=== PATIENT | female | born 1950 | race Caucasian/White ===

== ENCOUNTER 2019-01-17 07:36 | Outpatient (CLI) | payer MEDICARE, SELFPAY ==
--- NOTE | 2019-01-17 09:40 | MERGEMPI_ITS ---
*[facility]* *[facility]* [address] [place] [address] Myocardial Perfusion Imaging - SPECT Regadenoson Date of study: 01/17/2019 (Report amended ) *PATIENT PRESENTATION* Height: 166.4cm (65.5in) Blood Pressure: Weight: 113.6kg (250lb) BSA: 2.35m^2 Referring physician: Vahid Quevedo Ordering physician: Elizabeth Heller Impressions: - Abnormal study after pharmacologic stress. - Low risk of cardiac events, but higher compared to non-diabetics. Summary: 1. Myocardial perfusion imaging: There is a small sized, mildly intense defect involving the apical wall(s). This suggests small myocardial infarction in the distribution of the left anterior descending coronary artery versus artifact. 2. The calculated left ventricular ejection fraction after stress: 56%. LV global systolic function is normal. No left ventricular regional motion abnormality. 3. Stress ECG conclusions: The stress ECG is negative. Recommendations: Risk factor optimization. Indication: R07.9, Appropriate Use Criteria: A (Appropriate). History: REASON FOR TESTING: PATIENT REPORTS INTERMITTENT CHEST HEAVYNESS (9/10) OVER THE LAST FEW MONTHS. THESE EPISODES CAN HAPPEN 2 TIMES PER WEEK AND LAST FOR A FEW SECONDS TO ONE TO TWO MINUTES. SHE STATES SOMETIMES SHE WILL HAVE SHARP (9/10) EPIGASTRIC PAIN WITH THE CHEST HEAVYNESS. A FEW MONTHS AGO SHE EXPERIENCED ONE EPISODE OF LEFT JAW VISEGRIP LIKE FEELING. SHE DENIES CHEST PAIN/HEAVYNESS UPON ARRIVAL TO TESTING TODAY. SMOKING STATUS: QUIT 1999. SMOKED FOR 22 YEARS 1 PPD. EXERCISE ROUTINE: SEDENTARY LIFESTYLE. PMH: COPD. Risk factors: Family history of coronary artery disease. Hypertension. Diabetes mellitus. Obesity. Cholesterol: 156mg/dl. HDL: 50mg/dl. LDL: 95mg/dl. Triglycerides: 144mg/dl. ALLERGIES: IBUPROFEN. METAXALONE. ROFECOXIB. EXENATIDE. SHELLFISH. MARTINS PEPPER. MUSHROOM. MEDICATIONS: ASPIRIN 81 MG DAILY. LEVOTHYROXINE 75 MCG DAILY. VENTOLIN HFA 2 PUFFS Q 4HRS PRN. SYMBICORT 2 PUFFS BID. METHADONE 1 TAB BID. MAGNESIUM CHLORIDE 4 TABS DAILY. GLIMEPIRIDE 4 MG BID. ARTIFICIAL TEARS 2-4 DROPS PRN. FLUTICASONE PROPRIONATE 2 SPRAYS DAILY. TIOTROPIUM-OLODATEROL 2 PUFFS DAILY. BUPROPRION HCL 450 MG DAILY. LORAZAEPAM 0.5 MG DAILY PRN. METFORMIN 1000 MG BID. AMLODIPINE 10 MG DAILY. DULOXETINE 60 MG DAILY, ENALAPRIL MALEATE 2 TABS QAM. FLUCONAZOLE 150 MG. CLOBETASOL-EMOLLIENT 0.1 GM TOPICAL TID. CRANBERRY EXTRACT 200 MG DAILY PRN. DUCOSATE SODIUM 50 MG DAILY PRN. GLARGINE INSULIN 20 UNITS SQ HS. KETOCONAZOLE 2% SHAMPOO THREE TIMES PER WEEK. MOMETASONE 0.1% DAILY. NYSTATIN POWDER [id number] UNIT/GRAM BID. ATORVASTATIN 20 MG QHS. Imaging Technique: Protocol: Regadenoson. Acquisition: Gated SPECT; 1 day - rest/stress. The patient was imaged in the supine position. Attenuation correction used. Isotope administration: - Rest. Tc[99m]-sestamibi. Dose: 12.4mCi. Injection time: 10:15 AM. Injection to stress time: 00:45. - Stress. Tc[99m]-sestamibi. Dose: 36.8mCi. Injection time: 12:10 PM. 1-2 min before end of exercise Baseline ECG: SINUS BRADYCARDIA. 1ST DEGREE HEART BLOCK. HR 58 BPM. Sinus bradycardia with 1degrees AV block. Stress protocol: +--------+--+ + + !Stage !HR!BP (mmHg) !Comments ! +--------+--+ + + !Baseline!58!130/80 (97)! ! +--------+--+ + + !1 min !69!112/62 (79)!Inject Regadenoson.! +--------+--+ + + !3 min !67!120/62 (81)! ! +--------+--+ + + * Stress results: LEXISCAN STRESS TEST ENDED IN 7 MINUTES 7 SECONDS. NORMAL HEART RATE AND BLOOD PRESSURE RESPONSE TO LEXISCAN INJECTION. NO ECTOPY. NO ANGINA. NO SIGNIFICANT ST SEGMENT CHANGES. The rate-pressure product for the peak heart rate and blood pressure was 8040mm Hg/min. Stress ECG: The stress ECG is negative. Myocardial perfusion: Imaging information: gated. The image quality was good. Left ventricular size is normal. There is a small sized, mildly intense defect involving the apical wall(s). This suggests small myocardial infarction in the distribution of the left anterior descending coronary artery versus artifact. Ventricular Function (Wall Motion): The calculated left ventricular ejection fraction after stress: 56%. LV global systolic function is normal. No left ventricular regional motion abnormality. Study data: Vahid Quevedo MD supervised and was readily available during the procedure. This study was interpreted by [facility]. Study status: Routine. Consent: The risks, benefits, and alternatives to the procedure were explained to the patient and informed consent was obtained. Procedure: Initial setup. A baseline ECG was recorded. Surface ECG leads and manual cuff blood pressure measurements were monitored. Heart sounds: Normal. Lung sounds: Normal. Regadenoson stress test. Stress testing was performed, with regadenoson by intravenous bolus, for a total dose of 0.4mgover 10.00sec, followed by a 5ml saline flush. The infusion was terminated due to per protocol. Study completion: All catheters inserted during the procedure were removed. The patient tolerated the procedure well and was discharged from the lab. Discharge: The patient left the laboratory in stable condition. Birthdate: Patient birthdate: 1950. Sex: Gender: female. Study date: Study date: 01/17/2019. Study time: 00:01 AM. Signature Documentation: - The imaging portion of this study was interpreted by [facility] Advisor Vahid Quevedo MD. - The Stress ECG portion of this study was interpreted by Vahid Quevedo MD. Electronically signed by Vahid Quevedo 01/17/2019 15:05
== END 2019-01-17 07:56 ==
PROVIDERS: PCP Family Medicine; Visit Provider Family Medicine
DX: R07.89 Other chest pain (principal); R94.30 Abnormal result of cardiovascular function study, unspecified; I25.2 Old myocardial infarction; E03.9 Hypothyroidism, unspecified; E11.9 Type 2 diabetes mellitus without complications; Z79.4 Long term (current) use of insulin; I10 Essential (primary) hypertension; J44.9 Chronic obstructive pulmonary disease, unspecified; Z87.891 Personal history of nicotine dependence
CPT/HCPCS: 78452; 93016; 93018; 93017

== ENCOUNTER 2019-06-14 12:29 | Outpatient (REF) | payer MEDICARE, SELFPAY | END 2019-06-14 12:49 | LOC: LBN 12:29 | PROVIDERS: PCP Family Medicine; Visit Provider Family Medicine | DX: N39.0 Urinary tract infection, site not specified (principal) | CPT/HCPCS: 87077; 87086; 87186 ==

== ENCOUNTER → 2019-12-19 13:58 | Outpatient (BNVA) | payer MEDICARE, SELFPAY | PROVIDERS: PCP Family Medicine; Referring Provider Family Medicine; Visit Provider Nurse Practitioner Adult Health | DX: G56.21 Lesion of ulnar nerve, right upper limb (principal); J44.9 Chronic obstructive pulmonary disease, unspecified; E11.42 Type 2 diabetes mellitus with diabetic polyneuropathy; I11.0 Hypertensive heart disease with heart failure; I50.9 Heart failure, unspecified; Z79.4 Long term (current) use of insulin | CPT/HCPCS: 95908; 99203 ==

== ENCOUNTER 2020-04-21 00:45 | Outpatient (CLI) | payer MEDICARE, SELFPAY ==
--- NOTE | 2020-04-21 16:20 | DI.MAMMO_ITS ---
EXAM: MG MAMMO SCREENING CLINICAL HISTORY: screening TECHNIQUE: Bilateral full field digital CC and MLO mammographic images were obtained with 3D tomosyn thesis and utilizing computer aided detection (CAD). COMPARISON: Available for comparison. FINDINGS: Masses/Architectural Distortion: None seen. Microcalcifications: No suspicious pleomorphic-type are seen. Skin Thickening/Nipple Retraction: None. IMPRESSION: 1. No significant interval change with no specific features of malignancy noted. 2. Unless there is more urgent need, screening mammography is recommended, as per [employer] guidelines. BI-RADS Category 1 - Negative Breast Density - Category B - Scattered areas of fibroglandular density A negative radiographic report should not delay biopsy if a dominant or clinically suspicious mass is present. Up to ten percent of cancers are not identified on mammography. A negative report may reinforce clinical impression. Adenosis and dense breasts may obscure an underlying neoplasm. False positive reports average 6 to 10%. Patient will receive a letter notifying them of these results.
== END 2020-04-21 01:05 ==
PROVIDERS: PCP Family Medicine; Visit Provider Family Medicine
DX: Z12.31 Encounter for screening mammogram for malignant neoplasm of breast (principal)
CPT/HCPCS: 77063; 77067

== ENCOUNTER 2020-09-08 16:05 | Outpatient (REF) | payer MEDICARE, SELFPAY | END 2020-09-08 16:25 | LOC: NCHCN 16:05 | PROVIDERS: PCP Family Medicine; Visit Provider Physician Assistant | DX: N39.0 Urinary tract infection, site not specified (principal) | CPT/HCPCS: 87077; 87086; 87186 ==

== ENCOUNTER 2020-09-16 18:34 | Outpatient (REF) | payer MEDICARE, SELFPAY ==
[2020-09-16 21:12] LABS: Bilirubin Negative (Negative); Blood Trace-intact (Negative); Clarity Clear (Clear); Glucose Negative (Negative); Ketones Negative (Negative); Leukocyte Esterase Small (Negative); Nitrite Negative (Negative); Specific Gravity 1.025 (1.005-1.025); Urobilinogen 0.2 EU/dL (Up TO 0.2); pH 5.5 (5-8)
[2020-09-16 21:14] LABS: C & S Indicated? C&S Done As Ordered
[2020-09-16 21:30] LABS: Bacteria Few HPF (Negative); Crystals Negative HPF (Negative); Epithelial Cells Negative HPF (Negative); Mucus Negative (Negative); Other Cells Few Renal (Negative); RBC Negative HPF (0-2); WBC >50 HPF (0-5)
[2020-09-20 01:04] LABS: Patient Race White; SARS-CoV-2 RNA Undetected (Undetected); SARS-CoV-2 Specimen Source Nasal
== END 2020-09-16 18:54 ==
LOC: LBN 18:34
PROVIDERS: PCP Family Medicine; Visit Provider Physician Assistant
DX: N39.0 Urinary tract infection, site not specified (principal); R05 Cough
CPT/HCPCS: U0003; 81003; 81015; 87086

== ENCOUNTER 2020-09-17 07:10 | Outpatient (CLI) | payer MEDICARE, SELFPAY ==
[2020-09-17 08:23] LABS: Abs Immature Grans 0.06 10^3/uL (0.0-0.06); Absolute Eosinophil Count 0.42 10^3/uL (0.0-0.7); Absolute Lymphocyte Count 3.32 10^3/uL (1.2-3.4); Absolute Neutrophil Count 4.53 10^3/uL (1.2-6.7); Basophils % 1.1; Eosinophils % 4.6; HCT 42.1 % (36.0-46.0); HGB 13.8 g/dL (11.2-15.7); Immature Grans % 0.7; Lymphocytes % 36.4; MCH 29.5 pg (27.0-33.0); MCHC 32.8 % (32.0-36.0); MPV 9.6 fL (8.0-11.0); Monocytes % 7.7; Neutrophils % 49.5; Nucleated RBC 0 %; Platelet Count 372 10^3/uL (130-400); RBC 4.68 10^6/uL (3.93-5.22); RDW 13.5 % (11.7-14.6); RDW-SD 44.1 fL; WBC 9.13 10^3/uL (4.4-10.8)
[2020-09-17 09:36] LABS: ALT 49 U/L (14-59); AST 38 U/L (15-37); Albumin 3.5 g/dL (3.4-5.0); Alkaline Phosphatase 127 U/L (46-116); Anion Gap 12.7 mmol/L (3-11); BUN 16 mg/dL (7-18); Bilirubin, Total 0.6 mg/dL (0.2-1.0); CO2 25.3 mmol/L (21.0-32.0); CREATININE 0.98 mg/dL (0.55-1.02); Calcium 9.1 mg/dL (8.5-10.1); Chloride 104 mmol/L (98-107); Estimated GFR 56.11 (mL/min/1.73m2); Glucose 198 mg/dL (74-106); Sodium 142 mmol/L (136-145); Total Protein 7.4 g/dL (6.4-8.2)
== END 2020-09-17 07:30 ==
PROVIDERS: PCP Family Medicine; Visit Provider Physician Assistant
DX: R53.81 Other malaise (principal); R09.89 Other specified symptoms and signs involving the circulatory and respiratory systems; N39.0 Urinary tract infection, site not specified
CPT/HCPCS: 36410; 80053; 87040; 85025

== ENCOUNTER 2020-10-17 03:30 | Outpatient (CLI) | payer MEDICARE, SELFPAY ==
[2020-10-17 14:38] LABS: Abs Immature Grans 0.09 10^3/uL (0.0-0.06); Absolute Basophil Count 0.11 10^3/uL (0.0-0.2); Absolute Lymphocyte Count 3.04 10^3/uL (1.2-3.4); Absolute Monocyte Count 0.68 10^3/uL (0.1-0.8); Absolute Neutrophil Count 6.92 10^3/uL (1.2-6.7); Eosinophils % 2.7; HGB 13.4 g/dL (11.2-15.7); Immature Grans % 0.8; Lymphocytes % 27.3; MCH 28.6 pg (27.0-33.0); MCHC 31.9 % (32.0-36.0); MCV 89.7 fL (80-95); MPV 9.3 fL (8.0-11.0); Monocytes % 6.1; Neutrophils % 62.1; Nucleated RBC 0 %; Platelet Count 401 10^3/uL (130-400); RBC 4.68 10^6/uL (3.93-5.22); RDW 13.4 % (11.7-14.6); RDW-SD 43.6 fL; WBC 11.14 10^3/uL (4.4-10.8)
[2020-10-17 15:14] LABS: Anion Gap 9.1 mmol/L (3-11); BUN 20 mg/dL (7-18); CO2 25.9 mmol/L (21.0-32.0); CREATININE 1.08 mg/dL (0.55-1.02); Calcium 9.4 mg/dL (8.5-10.1); Chloride 103 mmol/L (98-107); Estimated GFR 50.01 (mL/min/1.73m2); Glucose 148 mg/dL (74-106); Potassium 4.6 mmol/L (3.5-5.1); Sodium 138 mmol/L (136-145); TSH 2.14 uIU/mL (0.36-3.74)
== END 2020-10-17 03:50 ==
PROVIDERS: PCP Family Medicine; Visit Provider Family Medicine
DX: R07.9 Chest pain, unspecified (principal); E78.5 Hyperlipidemia, unspecified; I10 Essential (primary) hypertension
CPT/HCPCS: 36415; 80048; 84443; 85025

== ENCOUNTER 2021-02-02 09:53 | Outpatient (CLI) | payer MEDICARE, SELFPAY ==
[2021-02-02 12:50] LABS: COMMENT (LAB VIEW ONLY) 124.98 mg/dL; Microalb ug/mg Crea 9.1 ug/mg Cr
[2021-02-02 12:54] LABS: ALT 58 U/L (14-59); AST 39 U/L (15-37); Albumin 3.3 g/dL (3.4-5.0); Alkaline Phosphatase 121 U/L (46-116); Anion Gap 7.5 mmol/L (3-11); BUN 17 mg/dL (7-18); Bilirubin, Total 0.7 mg/dL (0.2-1.0); CO2 28.5 mmol/L (21.0-32.0); Calcium 9.1 mg/dL (8.5-10.1); Calculated LDL 91 mg/dL (<100); Chloride 103 mmol/L (98-107); Cholesterol 171 mg/dL (<200); Estimated GFR 54.66 (mL/min/1.73m2); Glucose 223 mg/dL (74-106); HDL Cholesterol 52 mg/dL (40-60); Potassium 4.7 mmol/L (3.5-5.1); Sodium 139 mmol/L (136-145); Total Protein 7.1 g/dL (6.4-8.2); Triglyceride 141 mg/dL (<150)
== END 2021-02-02 09:54 | disposition home or self-care (01) ==
LOC: LOS 09:54
PROVIDERS: PCP Family Medicine; Visit Provider Family Medicine
DX: E11.9 Type 2 diabetes mellitus without complications (principal)
CPT/HCPCS: 36415; 80053; 80061; 82043; 82570; 83036

== ENCOUNTER 2021-07-17 02:43 | Outpatient (CLI) | payer MEDICARE, SELFPAY ==
[2021-07-17 15:09] LABS: Hemoglobin A1C 8.6 % (<5.7)
[2021-07-17 15:59] LABS: Anion Gap 10.2 mmol/L (3-11); BUN 15 mg/dL (7-18); CO2 24.8 mmol/L (21.0-32.0); CREATININE 1.1 mg/dL (0.55-1.02); Chloride 106 mmol/L (98-107); Estimated GFR 48.96 (mL/min/1.73m2); Glucose 263 mg/dL (74-106); Potassium 4.1 mmol/L (3.5-5.1); Sodium 141 mmol/L (136-145)
== END 2021-07-17 02:44 | disposition home or self-care (01) ==
LOC: LBO 02:43
PROVIDERS: PCP Family Medicine; Visit Provider Family Medicine
DX: E11.9 Type 2 diabetes mellitus without complications (principal)
CPT/HCPCS: 36415; 80048; 83036

== ENCOUNTER 2021-08-26 01:10 | Emergency (ER) | payer MEDICARE, SELFPAY ==
[2021-08-26 01:17] VITALS: BP 179/86; PULSE 71; RESP 20; TEMP 36.5; O2SAT 96
[2021-08-26 01:21] VITALS: BP 179/86; PULSE 70
[2021-08-26 01:47] LABS: Abs Immature Grans 0.08 10^3/uL (0.0-0.06); Absolute Eosinophil Count 0.03 10^3/uL (0.0-0.7); Absolute Lymphocyte Count 1.19 10^3/uL (1.2-3.4); Basophils % 0.6; Eosinophils % 0.2; HCT 45.2 % (36.0-46.0); HGB 14.2 g/dL (11.2-15.7); Immature Grans % 0.5; Lymphocytes % 7.1; MCH 28.7 pg (27.0-33.0); MCHC 31.4 % (32.0-36.0); MCV 91.5 fL (80-95); MPV 9.3 fL (8.0-11.0); Monocytes % 4.1; Neutrophils % 87.5; Nucleated RBC 0 %; Platelet Count 317 10^3/uL (130-400); RBC 4.94 10^6/uL (3.93-5.22); RDW 13.1 % (11.7-14.6); RDW-SD 44.3 fL; WBC 16.74 10^3/uL (4.4-10.8)
[2021-08-26 01:49] LABS: Absolute Monocyte Count 0.69 10^3/uL (0.1-0.8); Absolute Neutrophil Count 14.65 10^3/uL (1.2-6.7)
--- NOTE | 2021-08-26 01:59 | W.ED.GENAD ---
Discharge Plan Disposition Patient Disposition: HOME Condition: Stable Discharge Details Clinical Impression: Colitis Primary Care Provider: Elizabeth Heller ED Provider: Abrahan Jules Home Meds and New Rx's Prescriptions: New metronidazole 500 mg tablet 500 mg PO TID 7 Days Qty: 21 RF: 0 dicyclomine 10 mg capsule 10 mg PO TID PRN (Reason: pain) 5 Days Qty: 14 RF: 0 Continued meclizine 25 mg tablet 25 mg PO BID PRN (Reason: vertigo) Qty: 30 RF: 0 atorvastatin 80 mg tablet 80 mg PO DAILY Qty: 90 RF: 0 benzonatate [Tessalon Perles] 100 mg capsule 100 mg PO TID PRN (Reason: cough) Qty: 10 RF: 0 albuterol sulfate [Ventolin HFA] 8 GM HFA aerosol inhaler 2 puff Inhalation Q4H PRN Qty: 1 RF: 6 Slow-Mag 71.5 MG tablet,delayed release (DR/EC) 4 tab-cap PO DAILY Qty: 180 RF: 0 Artificial Tears([id number]) 30 ML drops 2 - 4 drp Ophthalmic TID PRNQty: 30 RF: 4 lorazepam 0.5 MG tablet 0.5 mg PO daily prn Qty: 30 RF: 0 Colace 50 mg capsule 50 mg PO DAILY PRNQty: 90 RF: 2 isosorbide mononitrate 60 mg tablet extended release 24 hr 60 mg PO DAILY Qty: 30 RF: 0 levothyroxine 100 mcg capsule 100 mcg PO DAILY Qty: 90 RF: 2 ketoconazole 2 % shampoo 1 applic TP .3 times a week Qty: 120 RF: 0 bupropion HCl 150 mg tablet extended release 24 hr 450 mg PO DAILY Qty: 270 RF: 4 enalapril maleate 20 mg tablet 40 mg PO QAM Qty: 180 RF: 4 metoprolol succinate 100 mg tablet extended release 24 hr 100 mg PO DAILY Qty: 90 RF: 4 duloxetine 60 mg capsule,delayed release(DR/EC) 60 mg PO DAILY Qty: 90 RF: 4 trazodone 50 mg tablet 50 mg PO QHS PRN (Reason: sleep) Qty: 90 RF: 1 metformin 1,000 mg tablet 1,000 mg PO BID Qty: 180 RF: 4 glimepiride 4 mg tablet 4 mg PO BID Qty: 180 RF: 4 chlorthalidone 25 mg tablet 12.5 mg PO DAILY Qty: 90 RF: 0 Lantus Solostar U-100 Insulin 100 unit/mL (3 mL) insulin pen 14 unit Sub-Q HS Qty: 15 RF: 2 liraglutide 0.6 mg/0.1 mL (18 mg/3 mL) pen injector 1.8 mg subcut DAILY Qty: 9 RF: 2 Discharge Instructions Instructions: Colitis (ED) Additional Instructions: Home to rest this evening. [place] diet and small, frequent sips of fluids to maintain hydration. Our care management team will arrange a follow-up for you in general surgery clinic as we discussed. Please take antibiotics as prescribed until finished. Bentyl as needed for crampy abdominal pain. Return to the emergency department for any acute concerns. Medical Decision Making 70-year-old female who is insulin-dependent diabetic presents from home with her . Approximate 630 she developed lower, crampy abdominal pain, had 3 bowel movements and noticed some blood in the third and looseness of the bowel movements. She had diaphoresis and appeared clammy at home. She vomited once as well. She rushed to the ER afebrile with a pulse in the 70s, with exam reveals tenderness over the left lower quadrant. Concern for diverticulitis versus colitis. Patient IV access established, given fluids, antiemetic, referred for CT images. White blood cell count is elevated at 16, hematocrit 45, platelets 317. Chemistries with reassuring electrolytes, BUN of 19, creatinine 1.6, glucose 283. Note of slight elevation of total bili at 1.4. LFTs otherwise unremarkable. CT images note fat stranding around the descending and sigmoid colon. Infectious, inflammatory, ischemic colitis considered. No evidence of bowel obstruction and no pneumatosis. Following fluids and medications, the patient is improved, requesting discharge to home. We will ask care management to arrange a follow-up for a general surgery clinic. I will place her on Flagyl and offer Bentyl to be used as needed at home. She understands indications to return to the ER for reevaluation. HPI General Mode of arrival: ambulatory. Date/Time Provider Initiated Documentation: 08/26/21 01:33. Limitations to Documentation: no limitations. Information obtained by: patient and family. History of Present Illness 70 year old F presents to the emergency department with the chief complaint of Lower abdominal pain and bloody diarrhea for hours, described as moderate, Quality is described as dull, and is localized to the abdomen. Patient reports no radiation. Patient started experiencing this hour(s) and it has been constant. No relieving factors improve symptom(s), No exacerbating factors reported . Patient notes loss of appetite and nausea/vomiting. Patient did receive the following treatments prior to arrival, none Related Data Home Medications Medication Instructions Recorded Confirmed albuterol sulfate [Ventolin HFA] 2 puff INHALATION Q4H PRN #1 08/25/16 08/26/21 inhaler Slow-Mag 4 tab-cap PO DAILY #180 tab-cap 02/27/17 08/26/21 Artificial Tears([id number]) 2 - 4 drp OPHTHALMIC TID PRN #30 ml 10/10/17 08/26/21 lorazepam 0.5 mg PO daily prn #30 tab-cap 03/01/18 08/26/21 docusate sodium 50 mg capsule 50 mg PO DAILY PRN #90 tab-cap 08/09/18 08/26/21 isosorbide mononitrate 60 mg 60 mg PO DAILY #30 tab 03/04/19 08/26/21 tablet,extended release 24 hr levothyroxine 100 mcg capsule 100 mcg PO DAILY #90 cap 08/07/19 08/26/21 ketoconazole 2 % shampoo 1 applic TP .3 times a week #120 ml 12/16/19 08/26/21 meclizine 25 mg tablet 25 mg PO BID PRN #30 tab 04/02/20 08/26/21 benzonatate 100 mg capsule 100 mg PO TID PRN #10 cap 09/16/20 08/26/21 bupropion HCl 150 mg 24 hr tablet, 450 mg PO DAILY #270 tab-cap 10/14/20 08/26/21 extended release enalapril maleate 20 mg tablet 40 mg PO QAM #180 tab-cap 10/14/20 08/26/21 metoprolol succinate 100 mg 100 mg PO DAILY #90 tab 10/14/20 08/26/21 tablet,extended release 24 hr duloxetine 60 mg capsule,delayed 60 mg PO DAILY #90 tab-cap 10/16/20 08/26/21 release trazodone 50 mg tablet 50 mg PO QHS PRN #90 tab 10/16/20 08/26/21 atorvastatin 80 mg tablet 80 mg PO DAILY #90 tab 11/02/20 08/26/21 metformin 1,000 mg tablet 1,000 mg PO BID #180 tab-cap 01/09/21 08/26/21 glimepiride 4 mg tablet 4 mg PO BID #180 tab-cap 02/23/21 08/26/21 chlorthalidone 25 mg tablet 12.5 mg PO DAILY #90 tab 03/04/21 08/26/21 insulin glargine 100 unit/mL (3 14 unit SUB-Q HS #15 ml 08/03/21 08/26/21 mL) subcutaneous pen liraglutide 0.6 mg/0.1 mL (18 mg/3 1.8 mg SUBCUT DAILY #9 ml 08/03/21 08/26/21 mL) subcutaneous pen injector dicyclomine 10 mg PO TID PRN 5 Days #14 cap 08/26/21 metronidazole 500 mg PO TID 7 Days #21 tab 08/26/21 Previous Rx's Medication Instructions Recorded lorazepam 0.5 mg PO daily prn #30 tab-cap 03/01/18 isosorbide mononitrate 60 mg 60 mg PO DAILY #30 tab 03/04/19 tablet,extended release 24 hr levothyroxine 100 mcg capsule 100 mcg PO DAILY #90 cap 08/07/19 ketoconazole 2 % shampoo 1 applic TP .3 times a week #120 ml 12/16/19 meclizine 25 mg tablet 25 mg PO BID PRN #30 tab 04/02/20 benzonatate 100 mg capsule 100 mg PO TID PRN #10 cap 09/16/20 bupropion HCl 150 mg 24 hr tablet, 450 mg PO DAILY #270 tab-cap 10/14/20 extended release enalapril maleate 20 mg tablet 40 mg PO QAM #180 tab-cap 10/14/20 metoprolol succinate 100 mg 100 mg PO DAILY #90 tab 10/14/20 tablet,extended release 24 hr duloxetine 60 mg capsule,delayed 60 mg PO DAILY #90 tab-cap 10/16/20 release trazodone 50 mg tablet 50 mg PO QHS PRN #90 tab 12/17/20 atorvastatin 80 mg tablet 80 mg PO DAILY #90 tab 11/02/20 metformin 1,000 mg tablet 1,000 mg PO BID #180 tab-cap 01/09/21 glimepiride 4 mg tablet 4 mg PO BID #180 tab-cap 02/23/21 chlorthalidone 25 mg tablet 12.5 mg PO DAILY #90 tab 03/04/21 insulin glargine 100 unit/mL (3 14 unit SUB-Q HS #15 ml 08/03/21 mL) subcutaneous pen liraglutide 0.6 mg/0.1 mL (18 mg/3 1.8 mg SUBCUT DAILY #9 ml 08/03/21 mL) subcutaneous pen injector dicyclomine 10 mg PO TID PRN 5 Days #14 cap 08/26/21 metronidazole 500 mg PO TID 7 Days #21 tab 08/26/21 Allergies Allergy/AdvReac Type Severity Reaction Status Date / Time shellfish derived Allergy Severe Anaphylaxis Unverified 08/26/21 01:28 ibuprofen Allergy Mild Unverified 08/26/21 01:28 metaxalone Allergy Unverified 08/26/21 01:28 rofecoxib Allergy Unverified 08/26/21 01:28 exenatide [From [place]] AdvReac GI Upset Unverified 08/26/21 01:28 adams pepper Allergy Severe Anaphylaxis Uncoded 08/26/21 01:28 mushrooms Allergy Uncoded 08/26/21 01:28 General Stated Complaint: Abd Prob JULIET: 3 Review of Systems Narrative: 6 systems reviewed and otherwise negative. [facility] Medical History Brachial plexus neuropathy Cervical spinal stenosis MRI 03/2013; Severe left C5-6 and moderate left C3-4 stenosis; multilevel DDD 06/12-[facility] Chronic obstructive lung disease (07/16/13) Dr. PINK/ PFT'S 08/09 Quit smoking 2000 Chronic pain syndrome (10/27/12) on METHADONE; [facility] ; Shana Vaz- visit:12-06-2016 q 4 weeks (left neck and shoulder pain) Coronary artery disease Cubital tunnel syndrome on right Degenerative disc disease lumbar facet hypertrophy L4-5; L5-S1; MRI 07/2009 lumbar spondylosis Depressive disorder Diabetes mellitus [facility] insulin Lantus started/Coreen Bilotta [facility] endo. D.Bilotta/ uncontrolled db. /HbA1c 8.7; increase Glimepiride 4 bid/fup 6 mo. FOLLOWED AT [facility]/LABS INCLUDED Diabetic peripheral neuropathy Diastolic heart failure (12/02/09) MILD; echo 12/10-dysfunction, echo 2013 DNI (do not intubate) DNR (do not resuscitate) Essential hypertension (08/15/13) History of tobacco use Hyperlipidemia Hypothyroidism (04/17/13) [facility]; same rx/D.Bilotta [employer] Kidney stone Osteopenia (09/29/03) POLST (Physician Orders for Life-Sustaining Treatment) Recurrent urinary tract infection Shoulder pain left;2010- S/P supraclavicular lipoma removal; S/P neuroma 1988 [id number]. degenerative cervical spondylosis Urinary, incontinence, stress female Surgical History Cholecystectomy (~2000) History of bladder repair surgery History of hernia repair History of surgical procedure History of umbilical hernia repair (07/12/16) History of unilateral oophorectomy Hysterectomy, Laproscopic (~1985) Oophrectomy, Left (~1998) PROCEDURES BLADDER REPAIR NEC, 1985 URETEROSCOPY, 2002 multiple kidney stones PERIPH GANGLIONECT NEC left ABD REPAIR-DIAPHR HERNIA Repair of inguinal hernia RIGHT Repair of umbilical hernia (06/04/16) [facility] Status post cholecystectomy Status post laparoscopic hysterectomy Family History Mother , 85 Essential hypertension Heart disease Hyperlipidemia Father Essential hypertension Personal history of malignant neoplasm MELANOMA Heart disease Hyperlipidemia Stroke Sister Diabetes Brother Stroke Grandfather Heart disease Grandfather Stroke Grandmother Personal history of malignant neoplasm BREAST/UTERINE Heart disease Grandmother No problems noted. Sister No problems noted. Sister No problems noted. Sister No problems noted. Brother No problems noted. Brother No problems noted. Son No problems noted. Son No problems noted. Social History Smoking/Tobacco Use Status: Former Tobacco Use Smoking risk assessment performed?: Yes Alcohol Intake: current Alcohol Intake frequency: holidays/special occasions only Drug use: Never Substance use type: does not use Household members: spouse Housing: house Number of Children: 3 Pets and animals: No What is your relationship status?: Panel score (0-1 are the most socially isolated patients): 1 What type of physical activity do you participate in: none Chely/Mu-Ism: Judaism Special chely needs: No Seatbelt use: always Do you feel safe at home: Yes Do you feel safe in your relationship?: Yes Exam Narrative Exam Narrative: GEN: awake, alert, oriented 3. Pleasant, well groomed, interactive. HEAD: Normocephalic, atraumatic ENT: Mucous membranes moist, oropharynx unremarkable, External ear exam unremarkable EYES: PERRL, EOMI NECK: Full ROM, no ERIK, no menigismus CHEST/RESP: Nontender, clear to auscultation bilateral, no wheeze/rhonchi/rales CARDIOVASCULAR: RRR, no murmur, rub jerry. 2+ Rad pulse bilateral ABDOMEN: Soft, tender primarily to palpation of left lower quadrant, no mass. +Bowel sounds EXT: Full ROM, no edema, no rash Neuro: Grossly normal neurologic exam, conversant, interactive. Psych: Speech fluent, thoughts congruent, affect normal Course Vital Signs Vital signs: Vital Signs Temperature 36.5 C 08/26/21 01:17 Pulse 71 08/26/21 01:17 Respiratory Rate 20 08/26/21 01:17 Blood Pressure 179/86 H 08/26/21 01:17 Pulse Oximetry 96 08/26/21 01:17 Temperature 36.5 C 08/26/21 01:17 Temperature Source Temporal Artery Scan 08/26/21 01:17 Pulse 71 08/26/21 01:17 Respiratory Rate 20 08/26/21 01:17 Respiratory Effort Non-Labored 08/26/21 01:29 Blood Pressure 179/86 H 08/26/21 01:17 Blood Pressure Position Sitting 08/26/21 01:17 Pulse Oximetry 96 08/26/21 01:17 Oxygen Delivery Method Room Air 08/26/21 01:17 Oxygen Flow Rate 0 08/26/21 01:17 Pain Level 8 08/26/21 01:17 Lab/Test Results Lab/Test Results: Laboratory Tests Range/Units 08/26/21 01:40 WBC (4.4-10.8) 10^3/uL 16.74 H RBC (3.93-5.22) 10^6/uL 4.94 Hgb (11.2-15.7) g/dL 14.2 Hct (36.0-46.0) % 45.2 MCV (80-95) fL 91.5 MCH (27.0-33.0) pg 28.7 MCHC (32.0-36.0) % 31.4 L RDW (11.7-14.6) % 13.1 Plt Count (130-400) 10^3/uL 317 MPV (8.0-11.0) fL 9.3 Immature Gran % 0.5 Neutrophils % 87.5 Lymphocytes % 7.1 Monocytes % 4.1 Eosinophils % 0.2 Basophils % 0.6 Nucleated RBC % % 0 Absolute Neutrophils (1.2-6.7) 10^3/uL 14.65 H Absolute Lymphocytes (1.2-3.4) 10^3/uL 1.19 L Absolute Monocytes (0.1-0.8) 10^3/uL 0.69 Absolute Eosinophils (0.0-0.7) 10^3/uL 0.03 Absolute Basophils (0.0-0.2) 10^3/uL 0.10
--- NOTE | 2021-08-26 02:00 | DI.CT_ITS ---
Exam(s) CT ABDOMEN PELVIS WO EXAM: CT ABDOMEN PELVIS WO CLINICAL HISTORY: lower abd pain and hematochezia. LLQ. TECHNIQUE: Imaging Protocol: Axial computed tomography images with coronal and sagittal reformatted images were created and reviewed CONTRAST MATERIAL: Intravenous: none Oral: None COMPARISON: No exams were available for comparison FINDINGS: VISUALIZED LUNG BASES: Mild infiltrate in the inferior lingular segment of the left lung. There are no pleural effusions.. ABDOMEN: There is no ascites. LIVER: There are no obvious focal hepatic lesions evident of this noninfused study. GALLBLADDER/BILIARY: The gallbladder surgically absent. CBD is not dilated. PANCREAS: There are few punctate parenchymal calcifications in the pancreas. No obvious pancreatic m ass evident on this noninfused study. No dilatation pancreatic duct. No peripancreatic fluid or str eaking. SPLEEN: Spleen is not enlarged. No obvious intrasplenic lesions. ADRENALS: There are no significant adrenal masses. KIDNEYS:There is a nonobstructive 3-4 millimeter calculus in the inferior pole of left kidney and the re is a punctate nonobstructive calculus the midpole level the right kidney. No cyst or solid renal masses. No perinephric fluid.. ABDOMINAL AORTA: Peripherally calcified abdominal aorta. Mild infrarenal fusiform dilatation measuri ng 2.2 cm. LYMPH NODES: There is no retroperitoneal nor paraaortic adenopathy. ABDOMINAL WALL: There is anterior abdominal wall umbilical hernia mesh repair. No hernia evident at this time. No abnormal fluid collection. GI: A large segment of the sigmoid appears unremarkable. There are no obvious diverticuli but there is abnormal streaking around the: At and below the splenic flexure, this extending to just above the rectum most probably consistent with colitis pattern. There is no gas in the portal venous system. PELVIS: LYMPH NODES: There is no intrapelvic nor inguinal adenopathy. GI: No evidence of appendicitis.As above URINARY BLADDER: Collapsed. REPRODUCTIVE: Uterus surgically absent. No abnormal adnexal masses. No free fluid in the pelvis. OSSEOUS: No significant osseous lesions. IMPRESSION: 1. Main finding here is abnormal appearance of the left side of the colon-descending colon and sigmoi d, as described above. Either infectious, inflammatory or ischemic. There is no gas in the portal v enous system. Cannot assess mesenteric arteries here as there is no IV contrast on this study. Ther e is no evidence of bowel obstruction. 2. There is evidence of previous cholecystectomy and hysterectomy. Also prior anterior abdominal her ruben repair. Presently there are no hernias nor abnormal fluid collections. 3. There are multiple punctate pancreatic calcifications. No evidence of acute pancreatitis. No yovanny dence of peripancreatic streaking. No pancreatic mass. No dilatation pancreatic duct. RADIATION DOSE DELIVERED: 1,391.69mGy.cm Total DLP DATA REPOSITORY: All CT scans at this facility are submitted to the National Radiology Data Registry (NRDR) Dose Index Registry (DIR) with the [employer] (ACR). RADIATION OPTIMIZATION: All CT scans at this facility use at least one of these dose optimization te chniques: automated exposure control; mA and/or kV adjustment per patient size (includes targeted exa ms where dose is matched to clinical indication); or iterative reconstruction.
[2021-08-26 02:02] LABS: ALT 46 U/L (14-59); AST 43 U/L (15-37); Albumin 3.7 g/dL (3.4-5.0); Alkaline Phosphatase 118 U/L (46-116); Anion Gap 13.8 mmol/L (3-11); BUN 19 mg/dL (7-18); Bilirubin, Total 1.4 mg/dL (0.2-1.0); CO2 23.2 mmol/L (21.0-32.0); CREATININE 1.6 mg/dL (0.55-1.02); Calcium 9.2 mg/dL (8.5-10.1); Chloride 103 mmol/L (98-107); Estimated GFR 31.78 (mL/min/1.73m2); Glucose 283 mg/dL (74-106); Magnesium 1.5 mg/dL (1.8-2.4); Potassium 4.4 mmol/L (3.5-5.1); Sodium 140 mmol/L (136-145); Total Protein 7.8 g/dL (6.4-8.2)
[2021-08-26] MEDS: Normal Saline 1,000 ML 125 ML IV (02:40)
[2021-08-26] MEDS: Ondansetron 4 MG/2 ML VIAL IVP (02:44)
--- NOTE | 2021-08-26 03:07 | DI.VRAD_ITS ---
PROCEDURE INFORMATION: Exam: CT Abdomen And Pelvis Without Contrast Exam date and time: 08/26/2021 2:07 AM Age: 70 years old Clinical indication: Abdominal pain; Localized; Left lower quadrant (llq); Prior surgery; Surgery date: 6+ months; Surgery type: Hysterectomy and cholecystectomy; Patient HX: Lower abd pain and hematochezia. Llq TECHNIQUE: Imaging protocol: Computed tomography of the abdomen and pelvis without contrast. Radiation optimization: All CT scans at this facility use at least one of these dose optimization techniques: automated exposure control; mA and/or kV adjustment per patient size (includes targeted exams where dose is matched to clinical indication); or iterative reconstruction. COMPARISON: No relevant prior studies available. FINDINGS: Lungs: Mild atelectasis or scar tissue noted in the inferior lingula. Liver: Unremarkable noncontrast liver imaging. Gallbladder and bile ducts: Cholecystectomy clips. Pancreas: Scattered pancreatic calcifications. Pancreatic duct is not dilated. No acute inflammatory changes. Spleen: Normal. No splenomegaly. Adrenal glands: Normal. No mass. Kidneys and ureters: Negative for hydronephrosis. Nonobstructive 4 mm stone inferior left kidney. Nondilated ureters. Stomach and bowel: Unremarkable stomach. Nondilated small bowel. Normal terminal ileum. Cecum, ascending, and transverse colon are normal. Fat stranding present around the descending and sigmoid colon. Lumen is collapsed. There is no air within the elizabeth. Distal sigmoid colon is closely apposed and may be adherent to the vaginal cuff. Rectum is unremarkable. Appendix: Normal appendix. Intraperitoneal space: Negative for free fluid or free air. Negative for mesenteric venous gas. Vasculature: Negative for aneurysm. Moderate arteriosclerotic calcifications. Lymph nodes: Unremarkable. No enlarged lymph nodes. Urinary bladder: Collapsed urinary bladder. No stones. Reproductive: Uterus is absent. Negative for adnexal mass or cyst. Bones/joints: Negative for compression fracture. Moderate multilevel facet arthropathy. Soft tissues: Unremarkable. IMPRESSION: 1. Abnormal descending and sigmoid colon. Infectious, inflammatory, or ischemic colitis considered. 2. Negative for mesenteric venous gas or pneumatosis. 3. Negative for bowel obstruction. Dictated and Authenticated by: Iván Lee MD. Ordering:YEYO Gauthier MD
[2021-08-26] MEDS: HYDROmorphone 2 MG/ML VIAL 0.5 MG IVP (03:29)
[2021-08-26] MEDS: metroNIDAZOLE 500 MG/100 ML BAG 100 MG IVPB (03:29)
[2021-08-26 03:46] LABS: Bilirubin Negative (Negative); Blood Trace-intact (Negative); Clarity Sl Cloudy (Clear); Glucose 500 mg/dL (Negative); Ketones Trace mg/dL (Negative); Leukocyte Esterase Small (Negative); Nitrite Negative (Negative); Urobilinogen 0.2 EU/dL (Up TO 0.2)
[2021-08-26 04:07] LABS: Bacteria Few HPF (Negative); C & S Indicated? No/Sq. Contamination; Casts Negative LPF (Negative); Crystals Negative HPF (Negative); Epithelial Cells Moderate HPF (Negative); Mucus Negative (Negative); Other Cells Few Transitional (Negative)
[2021-08-26 04:36] VITALS: O2SAT 92
[2021-08-26 04:37] VITALS: BP 198/88; PULSE 75
[2021-08-26 04:39] VITALS: BP 191/73; PULSE 75
--- NOTE | 2021-08-27 11:12 | PDOC.ERCMPRO ---
- If Service Date Differs Date of service: 08/27/21 Time of Service: 11:12 Care Management Progress Note Wanda is seen in the ED for colitis. At the request of ED provider, CM coordinates a referral to [facility] to assist patient in obtaining a follow up appointment.
== END 2021-08-26 04:43 | disposition home or self-care (01) ==
PROVIDERS: Emergency Provider Emergency Medicine; PCP Family Medicine
DX: K52.9 Noninfective gastroenteritis and colitis, unspecified (principal); R10.32 Left lower quadrant pain; K92.1 Melena
CPT/HCPCS: 36415; 80053; 96361; 96365; 96375; 99284; 74176; 81003; 81015; 83735; 85025; J2405

== ENCOUNTER → 2021-10-12 12:49 | Outpatient (BNVA) | payer MEDICARE, SELFPAY | PROVIDERS: Referring Provider Family Medicine; Visit Provider Surgery | DX: K62.5 Hemorrhage of anus and rectum (principal); J44.9 Chronic obstructive pulmonary disease, unspecified; K52.9 Noninfective gastroenteritis and colitis, unspecified; E11.42 Type 2 diabetes mellitus with diabetic polyneuropathy; I10 Essential (primary) hypertension; I50.30 Unspecified diastolic (congestive) heart failure | CPT/HCPCS: 99214; 99243 ==

== ENCOUNTER 2021-10-15 02:41 | Outpatient (CLI) | payer MEDICARE, SELFPAY ==
[2021-10-15] MEDS: Inhaler, Assist Device 1 EACH MC (13:41)
[2021-10-15] MEDS: Albuterol HFA 18 GM 200 PUFF INH IH (13:41)
--- NOTE | 2021-10-16 13:56 | W.PFT ---
Date of service: 10/15/21 Time of Service: 12:58 Pulmonary Function Test Result Requesting Provider Elizabeth Heller Indications: Dyspnea on exertion Interpretation Spirometry: There is moderate airflow limitation. There is a very significant bronchodilator response. Impression Moderate airflow limitation with a significant bronchodilator response. Clinical Correlation therefore is recommended.
== END 2021-10-15 02:42 | disposition home or self-care (01) ==
LOC: RT 02:41
PROVIDERS: Visit Provider Family Medicine
DX: J44.9 Chronic obstructive pulmonary disease, unspecified (principal); R06.09 Other forms of dyspnea; R05.8 Other specified cough; Z87.891 Personal history of nicotine dependence; Z57.4 Occupational exposure to toxic agents in agriculture; R94.2 Abnormal results of pulmonary function studies
CPT/HCPCS: 94060

== ENCOUNTER 2021-10-16 03:16 | Outpatient (CLI) | payer MEDICARE, SELFPAY ==
[2021-10-16 11:23] LABS: Abs Immature Grans 0.03 10^3/uL (0.0-0.06); Absolute Basophil Count 0.13 10^3/uL (0.0-0.2); Absolute Eosinophil Count 0.44 10^3/uL (0.0-0.7); Absolute Lymphocyte Count 2.51 10^3/uL (1.2-3.4); Absolute Monocyte Count 0.69 10^3/uL (0.1-0.8); Absolute Neutrophil Count 4.37 10^3/uL (1.2-6.7); Basophils % 1.6; Eosinophils % 5.4; HGB 13.6 g/dL (11.2-15.7); Immature Grans % 0.4; Lymphocytes % 30.7; MCHC 31.6 % (32.0-36.0); MCV 91.7 fL (80-95); MPV 8.9 fL (8.0-11.0); Monocytes % 8.4; Neutrophils % 53.5; Nucleated RBC 0 %; Platelet Count 352 10^3/uL (130-400); RBC 4.69 10^6/uL (3.93-5.22); RDW 12.8 % (11.7-14.6); RDW-SD 42.9 fL; WBC 8.17 10^3/uL (4.4-10.8)
[2021-10-16 11:36] LABS: Hemoglobin A1C 8.2 % (<5.7)
[2021-10-16 12:26] LABS: COMMENT (LAB VIEW ONLY) 173.54 mg/dL; Microalb ug/mg Crea 6.4 ug/mg Cr
[2021-10-16 12:29] LABS: ALT 36 U/L (14-59); AST 31 U/L (15-37); Albumin 3.5 g/dL (3.4-5.0); Alkaline Phosphatase 139 U/L (46-116); Anion Gap 9.2 mmol/L (3-11); BUN 19 mg/dL (7-18); Bilirubin, Total 0.9 mg/dL (0.2-1.0); CO2 27.8 mmol/L (21.0-32.0); CREATININE 1.1 mg/dL (0.55-1.02); Calcium 9.6 mg/dL (8.5-10.1); Chloride 103 mmol/L (98-107); Estimated GFR 48.82 (mL/min/1.73m2); Ferritin 47 ng/mL (8-252); Glucose 228 mg/dL (74-106); Magnesium 1.4 mg/dL (1.8-2.4); Potassium 4.2 mmol/L (3.5-5.1); Sodium 140 mmol/L (136-145); Total Protein 7.5 g/dL (6.4-8.2)
[2021-10-16 12:31] LABS: Iron 72 ug/dL (50-170); Total Iron Binding Capacity 325 ug/dL (250-450); Transferrin Sat 22 % (15-50)
[2021-10-16 12:41] LABS: C-Reactive Protein 0.21 mg/dL (0.0-0.3)
== END 2021-10-16 03:17 | disposition home or self-care (01) ==
LOC: LBO 03:16
PROVIDERS: Family Medicine; Visit Provider Surgery
DX: E83.42 Hypomagnesemia (principal); E03.9 Hypothyroidism, unspecified; E11.42 Type 2 diabetes mellitus with diabetic polyneuropathy; E78.5 Hyperlipidemia, unspecified; I10 Essential (primary) hypertension; I25.10 Atherosclerotic heart disease of native coronary artery without angina pectoris; J44.9 Chronic obstructive pulmonary disease, unspecified; K52.9 Noninfective gastroenteritis and colitis, unspecified; K76.0 Fatty (change of) liver, not elsewhere classified; K62.5 Hemorrhage of anus and rectum
CPT/HCPCS: 36415; 80053; 82043; 82570; 82728; 83036; 83540; 83550; 83735; 85025; 86140

== ENCOUNTER → 2022-01-14 09:54 | Outpatient (BNVA) | payer MEDICARE, SELFPAY | PROVIDERS: Visit Provider Physical Therapy Assistant | DX: Z12.11 Encounter for screening for malignant neoplasm of colon (principal) ==

== ENCOUNTER 2022-01-20 01:36 | Outpatient (CLI) | payer MEDICARE, SELFPAY ==
[2022-01-20 11:38] LABS: Source Nasal/Nares
[2022-01-20 21:56] LABS: COVID-19 PCR Negative (Negative)
== END 2022-01-20 01:37 | disposition home or self-care (01) ==
LOC: LBO 01:36
PROVIDERS: Visit Provider Surgery
DX: Z20.822 Contact with and (suspected) exposure to COVID-19 (principal)
CPT/HCPCS: 87635; U0005

== ENCOUNTER 2022-01-20 02:48 | Outpatient (CLI) | payer MEDICARE, SELFPAY ==
[2022-01-20 16:28] LABS: Anion Gap 7.7 mmol/L (3-11); BUN 22 mg/dL (7-18); CO2 29.3 mmol/L (21.0-32.0); CREATININE 1.2 mg/dL (0.55-1.02); Chloride 102 mmol/L (98-107); Estimated GFR 44.16 (mL/min/1.73m2); Glucose 126 mg/dL (74-106); Potassium 4.5 mmol/L (3.5-5.1); Sodium 139 mmol/L (136-145)
== END 2022-01-20 02:49 | disposition home or self-care (01) ==
LOC: LBO 02:48
PROVIDERS: Visit Provider Surgery
DX: E11.42 Type 2 diabetes mellitus with diabetic polyneuropathy (principal); I10 Essential (primary) hypertension; E03.9 Hypothyroidism, unspecified; E78.5 Hyperlipidemia, unspecified; I25.10 Atherosclerotic heart disease of native coronary artery without angina pectoris
CPT/HCPCS: 36415; 80048; 87635; U0005

== ENCOUNTER 2022-01-22 06:12 | Day surgery (SDC) | payer MEDICARE, SELFPAY ==
--- NOTE | 2022-01-21 10:01 | W.COLOREPORT ---
Colonoscopy Report Date of procedure: 01/22/22 Pre-op diagnosis general: abdominal pain and bloody diarrhea Post-op diagnosis procedure note: other (diverticula) Surgeon: Yeny Clarke Anesthesia Type: General:No Airway Complications: None Disposition: same day Procedure Description: After informed consent was obtained the patient was taken to the procedure room and placed in a left decubitous position. Monitors were applied and a time out was done. The patients name, date of , procedure, allergies to medications and metal in their body was reviewed. The patient was then sedated. Once sedated and comfortable a rectal exam was done. External exam shows external hemorrhoidal tag. Internal exam revealed a normal sphincter tone and no palpable masses. The scope was then introduced and retrofelexed. No internal hemorrhoids were identified. The scope was then advanced to the cecum withoutdifficulty. The TI and appendiceal orifice were identified. The prep was BBPS-2 in all segments for a total of 6 the scope was then slowly retracted over 9 minutes back into the rectum. There are no polyps or AVMs noted. There are a few small scattered diverticula. There is no signs of active bleeding or infection. The mucosa appears somewhat pale and anemic. But it is otherwise normal. There are no polyps or masses. There is a area of submucosal irregularity at 20 cm and this was biopsied. Random biopsies are taken of the cecum, 70, 50, 30 cm in the rectum. Te scope was removed and the patient was woken up and taken back to Same day surgery in stable condition. The patient tolerated the procedure well and there were no immediate complications. Follow up: The patient does not require any further screening colonoscopies, unless they develop changes in bowel habits or other new gastrointestinal complaints.
--- NOTE | 2022-01-21 10:01 | W.PM.DSUDISC ---
Discharge Plan Disposition Patient Disposition: HOME Condition: Good Discharge Details Reason For Visit: colon scope Attending Provider: Yeny Clarke Primary Care Provider: Savannah Guerra Home Meds and New Rx's Prescriptions: Continued meclizine 25 mg tablet 25 mg PO BID PRN (Reason: vertigo) Qty: 30 0RF Spiriva Respimat 2.5 mcg/actuation mist 2 puff inhalation DAILY Qty: 4 12RF budesonide-formoterol [Symbicort] 160-4.5 mcg/actuation HFA aerosol inhaler 2 puff inhalation BID Qty: 10.2 12RF atorvastatin 80 mg tablet 80 mg PO DAILY Qty: 90 0RF Rx Instructions: per cardiology [facility] - not sent Slow-Mag 71.5 MG tablet,delayed release (DR/EC) 4 tab-cap PO DAILY Qty: 180 0RF lorazepam 0.5 MG tablet 0.5 mg PO daily prn Qty: 30 0RF Colace 50 mg capsule 50 mg PO DAILY PRNQty: 90 2RF trazodone 50 mg tablet 50 mg PO QHS PRN (Reason: sleep) Qty: 90 1RF metformin 1,000 mg tablet 1,000 mg PO BID Qty: 180 4RF glimepiride 4 mg tablet 4 mg PO BID Qty: 180 4RF chlorthalidone 25 mg tablet 12.5 mg PO DAILY Qty: 90 0RF Rx Instructions: [facility] endocrinology started 02/25/21/ not sent bupropion HCl 150 mg tablet extended release 24 hr 450 mg PO DAILY Qty: 270 4RF enalapril maleate 20 mg tablet 40 mg PO QAM Qty: 180 4RF Lantus Solostar U-100 Insulin 100 unit/mL (3 mL) insulin pen 14 unit Sub-Q HS Qty: 15 2RF levothyroxine 100 mcg capsule 100 mcg PO DAILY Qty: 90 3RF Rx Instructions: take one tablet daily metoprolol succinate 100 mg tablet extended release 24 hr 100 mg PO DAILY Qty: 90 4RF (DME) pen needle, diabetic [BD Ultra-Fine Mini Pen Needle] 31 gauge x 3/16 needle See Rx Instructions .ROUTE .MEDSUPPLY Qty: 300 3RF Rx Instructions: Insulin adm. BID: E11.9 liraglutide 0.6 mg/0.1 mL (18 mg/3 mL) pen injector 1.8 mg subcut DAILY Qty: 9 6RF duloxetine 60 mg capsule,delayed release(DR/EC) 60 mg PO HS 0RF Discontinued bisacodyl [Dulcolax (bisacodyl)] 5 mg tablet,delayed release (DR/EC) 5 mg PO ONCE Qty: 4 0RF Rx Instructions: Take according to provider's instructions for colonoscopy prep. polyethylene glycol 3350 17 gram/dose powder 17 g PO ONCE Qty: 238 0RF Rx Instructions: To be taken as directed by prescriber's office for colonoscopy prep. Discharge Instructions Additional Instructions: DSU Colonoscopy Post-Op Instructions Instructions for Everyone who is given Anesthesia: For your safety, please do the following for the next twenty-four (24) hours: *Do Not operate a motor vehicle (car, truck, motorcycle, etc.) *Do Not drink alcoholic beverages or use any recreational drugs for the first 24 hours or while taking pain medications. The medications in your body may have a reaction that can be dangerous. *Do Not make any important decisions or sign any important papers. Findings:normal Biopsies were done Follow up: My office will send a copy of the biopsy report in 2 to 3 weeks time. 1. No lifting over 20 pounds or strenuous activity for the first 24 hours after your procedure. After 24 hours there are no restrictions on your activity but you may feel fatigued for a few days. 2. After you arrive home you may have a light meal and return to your normal diet as you can tolerate it without feeling sick to your stomach. 3. You may have a bloated, gaseous feeling in your belly (abdomen) after a colonoscopy. Passing gas and belching will help. Walking or lying down on your left side with your knees flexed may relieve the discomfort. Call the office at [phone] (Office) or [phone] (Hospital) right away if you notice any of the following: a.Vomiting of blood or ?coffee ground stools?. b.Rectal bleeding 1Tbsp, blood clots or continuous bleeding. c.Severe belly (abdominal) pain. d.A hard distended belly (abdomen) and an inability to pass gas. 4. Please don?t expect to have a normal BM (bowel movement) for 2-3 days after your procedure. 5. If there are questions regarding the findings of your procedure, please contact your doctor 6. If you are unable to contact your doctor with a problem, contact the hospital at [phone]. 7. Continue all your regular medications unless directed otherwise. I understand the above instructions and have no questions. Signature of Patient or Adult Escort Name of Responsible Adult Escort Signature of Nurse Date/Time Activity:: see above Diet:: see above Discharge Orders Discharge Orders: Discharge Order (Routine); Ordered 01/21/22 Ordered By: Yeny Clarke
[2022-01-22 06:41] VITALS: BP 137/65; PULSE 60; RESP 18; TEMP 36.3; O2SAT 95
[2022-01-22] MEDS: Lactated Ringers 1,000 ML 80 ML IV (06:58)
--- NOTE | 2022-01-22 06:59 | ANES.PREOP_ITS ---
General Info Date of Service Date Performed: 01/22/22 Height: 5 ft 6 in Weight: 106.2 kg Body Mass Index (BMI): 37.8 Surgical Procedure: Operation Date: 01/22/22 07:35 Proposed Procedure Side Surgeon marissa Clarke, Meds Allergies and Home Medications Allergies Allergy/AdvReac Type Severity Reaction Status Date / Time shellfish derived Allergy Severe Anaphylaxis Unverified 01/22/22 06:34 metaxalone Allergy Unknown unknown Unverified 01/22/22 06:34 rofecoxib Allergy Unknown unknown Unverified 01/22/22 06:34 exenatide [From Byetta] AdvReac Intermediate GI Upset Unverified 01/22/22 06:34 adams pepper Allergy Severe Anaphylaxis Uncoded 01/22/22 06:34 mushrooms Allergy Severe Anaphylaxis Uncoded 01/22/22 06:34 Home Medication Medication Instructions Recorded magnesium chloride 71.5 mg 4 tab-cap PO DAILY #180 tab-cap 02/27/17 (magnesium chloride) tablet,delayed release (Slow-Mag) lorazepam 0.5 mg tablet 0.5 mg PO daily prn #30 tab-cap 03/01/18 docusate sodium 50 mg capsule 50 mg PO DAILY PRN #90 tab-cap 08/09/18 (Colace) meclizine 25 mg tablet 25 mg PO BID PRN #30 tab 04/02/20 trazodone 50 mg tablet 50 mg PO QHS PRN #90 tab 10/16/20 atorvastatin 80 mg tablet 80 mg PO DAILY #90 tab 11/02/20 metformin 1,000 mg tablet 1,000 mg PO BID #180 tab-cap 01/09/21 glimepiride 4 mg tablet 4 mg PO BID #180 tab-cap 02/23/21 chlorthalidone 25 mg tablet 12.5 mg PO DAILY #90 tab 03/04/21 bupropion HCl 150 mg 24 hr tablet, 450 mg PO DAILY #270 tab-cap 10/28/21 extended release enalapril maleate 20 mg tablet 40 mg PO QAM #180 tab-cap 10/28/21 insulin glargine 100 unit/mL (3 14 unit (0.14 mL) SUB-Q HS #15 ml 10/28/21 mL) subcutaneous pen (Lantus Solostar U-100 Insulin) levothyroxine 100 mcg capsule 100 mcg PO DAILY #90 cap 10/28/21 metoprolol succinate 100 mg 100 mg PO DAILY #90 tab 10/28/21 tablet,extended release 24 hr pen needle, diabetic 31 gauge x #300 ea 12/17/21 3/16 (BD Ultra-Fine Mini Pen Needle) liraglutide 0.6 mg/0.1 mL (18 mg/3 1.8 mg (0.3 mL) SUBCUT DAILY #9 ml 12/18/21 mL) subcutaneous pen injector budesonide-formoterol HFA 160 2 puff INHALATION BID #10.2 g 01/11/22 mcg-4.5 mcg/actuation aerosol inhaler (Symbicort) tiotropium bromide 2.5 2 puff INHALATION DAILY #4 g 01/11/22 mcg/actuation mist for inhalation (Spiriva Respimat) bisacodyl 5 mg tablet,delayed 5 mg PO ONCE #4 tab 01/14/22 release (Dulcolax (bisacodyl)) polyethylene glycol 3350 17 17 g PO ONCE #238 g 01/14/22 gram/dose oral powder duloxetine 60 mg capsule,delayed 60 mg PO HS 01/21/22 release Current Visit Medications: Current Medications Generic Name Dose Route Start Last Admin Trade Name Freq PRN Reason Stop Dose Admin Hyoscyamine Sulfate 0.125 mg 01/21/22 10:00 Hyoscyamine 0.125 Mg Sl/Oral/Chew SL DIRECTED PRN Ringer's Solution 1,000 mls @ 80 mls/hr 01/22/22 06:00 01/22/22 06:58 IV 02/20/22 23:59 80 mls/hr INFUSION THIAGO Administration IV Miscellaneous Supplies 1 each 01/22/22 06:00 Iv Access IV 02/20/22 23:59 DIRECTED THIAGO Ondansetron HCl 4 mg 01/21/22 10:00 Ondansetron 4 Mg/2 Ml Vial IVP Q4H PRN PRN Nausea / Vomiting Sodium Chloride 0 ml 01/22/22 06:00 Normal Saline Flush 10 Ml Syr IV 02/20/22 23:59 PRN PRN Sodium Chloride 0 ml 01/22/22 06:00 Normal Saline 10 Ml Vial IJ 02/20/22 23:59 DIRECTED PRN Sterile Water 0 ml 01/22/22 06:00 Water,Injection,Sterile 10 Ml Vial IJ 02/20/22 23:59 DIRECTED PRN PFS Active Problems Active Problems: Problem Status Onset Code 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 Former smoker Z87.891 Rectal/anal hemorrhage K62.5 Colitis K52.9 Malaise R53.81 Acute reaction to situational stress F43.0 Acute UTI N39.0 DNI (do not intubate) Z78.9 DNR (do not resuscitate) Z66 POLST (Physician Orders for Life-Sustaining Treatment) Z78.9 Cubital tunnel syndrome on right G56.21 Diabetic peripheral neuropathy E11.42 Coronary artery disease I25.10 Kidney stone N20.0 Recurrent urinary tract infection N39.0 Tension-type headache G44.209 Shoulder pain M25.519 Osteopenia 09/29/03 M85.80 Non-alcoholic fatty liver disease K76.0 Hypothyroidism 04/17/13 E03.9 Hyperlipidemia E78.5 Urinary, incontinence, stress female N39.3 Essential hypertension 08/15/13 I10 Diastolic heart failure 12/02/09 I50.30 Diabetes mellitus E11.9 Depressive disorder F32.9 Degenerative disc disease Chronic pain syndrome 10/27/12 G89.4 Cervical spinal stenosis M48.02 Brachial plexus neuropathy G54.0 Medical History Medical History Chronic obstructive lung disease (07/16/13) Dr. PINK/ PFT'S 08/09 Quit smoking 1999 Medical History Comments:: Pain to left shoulder this AM (she has been dealing with it for days). Hx falls, per pt. Pt reports that during her hysterectomy (many years ago) she was told her heart stopped, and she was told it was likely r/t anes. Surgical History Surgical History (Updated 01/22/22 @ 07:14 by Maylin Smith) Cholecystectomy (~2000) Hx of cardiac cath Hysterectomy, Laproscopic (~1985) Oophrectomy, Left (~1998) PROCEDURES BLADDER REPAIR NEC, 1985 URETEROSCOPY, 2002 multiple kidney stones PERIPH GANGLIONECT NEC left ABD REPAIR-DIAPHR HERNIA Repair of inguinal hernia RIGHT Repair of umbilical hernia (06/04/16) [facility] [place] Tobacco Smoking/Tobacco Use Status: Former Tobacco Use Alcohol Alcohol Intake: current Alcohol intake frequency: holidays/special occasions only Substance Use Substance use: Never Substance use type: does not use Vital Signs and Lab Results Vital Signs Most Recent Vital Signs in EMR: Most Recent Vital Signs Temp Pulse Resp BP Pulse Ox 36.3 C L 60 18 137/65 95 01/22/22 06:41 01/22/22 06:41 01/22/22 06:41 01/22/22 06:41 01/22/22 06:41 Lab Results Blood Type / Crossmatch: No Data to Display Complete Blood Count: No Data to Display Complete Metabolic Panel: Sodium Level 139 mmol/L (136-145) 01/20/22 14:35 01/20/22 Potassium Level 4.5 mmol/L (3.5-5.1) 01/20/22 14:35 01/20/22 Chloride Level 102 mmol/L (98-107) 01/20/22 14:35 01/20/22 Carbon Dioxide Level 29.3 mmol/L (21.0-32.0) 01/20/22 14:35 01/20/22 Blood Urea Nitrogen 22 mg/dL (7-18) H 01/20/22 14:35 01/20/22 Creatinine 1.2 mg/dL (0.55-1.02) H 01/20/22 14:35 01/20/22 Estimated GFR/1.73 m2 44.16 (mL/min/1.73m2) 01/20/22 14:35 01/20/22 Calcium Level 9.0 mg/dL (8.5-10.1) 01/20/22 14:35 01/20/22 Glucose Level 126 mg/dL (74-106) H 01/20/22 14:35 01/20/22 Liver Function Panel: No Data to Display Coagulation Panel: No Data to Display Cardiac Panel: No Data to Display Arterial Blood Gas: No Data to Display Venous Blood Gas: No Data to Display Pancreas Panel: No Data to Display Thyroid Panel: No Data to Display Infectious Disease: Coronavirus (COVID-19)(PCR) Negative (Negative) 01/20/22 09:18 01/20/22 Coronavirus 2019 Source Nasal/Nares 01/20/22 09:18 01/20/22 Blood Cultures: No Data to Display Toxicology Panel: No Data to Display Anesthesia Assessment and Plan Anesthesia History Personal History: Other Family History: No Family History of Anesthesia Complications Exercise Tolerance Exercise Tolerance: Metabolic Equivalents<4 Pertinent Negatives Pertinent Negatives: No Symptoms of GERD Cardiac & Pulmonary Exam Cardiac Exam: Normal S1/S2 Heart Sounds Pulmonary Exam: Clear Bilateral Breath Sounds Implantable Cardiac Device Does patient have a Pacemaker or an ICD?: No Airway Exam Known Difficult Airway: No Mallampati Class: 2 Mouth Opening: Normal (> 3cm) Thyromental Distance: Greater than 3 cm Neck Range of Motion: Full ROM Neck Circumference: Thick Teeth Condition: Removable Dentures/Plates Upper and Removable Dentures/Plates Lower ASA Classification ASA Score: ASA 3 Emergency Case?: No NPO Status NPO Status: NPO Clears >2 hours, Solids >8 hours Anesthesia Plan Resuscitation Status: Full Code Anesthesia Technique: General Anesthesia Airway Planned: Natural Airway Monitors Used: Standard Monitors
[2022-01-22 07:02] VITALS: BMI 37.8
--- NOTE | 2022-01-22 07:45 | BOWEL_PTH ---
PATIENT: Wanda Larose LOC: [facility] U#:[id number] AGE/SX: 71/F ROOM: RE01/22/[address]: Yeny Clarke : 1950 BED: DIS: 01/22/2022 SPEC #: [id number] RECD: 01/22/22 12:48 STATUS: ASHLEIGH REKeegan #: [id number] LASHANDA: 01/22/22 07:[address]: Yeny Clarke DEPT: Surgical Specimen RECD BY: Patty Mtz ENTERED: 01/22/22 12:50 SP TYPE: Bowel OTHR DR: Savannah Guerra APRN Tissues: 1 - BIOPSY BOWEL 2 - BIOPSY BOWEL 3 - BIOPSY BOWEL 4 - BIOPSY BOWEL 5 - BIOPSY BOWEL 6 - BIOPSY BOWEL Procedures: GROSS AND MICRO LEVEL 4 Comments: [id number]
[2022-01-22 08:12] VITALS: BP 119/42; PULSE 66; RESP 22; TEMP 36.3; O2SAT 97
[2022-01-22 08:39] VITALS: BP 120/50; PULSE 67; RESP 20; TEMP 36.2; O2SAT 98
--- NOTE | 2022-01-22 08:52 | W.ANESPOSTOP ---
Postoperative Evaluation Date, Time and Location Date Performed: 01/22/22 Time Performed: 08:52 Patient Location: Day Surgery Unit Vital Signs Most Recent Imported Vital Signs: Most Recent Vital Signs Temp Pulse Resp BP Pulse Ox 36.3 C L 66 22 119/42 L 97 01/22/22 08:12 01/22/22 08:12 01/22/22 08:12 01/22/22 08:12 01/22/22 08:12 Pain Score Most Recent Pain Score: Most Recent Pain Score Pain Level 9 01/22/22 08:12 Assessment Mental Status: Awake (Alert & Oriented to Patient Baseline) Airway and Respiratory Function: Patent airway with normal (patient baseline) respiratory exam Cardiovascular Function: Hemodynamically Stable Hydration Status: Adequately Hydrated Nausea & Vomiting: No Nausea or Vomiting Pain: Pt. Denies Any Pain Peripheral Nerve Block: Patient did not receive a nerve block
== END 2022-01-22 09:07 | disposition home or self-care (01) ==
LOC: SUR 06:12
PROVIDERS: Visit Provider Surgery
PROC: 0DJD8ZZ Inspection of Lower Intestinal Tract, Via Natural or Artificial Opening Endoscopic (ICD-10-PCS; CPT 45378; principal; 2022-01-22 07:30)
DX: Z12.11 Encounter for screening for malignant neoplasm of colon (principal); K63.89 Other specified diseases of intestine; J44.9 Chronic obstructive pulmonary disease, unspecified; Z66 Do not resuscitate; I10 Essential (primary) hypertension; E11.9 Type 2 diabetes mellitus without complications
CPT/HCPCS: 45380; 88305; J2001

== ENCOUNTER → 2022-02-18 01:48 | Outpatient (CLI) | payer MEDICARE, SELFPAY ==
--- NOTE | 2022-02-18 08:00 | DI.RAD_ITS ---
Exam(s) XR KNEE RT 3V AP,LAT,ZELDA EXAM: XR KNEE RT 3V AP,LAT,ZELDA CLINICAL HISTORY: Right knee pain, medial below petella,m25.561. TECHNIQUE: 2D digital imaging was performed. COMPARISON: No exams were available for comparison FINDINGS: 3 views There is no evidence of fracture nor joint effusion. There is minimal narrowing of the medial compar tment. No osteophytes. Lateral compartment unremarkable. Patellofemoral compartment appears unrema rkable. Bone density normal. No osseous lesions IMPRESSION: Mild narrowing of the medial compartment. DATA REPOSITORY: RADIATION DOSE DELIVERED:
== END ==
DX: M25.561 Pain in right knee (principal)
CPT/HCPCS: 73562

== ENCOUNTER 2022-05-07 07:39 | Observation (INO) | payer MEDICARE, SELFPAY ==
[2022-05-07] VITALS (94 sets, daily range): BP systolic 102–176; BP diastolic 50–132; PULSE 62–96; RESP 13–29; TEMP 36.6–37.2; O2SAT 92–99
[2022-05-07] MEDS: EPINEPHrine 0.3 MG KIT (07:54)
[2022-05-07] MEDS: methylPREDNISolone SUCC 125 MG VIAL (07:54)
[2022-05-07] MEDS: diphenhydrAMINE 50 MG/ML VIAL (07:55)
[2022-05-07] MEDS: Famotidine 20 MG/2 ML VIAL IVP (08:00)
--- NOTE | 2022-05-07 08:04 | W.ED.GENAD ---
Discharge Plan Disposition Patient Disposition: [facility] INPATIENT Condition: Stable Discharge Details Clinical Impression: Angioedema of tongue Admit Date/Time: 05/07/22 09:33 Admit Provider: Faizan Morgan Attending Provider: Faizan Morgan Primary Care Provider: Savannah Guerra ED Provider: Paolo Oviedo Discharge Data Discharge Date/Time-TO BE ENTERED AT DEPARTURE: 05/07/22 13:07 Medical Decision Making 800 --71-year-old female here with acute and worsening swelling of her tongue. No urticaria. Suspect MEENU induced angioedema. Consider bradykinin mediated angioedema. Plan to initiate treatment with epinephrine IV, Benadryl IV, Solu-Medrol IV. We do not have C1 inhibitor concentrate. Will give FFP. I will also add TXA given potential benefit. I will monitor closely for worsening angioedema and need to secure airway. 910 --patient was reassessed multiple times. She has had notable improvement in tongue swelling although it is persisting --patient has received Solu-Medrol, TXA, Benadryl, epinephrine and Pepcid. FFP pending. I called and spoke with on-call critical care physician, Dr. Chery, we discussed ED presentation course and she evaluated patient at baseline. She recommends admission to the ICU and will consult. I did call and speak with GOLF COURSE SUPERINTENDENT on-call to alert her to the situation. -- EKG was reviewed and interpreted by me: Sinus rhythm 65 bpm, prolonged WA with WA interval of 224, low voltage noted precordial leads 945 -- I spoke with Dr. Morgan, hospitalist extrusion manager, discussed ED presentation and course. He will admit the patient to the ICU. Care transitioned at time of admission. Lab Data Lab results reviewed: Yes I reviewed the patient's lab results. Labs: Laboratory Tests Range/Units 05/07/22 05/07/22 05/07/22 07:58 08:00 08:00 WBC (4.4-10.8) 10^3/uL RBC (3.93-5.22) 10^6/uL Hgb (11.2-15.7) g/dL Hct (36.0-46.0) % MCV (80-95) fL MCH (27.0-33.0) pg MCHC (32.0-36.0) % RDW (11.7-14.6) % Plt Count (130-400) 10^3/uL MPV (8.0-11.0) fL Immature Gran % Neutrophils % Lymphocytes % Monocytes % Eosinophils % Basophils % Nucleated RBC % (0.0-0.3) % Absolute Neutrophils (1.2-6.7) 10^3/uL Absolute Lymphocytes (1.2-3.4) 10^3/uL Absolute Monocytes (0.1-0.8) 10^3/uL Absolute Eosinophils (0.0-0.7) 10^3/uL Absolute Basophils (0.0-0.2) 10^3/uL Sodium (136-145) mmol/L 139 Potassium (3.5-5.1) mmol/L 4.2 Chloride (98-107) mmol/L 101 Carbon Dioxide (21.0-32.0) mmol/L 26.9 Anion Gap (3-11) mmol/L 11.1 H BUN (7-18) mg/dL 22 H Creatinine (0.55-1.02) mg/dL 1.2 H Estimated GFR/1.73 m2 (mL/min/1.73m2) 44.16 Glucose (74-106) mg/dL 179 H Calcium (8.5-10.1) mg/dL 9.8 Total Bilirubin (0.2-1.0) mg/dL 1.2 H AST (15-37) U/L 38 H ALT (14-59) U/L 44 Alkaline Phosphatase (46-116) U/L 121 H Total Protein (6.4-8.2) g/dL 8.3 H Albumin (3.4-5.0) g/dL 3.7 Patient ABO/Rh O Positive Cancelled Range/Units 05/07/22 08:00 WBC (4.4-10.8) 10^3/uL 12.77 H RBC (3.93-5.22) 10^6/uL 4.97 Hgb (11.2-15.7) g/dL 14.7 Hct (36.0-46.0) % 45.2 MCV (80-95) fL 91 MCH (27.0-33.0) pg 29.6 MCHC (32.0-36.0) % 32.5 RDW (11.7-14.6) % 13.1 Plt Count (130-400) 10^3/uL 376 MPV (8.0-11.0) fL 9.4 Immature Gran % 0.7 Neutrophils % 64.9 Lymphocytes % 23.9 Monocytes % 6.7 Eosinophils % 2.9 Basophils % 0.9 Nucleated RBC % (0.0-0.3) % 0.0 Absolute Neutrophils (1.2-6.7) 10^3/uL 8.29 H Absolute Lymphocytes (1.2-3.4) 10^3/uL 3.05 Absolute Monocytes (0.1-0.8) 10^3/uL 0.86 H Absolute Eosinophils (0.0-0.7) 10^3/uL 0.37 Absolute Basophils (0.0-0.2) 10^3/uL 0.11 Sodium (136-145) mmol/L Potassium (3.5-5.1) mmol/L Chloride (98-107) mmol/L Carbon Dioxide (21.0-32.0) mmol/L Anion Gap (3-11) mmol/L BUN (7-18) mg/dL Creatinine (0.55-1.02) mg/dL Estimated GFR/1.73 m2 (mL/min/1.73m2) Glucose (74-106) mg/dL Calcium (8.5-10.1) mg/dL Total Bilirubin (0.2-1.0) mg/dL AST (15-37) U/L ALT (14-59) U/L Alkaline Phosphatase (46-116) U/L Total Protein (6.4-8.2) g/dL Albumin (3.4-5.0) g/dL Patient ABO/Rh HPI General Mode of arrival: ambulatory. Date/Time Provider Initiated Documentation: 05/07/22 07:44. Limitations to Documentation: no limitations. Information obtained by: patient and family. HPI Narrative: 71-year-old female presents with chief complaint of severe tongue swelling. Patient notes she woke up this morning with swelling of the tongue that has progressed. Tongue swelling is now severe. No modifiers. No associated rash. She does note some difficulty breathing secondary to tongue swelling. Patient is on MEENU inhibitor. No medication changes recently. Related Data Home Medications Medication Instructions Recorded Confirmed lorazepam 0.5 mg tablet 0.5 mg PO daily prn #30 tab-caps 03/01/18 05/07/22 docusate sodium 50 mg capsule 50 mg PO DAILY PRN #90 tab-caps 08/09/18 05/07/22 (Colace) trazodone 50 mg tablet 50 mg PO QHS PRN sleep #90 tabs 10/16/20 05/07/22 bupropion HCl 150 mg 24 hr tablet, 450 mg PO DAILY #270 tab-caps 10/28/21 05/07/22 extended release levothyroxine 100 mcg capsule 100 mcg PO DAILY #90 caps 10/28/21 05/07/22 metoprolol succinate 100 mg 100 mg PO DAILY #90 tabs 10/28/21 05/07/22 tablet,extended release 24 hr pen needle, diabetic 31 gauge x #300 ea 12/17/21 05/07/2201/13 (BD Ultra-Fine Mini Pen Needle) liraglutide 0.6 mg/0.1 mL (18 mg/3 1.8 mg (0.3 mL) subcut DAILY #9 mL 12/18/21 05/07/22 mL) subcutaneous pen injector tiotropium bromide 2.5 2 puff inhalation DAILY #4 grams 01/11/22 05/07/22 mcg/actuation mist for inhalation (Spiriva Respimat) duloxetine 60 mg capsule,delayed 60 mg PO HS 01/21/22 05/07/22 release atorvastatin 80 mg tablet 80 mg PO DAILY #90 tabs 02/16/22 05/07/22 chlorthalidone 25 mg tablet 12.5 mg PO DAILY #90 tabs 02/16/22 05/07/22 glimepiride 4 mg tablet 4 mg PO BID #180 tab-caps 02/16/22 05/07/22 insulin glargine 100 unit/mL (3 14 unit (0.14 mL) subcut HS #45 mL 02/16/22 05/07/22 mL) subcutaneous pen (Lantus Solostar U-100 Insulin) metformin 1,000 mg tablet 1,000 mg PO BID #180 tab-caps 02/16/22 05/07/22 budesonide-formoterol HFA 160 2 puff inhalation BID #10.2 grams 04/16/22 05/07/22 mcg-4.5 mcg/actuation aerosol inhaler (Symbicort) famotidine 20 mg tablet 20 mg PO BID #28 tabs 05/08/22 prednisone 10 mg tablet See Taper PO DAILY #30 tabs 05/08/22 Previous Rx's Medication Instructions Recorded lorazepam 0.5 mg tablet 0.5 mg PO daily prn #30 tab-caps 03/01/18 trazodone 50 mg tablet 50 mg PO QHS PRN sleep #90 tabs 10/16/20 bupropion HCl 150 mg 24 hr tablet, 450 mg PO DAILY #270 tab-caps 10/28/21 extended release levothyroxine 100 mcg capsule 100 mcg PO DAILY #90 caps 10/28/21 metoprolol succinate 100 mg 100 mg PO DAILY #90 tabs 10/28/21 tablet,extended release 24 hr pen needle, diabetic 31 gauge x #300 ea 12/17/2101/13 (BD Ultra-Fine Mini Pen Needle) liraglutide 0.6 mg/0.1 mL (18 mg/3 1.8 mg (0.3 mL) subcut DAILY #9 mL 12/18/21 mL) subcutaneous pen injector tiotropium bromide 2.5 2 puff inhalation DAILY #4 grams 01/11/22 mcg/actuation mist for inhalation (Spiriva Respimat) atorvastatin 80 mg tablet 80 mg PO DAILY #90 tabs 02/16/22 chlorthalidone 25 mg tablet 12.5 mg PO DAILY #90 tabs 02/16/22 glimepiride 4 mg tablet 4 mg PO BID #180 tab-caps 02/16/22 insulin glargine 100 unit/mL (3 14 unit (0.14 mL) subcut HS #45 mL 02/16/22 mL) subcutaneous pen (Lantus Solostar U-100 Insulin) metformin 1,000 mg tablet 1,000 mg PO BID #180 tab-caps 02/16/22 budesonide-formoterol HFA 160 2 puff inhalation BID #10.2 grams 04/16/22 mcg-4.5 mcg/actuation aerosol inhaler (Symbicort) famotidine 20 mg tablet 20 mg PO BID #28 tabs 05/08/22 prednisone 10 mg tablet See Taper PO DAILY #30 tabs 05/08/22 Allergies Allergy/AdvReac Type Severity Reaction Status Date / Time MEENU Inhibitors Allergy Severe Anaphylaxis Unverified 05/07/22 11:41 enalapril Allergy Severe angioedema Verified 05/07/22 11:41 shellfish derived Allergy Severe Anaphylaxis Unverified 05/07/22 08:56 metaxalone Allergy Unknown unknown Unverified 05/07/22 08:56 rofecoxib Allergy Unknown unknown Unverified 05/07/22 08:56 exenatide [From Byetta] AdvReac Intermediate GI Upset Unverified 05/07/22 08:56 adams pepper Allergy Severe Anaphylaxis Uncoded 05/07/22 08:56 mushrooms Allergy Severe Anaphylaxis Uncoded 05/07/22 08:56 General Stated Complaint: Allergic JULIET: 2 Review of Systems Narrative: Review of systems limited secondary to acuity of condition and difficulty speaking PFSH All Active Problems Leukocytosis (Acute) Angioedema of tongue (Acute) Right knee pain (Acute) Brachial plexus neuropathy (Chronic) Cervical spinal stenosis (Chronic) MRI 03/2013; Severe left C5-6 and moderate left C3-4 stenosis; multilevel DDD 06/12-GUILLE Degenerative disc disease (Chronic) lumbar facet hypertrophy L4-5; L5-S1; MRI 07/2009 lumbar spondylosis Depressive disorder (Chronic) Diabetes mellitus (Chronic[place] [facility] [place] Lantus [place]/Coreen Bilotta [facility] [place] D.Bilotta/ uncontrolled db. /HbA1c 8.7; increase Glimepiride 4 bid/fup [address] [facility] [place]S [place]ED Diastolic heart failure (Chronic 12/02/09) MILD; echo 12/10-dysfunction, echo 2013 Essential hypertension (Chronic 08/15/13) Urinary, incontinence, stress female (Chronic) Hyperlipidemia (Chronic) Hypothyroidism (Chronic 04/17/13) 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 PINK/ PFT'S 08/09 Quit smoking 1999 Chronic pain syndrome (10/27/12) on METHADONE; [facility] ; Shana Vaz- visit:12-06-2016 q 4 weeks (left neck and shoulder pain) 01/2022 - Reports she weaned off a while ago. Colitis Former smoker History of tobacco use Kidney stone Shoulder pain left;2010- S/P supraclavicular lipoma removal; S/P neuroma 1988 [id number]. degenerative cervical spondylosis Tension-type headache Surgical History Cholecystectomy (~2000) Hx of cardiac cath Hysterectomy, Laproscopic (~1985) Oophrectomy, Left (~1998) PROCEDURES BLADDER REPAIR NEC, 1985 URETEROSCOPY, 2002 multiple kidney stones PERIPH GANGLIONECT NEC left ABD REPAIR-DIAPHR HERNIA Repair of inguinal hernia RIGHT Repair of umbilical hernia (06/04/16) [facility] [place] History Mother , 85 Essential hypertension Heart disease Hyperlipidemia Father Essential hypertension Personal history of malignant neoplasm MELANOMA Heart disease Hyperlipidemia Stroke Sister Diabetes Brother Stroke Grandfather Heart disease Grandfather Stroke Grandmother Personal history of malignant neoplasm BREAST/UTERINE Heart disease Grandmother No problems noted. Sister No problems noted. Sister No problems noted. Sister No problems noted. Brother No problems noted. Brother No problems noted. Son No problems noted. Son No problems noted. Social History Smoking/Tobacco Use Status: Former Tobacco Use Quit Date: 10/31/99 Smoking risk assessment performed?: Yes Alcohol Intake: current Alcohol Intake frequency: holidays/special occasions only Drug use: Never Substance use type: does not use Household members: spouse Housing: house Number of Children: 3 Pets and animals: No Current gender identity: female What is your relationship status?: How often do you talk on the phone with friends or family?: twice per week How often do you get together with friends or relatives?: once per week How often do you attend restoration or sabianist services?: decline to answer Do you belong to any clubs or organized social groups?: no Panel score (0-1 are the most socially isolated patients): 2 What type of physical activity do you participate in: none Duration: 15-30 minutes/day Frequency: 1-2 times per week Chely/Yazidi: Islam Special chely needs: No Seatbelt use: always Do you feel safe at home: Yes Do you feel safe in your relationship?: Yes Exam Const General: cooperative HENMT Head: normocephalic Mouth: tongue abnormal (Swollen) Other: no stridor Eyes Conjunctivae: normal conjunctivae Sclera: normal sclerae Neck Neck: trachea midline and supple Resp Auscultation: clear to auscultation bilaterally, no rales, no rhonchi and no wheezes Cardio Rate: regular rate and not tachycardic Rhythm: regular rhythm GI Palpation: soft, not firm, no guarding, no masses, not rigid and nontender Skin General skin exam: no rashes or lesions noted Neuro General: patient alert, patient awake and tone normal Extrem General: no edema Psych Appearance: grossly normal Mental Status: mental status grossly normal Speech and Movement: speech and movement normal Course Vital Signs Vital signs: Vital Signs Temperature 36.7 C 05/07/22 07:43 Pulse 67 05/07/22 07:43 Respiratory Rate 16 05/07/22 07:43 Pulse Oximetry 95 05/07/22 07:43 Temperature 36.7 C 05/07/22 07:43 Temperature Source Skin 05/07/22 07:43 Pulse 67 05/07/22 07:43 Respiratory Rate 16 05/07/22 07:43 Respiratory Effort 05/07/22 07:48 Pulse Oximetry 95 05/07/22 07:43 Oxygen Delivery Method Room Air 05/07/22 07:43 Oxygen Flow Rate 0 05/07/22 07:43 Pain Level 8 05/07/22 07:43 Critical Care Time Critical Care Time Critical Care Time: Yes Total Critical Care Time: 85 Attestation: I spent greater than 85 minutes addressing this patient's immediate life threats. Please see MDM section of note. This time was spent engaged in work directly related to the patient's care, exclusive of separate procedures, and failure to initiate these interventions would have likely resulted in clinically significant or life threatening deterioration in the patient's condition.
[2022-05-07 08:12] LABS: Abs Immature Grans 0.09 10^3/uL (0.0-0.06); Absolute Basophil Count 0.11 10^3/uL (0.0-0.2); Absolute Eosinophil Count 0.37 10^3/uL (0.0-0.7); Absolute Lymphocyte Count 3.05 10^3/uL (1.2-3.4); Basophils % 0.9; Eosinophils % 2.9; HCT 45.2 % (36.0-46.0); HGB 14.7 g/dL (11.2-15.7); Immature Grans % 0.7; Lymphocytes % 23.9; MCH 29.6 pg (27.0-33.0); MCHC 32.5 % (32.0-36.0); MCV 91 fL (80-95); MPV 9.4 fL (8.0-11.0); Monocytes % 6.7; Neutrophils % 64.9; Platelet Count 376 10^3/uL (130-400); RBC 4.97 10^6/uL (3.93-5.22); RDW 13.1 % (11.7-14.6); RDW-SD 43.2 fL; WBC 12.77 10^3/uL (4.4-10.8)
[2022-05-07 08:13] LABS: Absolute Monocyte Count 0.86 10^3/uL (0.1-0.8); Absolute Neutrophil Count 8.29 10^3/uL (1.2-6.7)
[2022-05-07 08:32] LABS: ALT 44 U/L (14-59); AST 38 U/L (15-37); Albumin 3.7 g/dL (3.4-5.0); Alkaline Phosphatase 121 U/L (46-116); Anion Gap 11.1 mmol/L (3-11); BUN 22 mg/dL (7-18); Bilirubin, Total 1.2 mg/dL (0.2-1.0); CO2 26.9 mmol/L (21.0-32.0); CREATININE 1.2 mg/dL (0.55-1.02); Calcium 9.8 mg/dL (8.5-10.1); Chloride 101 mmol/L (98-107); Estimated GFR 44.16 (mL/min/1.73m2); Glucose 179 mg/dL (74-106); Potassium 4.2 mmol/L (3.5-5.1); Sodium 139 mmol/L (136-145); Total Protein 8.3 g/dL (6.4-8.2)
--- NOTE | 2022-05-07 09:00 | RT.EKG_ITS ---
APPROVED REPORT Exam: Resting ECG Reason for Exam: ekg changes Patient Location: E HR:65 bpm ECG Measurements Heart Rate 65 AXIS CO 224 P -12 QRSd 81 QRS -9 QT 434 T 54 QTc 451 Conclusion Sinus rhythm...normal P axis, V-rate 60- 99 Prolonged CO interval...CO >220, V-rate 50- 90 Low voltage, precordial leads...precordial leads <1.0mV
--- NOTE | 2022-05-07 09:22 | W.PULMCC ---
General Date of Service Date of service: 05/07/22 Time of Service: :22 Reason for Admission to ICU: ACEI induced angioedema Assessment and Plan Assessment and plan (1) Angioedema of tongue: Status: Acute (2) Diabetes mellitus: Status: Chronic (3) Diastolic heart failure: Status: Chronic (4) Essential hypertension: Status: Chronic (5) Hypothyroidism: Status: Chronic (6) Non-alcoholic fatty liver disease: Status: Chronic (7) Asthma-COPD overlap syndrome: Status: Chronic (8) Leukocytosis: Status: Acute Assessment and plan: This is a 71 yo female with ACOS and HTN who is on enalapril found to have likely bradykinin induced angioedema. There are no signs of anaphylaxis that are apparent to me: no other organ systems involved, no hives, and isolated tongue and jaw soft tissue swelling. I do not think we need to continue the anaphylactic medications: Benadryl, famotidine, epi, etc. She has already received TXA and is ordered for 2 units of FFP. With her pulmonary disease and lower jaw swelling, I would still continue steroids. If the angioedema worsens are stop resolving, then I would repeat the 2U FFP and consider awake intubation (possibly fiberoptic) with anesthesia (who have been made aware of the case). Recommendations Pulmonary: Bradykinin mediated angioedema - s/p TXA, benadryl, epi, methylpred, famotidine - written for 2U FFP - can repeat 2U FFP is tongue swelling no longer improving or worsens - recommend VERY early call to anesthesia if any signs of worsening - C4 already ordered - I ordered C1 esterase inhibitor antigen and functional levels and compliment C1q - recommend dexamethasone 6mg daily starting tomorrow (already received 125mg methylpred today) - on discharge can send home on: prednisone 40mg for 3 days, 30mg for 3 days, 20mg for 3 days, 10mg for 3 days and 5mg for 3 days - would still continue daily Pepcid while admitted - no need to continue Benadryl ACOS -continue home Symbicort 160 2 puff bid - continue home Spiriva Cardiac: HTN - MEENU inhibitors alreay added to allergy list - avoidance of both ACEi and ARB's moving forward Diastolic heart failure - monitor for volume overload - appears euvolemic Renal: CKD - renal function seems to be at baseline I&O: Intake & Output 05/04/22 05/05/22 05/06/22 05/07/22 23:59 23:59 23:59 23:59 Intake Total Balance Weight 107.955 kg Daily Fluid Goal:: even GI Nutrition: Nutrition - NPO for now - no need for maintenance fluids - can use sponge with water - if sweliing continues to decrease can have clear liquids today Infectious Disease: No acute concerns Hematologic: Leukocytosis - likely reactive Neurologic: No acute concerns Endocrine: Hypothyroidism - TSH with reflex Lines: PIV Prophylaxis: Lovenox Famotidine (therapy not ppx) Subjective Critical and life-threatening events over the past 24 hours: This is a 71 yo female with Asthma-COPD Overlap syndrome and HTN who is being admitted to the ICU for ACEi induced angioedema. She was taking enalapril for her HTN. She states that a couple weeks ago she had some tongue swelling but she did not have trouble breathing and could still talk and swallow and this did self resolve. She then noticed this morning around 4:30 am that the tongues swelling returned and now there was swelling below her jaw as well. At this moment she also felt pain of her tongue and throat and was having trouble breathing and swallowing so she sought care. In the ER she was found to have angioedema with no hives and no obvious other organ involvement. She received 1g of transexamic acid prior to my involvement. I was asked to see the patient to assess for safety in admitting to our ICU and to assess for potential airway needs. In the ED she also received famotidine, epinephrine, Benadryl, methylprednisilone, and the TXA. On my assessment after these therapies her tongue and already began to improve to the degree of not having any breathing troubles, she is able to speak now, although swallowing is still difficult. She is ordered for 2 units of FFP. She denies itching or hives/rash. Not having abdominal pain for trouble breathing at this moment. We had a discussion about code status since she was listed as DNR/DNI. Given that her condition is reversible and intubation would allow us time to treat in order to extubate she is willing to have intubation in this setting. Exam Narrative Exam Narrative: Gen: NAD, normal respiratory effort, well-nourished HENT: PERRL, Tongue and below jaw are significantly swollen. Patient able to talk with some muffling. Mallampati 4. With tongue depressor I am able to have good visualization of the posterior pharynx and uvula and there is no sign of any edema in this location. It appears as though the swelling is localized to the tongue and soft tissue below the tongue (lower jaw area). Chest: No respiratory distress, normal appearance of chest, clear to auscultation bilaterally, no crackles or wheezes, normal inspiratory effort Heart: regular rate and rhythym, no murmurs, rubs or gallops Abdomen: Non-distended, soft, non tender Extremities: No clubbing, edema, cyanosis, rashes or hives Neuro: AAOx3 , non focal Psych: cooperative, appropriate mental affect Most Recent VS/Results Last Vital Signs Temp 36.7 C 05/07/22 07:43 Pulse 64 05/07/22 09:02 Resp 16 05/07/22 09:02 BP 155/65 H 05/07/22 09:02 Pulse Ox 96 05/07/22 09:02 Laboratory Results - last 24 hr 05/07/22 05/07/22 05/07/22 07:58 08:00 08:00 WBC RBC Hgb Hct MCV MCH MCHC RDW Plt Count MPV Immature Gran % Neutrophils % Lymphocytes % Monocytes % Eosinophils % Basophils % Nucleated RBC % Absolute Neutrophils Absolute Lymphocytes Absolute Monocytes Absolute Eosinophils Absolute Basophils Sodium 139 Potassium 4.2 Chloride 101 Carbon Dioxide 26.9 Anion Gap 11.1 H BUN 22 H Creatinine 1.2 H Estimated GFR/1.73 m2 44.16 Glucose 179 H Calcium 9.8 Total Bilirubin 1.2 H AST 38 H ALT 44 Alkaline Phosphatase 121 H Total Protein 8.3 H Albumin 3.7 Patient ABO/Rh O Positive Cancelled 05/07/22 08:00 WBC 12.77 H RBC 4.97 Hgb 14.7 Hct 45.2 MCV 91 MCH 29.6 MCHC 32.5 RDW 13.1 Plt Count 376 MPV 9.4 Immature Gran % 0.7 Neutrophils % 64.9 Lymphocytes % 23.9 Monocytes % 6.7 Eosinophils % 2.9 Basophils % 0.9 Nucleated RBC % 0.0 Absolute Neutrophils 8.29 H Absolute Lymphocytes 3.05 Absolute Monocytes 0.86 H Absolute Eosinophils 0.37 Absolute Basophils 0.11 Sodium Potassium Chloride Carbon Dioxide Anion Gap BUN Creatinine Estimated GFR/1.73 m2 Glucose Calcium Total Bilirubin AST ALT Alkaline Phosphatase Total Protein Albumin Patient ABO/Rh Review of Systems All systems reviewed & are unremarkable except as noted in HPI and below Time spent with patient Time spent in Critical Care: 60 Time spent in Critical care included: Coordination of care, Chart review, Documenting critically ill care, Time at immediate bedside, Discussing critically ill care with other medical staff and Discussing care with family members Multi-Disciplinary Checklist Lines/Tubes CENTRAL LINE: no ARTERIAL LINE: no BOUDREAUX: no ENDOTRACHEAL TUBE: no ICU Maintenance GLUCOSE 140-180mg/dL: yes NUTRITION AT GOAL: no, Reason/Intervention: NPO due to angioedema PRESSURE ULCER: no RESTRAINTS: no ANTIBIOTICS(if yes, consider Stewardship): No Social Issues FAMILY UPDATED: yes PT/OT: no, Reason/Intervention: not currently needed GOALS/DISPOSITION/BLOCK PILER: yes CODE STATUS: DNR,Intubation OK Prophylaxis DVT PROPHYLAXIS: yes GI PROPHYLAXIS: yes, Indication: as part of treatment
--- NOTE | 2022-05-07 09:42 | NUR.NOTE ---
Nursing Note: At 0922 sign writer letterer or painter stared FFP per providers order, provider wanted product given now instead of waiting for cross match. Documenting on paper flowsheet, will send this up with patient when admitted to the ICU.
[2022-05-07 11:21] LABS: Source Nasal/Nares
[2022-05-07 11:47] LABS: Vitamin B12 248 pg/mL (193-986)
[2022-05-07 12:16] LABS: COVID-19 PCR Negative (Negative)
[2022-05-07] MEDS: Normal Saline Flush 10 ML SYR IVP (12:17)
[2022-05-07] MEDS: Enoxaparin 40 MG/0.4 ML SYR SC (12:18)
--- NOTE | 2022-05-07 12:48 | HPE_ITS ---
Date of service: 05/07/22 Time of Service: 12:48 Assessment and Plan Assessment and plan (1) Angioedema of tongue: Status: Acute Assessment and plan: Patient has had marked improvement with current treatment. She only received 1 unit of FFP so far. I have ordered the second unit to be given. Patient will continue on Pepcid and corticosteroids as ordered by Dr. Phillip. She will go home on a tapered steroid regimen. See Dr. Phillip's note for details. Critical care time spent interviewing and examining the patient, reviewing studies, discussing case with patient's nurse and consulting physicians was 30 minutes (2) Asthma-COPD overlap syndrome: Status: Chronic Assessment and plan: Continue current home inhalers includes record and Spiriva. I did not order any albuterol nebulizers as she is not having any bronchospasms. She is not hypoxemia and the oxygen can be taken off. She is not on home oxygen (3) Diabetes mellitus: Status: Chronic Assessment and plan: continue her home dose of Lantus. use novolog per sliding scale. She may need adjustment in her Lantus for a few days d/t steroid induced hyperglycemia. (4) Essential hypertension: Status: Chronic Assessment and plan: continue her home dose of her Toprol XL, if she needs further antihypertensive meds, I would add norvasc but no need for acute BP management at this point (5) Diastolic heart failure: Status: Chronic Assessment and plan: not in any acute HF. I would avoid ARB for now. could consider Jardiance but I am not going to make any acute changes, this can be dealt with on OP basis History of Present Illness History of Present Illness Chief Complaint: Difficulty swallowing and difficulty breathing Narrative: 71-year-old female with history of combined COPD and asthma as well as essential hypertension diabetes mellitus type 2 who presented emergency department with recurrent symptoms of angioedema. Patient has been on enalapril for hyperte nsion. About 2 weeks ago she had a minor episode in which she had difficulty swallowing due to swelling of her lips and mouth but had no difficulty breathing. Her symptoms abated on their own with no medical intervention. She did not see her PCP about this. She then continued to take her enalapril not making the association between enalapril and her reaction. Today she presented emergency department with severe angioedema causing difficulty breathing and swallowing. This caused swelling of her lips and tongue and mouth to the point where there was concern of compromise of her airway. She was treated emergency department with tranexamic acid, pepcid and FFP. She is already recovering has had marked improvement to the point where she can swallow without difficulty and has no dyspnea and no stridor. I did not see her in the ER when she first presented but according to Dr. Chery she was already improving by the time Dr. Phillip saw the patient but still had a Mallampati class IV oropharynx. Patient is being admitted to the intensive care unit overnight for continued monitoring and continued steroid treatment. She did receive Solu-Medrol 125 mg in the emergency department. I had ordered Solu-Medrol 80 mg IV every [address] Phillip has changed this over to Decadron 6 mg daily. She will continue to receive Pepcid. I have added enalapril to her list of allergies as well as all MEENU inhibitor's. Further studies have been sent out to look for evidence of hereditary angioedema. C1 esterase inhibitor functional as well as antigen and complement C1q and C4 complement have been sent out. Patient denies any family history of angioedema. She says she has had similar but less severe reactions to shellfish crab cakes. Review of Systems All systems reviewed & are unremarkable except as noted in HPI and below PFSH All Active Problems Leukocytosis (Acute) Angioedema of tongue (Acute) Right knee pain (Acute) Brachial plexus neuropathy (Chronic) Cervical spinal stenosis (Chronic) MRI 03/2013; Severe left C5-6 and moderate left C3-4 stenosis; multilevel DDD 06/12-GUILLE Degenerative disc disease (Chronic) lumbar facet hypertrophy L4-5; L5-S1; MRI 07/2009 lumbar spondylosis Depressive disorder (Chronic) Diabetes mellitus (Chronic) [facility] [place] insulin Lantus started/Coreen Bilotta [facility] [place] endo. D.Bilotta/ uncontrolled db. /HbA1c 8.7; increase Glimepiride 4 bid/fup 6 mo. FOLLOWED AT [facility] [place]/LABS INCLUDED Diastolic heart failure (Chronic 12/02/09) MILD; echo 12/10-dysfunction, echo 2013 Essential hypertension (Chronic 08/15/13) Urinary, incontinence, stress female (Chronic) Hyperlipidemia (Chronic) Hypothyroidism (Chronic 04/17/13) [facility] [place]; same rx/D.Bilotta [employer] Non-alcoholic fatty liver disease (Chronic) 2010elevated transaminases 2013 normal AST ALT Osteopenia (Chronic 09/29/03) Recurrent urinary tract infection (Chronic) Coronary artery disease (Chronic) Diabetic peripheral neuropathy (Chronic) Cubital tunnel syndrome on right (Chronic) POLST (Physician Orders for Life-Sustaining Treatment) (Acute) DNR (do not resuscitate) (Chronic) DNI (do not intubate) (Acute) Asthma-COPD overlap syndrome (Chronic) Medical History Chronic obstructive lung disease (07/16/13) Dr. PINK/ PFT'S 08/09 Quit smoking 1999 Chronic pain syndrome (10/27/12) on METHADONE; [facility] ; Shana Vaz- visit:12-06-2016 q 4 weeks (left neck and shoulder pain) 01/2022 - Reports she weaned off a while ago. Colitis Former smoker History of tobacco use Kidney stone Shoulder pain left;2010- S/P supraclavicular lipoma removal; S/P neuroma 1987 [id number]. degenerative cervical spondylosis Tension-type headache Surgical History Cholecystectomy (~2000) Hx of cardiac cath Hysterectomy, Laproscopic (~1985) Oophrectomy, Left (~1998) PROCEDURES BLADDER REPAIR NEC, 1985 URETEROSCOPY, 2002 multiple kidney stones PERIPH GANGLIONECT NEC left ABD REPAIR-DIAPHR HERNIA Repair of inguinal hernia RIGHT Repair of umbilical hernia (06/04/16) [facility] [place] Family History Mother , 85 Essential hypertension Heart disease Hyperlipidemia Father Essential hypertension Personal history of malignant neoplasm MELANOMA Heart disease Hyperlipidemia Stroke Sister Diabetes Brother Stroke Grandfather Heart disease Grandfather Stroke Grandmother Personal history of malignant neoplasm BREAST/UTERINE Heart disease Grandmother No problems noted. Sister No problems noted. Sister No problems noted. Sister No problems noted. Brother No problems noted. Brother No problems noted. Son No problems noted. Son No problems noted. Social History Smoking/Tobacco Use Status: Former Tobacco Use Quit Date: 10/31/99 Smoking risk assessment performed?: Yes Alcohol Intake: current Alcohol Intake frequency: holidays/special occasions only Drug use: Never Substance use type: does not use Household members: spouse Housing: house Number of Children: 3 Pets and animals: No Current gender identity: female What is your relationship status?: How often do you talk on the phone with friends or family?: twice per week How often do you get together with friends or relatives?: once per week How often do you attend judaism or buddhism services?: decline to answer Do you belong to any clubs or organized social groups?: no Panel score (0-1 are the most socially isolated patients): 2 What type of physical activity do you participate in: none Duration: 15-30 minutes/day Frequency: 1-2 times per week Chely/Confucianism: Jew Special chely needs: No Seatbelt use: always Do you feel safe at home: Yes Do you feel safe in your relationship?: Yes Meds Allergies and Home Medications Allergies Allergy/AdvReac Type Severity Reaction Status Date / Time MEENU Inhibitors Allergy Severe Anaphylaxis Unverified 05/07/22 11:41 enalapril Allergy Severe angioedema Verified 05/07/22 11:41 shellfish derived Allergy Severe Anaphylaxis Unverified 05/07/22 08:56 metaxalone Allergy Unknown unknown Unverified 05/07/22 08:56 rofecoxib Allergy Unknown unknown Unverified 05/07/22 08:56 exenatide [From Byetta] AdvReac Intermediate GI Upset Unverified 05/07/22 08:56 adams pepper Allergy Severe Anaphylaxis Uncoded 05/07/22 08:56 mushrooms Allergy Severe Anaphylaxis Uncoded 05/07/22 08:56 Home Medications Medication Instructions Recorded Confirmed Type magnesium chloride 71.5 mg 4 tab-cap PO DAILY #180 tab-caps 02/27/17 05/07/22 History (magnesium chloride) tablet,delayed release (Slow-Mag) lorazepam 0.5 mg tablet 0.5 mg PO daily prn #30 tab-caps 03/01/18 05/07/22 Rx docusate sodium 50 mg capsule 50 mg PO DAILY PRN #90 tab-caps 08/09/18 05/07/22 History (Colace) meclizine 25 mg tablet 25 mg PO BID PRN vertigo #30 tabs 04/02/20 05/07/22 Rx trazodone 50 mg tablet 50 mg PO QHS PRN sleep #90 tabs 10/16/20 05/07/22 Rx bupropion HCl 150 mg 24 hr tablet, 450 mg PO DAILY #270 tab-caps 10/28/21 05/07/22 Rx extended release levothyroxine 100 mcg capsule 100 mcg PO DAILY #90 caps 10/28/21 05/07/22 Rx metoprolol succinate 100 mg 100 mg PO DAILY #90 tabs 10/28/21 05/07/22 Rx tablet,extended release 24 hr pen needle, diabetic 31 gauge x #300 ea 12/17/21 05/07/22 Rx 3/16 (BD Ultra-Fine Mini Pen Needle) liraglutide 0.6 mg/0.1 mL (18 mg/3 1.8 mg (0.3 mL) subcut DAILY #9 mL 12/18/21 05/07/22 Rx mL) subcutaneous pen injector tiotropium bromide 2.5 2 puff inhalation DAILY #4 grams 01/11/22 05/07/22 Rx mcg/actuation mist for inhalation (Spiriva Respimat) duloxetine 60 mg capsule,delayed 60 mg PO HS 01/21/22 05/07/22 History release atorvastatin 80 mg tablet 80 mg PO DAILY #90 tabs 02/16/22 05/07/22 Rx chlorthalidone 25 mg tablet 12.5 mg PO DAILY #90 tabs 02/16/22 05/07/22 Rx glimepiride 4 mg tablet 4 mg PO BID #180 tab-caps 02/16/22 05/07/22 Rx insulin glargine 100 unit/mL (3 14 unit (0.14 mL) subcut HS #45 mL 02/16/22 05/07/22 Rx mL) subcutaneous pen (Lantus Solostar U-100 Insulin) metformin 1,000 mg tablet 1,000 mg PO BID #180 tab-caps 02/16/22 05/07/22 Rx naproxen sodium 220 mg tablet 220 mg PO BID PRN pain #90 tabs 02/17/22 05/07/22 Rx (Aleve) budesonide-formoterol HFA 160 2 puff inhalation BID #10.2 grams 04/16/22 07/0 06/21 Rx mcg-4.5 mcg/actuation aerosol inhaler (Symbicort) Exam Narrative Exam Narrative: Elderly obese female who is alert and oriented person place time circumstance sitting up in bed in no acute respiratory distress not using accessory respiratory muscles. HEENT she is edentulous. She is now Mallampati class I and that she is able to elevate her palate completely and uvula does not touch the back of her tongue. There is no edema of the pillars. Neck is supple nontender no stridor normal carotid pulses no JVD Lungs are clear to auscultation Heart regular rate and rhythm without murmur rub or gallop Abdomen soft nontender nondistended normal bowel sounds Lower extremities no peripheral edema normal pedal pulses Results Labs Result diagrams: 05/07/22 08:00 05/07/22 08:00 Labs: Laboratory Results - last 24 hr 05/07/22 05/07/22 05/07/22 07:58 08:00 08:00 WBC RBC Hgb Hct MCV MCH MCHC RDW Plt Count MPV Immature Gran % Neutrophils % Lymphocytes % Monocytes % Eosinophils % Basophils % Nucleated RBC % Absolute Neutrophils Absolute Lymphocytes Absolute Monocytes Absolute Eosinophils Absolute Basophils Sodium 139 Potassium 4.2 Chloride 101 Carbon Dioxide 26.9 Anion Gap 11.1 H BUN 22 H Creatinine 1.2 H Estimated GFR/1.73 m2 44.16 Glucose 179 H Calcium 9.8 Total Bilirubin 1.2 H AST 38 H ALT 44 Alkaline Phosphatase 121 H Total Protein 8.3 H Albumin 3.7 Vitamin B12 COVID-19 Source SARS-CoV-2 (PCR) Patient ABO/Rh O Positive Cancelled Antibody Screen NEGATIVE 05/07/22 05/07/22 05/07/22 08:00 10:18 11:00 WBC 12.77 H RBC 4.97 Hgb 14.7 Hct 45.2 MCV 91 MCH 29.6 MCHC 32.5 RDW 13.1 Plt Count 376 MPV 9.4 Immature Gran % 0.7 Neutrophils % 64.9 Lymphocytes % 23.9 Monocytes % 6.7 Eosinophils % 2.9 Basophils % 0.9 Nucleated RBC % 0.0 Absolute Neutrophils 8.29 H Absolute Lymphocytes 3.05 Absolute Monocytes 0.86 H Absolute Eosinophils 0.37 Absolute Basophils 0.11 Sodium Potassium Chloride Carbon Dioxide Anion Gap BUN Creatinine Estimated GFR/1.73 m2 Glucose Calcium Total Bilirubin AST ALT Alkaline Phosphatase Total Protein Albumin Vitamin B12 248 COVID-19 Source Nasal/Nares SARS-CoV-2 (PCR) Negative Patient ABO/Rh Antibody Screen Last Vital Signs Temp 36.7 C 05/07/22 11:17 Pulse 66 05/07/22 11:17 Resp 20 05/07/22 11:20 BP 146/65 H 05/07/22 11:17 Pulse Ox 96 05/07/22 11:17
[2022-05-07] MEDS: Insulin Aspart 300 UNITS/3 ML PEN SC ×2 (17:11→21:11)
--- NOTE | 2022-05-07 17:59 | CHAPLAIN ---
Wanda said she is feeling better, breathing easier. She expects her in to visit later this afternoon. She seems to be comfortable being here.
[2022-05-07 18:57] LABS: Bilirubin Negative (Negative); Blood Negative (Negative); Clarity Sl Cloudy (Clear); Glucose >=1000 mg/dL (Negative); Ketones Trace mg/dL (Negative); Leukocyte Esterase Negative (Negative); Nitrite Positive (Negative); Urobilinogen 0.2 EU/dL (Up TO 0.2)
[2022-05-07 19:03] LABS: Bacteria Many HPF (Negative); C & S Indicated? Yes; Casts Negative LPF (Negative); Crystals Negative HPF (Negative); Epithelial Cells Few HPF (Negative); Mucus Negative (Negative); RBC 0-2 HPF (0-2)
[2022-05-07] MEDS: Insulin Glargine 300 UNITS/3 ML PEN 14 UNITS SC (21:13)
[2022-05-07] MEDS: Budesonide/Formoterol 160/4.5 6 GM 60 PUFF INH IH (21:16)
[2022-05-08] VITALS (8 sets, daily range): BP systolic 122–154; BP diastolic 58–85; PULSE 62–82; RESP 16–21; TEMP 36.2–37.3; O2SAT 93–96
[2022-05-08] MEDS: Levothyroxine 100 MCG TAB PO (06:38)
[2022-05-08 07:19] LABS: TSH (W/Ref FT4) 7.89 uIU/mL (0.36-3.74)
[2022-05-08] MEDS: Tiotropium Bromide-Respimat 10 PUFF INH 2 PUFF IH (07:20)
[2022-05-08] MEDS: Budesonide/Formoterol 160/4.5 6 GM 60 PUFF INH IH (07:21)
[2022-05-08 07:38] LABS: FREE T4 1.07 ng/dL (0.76-1.46)
[2022-05-08] MEDS: Famotidine 20 MG/2 ML VIAL IVP (08:16)
[2022-05-08] MEDS: Metoprolol CR 100 MG TABCR PO (08:16)
[2022-05-08] MEDS: metFORMIN 500 MG TAB 1000 MG PO (08:16)
[2022-05-08] MEDS: Dexamethasone 4 MG/ML VIAL 6 MG IVP (08:16)
[2022-05-08] MEDS: buPROPion-XL 150 MG TABCR 450 MG PO (08:16)
[2022-05-08] MEDS: Normal Saline Flush 10 ML SYR IVP (08:17)
[2022-05-08] MEDS: Glimepiride 2 MG TAB 4 MG PO (08:51)
[2022-05-08] MEDS: Chlorthalidone 25 MG TAB 12.5 MG PO (08:51)
[2022-05-08] MEDS: Insulin Aspart 300 UNITS/3 ML PEN SC ×2 (09:01→13:30)
--- NOTE | 2022-05-08 11:08 | DSE_ITS ---
Date of service: 05/08/22 Time of Service: 11:09 DS: Diagnosis Discharge Diagnosis (1) Angioedema of tongue: Status: Acute (2) Asthma-COPD overlap syndrome: Status: Chronic (3) Diabetes mellitus: Status: Chronic (4) Essential hypertension: Status: Chronic (5) Diastolic heart failure: Status: Chronic Discharge Plan Disposition Patient Disposition: HOME Condition: Stable Discharge Details Reason For Visit: MEENU inhibitor related angioedema Admit Date/Time: 05/07/22 09:33 Admit Provider: Faizan Morgan Attending Provider: Faizan Morgan Primary Care Provider: Savannah Guerra Hospital Course Hospital Course: This is a 71-year-old female with history of combined COPD and asthma as well as essential hypertension diabetes mellitus type 2 who presented emergency department with recurrent symptoms of angioedema.? Patient has been on enalapril for hypertension.? About 2 weeks ago she had a minor episode in which she had difficulty swallowing due to swelling of her lips and mouth but had no difficulty breathing.? Her symptoms abated on their own with no medical intervention.? She did not see her PCP about this.? She then continued to take her enalapril not making the association between enalapril and her reaction.? Today she presented emergency department with severe angioedema causing difficulty breathing and swallowing.? This caused swelling of her lips and tongue and mouth to the point where there was concern of compromise of her airway.? She was treated emergency department with tranexamic acid, pepcid and FFP.? She is already recovering has had marked improvement to the point where she can swallow without difficulty and has no dyspnea and no stridor.?She was given Solu-Medrol 80 mg IV every 8 hours which was changed to Decadron 6 mg daily.? She will continue to receive Pepcid. Further studies have been sent out to look for evidence of hereditary angioedema.? C1 esterase inhibitor functional as well as antigen and complement C1q and C4 complement have been sent out.? Patient denies any family history of angioedema.? She says she has had similar but less severe reactions to shellfish crab cakes. she responded to the treatment with marked improvement. She is to be discharged to home on steroid taper and famotidine. she was instructed to return for new or worsening symptoms. discussed with Dr Harding . Home Meds and New Rx's Prescriptions: New prednisone 10 mg tablet See Taper PO DAILY Qty: 30 0RF Taper: Prednisone 10mg taper 40 mg Daily for 2 Days and 0 Hour 30 mg Daily for 2 Days and 0 Hour 20 mg Daily for 2 Days and 0 Hour 10 mg Daily for 2 Days and 0 Hour 5 mg Daily for 2 Days and 0 Hour famotidine 20 mg tablet 20 mg PO BID Qty: 28 0RF Continued chlorthalidone 25 mg tablet 12.5 mg PO DAILY Qty: 90 3RF Rx Instructions: [facility] started 02/25/21/ not sent atorvastatin 80 mg tablet 80 mg PO DAILY Qty: 90 3RF Rx Instructions: per cardiology [facility] [place] - not sent glimepiride 4 mg tablet 4 mg PO BID Qty: 180 4RF insulin glargine [Lantus Solostar U-100 Insulin] 100 unit/mL (3 mL) insulin pen 14 unit Sub-Q HS Qty: 45 3RF metformin 1,000 mg tablet 1,000 mg PO BID Qty: 180 4RF Spiriva Respimat 2.5 mcg/actuation mist 2 puff inhalation DAILY Qty: 4 12RF budesonide-formoterol [Symbicort] 160-4.5 mcg/actuation HFA aerosol inhaler 2 puff inhalation BID Qty: 10.2 12RF lorazepam 0.5 MG tablet 0.5 mg PO daily prn Qty: 30 0RF Colace 50 mg capsule 50 mg PO DAILY PRNQty: 90 trazodone 50 mg tablet 50 mg PO QHS PRN (Reason: sleep) Qty: 90 1RF bupropion HCl 150 mg tablet extended release 24 hr 450 mg PO DAILY Qty: 270 4RF levothyroxine 100 mcg capsule 100 mcg PO DAILY Qty: 90 3RF Rx Instructions: take one tablet daily metoprolol succinate 100 mg tablet extended release 24 hr 100 mg PO DAILY Qty: 90 4RF (DME) pen needle, diabetic [BD Ultra-Fine Mini Pen Needle] 31 gauge x 3/16 needle See Rx Instructions .ROUTE .MEDSUPPLY Qty: 300 3RF Rx Instructions: Insulin adm. BID: E11.9 liraglutide 0.6 mg/0.1 mL (18 mg/3 mL) pen injector 1.8 mg subcut DAILY Qty: 9 6RF duloxetine 60 mg capsule,delayed release(DR/EC) 60 mg PO HS Discontinued meclizine 25 mg tablet 25 mg PO BID PRN (Reason: vertigo) Qty: 30 0RF naproxen sodium [Aleve] 220 mg tablet 220 mg PO BID PRN (Reason: pain) Qty: 90 3RF Discharge Instructions Instructions: COPD (Chronic Obstructive Pulmonary Disease) (DC), Angioedema (ED) Additional Instructions: Taper steroids as directed for angioedema. Asthma- COPD Overlap Syndrome - Symbicort 160 - rinse mouth out after use - continue Spiriva - prn albuterol - use prior to activity - COPD action plan made COPD Action Plan Try the following medications for mild worsening of symptoms: albuterol 2 puffs If your symptoms do not improve, please call the Pulmonary Clinic at [phone]. If you develop severe symptoms at any time, please go to the Emergency Department. If patient calls with worsening symptoms despite the above interventions, assess whether they meet criteria for a COPD exacerbation: - increased cough - increased shortness of breath - increased mucus production - wheezing - lower oxygen levels compared to baseline If 2 of the above symptoms are present, the action plan is: Prednisone 40mg for 5 days Z-pack Stand Alone Forms: Nursing Discharge Form Referrals: Savannah Guerra NP [Primary Care Provider] - (Follow-up with PCP) Maylin Phillip MD [ [facility] STAFF PHYSICIAN] - (Plan Detail Follow Up: 3 Months (spirometry at next clinic)) Activity:: Activity as Tolerated Equipment/Supplies:: No Equipment Needed Diet:: As Tolerated Discharge Orders Discharge Orders: Discharge Order (Routine); Ordered 05/08/22 Ordered By: Alejandra Rodriguez Discharge Data Discharge Date/Time-TO BE ENTERED AT DEPARTURE: 05/08/22 13:51 DS: Summary Time Spent with Patient providing and/or coordinating discharge services: Less than 30 minutes Status at Discharge Functional status at discharge: independent ambulation Overall status at discharge: patient is progressing back to baseline Mental Status: mental status grossly normal Speech and Movement: speech and movement normal Mood: congruent mood Affect: normal affect Exam Const General: cooperative, healthy appearing, comfortable and no acute distress Nutritional Appearance: overweight Orientation: alert, awake and oriented x3 HENMT Head: normal to inspection and normocephalic Mouth: oral mucosae normal, lip normal, tongue normal, oropharynx normal and moist mucous membranes Throat: posterior oropharynx normal Neck Neck: trachea midline and supple Resp Auscultation: clear to auscultation bilaterally, no rales, no rhonchi and no wheezes Cardio Rate: regular rate Rhythm: regular rhythm GI Palpation: soft, not firm, no guarding, no masses, not rigid and nontender Skin General skin exam: no rashes or lesions noted Neuro General: patient alert, patient awake and tone normal Extrem General: no edema Psych Appearance: grossly normal Mental Status: mental status grossly normal Speech and Movement: speech and movement normal Mood: congruent mood Affect: normal affect DS: Data Vitals/I&O Vitals and I&O: Vital Signs Temperature 36.3 C L 05/08/22 07:10 Temperature Source Tympanic 05/08/22 07:10 Pulse 73 05/08/22 07:10 Pulse Rhythm Regular 05/08/22 04:28 Pulse 79 05/08/22 03:01 Respiratory Rate 16 05/08/22 07:10 Respiratory Effort 05/08/22 04:28 Respiratory Depth Normal 05/08/22 04:28 Respiratory Pattern Normal 05/08/22 04:28 Blood Pressure 154/85 H 05/08/22 07:10 Blood Pressure Mean 82 05/08/22 03:01 Blood Pressure Position Supine 05/08/22 00:00 Pulse Oximetry 96 05/08/22 07:10 Oxygen Delivery Method Room Air 05/08/22 07:10 Oxygen Flow Rate 0 05/08/22 07:10 Pain Level 0 05/08/22 07:10 Intake & Output 05/07/22 05/07/22 05/08/22 11:59 23:59 11:59 Intake Total 60 / 375 315 / 375 1050 / 1050 Output Total 1100 / 1100 1900 / 1900 Balance 60 / -725 -785 / -725 -850 / -850 Weight 107 kg 108.1 kg Intake: IV 60 / 60 Oral 1050 / 1050 Blood Product 315 / 315 Frozen Plasma Unit 315 / 315 [id number] Output: Urine 1100 / 1100 1900 / 1900 Other: Urine Color Straw Yellow Urine Appearance Clear Clear Urine Odor Normal Normal Comment unknown amount pt stated she voided, put hat in toilet Stool Size Large Moderate Stool Characteristics Formed Formed Voiding Methods Bedside Commode Toilet Data Completed and Pending Labs on day of discharge: Labs from last 24 hours 05/07/22 05/07/22 05/07/22 18:47 11:00 10:18 Vitamin B12 248 TSH Free T4 Urine Color Yellow Urine Clarity Sl Cloudy Urine pH 6.0 Ur Specific [place] 1.010 Urine Protein Negative Urine Ketones Trace H Urine Blood Negative Urine Nitrite Positive H Urine Bilirubin Negative Urine Urobilinogen 0.2 Ur Leukocyte Esterase Negative Urine RBC 0-2 Urine WBC 3-5 Ur Epithelial Cells Few Urine Crystals Negative Urine Bacteria Many Urine Casts Negative Urine Mucus Negative Ur Culture Indicated? Yes Urine Glucose >=1000 H Syphilis Serology COVID-19 Source Nasal/Nares SARS-CoV-2 (PCR) Negative Patient ABO/Rh Antibody Screen 05/07/22 05/07/22 05/07/22 07:58 07:45 07:45 Vitamin B12 TSH 7.89 H Free T4 1.07 Urine Color Urine Clarity Urine pH Ur Specific [place] Urine Protein Urine Ketones Urine Blood Urine Nitrite Urine Bilirubin Urine Urobilinogen Ur Leukocyte Esterase Urine RBC Urine WBC Ur Epithelial Cells Urine Crystals Urine Bacteria Urine Casts Urine Mucus Ur Culture Indicated? Urine Glucose Syphilis Serology Cancelled COVID-19 Source SARS-CoV-2 (PCR) Patient ABO/Rh O Positive Antibody Screen NEGATIVE 05/07/22 18:47 Urine - Reflex from Ua Urine Culture - Pending Preliminary micro results at discharge 05/07/22 18:47 Urine Culture - Pending Urine - Reflex from Ua [facility] All Active Problems Leukocytosis (Acute) Angioedema of tongue (Acute) Right knee pain (Acute) Brachial plexus neuropathy (Chronic) Cervical spinal stenosis (Chronic) MRI 03/2013; Severe left C5-6 and moderate left C3-4 stenosis; multilevel DDD 06/12-GUILLE Degenerative disc disease (Chronic) lumbar facet hypertrophy L4-5; L5-S1; MRI 07/2009 lumbar spondylosis Depressive disorder (Chronic) Diabetes mellitus (Chronic) [facility] [place] insulin Lantus started/Coreen Bilotta [facility] endo. D.Bilotta/ uncontrolled db. /HbA1c 8.7; increase Glimepiride 4 bid/fup 6 mo. FOLLOWED AT [facility] [place]/LABS INCLUDED Diastolic heart failure (Chronic 12/02/09) MILD; echo 12/10-dysfunction, echo 2013 Essential hypertension (Chronic 08/15/13) Urinary, incontinence, stress female (Chronic) Hyperlipidemia (Chronic) Hypothyroidism (Chronic 04/17/13) [facility] [place]; same rx/D.Page NEVES Non-alcoholic fatty liver disease (Chronic) 2010elevated transaminases 2013 normal AST ALT Osteopenia (Chronic 09/29/03) Recurrent urinary tract infection (Chronic) Coronary artery disease (Chronic) Diabetic peripheral neuropathy (Chronic) Cubital tunnel syndrome on right (Chronic) POLST (Physician Orders for Life-Sustaining Treatment) (Acute) DNR (do not resuscitate) (Chronic) DNI (do not intubate) (Acute) Asthma-COPD overlap syndrome (Chronic) Medical History Chronic obstructive lung disease (07/16/13) Dr. PINK/ PFT'S 08/09 Quit smoking 1999 Chronic pain syndrome (10/27/12) on METHADONE; [facility] ; Shana Vaz- visit:12-06-2016 q 4 weeks (left neck and shoulder pain) 01/2022 - Reports she weaned off a while ago. Colitis Former smoker History of tobacco use Kidney stone Shoulder pain left;2010- S/P supraclavicular lipoma removal; S/P neuroma 1988 [id number]. degenerative cervical spondylosis Tension-type headache Surgical History Cholecystectomy (~2000) Hx of cardiac cath Hysterectomy, Laproscopic (~1985) Oophrectomy, Left (~1998) PROCEDURES BLADDER REPAIR NEC, 1985 URETEROSCOPY, 2002 multiple kidney stones PERIPH GANGLIONECT NEC left ABD REPAIR-DIAPHR HERNIA Repair of inguinal hernia RIGHT Repair of umbilical hernia (06/04/16) [facility] [place] Family History Mother , 85 Essential hypertension Heart disease Hyperlipidemia Father Essential hypertension Personal history of malignant neoplasm MELANOMA Heart disease Hyperlipidemia Stroke Sister Diabetes Brother Stroke Grandfather Heart disease Grandfather Stroke Grandmother Personal history of malignant neoplasm BREAST/UTERINE Heart disease Grandmother No problems noted. Sister No problems noted. Sister No problems noted. Sister No problems noted. Brother No problems noted. Brother No problems noted. Son No problems noted. Son No problems noted. Social History Smoking/Tobacco Use Status: Former Tobacco Use Quit Date: 10/31/99 Smoking risk assessment performed?: Yes Alcohol Intake: current Alcohol Intake frequency: holidays/special occasions only Drug use: Never Substance use type: does not use Household members: spouse Housing: house Number of Children: 3 Pets and animals: No Current gender identity: female What is your relationship status?: How often do you talk on the phone with friends or family?: twice per week How often do you get together with friends or relatives?: once per week How often do you attend scientologist or scientology services?: decline to answer Do you belong to any clubs or organized social groups?: no Panel score (0-1 are the most socially isolated patients): 2 What type of physical activity do you participate in: none Duration: 15-30 minutes/day Frequency: 1-2 times per week Chely/Holiness: Yazidi Special chely needs: No Seatbelt use: always Do you feel safe at home: Yes Do you feel safe in your relationship?: Yes
[2022-05-10 12:05] LABS: C4 Complement 42 mg/dL (13-39)
[2022-05-10 13:11] LABS: Complement C1q, S 28 mg/dL (12 - 22)
[2022-05-10 15:12] LABS: C1 Esterase Inhib, Functional >90 %of norm
== END 2022-05-08 13:51 | disposition home or self-care (01) ==
LOC: ER 09:41 → ICU 10:47 → MS 05-08 03:28
PROVIDERS: Student in an Organized Health Care Education/Training Program; Admitting Provider Internal Medicine; Emergency Provider Student in an Organized Health Care Education/Training Program; Visit Provider Internal Medicine
DX: T78.3XXA Angioneurotic edema, initial encounter (principal); I13.0 Hypertensive heart and chronic kidney disease with heart failure and stage 1 through stage 4 chronic kidney disease, or unspecified chronic kidney disease; I50.32 Chronic diastolic (congestive) heart failure; E03.9 Hypothyroidism, unspecified; E11.22 Type 2 diabetes mellitus with diabetic chronic kidney disease; K76.0 Fatty (change of) liver, not elsewhere classified; J44.9 Chronic obstructive pulmonary disease, unspecified; D72.829 Elevated white blood cell count, unspecified; N18.9 Chronic kidney disease, unspecified; Z66 Do not resuscitate; Z20.822 Contact with and (suspected) exposure to COVID-19; Z79.4 Long term (current) use of insulin; E78.5 Hyperlipidemia, unspecified; I25.10 Atherosclerotic heart disease of native coronary artery without angina pectoris; Z79.899 Other long term (current) drug therapy
CPT/HCPCS: 36415; 36416; 80053; 82962; 86850; 86900; 86901; 87077; 87635; 93005; 94640; 96372; 96374; 96375; 99291; 99292; J1650; 81003; 81015; 82607; 83520; 84439; 84443; 85025; 86160; 86161; 86592; 87086; 87186; 93010; 99217; G0378; J0171; J1100; J1200; J2930; P9059

== ENCOUNTER 2022-06-27 17:52 | Emergency (ER) | payer MEDICARE, SELFPAY ==
[2022-06-27] VITALS (35 sets, daily range): BP systolic 112–161; BP diastolic 50–86; PULSE 64–69; RESP 13–28; TEMP 36.6; O2SAT 91–96
[2022-06-27] MEDS: diphenhydrAMINE 50 MG/ML VIAL 25 MG IVP (18:10)
[2022-06-27] MEDS: EPINEPHrine 0.3 MG KIT IM (18:10)
[2022-06-27] MEDS: Normal Saline 500 ML 1000 ML IV (18:10)
[2022-06-27] MEDS: methylPREDNISolone SUCC 125 MG VIAL IVP (18:11)
--- NOTE | 2022-06-27 18:11 | ED.GENADUL_ITS ---
Discharge Plan Disposition Patient Disposition: HOME Condition: Improving Discharge Details Chief Complaint: Allergic Clinical Impression: Angioedema Primary Care Provider: Savannah Guerra ED Provider: Ronnell Stover Home Meds and New Rx's Prescriptions: No Action chlorthalidone 25 mg tablet 12.5 mg PO DAILY Qty: 90 3RF Rx Instructions: [facility] endocrinology started 02/25/21/ not sent atorvastatin 80 mg tablet 80 mg PO DAILY Qty: 90 3RF Rx Instructions: per cardiology [facility] [place] - not sent glimepiride 4 mg tablet 4 mg PO BID Qty: 180 4RF insulin glargine [Lantus Solostar U-100 Insulin] 100 unit/mL (3 mL) insulin pen 14 unit Sub-Q HS Qty: 45 3RF metformin 1,000 mg tablet 1,000 mg PO BID Qty: 180 4RF budesonide-formoterol [Symbicort] 160-4.5 mcg/actuation HFA aerosol inhaler 2 puff inhalation BID Qty: 10.2 12RF lorazepam 0.5 MG tablet 0.5 mg PO daily prn Qty: 30 0RF Colace 50 mg capsule 50 mg PO DAILY PRNQty: 90 trazodone 50 mg tablet 50 mg PO QHS PRN (Reason: sleep) Qty: 90 1RF bupropion HCl 150 mg tablet extended release 24 hr 450 mg PO DAILY Qty: 270 4RF metoprolol succinate 100 mg tablet extended release 24 hr 100 mg PO DAILY Qty: 90 4RF (DME) pen needle, diabetic [BD Ultra-Fine Mini Pen Needle] 31 gauge x 3/16 needle See Rx Instructions .ROUTE .MEDSUPPLY Qty: 300 3RF Rx Instructions: Insulin adm. BID: E11.9 liraglutide 0.6 mg/0.1 mL (18 mg/3 mL) pen injector 1.8 mg subcut DAILY Qty: 9 6RF duloxetine 60 mg capsule,delayed release(DR/EC) 60 mg PO HS Qty: 90 3RF levothyroxine 112 mcg tablet 112 mcg PO DAILY Qty: 90 3RF insulin glargine [Lantus Solostar U-100 Insulin] 100 unit/mL (3 mL) insulin pen SUBCUT Label Comments: INJECT 14 UNITS SUBCUTANEOUSLY AT BEDTIME duloxetine 60 mg capsule,delayed release(DR/EC) 60 mg PO HS Label Comments: TAKE ONE CAPSULE BY MOUTH AT BEDTIME budesonide-formoterol [Symbicort] 160-4.5 mcg/actuation HFA aerosol inhaler INHALATION Label Comments: INHALE TWO PUFFS BY MOUTH TWICE A DAY famotidine 20 mg tablet 20 mg PO BID Qty: 28 0RF Discharge Instructions Instructions: Angioedema (ED) Additional Instructions: Please return to the emergency department for any worsening symptoms such as tongue swelling trouble breathing or other abnormal symptoms. Please follow-up with your primary care physician. Medical Decision Making 71-year-old female history of angioedema presents with tongue swelling for the past several hours, slightly muffled voice, tolerating secretions, no stridor, no respiratory distress, vital signs unremarkable. Does not take any lisinopril, no new medications. Counseled patient regarding diagnosis and she is amenable to intubation if needed for airway protection. Currently resting comfortably. Will administer epinephrine Solu-Medrol Benadryl famotidine and FFP. Will obtain basic labs. Pending reassessment consider admission for observation versus home with close return precautions. Less likely anaphylaxis less likely Tia's angina. 18: 40 patient showing some improvement after initial medications. Awaiting FFP as lab needs to run type and screen. We will continue to observe for improvement. 19: 51 patient resting comfortably no acute distress. Tongue swelling has largely resolved. Tolerating secretions no respiratory distress. Patient does not want to receive FFP. Given home care instructions and strict return precautions. HPI General Date/Time Provider Initiated Documentation: 06/27/22 17:57 . HPI Narrative: 71-year-old female history of prior angioedema presents with swelling of tongue for the past several hours, does have sensation that the swelling is traveling to her throat. Denies shortness of breath at this time. Had a prior admission in which she received medications. No prior radiations. Patient counseled regarding likely diagnosis and endorses that if she needs to be intubated any point for airway protection she is okay with this Related Data Home Medications Medication Instructions Recorded Confirmed lorazepam 0.5 mg tablet 0.5 mg PO daily prn #30 tab-caps 03/01/18 06/27/22 docusate sodium 50 mg capsule 50 mg PO DAILY PRN #90 tab-caps 08/09/18 05/14/22 (Colace) trazodone 50 mg tablet 50 mg PO QHS PRN sleep #90 tabs 10/16/20 06/27/22 bupropion HCl 150 mg 24 hr tablet, 450 mg PO DAILY #270 tab-caps 10/28/21 06/27/22 extended release metoprolol succinate 100 mg 100 mg PO DAILY #90 tabs 10/28/21 06/27/22 tablet,extended release 24 hr pen needle, diabetic 31 gauge x #300 ea 12/17/21 05/14/2201/13 (BD Ultra-Fine Mini Pen Needle) liraglutide 0.6 mg/0.1 mL (18 mg/3 1.8 mg (0.3 mL) subcut DAILY #9 mL 12/18/21 06/27/22 mL) subcutaneous pen injector atorvastatin 80 mg tablet 80 mg PO DAILY #90 tabs 02/16/22 06/27/22 chlorthalidone 25 mg tablet 12.5 mg PO DAILY #90 tabs 02/16/22 06/27/22 glimepiride 4 mg tablet 4 mg PO BID #180 tab-caps 02/16/22 06/27/22 insulin glargine 100 unit/mL (3 14 unit (0.14 mL) subcut HS #45 mL 02/16/22 06/27/22 mL) subcutaneous pen (Lantus Solostar U-100 Insulin) metformin 1,000 mg tablet 1,000 mg PO BID #180 tab-caps 02/16/22 06/27/22 budesonide-formoterol HFA 160 2 puff inhalation BID #10.2 grams 04/16/22 06/27/22 mcg-4.5 mcg/actuation aerosol inhaler (Symbicort) famotidine 20 mg tablet 20 mg PO BID #28 tabs 05/08/22 05/14/22 duloxetine 60 mg capsule,delayed 60 mg PO HS #90 caps 05/27/22 06/27/22 release levothyroxine 112 mcg tablet 112 mcg PO DAILY #90 tabs 05/27/22 06/27/22 budesonide-formoterol HFA 160 inhalation 06/27/22 06/27/22 mcg-4.5 mcg/actuation aerosol inhaler (Symbicort) duloxetine 60 mg capsule,delayed 60 mg PO HS 06/27/22 06/27/22 release insulin glargine 100 unit/mL (3 unit subcut 06/27/22 06/27/22 mL) subcutaneous pen (Lantus Solostar U-100 Insulin) Previous Rx's Medication Instructions Recorded lorazepam 0.5 mg tablet 0.5 mg PO daily prn #30 tab-caps 03/01/18 trazodone 50 mg tablet 50 mg PO QHS PRN sleep #90 tabs 10/16/20 bupropion HCl 150 mg 24 hr tablet, 450 mg PO DAILY #270 tab-caps 10/28/21 extended release metoprolol succinate 100 mg 100 mg PO DAILY #90 tabs 10/28/21 tablet,extended release 24 hr pen needle, diabetic 31 gauge x #300 ea 12/17/2101/13 (BD Ultra-Fine Mini Pen Needle) liraglutide 0.6 mg/0.1 mL (18 mg/3 1.8 mg (0.3 mL) subcut DAILY #9 mL 12/18/21 mL) subcutaneous pen injector atorvastatin 80 mg tablet 80 mg PO DAILY #90 tabs 02/16/22 chlorthalidone 25 mg tablet 12.5 mg PO DAILY #90 tabs 02/16/22 glimepiride 4 mg tablet 4 mg PO BID #180 tab-caps 02/16/22 insulin glargine 100 unit/mL (3 14 unit (0.14 mL) subcut HS #45 mL 02/16/22 mL) subcutaneous pen (Lantus Solostar U-100 Insulin) metformin 1,000 mg tablet 1,000 mg PO BID #180 tab-caps 02/16/22 budesonide-formoterol HFA 160 2 puff inhalation BID #10.2 grams 04/16/22 mcg-4.5 mcg/actuation aerosol inhaler (Symbicort) famotidine 20 mg tablet 20 mg PO BID #28 tabs 05/08/22 duloxetine 60 mg capsule,delayed 60 mg PO HS #90 caps 05/27/22 release levothyroxine 112 mcg tablet 112 mcg PO DAILY #90 tabs 05/27/22 Allergies Allergy/AdvReac Type Severity Reaction Status Date / Time MEENU Inhibitors Allergy Severe Anaphylaxis Unverified 06/27/22 18:57 enalapril Allergy Severe angioedema Verified 06/27/22 18:57 shellfish derived Allergy Severe Anaphylaxis Unverified 06/27/22 18:57 metaxalone Allergy Unknown unknown Unverified 06/27/22 18:57 rofecoxib Allergy Unknown unknown Unverified 06/27/22 18:57 exenatide [From [place]etta] AdvReac Intermediate GI Upset Unverified 06/27/22 18:57 adams pepper Allergy Severe Anaphylaxis Uncoded 06/27/22 18:57 mushrooms Allergy Severe Anaphylaxis Uncoded 06/27/22 18:57 General Stated Complaint: Allergic JULIET: 2 Review of Systems Narrative: Review of Systems Constitutional: negative Eyes: negative ENT: Tongue swelling Cardiovascular: negative Respiratory: negative Gastrointestinal: negative : negative Musculoskeletal: negative Skin: negative Neurologic: negative Psych: negative PFSH All Active Problems (Updated 06/27/22 @ 19:53 by Ronnell Stover MD) Angioedema (Acute) Leukocytosis (Acute) Angioedema of tongue (Acute) Right knee pain (Acute) Brachial plexus neuropathy (Chronic) Cervical spinal stenosis (Chronic) MRI 03/2013; Severe left C5-6 and moderate left C3-4 stenosis; multilevel DDD 06/12-GUILLE Degenerative disc disease (Chronic) lumbar facet hypertrophy L4-5; L5-S1; MRI 07/2009 lumbar spondylosis Depressive disorder (Chronic) Diabetes mellitus (Chronic) [facility] insulin Lantus started/Coreen Bilotta [facility] endo. D.Bilotta/ uncontrolled db. /HbA1c 8.7; increase Glimepiride 4 bid/fup 6 mo. FOLLOWED AT [facility]/LABS INCLUDED Diastolic heart failure (Chronic 12/02/09) MILD; echo 12/10-dysfunction, echo 2013 Essential hypertension (Chronic 08/15/13) Urinary, incontinence, stress female (Chronic) Hyperlipidemia (Chronic) Hypothyroidism (Chronic 04/17/13) [facility]; same rx/D.Bilotta [employer] Non-alcoholic fatty liver disease (Chronic) 2011elevated transaminases 2013 normal AST ALT Osteopenia (Chronic 09/29/03) Recurrent urinary tract infection (Chronic) Coronary artery disease (Chronic) Diabetic peripheral neuropathy (Chronic) Cubital tunnel syndrome on right (Chronic) POLST (Physician Orders for Life-Sustaining Treatment) (Acute) DNR (do not resuscitate) (Chronic) DNI (do not intubate) (Acute) Asthma-COPD overlap syndrome (Chronic) Medical History Chronic obstructive lung disease (07/16/13) Dr. PINK/ PFJorge'S 08/09 Quit smoking 1999 Chronic pain syndrome (10/27/12) on METHADONE; [facility] ; Shana Vaz- visit:12-06-2016 q 4 weeks (left neck and shoulder pain) 01/2022 - Reports she weaned off a while ago. Colitis Former smoker History of tobacco use Kidney stone Shoulder pain left;2010- S/P supraclavicular lipoma removal; S/P neuroma 1988 [id number]. degenerative cervical spondylosis Tension-type headache Surgical History Cholecystectomy (~2000) Hx of cardiac cath Hysterectomy, Laproscopic (~1985) Oophrectomy, Left (~1998) PROCEDURES BLADDER REPAIR NEC, 1985 URETEROSCOPY, 2002 multiple kidney stones PERIPH GANGLIONECT NEC left ABD REPAIR-DIAPHR HERNIA Repair of inguinal hernia RIGHT Repair of umbilical hernia (06/04/16) [facility] Family History Mother , 85 Essential hypertension Heart disease Hyperlipidemia Father Essential hypertension Personal history of malignant neoplasm MELANOMA Heart disease Hyperlipidemia Stroke Sister Diabetes Brother Stroke Grandfather Heart disease Grandfather Stroke Grandmother Personal history of malignant neoplasm BREAST/UTERINE Heart disease Grandmother No problems noted. Sister No problems noted. Sister No problems noted. Sister No problems noted. Brother No problems noted. Brother No problems noted. Son No problems noted. Son No problems noted. Social History Smoking/Tobacco Use Status: Former Tobacco Use Quit Date: 10/31/99 Smoking risk assessment performed?: Yes Alcohol Intake: current Alcohol Intake frequency: holidays/special occasions only Drug use: Never Substance use type: does not use Household members: spouse Housing: house Number of Children: 3 Pets and animals: No Current gender identity: female What is your relationship status?: How often do you talk on the phone with friends or family?: twice per week How often do you get together with friends or relatives?: once per week How often do you attend yarsanism or taoism services?: decline to answer Do you belong to any clubs or organized social groups?: no Panel score (0-1 are the most socially isolated patients): 2 What type of physical activity do you participate in: none Duration: 15-30 minutes/day Frequency: 1-2 times per week Chely/Mosque: Baptist Special chely needs: No Seatbelt use: always Do you feel safe at home: Yes Do you feel safe in your relationship?: Yes Exam Narrative Exam Narrative: Physical Examination General: alert, awake, cooperative, resting comfortably, no acute distress HEENT: normocephalic, atraumatic; PERRL, EOM intact, conjunctiva normal; angioedema to tongue, slightly muffled voice, no stridor, tolerating secretions Neck: supple, trachea midline; full ROM Chest: normal to inspection Respiratory: normal respiratory effort, speaking in full sentences, clear to auscultation, no wheezing, rales or rhonchi Cardiac: regular rate, regular rhythm, S1S2 intact, no murmurs rubs or gallops GI: abdomen soft, non-tender, non-distended; no palpable mass or hepatosplenomegaly Skin: no lesions, rashes or trauma appreciated Neuro: AAOx3, normal speech, moving all extremities Psych: Appropriate mood and affect Course Vital Signs Vital signs: Vital Signs Temperature 36.6 C 06/27/22 17:56 Pulse 68 06/27/22 17:56 Respiratory Rate 18 06/27/22 17:56 Blood Pressure 161/86 H 06/27/22 17:56 Pulse Oximetry 96 06/27/22 17:56 Temperature 36.6 C 06/27/22 17:56 Temperature Source Temporal Artery Scan 06/27/22 17:56 Pulse 68 06/27/22 17:56 Respiratory Rate 18 06/27/22 17:56 Blood Pressure 161/86 H 06/27/22 17:56 Blood Pressure Position Sitting 06/27/22 17:56 Pulse Oximetry 96 06/27/22 17:56 Oxygen Delivery Method Room Air 06/27/22 17:56 Oxygen Flow Rate 0 06/27/22 17:56
[2022-06-27] MEDS: Famotidine 20 MG/2 ML VIAL IVP (18:24)
[2022-06-27] MEDS: Ondansetron 4 MG/2 ML VIAL IVP (18:25)
[2022-06-27 18:27] LABS: Abs Immature Grans 0.06 10^3/uL (0.0-0.06); Absolute Basophil Count 0.08 10^3/uL (0.0-0.2); Absolute Eosinophil Count 0.24 10^3/uL (0.0-0.7); Absolute Lymphocyte Count 1.76 10^3/uL (1.2-3.4); Absolute Monocyte Count 0.64 10^3/uL (0.1-0.8); Absolute Neutrophil Count 7.89 10^3/uL (1.2-6.7); Basophils % 0.7; Eosinophils % 2.2; Immature Grans % 0.6; Lymphocytes % 16.5; MCHC 32.6 % (32.0-36.0); MCV 89 fL (80-95); MPV 9.5 fL (8.0-11.0); Platelet Count 334 10^3/uL (130-400); RBC 4.82 10^6/uL (3.93-5.22); RDW 12.8 % (11.7-14.6); RDW-SD 42.3 fL; WBC 10.67 10^3/uL (4.4-10.8)
[2022-06-27 19:14] LABS: ALT 27 U/L (14-59); AST 25 U/L (15-37); Albumin 3.1 g/dL (3.4-5.0); Alkaline Phosphatase 116 U/L (46-116); Anion Gap 10.5 mmol/L (3-11); BUN 25 mg/dL (7-18); CO2 26.5 mmol/L (21.0-32.0); CREATININE 1.1 mg/dL (0.55-1.02); Calcium 9.1 mg/dL (8.5-10.1); Chloride 100 mmol/L (98-107); Estimated GFR 48.82 (mL/min/1.73m2); Glucose 206 mg/dL (74-106); Sodium 137 mmol/L (136-145); Total Protein 7.4 g/dL (6.4-8.2)
== END 2022-06-27 20:03 | disposition home or self-care (01) ==
PROVIDERS: Emergency Provider Emergency Medicine
DX: T78.3XXA Angioneurotic edema, initial encounter (principal); J44.9 Chronic obstructive pulmonary disease, unspecified; Z87.891 Personal history of nicotine dependence; Z79.51 Long term (current) use of inhaled steroids
CPT/HCPCS: 80053; 86850; 86900; 86901; 96372; 96374; 96375; 99284; 85025; J0171; J1200; J2405; J2930

== ENCOUNTER 2022-07-21 18:32 | Outpatient (REF) | payer MEDICARE, SELFPAY | END 2022-07-21 18:33 | disposition home or self-care (01) | LOC: LBN 18:32 | PROVIDERS: Visit Provider Student in an Organized Health Care Education/Training Program | DX: T78.3XXD Angioneurotic edema, subsequent encounter (principal); J44.9 Chronic obstructive pulmonary disease, unspecified | CPT/HCPCS: 83520 ==

== ENCOUNTER 2022-10-08 01:22 | Outpatient (CLI) | payer MEDICARE, SELFPAY ==
[2022-10-08 13:22] LABS: TSH (W/Ref FT4) 1.43 uIU/mL (0.36-3.74)
== END 2022-10-08 01:23 | disposition home or self-care (01) ==
LOC: LOS 01:22
PROVIDERS: PCP Nurse Practitioner Family
DX: E03.9 Hypothyroidism, unspecified (principal)
CPT/HCPCS: 36415; 84443

== ENCOUNTER 2022-12-23 12:36 | Outpatient (REF) | payer MEDICARE, SELFPAY | END 2022-12-23 12:37 | disposition home or self-care (01) | LOC: LBN 12:36 | PROVIDERS: PCP Nurse Practitioner Family; Visit Provider Nurse Practitioner Family | DX: N39.0 Urinary tract infection, site not specified (principal) | CPT/HCPCS: 87077; 87086; 87186 ==

== ENCOUNTER 2023-01-07 21:39 | Outpatient (REF) | payer MEDICARE, SELFPAY ==
[2023-01-07 22:40] LABS: ALT 39 U/L (14-59); AST 34 U/L (15-37); Albumin 3.5 g/dL (3.4-5.0); Alkaline Phosphatase 134 U/L (46-116); Anion Gap 12.8 mmol/L (3-11); BUN 16 mg/dL (7-18); Bilirubin, Total 0.9 mg/dL (0.2-1.0); CO2 24.2 mmol/L (21.0-32.0); CREATININE 1.1 mg/dL (0.55-1.02); Calcium 8.7 mg/dL (8.5-10.1); Chloride 103 mmol/L (98-107); Estimated GFR 53.06 (mL/min/1.73m2); Glucose 156 mg/dL (74-106); Potassium 4.1 mmol/L (3.5-5.1); Sodium 140 mmol/L (136-145); Total Protein 7.3 g/dL (6.4-8.2); Vitamin B12 319 pg/mL (193-986)
== END 2023-01-07 21:40 | disposition home or self-care (01) ==
LOC: LBN 21:39
PROVIDERS: PCP Nurse Practitioner Family; Visit Provider Nurse Practitioner Family
DX: K76.0 Fatty (change of) liver, not elsewhere classified (principal); E11.42 Type 2 diabetes mellitus with diabetic polyneuropathy; R39.15 Urgency of urination
CPT/HCPCS: 80053; 82607

== ENCOUNTER 2023-04-01 01:35 | Outpatient (CLI) | payer MEDICARE, SELFPAY ==
[2023-04-01] MEDS: Inhaler, Assist Device 1 EACH MC (14:10)
[2023-04-01] MEDS: Albuterol HFA 18 GM 200 PUFF INH IH (14:10)
--- NOTE | 2023-04-01 15:17 | W.PFT ---
Date of service: 04/01/23 Time of Service: 12:57 Pulmonary Function Test Result Indications: ACOS Interpretation Spirometry: Although the FEV1/FVC ratio is technically normal, obstruction is inferred by the flow volume loop and volume time curve. There is a significant bronchodilator response. Lung Volumes: There is air trapping Diffusion Capacity: Normal diffusion Airway Pressure: Increased airways resistance Impression Moderate airflow obstruction with a bronchodilator response, normal diffusion and air trapping. Note: When compared to 07/21/22, lung function appears improved, however is worse than 10/15/21. Clinical Correlation therefore is recommended.
== END 2023-04-01 01:36 | disposition home or self-care (01) ==
LOC: RT 01:37
PROVIDERS: PCP Nurse Practitioner Family; Visit Provider Student in an Organized Health Care Education/Training Program
DX: J44.9 Chronic obstructive pulmonary disease, unspecified (principal); J45.998 Other asthma
CPT/HCPCS: 94060; 94726; 94729

== ENCOUNTER 2023-05-18 18:48 | Emergency (ER) | payer MEDICARE, SELFPAY ==
[2023-05-18 18:50] VITALS: BP 206/89; PULSE 63; RESP 18; TEMP 36.6; O2SAT 95
--- NOTE | 2023-05-18 19:00 | DI.RAD_ITS ---
Exam(s) XR ELBOW LT COMPLETE EXAM: XR ELBOW LT COMPLETE CLINICAL HISTORY: pain s/p fall. TECHNIQUE: 2D digital imaging was performed of the left elbow. Three images were obtained. AP, lat eral and oblique views were obtained. COMPARISON: No exams were available for comparison FINDINGS: BONES: No acute fracture is present. No bony destructive lesion is seen. There is a well corticated o sseous density adjacent to the medial epicondyle which appears old. JOINTS: The elbow is normally aligned. No joint effusion is seen. SOFT TISSUE: Mild edema in the soft tissues posterior to the olecranon on. IMPRESSION: No acute fracture or dislocation. DATA REPOSITORY: RADIATION DOSE DELIVERED:
--- NOTE | 2023-05-18 19:00 | DI.CT_ITS ---
Exam(s) CT HEAD CERVICAL SPINE WO EXAM: CT HEAD CERVICAL SPINE WO CLINICAL HISTORY: fall, pain. TECHNIQUE: Imaging Protocol: Axial computed tomography images with coronal and sagittal reformatted images were created and reviewed COMPARISON: No priors for comparison. FINDINGS: CT Head: Ventricles and Extra axial spaces: Normal in size and morphology for the patient's age. Hemorrhage: None. Cerebral parenchyma: There is no evidence of an acute territorial infarct. There are areas of decrea sed attenuation in the white matter consistent with small vessel ischemic disease. Midline shift: None. Brainstem/Cerebellum: Normal. Calvarium: Normal. Visualized Paranasal sinuses/Mastoids: Clear. Soft Tissues: Unremarkable. CT Cervical Spine: Bones: No acute fracture or subluxation. Age-appropriate degenerative changes are seen in the cervica l spine. There is minimal anterolisthesis of C4 on C5 which is likely degenerative in nature. There is straightening of the normal cervical lordosis. This may represent muscle spasm or patient positi oning. Soft Tissues: Unremarkable. Lung Apices: Clear. IMPRESSION: 1. No acute intracranial process. 2. No acute fracture or subluxation in the cervical spine. RADIATION DOSE DELIVERED: Total DLP DATA REPOSITORY: All CT scans at this facility are submitted to the National Radiology Data Registry (NRDR) Dose Index Registry (DIR) with the [employer] (ACR). RADIATION OPTIMIZATION: All CT scans at this facility use at least one of these dose optimization te chniques: automated exposure control; mA and/or kV adjustment per patient size (includes targeted exa ms where dose is matched to clinical indication); or iterative reconstruction.
--- NOTE | 2023-05-18 19:00 | DI.RAD_ITS ---
Exam(s) XR KNEE LT 3V AP,LAT,ZELDA EXAM: XR KNEE LT 3V AP,LAT,ZELDA CLINICAL HISTORY: pain s/p fall. TECHNIQUE: 2D digital imaging was performed of the left knee. Three images were obtained. AP, late ral and PA tunnel views were obtained. COMPARISON: No priors for comparison. FINDINGS: BONES: No acute fracture is present. No bony destructive lesion is seen. JOINTS: The knee is normally aligned. No joint effusion is seen. SOFT TISSUE: Normal. IMPRESSION: Normal radiographs of the left knee. DATA REPOSITORY: RADIATION DOSE DELIVERED:
--- NOTE | 2023-05-18 19:00 | DI.RAD_ITS ---
Exam(s) XR WRIST LT COMPLETE EXAM: XR WRIST LT COMPLETE CLINICAL HISTORY: pain s/p fall. TECHNIQUE: 2D digital imaging was performed of the left wrist. Three images were obtained. PA, obl ique and lateral views were obtained. COMPARISON: No exams were available for comparison FINDINGS: BONES: No acute fracture is present. No bony destructive lesion is seen. Osteopenia. JOINTS: The carpal bones are normally aligned. SOFT TISSUE: Normal. IMPRESSION: No acute fracture or dislocation. DATA REPOSITORY: RADIATION DOSE DELIVERED:
--- NOTE | 2023-05-18 19:02 | W.ED.GENAD ---
Discharge Plan Disposition Patient Disposition: Home Condition: Stable Discharge Details Clinical Impression: Blunt head trauma, Contusion of elbow, left, Contusion of left wrist, Contusion of knee, left Primary Care Provider: Markie Osman ED Provider: Iván Washington Home Meds and New Rx's Prescriptions: Continued estradiol [Estrace] 0.01 % (0.1 mg/gram) cream 1 appful vaginal DAILY Qty: 42.5 0RF Rx Instructions: nightly for 1 week, then twice a week magnesium See Rx Instructions PO DIRECTED Rx Instructions: orally as directed; albuterol sulfate 90 mcg/actuation HFA aerosol inhaler 2 puff inhalation Q6H PRN (Reason: shortness of breath or wheezing) Qty: 8.5 12RF lorazepam 0.5 MG tablet 0.5 mg PO daily prn Qty: 30 0RF Colace 50 mg capsule 50 mg PO DAILY PRNQty: 90 trazodone 50 mg tablet 50 mg PO QHS PRN (Reason: sleep) Qty: 90 1RF epinephrine [EpiPen] 0.3 mg/0.3 mL auto-injector 0.3 mg IM ONCE Qty: 2 0RF Rx Instructions: as a single dose; may repeat once (DME) pen needle, diabetic [BD Ultra-Fine Mini Pen Needle] 31 gauge x 3/16 needle See Rx Instructions .ROUTE .MEDSUPPLY Qty: 300 3RF Rx Instructions: Insulin adm. BID: E11.9 atorvastatin 80 mg tablet 80 mg PO DAILY Qty: 90 1RF Rx Instructions: per cardiology [facility] [place] - not sent bupropion HCl 150 mg tablet extended release 24 hr 450 mg PO DAILY Qty: 270 0RF chlorthalidone 25 mg tablet 12.5 mg PO DAILY Qty: 90 1RF Rx Instructions: [facility] [place] endocrinology started 02/25/21/ not sent duloxetine 60 mg capsule,delayed release(DR/EC) 60 mg PO HS Qty: 90 2RF glimepiride 4 mg tablet 4 mg PO BID Qty: 180 1RF insulin glargine [Lantus Solostar U-100 Insulin] 100 unit/mL (3 mL) insulin pen 14 unit Sub-Q HS Qty: 45 1RF metoprolol succinate 100 mg tablet extended release 24 hr 100 mg PO DAILY Qty: 90 2RF levothyroxine 112 mcg tablet 112 mcg PO DAILY Qty: 90 1RF Spiriva Respimat 2.5 mcg/actuation mist See Rx Instructions .ROUTE .COMPLEX Qty: 4 12RF Dose Instruction: TWO PUFFS INHALATION DAILY Rx Instructions: TWO PUFFS INHALATION DAILY liraglutide 0.6 mg/0.1 mL (18 mg/3 mL) pen injector 1.8 mg subcut DAILY Qty: 9 3RF metformin 1,000 mg tablet See Rx Instructions .ROUTE .COMPLEX Qty: 180 1RF Dose Instruction: TAKE ONE TABLET BY MOUTH TWICE A DAY Rx Instructions: TAKE ONE TABLET BY MOUTH TWICE A DAY budesonide-formoterol [Symbicort] 160-4.5 mcg/actuation HFA aerosol inhaler 1 puff INHALATION DAILY Patient Comments: INHALE TWO PUFFS BY MOUTH TWICE A DAY Discharge Instructions Instructions: Contusion in Adults (ED) Additional Instructions: your imaging did not show concerning findings your blood pressure was high, you should have this rechecked with your primary care provider if you feel more ill, have severe worsening pain or new symptoms such as trouble breathing return to the emergency department Medical Decision Making 72 yo female with hx of dm, htn, asthma/copd, who comes in with chief complaint of head pain s/p fall. She states she was feeling well all day and was going down stairs into her garage. The missed the second to last step causing her to fall and land on her back. Denies loc or preceding symptoms. no loc. She has posterior head pain, left wrist, left elbow and left knee pain. No neck, back, chest or abdomen pain. She arrives stable though is noted to be hypertensive, caox4 speaking clearly, She has an abrasion on the left anterior knee with full rom, some tenderness over the patella. No pain in her foot, ankle, tibia, femur or hip. She has left lateral wrist tenderness, no deformity noted, does have full rom with intact sensation and pulses. Has pain over the left olecranon with full rom, no tenderness in the forearm, humerus or shoulder. No abdominal or chest tenderness. No back tenderness. No midline c spine tenderness. No signs of trauma to the head though has pain in the occipital region, Perrl, eomi. Based on description fall seems mechanical, will obtain ct head/cspine, left elbow xray, left wrist xray and left knee xray pt stable and pain decreased with tylenol, no new pain, imaging negative. Discussed with her and she is stable for d/c, advised to f/u with pcp for BP recheck, return precautions given Differential Diagnosis Differential Diagnosis: tbi, fracture, contusion Imaging Data Radiologic Study: Attestation: I personally reviewed and interpreted this imaging study as follows: Imaging: CT Scan Radiologist's impression: no acute findings Radiologic Study #2: Attestation: I personally reviewed and interpreted this imaging study as follows: Imaging: X-Ray Radiologist's impression: no acute findings wrist xray Radiologic Study #3: Attestation: I personally reviewed and interpreted this imaging study as follows: Imaging: X-Ray Radiologist's impression: no acute findings knee xray Radiologic Study #4: Attestation: I personally reviewed and interpreted this imaging study as follows: Imaging: X-Ray Radiologist's impression: no acute findings on elbow xray HPI General Mode of arrival: ambulatory. Date/Time Provider Initiated Documentation: 05/18/23 18:57. Limitations to Documentation: no limitations. Information obtained by: patient. History of Present Illness 72 year old F presents to the emergency department with the chief complaint of fall, head pain, described as moderate, Quality is described as aching, Patient reports no radiation. and it has been constant. No relieving factors improve symptom(s), No exacerbating factors reported . Patient notes denies chest pain, fever/chills, nausea/vomiting and shortness of breath. Patient did receive the following treatments prior to arrival, none Related Data Home Medications Medication Instructions Recorded Confirmed lorazepam 0.5 mg tablet 0.5 mg PO daily prn #30 tab-caps 03/01/18 05/18/23 docusate sodium 50 mg capsule 50 mg PO DAILY PRN #90 tab-caps 08/09/18 05/18/23 (Colace) trazodone 50 mg tablet 50 mg PO QHS PRN sleep #90 tabs 10/16/20 05/18/23 budesonide-formoterol HFA 160 1 puff inhalation DAILY 06/27/22 05/18/23 mcg-4.5 mcg/actuation aerosol inhaler (Symbicort) epinephrine 0.3 mg/0.3 mL 0.3 mg (0.3 mL) IM ONCE history 06/30/22 05/18/23 injection, auto-injector (EpiPen) angioedema tongue #2 ea pen needle, diabetic 31 gauge x #300 ea 09/02/22 04/11/23 3/16 (BD Ultra-Fine Mini Pen Needle) atorvastatin 80 mg tablet 80 mg PO DAILY #90 tabs 09/03/22 05/18/23 bupropion HCl 150 mg 24 hr tablet, 450 mg PO DAILY #270 tab-caps 09/03/22 05/18/23 extended release chlorthalidone 25 mg tablet 12.5 mg PO DAILY #90 tabs 09/03/22 05/18/23 duloxetine 60 mg capsule,delayed 60 mg PO HS #90 caps 09/03/22 05/18/23 release glimepiride 4 mg tablet 4 mg PO BID #180 tab-caps 09/03/22 05/18/23 insulin glargine 100 unit/mL (3 14 unit (0.14 mL) subcut HS #45 mL 09/03/22 05/18/23 mL) subcutaneous pen (Lantus Solostar U-100 Insulin) metoprolol succinate 100 mg 100 mg PO DAILY #90 tabs 09/03/22 05/18/23 tablet,extended release 24 hr estradiol 0.01% (0.1 mg/gram) 1 appful vaginal DAILY #42.5 grams 01/07/23 05/18/23 vaginal cream (Estrace) levothyroxine 112 mcg tablet 112 mcg PO DAILY #90 tabs 01/20/23 05/18/23 albuterol sulfate 90 mcg/actuation 2 puff inhalation Q6H PRN 03/17/23 05/18/23 aerosol inhaler shortness of breath or wheezing #8.5 grams magnesium See Rx Instructions PO DIRECTED 03/17/23 05/18/23 tiotropium bromide 2.5 See Rx Instructions .Route 04/18/23 05/18/23 mcg/actuation mist for inhalation .COMPLEX #4 grams (Spiriva Respimat) liraglutide 0.6 mg/0.1 mL (18 mg/3 1.8 mg (0.3 mL) subcut DAILY #9 mL 04/19/23 05/18/23 mL) subcutaneous pen injector metformin 1,000 mg tablet See Rx Instructions .Route 06/20/23 07/19/23 .COMPLEX #180 tabs Previous Rx's Medication Instructions Recorded lorazepam 0.5 mg tablet 0.5 mg PO daily prn #30 tab-caps 03/01/18 trazodone 50 mg tablet 50 mg PO QHS PRN sleep #90 tabs 10/16/20 epinephrine 0.3 mg/0.3 mL 0.3 mg (0.3 mL) IM ONCE history 06/30/22 injection, auto-injector (EpiPen) angioedema tongue #2 ea pen needle, diabetic 31 gauge x #300 ea 09/02/22 3/ (BD Ultra-Fine Mini Pen Needle) atorvastatin 80 mg tablet 80 mg PO DAILY #90 tabs 09/03/22 bupropion HCl 150 mg 24 hr tablet, 450 mg PO DAILY #270 tab-caps 09/03/22 extended release chlorthalidone 25 mg tablet 12.5 mg PO DAILY #90 tabs 09/03/22 duloxetine 60 mg capsule,delayed 60 mg PO HS #90 caps 09/03/22 release glimepiride 4 mg tablet 4 mg PO BID #180 tab-caps 09/03/22 insulin glargine 100 unit/mL (3 14 unit (0.14 mL) subcut HS #45 mL 09/03/22 mL) subcutaneous pen (Lantus Solostar U-100 Insulin) metoprolol succinate 100 mg 100 mg PO DAILY #90 tabs 09/03/22 tablet,extended release 24 hr estradiol 0.01% (0.1 mg/gram) 1 appful vaginal DAILY #42.5 grams 01/07/23 vaginal cream (Estrace) levothyroxine 112 mcg tablet 112 mcg PO DAILY #90 tabs 01/20/23 albuterol sulfate 90 mcg/actuation 2 puff inhalation Q6H PRN 03/17/23 aerosol inhaler shortness of breath or wheezing #8.5 grams tiotropium bromide 2.5 See Rx Instructions .Route 04/18/23 mcg/actuation mist for inhalation .COMPLEX #4 grams (Spiriva Respimat) liraglutide 0.6 mg/0.1 mL (18 mg/3 1.8 mg (0.3 mL) subcut DAILY #9 mL 04/19/23 mL) subcutaneous pen injector metformin 1,000 mg tablet See Rx Instructions .Route 04/19/23 .COMPLEX #180 tabs Allergies Allergy/AdvReac Type Severity Reaction Status Date / Time MEENU Inhibitors Allergy Severe Anaphylaxis Unverified 05/18/23 18:56 enalapril Allergy Severe angioedema Verified 05/18/23 18:56 shellfish derived Allergy Severe Anaphylaxis Unverified 05/18/23 18:56 metaxalone Allergy Unknown unknown Unverified 05/18/23 18:56 rofecoxib Allergy Unknown unknown Unverified 05/18/23 18:56 exenatide [From Byetta] AdvReac Intermediate GI Upset Unverified 05/18/23 18:56 adams pepper Allergy Severe Anaphylaxis Uncoded 05/18/23 18:56 mushrooms Allergy Severe Anaphylaxis Uncoded 05/18/23 18:56 General Stated Complaint: Fall/Non TraumaCriteria JULIET: 3 Review of Systems All systems reviewed & are unremarkable except as noted in HPI and below Constitutional Constitutional: Denies chills, Denies fever(s) and Denies weakness Eyes Eyes: Denies loss of vision Cardiovascular Cardiovascular: Denies chest pain and Denies dyspnea Respiratory Respiratory: Denies cough and Denies dyspnea Gastrointestinal Gastrointestinal: Denies abdominal pain, Denies nausea and Denies vomiting Musculoskeletal Musculoskeletal: Denies joint swelling Neurologic Neurologic: Denies loss of vision and Denies weakness PFSH All Active Problems (Updated 05/18/23 @ 20:49 by Iván Washington MD) Brachial plexus neuropathy (Chronic) Cervical spinal stenosis (Chronic) MRI 03/2013; Severe left C5-6 and moderate left C3-4 stenosis; multilevel DDD 06/12-GUILLE Degenerative disc disease (Chronic) lumbar facet hypertrophy L4-5; L5-S1; MRI 07/2009 lumbar spondylosis Depressive disorder (Chronic) Diabetes mellitus (Chronic) [facility] insulin Lantus started/Coreen Bilotta [facility] endo. D.Bilotta/ uncontrolled db. /HbA1c 8.7; increase Glimepiride 4 bid/fup 6 mo. 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 Non-alcoholic fatty liver disease (Chronic) 2010elevated transaminases 2013 normal AST ALT Osteopenia (Chronic 09/29/03) Recurrent urinary tract infection (Chronic) Coronary artery disease (Chronic) Diabetic peripheral neuropathy (Chronic) Cubital tunnel syndrome on right (Chronic) POLST (Physician Orders for Life-Sustaining Treatment) (Acute) DNR (do not resuscitate) (Chronic) DNI (do not intubate) (Acute) Asthma-COPD overlap syndrome (Chronic) Right knee pain (Acute) Angioedema of tongue (Acute) Leukocytosis (Acute) Personal history of nicotine dependence (Acute) Rash (Acute) Blunt head trauma (Acute) Contusion of elbow, left (Acute) Contusion of left wrist (Acute) Contusion of knee, left (Acute) Medical History Chronic obstructive lung disease (07/16/13) Dr. PINK/ PFT'S 08/09 Quit smoking 1999 Chronic pain syndrome (10/27/12) on METHADONE; [facility] ; Shana Vaz- visit:12-06-2016 q 4 weeks (left neck and shoulder pain) 01/2022 - Reports she weaned off a while ago. Colitis Former smoker History of tobacco use Kidney stone Shoulder pain left;2010- S/P supraclavicular lipoma removal; S/P neuroma 1988 [id number]. degenerative cervical spondylosis Tension-type headache Surgical History Cholecystectomy (~2000) Hx of cardiac cath Hysterectomy, Laproscopic (~1985) Oophrectomy, Left (~1998) PROCEDURES BLADDER REPAIR NEC, 1985 URETEROSCOPY, 2002 multiple kidney stones PERIPH GANGLIONECT NEC left ABD REPAIR-DIAPHR HERNIA Repair of inguinal hernia RIGHT Repair of umbilical hernia (06/04/16) [facility] [facility] Family History Mother , 85 Essential hypertension Heart disease Hyperlipidemia Father Essential hypertension Personal history of malignant neoplasm MELANOMA Heart disease Hyperlipidemia Stroke Sister Diabetes Brother Stroke Grandfather Heart disease Grandfather Stroke Grandmother Personal history of malignant neoplasm BREAST/UTERINE Heart disease Grandmother No problems noted. Sister No problems noted. Sister No problems noted. Sister No problems noted. Brother No problems noted. Brother No problems noted. Son No problems noted. Son No problems noted. Social History (Updated 01/07/23 @ 15:01 by Anali Adair) Smoking/Tobacco Use Status: Former Tobacco Use tobacco type: cigarettes Quit Date: 10/31/99 Second Hand Exposure: Yes Smoking risk assessment performed?: Yes Alcohol Intake: current Alcohol Intake frequency: holidays/special occasions only Alcohol type: hard liquor Drug use: Never Substance use type: does not use Caregiver/Support person: No Household members: spouse Housing: house Number of Children: 3 Do you need help understanding health information?: Rarely Pets and animals: Yes Pets and animals: dog(s) Sexually active: No Current gender identity: female What is your relationship status?: How often do you talk on the phone with friends or family?: decline to answer How often do you get together with friends or relatives?: once per week How often do you attend confucianism or episcopalian services?: decline to answer Do you belong to any clubs or organized social groups?: no Panel score (0-1 are the most socially isolated patients): 1 What type of physical activity do you participate in: none Duration: 15-30 minutes/day Frequency: does not exercise Chely/Gnosticist: None Special chely needs: No Seatbelt use: always Drive intox or ride w/intox helper/driver: No Do you feel safe at home: Yes Do you feel safe in your relationship?: Yes Exam Const General: no acute distress Orientation: alert HENMT Head: normal to inspection Ears: external ears normal General nose exam: external nose normal Mouth: moist mucous membranes Eyes General: appearance normal, both eyes and all related structures Neck Neck: normal visual inspection and trachea midline Chest Chest: no tenderness Resp Effort & Inspection: normal respiratory effort and able to speak in complete sentences Auscultation: clear to auscultation bilaterally Cardio Jugular venous pressure: no JVD Rate: regular rate GI Palpation: soft and nontender Back/Spine/Pelvis Back: no CVA tenderness Thoracic/Lumbar Spine: No thoracic spinal tenderness and No lumbar spinal tenderness Skin General skin exam: no rashes or lesions noted Neuro General: patient alert and patient oriented x3 Extrem General: full ROM and capillary refill normal Psych Mental Status: mental status grossly normal Course Vital Signs Vital signs: Vital Signs Temperature 36.6 C 05/18/23 18:50 Pulse 63 07/19/23 18:50 Respiratory Rate 18 05/18/23 18:50 Blood Pressure 206/89 H 05/18/23 18:50 Pulse Oximetry 95 05/18/23 18:50 Temperature 36.6 C 05/18/23 18:50 Temperature Source Skin 05/18/23 18:50 Pulse 63 05/18/23 18:50 Respiratory Rate 18 05/18/23 18:50 Respiratory Effort Normal 05/18/23 18:57 Blood Pressure 206/89 H 05/18/23 18:50 Pulse Oximetry 95 05/18/23 18:50 Oxygen Delivery Method Room Air 05/18/23 18:50 Oxygen Flow Rate 0 05/18/23 18:50 Pain Level 8 05/18/23 18:50 Comment back of head 05/18/23 18:50
[2023-05-18] MEDS: Acetaminophen 500 MG TAB 1000 MG PO (19:13)
--- NOTE | 2023-05-18 20:21 | DI.VRAD_ITS ---
PROCEDURE INFORMATION: Exam: CT Head Without Contrast Exam date and time: 05/18/2023 8:00 PM Age: 72 years old Clinical indication: Injury or trauma; Fall; Concussion/head injury; Consciousness not specified TECHNIQUE: Imaging protocol: Computed tomography of the head without contrast. Radiation optimization: All CT scans at this facility use at least one of these dose optimization techniques: automated exposure control; mA and/or kV adjustment per patient size (includes targeted exams where dose is matched to clinical indication); or iterative reconstruction. COMPARISON: No relevant prior studies available. FINDINGS: Brain: No acute intracranial hemorrhage, mass-effect, midline shift, or extra-axial collection is seen. There is patchy white matter hypoattenuation, nonspecific but commonly seen as a chronic sequela of small vessel ischemic disease. The tobias white matter differentiation appears preserved. Cerebral ventricles: The ventricular system and basilar cisterns appear appropriate in size and configuration. Paranasal sinuses: The visualized paranasal sinuses appear well-aerated. Mastoid air cells: The mastoid air cells appear well-aerated. Auditory system: The middle ear cavities appear clear. Orbital cavities: The globes and intraorbital structures appear grossly intact. Bones/joints: The bony calvarium appears intact. No depressed skull fracture is seen. Soft tissues: No gross focal scalp hematoma is seen. IMPRESSION: No acute intracranial hemorrhage or depressed skull fracture. PROCEDURE INFORMATION: Exam: CT Cervical Spine Without Contrast Exam date and time: 05/18/2023 8:00 PM Age: 72 years old Clinical indication: Injury or trauma; Fall; Concussion/head injury; Consciousness not specified TECHNIQUE: Imaging protocol: Computed tomography of the cervical spine without contrast. Radiation optimization: All CT scans at this facility use at least one of these dose optimization techniques: automated exposure control; mA and/or kV adjustment per patient size (includes targeted exams where dose is matched to clinical indication); or iterative reconstruction. COMPARISON: No relevant prior studies available. FINDINGS: Bones/joints: No acute cervical fracture is seen. There is minimal anterolisthesis of C4 on C5, presumably degenerative in etiology given the degree of facet arthrosis at this level. There is no facet dislocation. There is straightening of the normal cervical lordosis. This can be seen in the presence of a cervical collar or may result from muscle spasm or positioning. C2-C3: Disc height preserved. No significant cervical stenosis or foraminal narrowing. C3-C4: Loss of disc height. Posterior osteophytic ridging with bilateral uncovertebral hypertrophy. No significant cervical stenosis. Mild left and mild-moderate right-sided foraminal narrowing. C4-C5: Disc height relatively preserved. Minimal anterolisthesis of C4 on C5. Moderate-severe bilateral facet arthrosis. No significant cervical stenosis or significant foraminal narrowing. C5-C6: Loss of disc height with anterior osteophyte formation, posterior osteophytic ridging, and bilateral uncovertebral hypertrophy. No significant cervical stenosis. Mild bilateral foraminal narrowing. C6-C7: Disc height preserved. No significant cervical stenosis or foraminal narrowing. C7-T1: No significant cervical stenosis. No significant foraminal narrowing. Thyroid: Thyroid gland appears normal in size. Lungs: The right lung apex appears grossly clear. The left lung apex is partially excluded from view. Vasculature: There is minimal atherosclerotic calcification at the carotid bifurcations. Soft tissues: Within the limits of the exam, no gross soft tissue fluid collection is seen in the neck. IMPRESSION: No acute cervical fracture is seen. Dictated and Authenticated by: Lonnie Aguilar MD. Ordering:RIYA Minor MD
--- NOTE | 2023-05-18 20:47 | DI.VRAD_ITS ---
PROCEDURE INFORMATION: Exam: XR Left Knee Exam date and time: 05/18/2023 8:15 PM Age: 72 years old Clinical indication: Injury or trauma; Other: Pain S/P fall TECHNIQUE: Imaging protocol: Radiologic exam of the left knee. Views: 3 views. COMPARISON: No relevant prior studies available. FINDINGS: Bones/joints: Normal. Soft tissues: Normal. IMPRESSION: No acute findings. Dictated and Authenticated by: Eduard Avila MD. Ordering:RIYA Minor MD
--- NOTE | 2023-05-18 20:49 | DI.VRAD_ITS ---
PROCEDURE INFORMATION: Exam: XR Left Elbow Exam date and time: 05/18/2023 8:13 PM Age: 72 years old Clinical indication: Injury or trauma; Other: Pain S/P fall TECHNIQUE: Imaging protocol: Radiologic exam of the left elbow. Views: 3 or more views. COMPARISON: CR XR WRIST LT COMPLETE 05/18/2023 8:11 PM FINDINGS: Bones/joints: Tiny calcification adjacent to the medial epicondyle appears to be chronic. No acute fracture or dislocation. No joint effusion. Soft tissues: Mild dorsal subcutaneous fat stranding. IMPRESSION: No acute fracture. Dictated and Authenticated by: Eduard Avila MD. Ordering:RIYA Minor MD
--- NOTE | 2023-05-18 20:50 | DI.VRAD_ITS ---
PROCEDURE INFORMATION: Exam: XR Left Wrist Exam date and time: 05/18/2023 8:11 PM Age: 72 years old Clinical indication: Injury or trauma; Other: Pain S/P fall TECHNIQUE: Imaging protocol: Radiologic exam of the left wrist. Views: 3 or more views. COMPARISON: No relevant prior studies available. FINDINGS: Bones/joints: Diffuse osteopenia. No acute fracture or dislocation. Soft tissues: Unremarkable. IMPRESSION: 1. No acute fracture. 2. Osteopenia. Dictated and Authenticated by: Eduard Avila MD. Ordering:RIYA Minor MD
[2023-05-18 21:00] VITALS: BP 181/70; PULSE 68; RESP 18; O2SAT 95
== END 2023-05-18 21:02 | disposition home or self-care (01) ==
PROVIDERS: Emergency Provider Emergency Medicine; PCP Nurse Practitioner Family
DX: S09.90XA Unspecified injury of head, initial encounter (principal); S50.02XA Contusion of left elbow, initial encounter; S60.212A Contusion of left wrist, initial encounter; S80.02XA Contusion of left knee, initial encounter; W10.8XXA Fall (on) (from) other stairs and steps, initial encounter; Y93.01 Activity, walking, marching and hiking; Y93.89 Activity, other specified; Y99.9 Unspecified external cause status
CPT/HCPCS: 73562; 99284; 70450; 72125; 73080; 73110; 99283

== ENCOUNTER 2023-07-19 20:40 | Outpatient (REF) | payer MEDICARE, SELFPAY | END 2023-07-19 20:41 | disposition home or self-care (01) | LOC: LBN 20:40 | PROVIDERS: PCP Nurse Practitioner Family; Visit Provider Nurse Practitioner Family | DX: R41.3 Other amnesia (principal); R82.998 Other abnormal findings in urine | CPT/HCPCS: 87086 ==

== ENCOUNTER 2023-07-28 05:09 | Outpatient (CLI) | payer MEDICARE, SELFPAY ==
[2023-07-28 12:25] LABS: Bilirubin Negative (Negative); Blood Large (Negative); Clarity Clear (Clear); Glucose Negative (Negative); Ketones Negative (Negative); Leukocyte Esterase Small (Negative); Nitrite Negative (Negative); Specific Gravity 1.015 (1.005-1.025); Urobilinogen 0.2 mg/dL (Up to 0.2)
[2023-07-28 12:27] LABS: HCT 43.4 % (36.0-46.0); HGB 13.4 g/dL (11.2-15.7); MCHC 30.9 % (32.0-36.0); MCV 91 fL (80-95); MPV 9.6 fL (8.0-11.0); Platelet Count 368 10^3/uL (130-400); RBC 4.78 10^6/uL (3.93-5.22); RDW 13.7 % (11.7-14.6); RDW-SD 45.8 fL; WBC 8.55 10^3/uL (4.4-10.8)
[2023-07-28 12:35] LABS: Bacteria Negative HPF (Negative); C & S Indicated? Yes; Casts Negative LPF (Negative); Crystals Negative HPF (Negative); Epithelial Cells Few HPF (Negative); Mucus Negative (Negative); Other Cells Few Transitional (Negative)
[2023-07-28 13:08] LABS: ALT 37 U/L (14-59); AST 37 U/L (15-37); Albumin 3.3 g/dL (3.4-5.0); Alkaline Phosphatase 131 U/L (46-116); Anion Gap 10.4 mmol/L (3-11); BUN 16 mg/dL (7-18); Bilirubin, Total 0.9 mg/dL (0.2-1.0); CO2 26.6 mmol/L (21.0-32.0); CREATININE 1.2 mg/dL (0.55-1.02); Calcium 9.5 mg/dL (8.5-10.1); Chloride 103 mmol/L (98-107); Folate 7.2 ng/mL (8.6-20.0); Glucose 99 mg/dL (74-106); Sodium 140 mmol/L (136-145); TSH (W/Ref FT4) 0.91 uIU/mL (0.36-3.74); Total Protein 7.9 g/dL (6.4-8.2); Vitamin B12 250 pg/mL (193-986)
== END 2023-07-28 05:10 | disposition home or self-care (01) ==
LOC: LOS 05:10
PROVIDERS: PCP Nurse Practitioner Family; Visit Provider Nurse Practitioner Family
DX: E11.9 Type 2 diabetes mellitus without complications (principal); I10 Essential (primary) hypertension; E78.5 Hyperlipidemia, unspecified; K76.0 Fatty (change of) liver, not elsewhere classified; E03.9 Hypothyroidism, unspecified; R41.3 Other amnesia; R41.89 Other symptoms and signs involving cognitive functions and awareness; R82.998 Other abnormal findings in urine; R82.79 Other abnormal findings on microbiological examination of urine
CPT/HCPCS: 36415; 80053; 85027; 81003; 81015; 82607; 82746; 84443; 87086

== ENCOUNTER → 2023-08-08 03:59 | Outpatient (CLI) | payer MEDICARE, SELFPAY ==
--- NOTE | 2023-08-08 11:05 | DI.MRI_ITS ---
Exam(s) MR BRAIN WO EXAM: MR BRAIN WO CLINICAL HISTORY: memory loss,cognitive impairment,r41.89 TECHNIQUE: Multiplanar multisequence MRI of the brain was performed. COMPARISON: CT CT HEAD CERVICAL SPINE WO from 05/18/2023 FINDINGS: VENTRICLES AND EXTRA AXIAL SPACES: Normal in size and morphology for the patient's age. MIDLINE SHIFT: None. CEREBRAL PARENCHYMA: No focus of restricted diffusion to suggest acute infarct. No space-occupying le shiv identified. Mild atrophy consistent with the patient's age. Mild to moderate scattered foci o f high signal in the white matter consistent with sequela of chronic microvascular disease. HEMORRHAGE: None. BRAINSTEM/CEREBELLUM: Normal. VISUALIZED PARANASAL SINUSES/MASTOIDS:Clear. Vasculature: Normal flow void. PITUITARY GLAND: Unremarkable. ORBITS: Unremarkable. IMPRESSION: Age related changes. No acute abnormality DATA REPOSITORY:
== END ==
PROVIDERS: PCP Nurse Practitioner Family; Visit Provider Nurse Practitioner Family
DX: R41.89 Other symptoms and signs involving cognitive functions and awareness (principal)
CPT/HCPCS: 70551

== ENCOUNTER 2023-09-18 18:48 | Inpatient (IN) | payer MEDICARE, SELFPAY ==
[2023-09-18 18:50] VITALS: BP 134/67; PULSE 70; RESP 20; TEMP 37; O2SAT 95
--- NOTE | 2023-09-18 19:00 | DI.CT_ITS ---
Exam(s) CT RENAL COLIC WO EXAM: CT RENAL COLIC WO CLINICAL HISTORY: flank pain. TECHNIQUE: Imaging Protocol: Axial computed tomography images with coronal and sagittal reformatted images were created and reviewed. CONTRAST MATERIAL: Noncontrast COMPARISON: CT CT ABDOMEN PELVIS WO from 08/26/2021 FINDINGS: ABDOMEN: Lung Bases: Atelectasis at inferior lingula. Liver: enlarged. Mild hepatic steatosis. No measurable mass. Gallbladder and biliary tract: Cholecystectomy. No radiodense calculus or dilation. Pancreas: Normal density, no calcifications or inflammatory process. Spleen: Normal. Kidneys: Normal size, contour and axis. Left hydronephrosis secondary to 7 millimeter stone at the ur eterovesical junction. Mild perinephric stranding and stranding around the ureter. Additional tiny nonobstructing stone in the left kidney. No right renal calculi. No masses seen. Adrenal glands: No masses seen. Abdominal Aorta: Abdominal portion non-dilated. Soft tissues: Unremarkable. PELVIS: Bladder: Symmetric distention, no gross wall thickening. No evidence of stones.No visible mass. Bowel: No obstruction or bowel wall thickening. Reproductive: Post hysterectomy. Peritoneal cavity: No ascites, collection or mesenteric inflammatory response. Bones: Unremarkable for age.. IMPRESSION: Moderate left hydronephrosis secondary to a 7 millimeter stone at the ureterovesical junction. RADIATION DOSE DELIVERED: Total DLP DATA REPOSITORY: All CT scans at this facility are submitted to the National Radiology Data Registry (NRDR) Dose Index Registry (DIR) with the [employer] (ACR). RADIATION OPTIMIZATION: All CT scans at this facility use at least one of these dose optimization te chniques: automated exposure control; mA and/or kV adjustment per patient size (includes targeted exa ms where dose is matched to clinical indication); or iterative reconstruction.
[2023-09-18 19:12] VITALS: BP 135/67; PULSE 63; PULSE 67; RESP 19; RESP 22; TEMP 37; O2SAT 95; O2SAT 96
[2023-09-18 19:29] LABS: Abs Immature Grans 0.07 10^3/uL (0.0-0.06); Absolute Basophil Count 0.06 10^3/uL (0.0-0.2); Absolute Lymphocyte Count 2.04 10^3/uL (1.2-3.4); Absolute Monocyte Count 1.23 10^3/uL (0.1-0.8); Basophils % 0.4; HCT 39.5 % (36.0-46.0); HGB 12.9 g/dL (11.2-15.7); Immature Grans % 0.5; Lymphocytes % 14.3; MCH 28.9 pg (27.0-33.0); MCHC 32.7 % (32.0-36.0); MCV 88 fL (80-95); MPV 9.3 fL (8.0-11.0); Monocytes % 8.6; Neutrophils % 75.2; Platelet Count 305 10^3/uL (130-400); RBC 4.47 10^6/uL (3.93-5.22); RDW 13.6 % (11.7-14.6); WBC 14.29 10^3/uL (4.4-10.8)
[2023-09-18 19:30] LABS: Absolute Eosinophil Count 0.14 10^3/uL (0.0-0.7); Absolute Neutrophil Count 10.75 10^3/uL (1.2-6.7)
[2023-09-18] MEDS: Ondansetron 4 MG/2 ML VIAL IVP (19:30)
[2023-09-18] MEDS: Ketorolac 30 MG/ML VIAL 10 MG IVP (19:30)
[2023-09-18] MEDS: Normal Saline 1,000 ML 1000 ML IV (19:30)
[2023-09-18 20:28] LABS: ALT 41 U/L (14-59); AST 44 U/L (15-37); Alkaline Phosphatase 144 U/L (46-116); Anion Gap 7.2 mmol/L (3-11); BUN 22 mg/dL (7-18); Bilirubin, Total 0.8 mg/dL (0.2-1.0); CO2 26.8 mmol/L (21.0-32.0); CREATININE 1.8 mg/dL (0.55-1.02); Calcium 9.1 mg/dL (8.5-10.1); Chloride 100 mmol/L (98-107); Estimated GFR 29.38 (mL/min/1.73m2); Glucose 309 mg/dL (74-106); Potassium 3.9 mmol/L (3.5-5.1); Sodium 134 mmol/L (136-145); Total Protein 7.4 g/dL (6.4-8.2)
--- NOTE | 2023-09-18 21:04 | W.ED.GENAD ---
Discharge Plan Disposition Patient Disposition: Admit to [facility] Discharge Details Chief Complaint: FlankPain Clinical Impression: Left ureteral calculus, Acute flank pain Primary Care Provider: Markie Osman ED Provider: Lianet Poole Home Meds and New Rx's Prescriptions: No Action estradiol [Estrace] 0.01 % (0.1 mg/gram) cream 1 appful vaginal DAILY Qty: 42.5 0RF Hold Instructions: Pt Stopped/Never Started Rx Instructions: nightly for 1 week, then twice a week magnesium See Rx Instructions PO DIRECTED Rx Instructions: orally as directed; albuterol sulfate 90 mcg/actuation HFA aerosol inhaler 2 puff inhalation Q6H PRN (Reason: shortness of breath or wheezing) Qty: 8.5 12RF mirtazapine 7.5 mg tablet 7.5 mg PO QHS Qty: 90 0RF lorazepam 0.5 mg tablet 0.5 mg PO DAILY PRN (Reason: anxiety) Qty: 2 0RF Rx Instructions: 1 tab po 60 min prior to MRI, may repeat immediately prior to MRI for a total daily dose of 1 mg olopatadine 0.2 % drops 1 drp ophthalmic (eye) DAILY PRN (Reason: itching) Qty: 2.5 0RF Colace 50 mg capsule 50 mg PO DAILY PRNQty: 90 trazodone 50 mg tablet 50 mg PO QHS PRN (Reason: sleep) Qty: 90 1RF epinephrine [EpiPen] 0.3 mg/0.3 mL auto-injector 0.3 mg IM ONCE Qty: 2 0RF Rx Instructions: as a single dose; may repeat once (DME) pen needle, diabetic [BD Ultra-Fine Mini Pen Needle] 31 gauge x 3/16 needle See Rx Instructions .ROUTE .MEDSUPPLY Qty: 300 3RF Rx Instructions: Insulin adm. BID: E11.9 chlorthalidone 25 mg tablet 12.5 mg PO DAILY Qty: 90 1RF Rx Instructions: [facility] [place] 02/25/21/ not sent levothyroxine 112 mcg tablet 112 mcg PO DAILY Qty: 90 1RF Spiriva Respimat 2.5 mcg/actuation mist See Rx Instructions .ROUTE .COMPLEX Qty: 4 12RF Dose Instruction: TWO PUFFS INHALATION DAILY Rx Instructions: TWO PUFFS INHALATION DAILY metformin 1,000 mg tablet See Rx Instructions .ROUTE .COMPLEX Qty: 180 1RF Dose Instruction: TAKE ONE TABLET BY MOUTH TWICE A DAY Rx Instructions: TAKE ONE TABLET BY MOUTH TWICE A DAY atorvastatin 80 mg tablet 80 mg PO DAILY Qty: 90 1RF Rx Instructions: per cardiology [facility] [place] - not sent bupropion HCl 150 mg tablet extended release 24 hr 450 mg PO DAILY Qty: 270 0RF duloxetine 60 mg capsule,delayed release(DR/EC) 60 mg PO HS Qty: 90 2RF glimepiride 4 mg tablet 4 mg PO BID Qty: 180 1RF insulin glargine [Lantus Solostar U-100 Insulin] 100 unit/mL (3 mL) insulin pen 14 unit Sub-Q HS Qty: 45 1RF metoprolol succinate 100 mg tablet extended release 24 hr 100 mg PO DAILY Qty: 90 2RF liraglutide 0.6 mg/0.1 mL (18 mg/3 mL) pen injector 1.8 mg subcut DAILY Qty: 9 3RF budesonide-formoterol [Symbicort] 160-4.5 mcg/actuation HFA aerosol inhaler 1 puff INHALATION DAILY Patient Comments: INHALE TWO PUFFS BY MOUTH TWICE A DAY Medical Decision Making Emergent evaluation of flank pain. Initial differential includes renal colic, pyelonephritis, urinary tract infection, diverticulitis. Patient does have a history of renal stones. Initial plan for symptom control, labs, urinalysis and CT imaging to evaluate for intra-abdominal process causing her symptoms. Labs reviewed, the patient has a slightly elevated white blood cell count the patient has a slightly increased creatinine. Trace leukocyte Estrace noted and urinalysis. A culture has been sent. 2240: Radiologist called with CT findings. The patient has significant left-sided hydro with a left deviated. Will provide empiric antibiotics given vague urinalysis results and there is a stone present though this does not likely seem to be a true infection. Will attempt to get the patient admitted or transferred pending urology availability 2330: Unable to transfer the patient and since tomorrow morning is Tuesday and there should be a urology services available at this hospital, will admit to the hospitalist service for the next few hours and patient should be evaluated by urology in the morning and stented at that time. Medical Records Medical records reviewed: Yes I reviewed the patient's medical records. Lab Data Lab results reviewed: Yes I reviewed the patient's lab results. HPI General Date/Time Provider Initiated Documentation: 09/18/23 19:12. Limitations to Documentation: no limitations. Information obtained by: patient. HPI Narrative: 72-year-old female with past medical history of COPD, diabetes presents for evaluation of left flank pain. Reports that the symptoms have been ongoing for the last 3 days. Is been constant and progressively worsening. She has not had any nausea but reports that she is dry heaving. She is able to get food down. She has normal bowel movements. No difficulty urinating, dysuria or hematuria. She reports the pain starts in her left side around her back and comes around down the front. She states that she has had kidney stones in the past and reports that this feels similar. She states that she has had to have a procedure to break up for kidney stones in the past Related Data Home Medications Medication Instructions Recorded Confirmed docusate sodium 50 mg capsule 50 mg PO DAILY PRN #90 tab-caps 08/09/18 09/18/23 (Colace) trazodone 50 mg tablet 50 mg PO QHS PRN sleep #90 tabs 10/16/20 09/18/23 budesonide-formoterol HFA 160 1 puff inhalation DAILY 06/27/22 09/18/23 mcg-4.5 mcg/actuation aerosol inhaler (Symbicort) epinephrine 0.3 mg/0.3 mL 0.3 mg (0.3 mL) IM ONCE history 06/30/22 09/18/23 injection, auto-injector (EpiPen) angioedema tongue #2 ea pen needle, diabetic 31 gauge x #300 ea 09/02/22 09/18/23 3/16 (BD Ultra-Fine Mini Pen Needle) chlorthalidone 25 mg tablet 12.5 mg (1/2 x 25 mg) PO DAILY #90 09/03/22 09/18/23 tabs estradiol 0.01% (0.1 mg/gram) 1 appful vaginal DAILY #42.5 grams 01/07/23 09/18/23 vaginal cream (Estrace) levothyroxine 112 mcg tablet 112 mcg PO DAILY #90 tabs 01/20/23 09/18/23 albuterol sulfate 90 mcg/actuation 2 puff inhalation Q6H PRN 03/17/23 07/19/23 aerosol inhaler shortness of breath or wheezing #8.5 grams magnesium See Rx Instructions PO DIRECTED 03/17/23 09/18/23 tiotropium bromide 2.5 See Rx Instructions .Route 04/18/23 09/18/23 mcg/actuation mist for inhalation .COMPLEX #4 grams (Spiriva Respimat) metformin 1,000 mg tablet See Rx Instructions .Route 04/19/23 09/18/23 .COMPLEX #180 tabs mirtazapine 7.5 mg tablet 7.5 mg PO QHS #90 tabs 07/12/23 09/18/23 lorazepam 0.5 mg tablet 0.5 mg PO DAILY PRN anxiety #2 tabs 07/19/23 09/18/23 olopatadine 0.2 % eye drops 1 drp ophthalmic (eye) DAILY PRN 07/19/23 09/18/23 itching #2.5 mL atorvastatin 80 mg tablet 80 mg PO DAILY #90 tabs 08/10/23 09/18/23 bupropion HCl 150 mg 24 hr tablet, 450 mg (3 x 150 mg) PO DAILY #270 08/10/23 09/18/23 extended release tab-caps duloxetine 60 mg capsule,delayed 60 mg PO HS #90 caps 08/10/23 09/18/23 release glimepiride 4 mg tablet 4 mg PO BID #180 tab-caps 08/10/23 09/18/23 insulin glargine 100 unit/mL (3 14 unit (0.14 mL) subcut HS #45 mL 08/10/23 09/18/23 mL) subcutaneous pen (Lantus Solostar U-100 Insulin) metoprolol succinate 100 mg 100 mg PO DAILY #90 tabs 08/10/23 09/18/23 tablet,extended release 24 hr liraglutide 0.6 mg/0.1 mL (18 mg/3 1.8 mg (0.3 mL) subcut DAILY #9 mL 08/29/23 09/18/23 mL) subcutaneous pen injector Previous Rx's Medication Instructions Recorded trazodone 50 mg tablet 50 mg PO QHS PRN sleep #90 tabs 10/16/20 epinephrine 0.3 mg/0.3 mL 0.3 mg (0.3 mL) IM ONCE history 06/30/22 injection, auto-injector (EpiPen) angioedema tongue #2 ea pen needle, diabetic 31 gauge x #300 ea 09/02/22 3/16 (BD Ultra-Fine Mini Pen Needle) chlorthalidone 25 mg tablet 12.5 mg (1/2 x 25 mg) PO DAILY #90 09/03/22 tabs estradiol 0.01% (0.1 mg/gram) 1 appful vaginal DAILY #42.5 grams 01/07/23 vaginal cream (Estrace) levothyroxine 112 mcg tablet 112 mcg PO DAILY #90 tabs 01/20/23 albuterol sulfate 90 mcg/actuation 2 puff inhalation Q6H PRN 03/17/23 aerosol inhaler shortness of breath or wheezing #8.5 grams tiotropium bromide 2.5 See Rx Instructions .Route 04/18/23 mcg/actuation mist for inhalation .COMPLEX #4 grams (Spiriva Respimat) metformin 1,000 mg tablet See Rx Instructions .Route 04/19/23 .COMPLEX #180 tabs mirtazapine 7.5 mg tablet 7.5 mg PO QHS #90 tabs 07/12/23 lorazepam 0.5 mg tablet 0.5 mg PO DAILY PRN anxiety #2 tabs 07/19/23 olopatadine 0.2 % eye drops 1 drp ophthalmic (eye) DAILY PRN 07/19/23 itching #2.5 mL atorvastatin 80 mg tablet 80 mg PO DAILY #90 tabs 08/10/23 bupropion HCl 150 mg 24 hr tablet, 450 mg (3 x 150 mg) PO DAILY #270 08/10/23 extended release tab-caps duloxetine 60 mg capsule,delayed 60 mg PO HS #90 caps 08/10/23 release glimepiride 4 mg tablet 4 mg PO BID #180 tab-caps 08/10/23 insulin glargine 100 unit/mL (3 14 unit (0.14 mL) subcut HS #45 mL 08/10/23 mL) subcutaneous pen (Lantus Solostar U-100 Insulin) metoprolol succinate 100 mg 100 mg PO DAILY #90 tabs 08/10/23 tablet,extended release 24 hr liraglutide 0.6 mg/0.1 mL (18 mg/3 1.8 mg (0.3 mL) subcut DAILY #9 mL 10/30/23 mL) subcutaneous pen injector Allergies Allergy/AdvReac Type Severity Reaction Status Date / Time MEENU Inhibitors Allergy Severe Anaphylaxis Unverified 09/18/23 18:57 acetaminophen [From Tylenol] Allergy Severe Anaphylaxis Unverified 09/18/23 18:57 enalapril Allergy Severe angioedema Verified 09/18/23 18:57 shellfish derived Allergy Severe Anaphylaxis Unverified 09/18/23 18:57 metaxalone Allergy Unknown unknown Unverified 09/18/23 18:57 rofecoxib Allergy Unknown unknown Unverified 09/18/23 18:57 exenatide [From Byetta] AdvReac Intermediate GI Upset Unverified 09/18/23 18:57 adams pepper Allergy Severe Anaphylaxis Uncoded 09/18/23 18:57 mushrooms Allergy Severe Anaphylaxis Uncoded 09/18/23 18:57 General Stated Complaint: FlankPain JULIET: 3 PFSH All Active Problems (Updated 09/18/23 @ 23:36 by Lianet Poole MD) Acute flank pain (Acute) Left ureteral calculus (Acute) Ureteral calculus, left (Acute) Hydronephrosis due to obstruction of ureter (Acute) Allergic conjunctivitis (Acute) Claustrophobia (Acute) Cognitive impairment (Acute) Frequent falls (Acute) Rash (Acute) Personal history of nicotine dependence (Acute) Leukocytosis (Acute) Angioedema of tongue (Acute) Right knee pain (Acute) Asthma-COPD overlap syndrome (Chronic) DNI (do not intubate) (Acute) DNR (do not resuscitate) (Chronic) POLST (Physician Orders for Life-Sustaining Treatment) (Acute) Cubital tunnel syndrome on right (Chronic) Diabetic peripheral neuropathy (Chronic) Coronary artery disease (Chronic) Recurrent urinary tract infection (Chronic) Osteopenia (Chronic 09/29/03) Non-alcoholic fatty liver disease (Chronic) 2011elevated transaminases 2013 normal AST ALT Hypothyroidism (Chronic 04/17/13) [facility] [place]/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 D.Bilotta/ uncontrolled db. /HbA1c 8.7; increase Glimepiride 4 bid/fup 6 mo. FOLLOWED [place] [facility] [place]LABS INCLUDED Depressive disorder (Chronic) Degenerative disc disease (Chronic) lumbar facet hypertrophy L4-5; L5-S1; MRI 07/2009 lumbar spondylosis Cervical spinal stenosis (Chronic) MRI 03/2013; Severe left C5-6 and moderate left C3-4 stenosis; multilevel DDD 06/12-GUILLE Brachial plexus neuropathy (Chronic) Medical History Former smoker Colitis History of tobacco use Kidney stone Tension-type headache Shoulder pain left;2010- S/P supraclavicular lipoma removal; S/P neuroma 1987 [id number]. degenerative cervical spondylosis Chronic pain syndrome (10/27/12) on METHADONE; [facility] ; Shana Vaz- visit:12-06-2016 q 4 weeks (left neck and shoulder pain) 01/2022 - Reports she weaned off a while ago. Chronic obstructive lung disease (07/16/13) Dr. PINK/ PFT'S 08/09 Quit smoking 1999 Surgical History Hx of cardiac cath PROCEDURES BLADDER REPAIR NEC, 1985 URETEROSCOPY, 2002 multiple kidney stones PERIPH GANGLIONECT NEC left ABD REPAIR-DIAPHR HERNIA Oophrectomy, Left (~1998) Hysterectomy, Laproscopic (~1985) Repair of umbilical hernia (06/04/16) [facility] [place] Repair of inguinal hernia RIGHT Cholecystectomy (~2000) Family History Mother , 85 Essential hypertension Heart disease Hyperlipidemia Father Essential hypertension Personal history of malignant neoplasm MELANOMA Heart disease Hyperlipidemia Stroke Sister Diabetes Brother Stroke Grandfather Heart disease Grandfather Stroke Grandmother Personal history of malignant neoplasm BREAST/UTERINE Heart disease Grandmother No problems noted. Sister No problems noted. Sister No problems noted. Sister No problems noted. Brother No problems noted. Brother No problems noted. Son No problems noted. Son No problems noted. Social History Smoking/Tobacco Use Status: Former Tobacco Use tobacco type: cigarettes Quit Date: 10/31/99 Second Hand Exposure: Yes Smoking risk assessment performed?: Yes Alcohol Intake: current Alcohol Intake frequency: holidays/special occasions only Alcohol type: hard liquor Drug use: Never Substance use type: does not use Caregiver/Support person: No Household members: spouse Housing: house Number of Children: 3 Do you need help understanding health information?: Rarely Pets and animals: Yes Pets and animals: dog(s) Sexually active: No Current gender identity: female What is your relationship status?: How often do you talk on the phone with friends or family?: decline to answer How often do you get together with friends or relatives?: once per week How often do you attend rastafarian or jainism services?: decline to answer Do you belong to any clubs or organized social groups?: no Panel score (0-1 are the most socially isolated patients): 1 What type of physical activity do you participate in: none Duration: 15-30 minutes/day Frequency: does not exercise Chely/Anabaptist: None Special chely needs: No Seatbelt use: always Drive intox or ride w/intox driver material handler: No Do you feel safe at home: Yes Do you feel safe in your relationship?: Yes Exam Narrative Exam Narrative: Review of Systems: All systems reviewed & are unremarkable except as noted in HPI and below: CONSTITUTIONAL: Alert and oriented Obese, no acute distress HEENT: NACT EYES: PERRL, no conjunctival injection EARS: no external abnormality NOSE nares patent MOUTH Moist MM NECK: Symmetric, trachea midline, No thyromegaly THROAT oropharynx clear CVS: RRR, No murmurs or gallops. Peripheral pulses 2+ and equal in all extremities Brisk capillary refill in all extremities. No peripheral edema RESP: Unlabored respiratory effort, Clear to auscultation bilaterally No wheezes rales or rhonchi GI: Soft, nondistended, mild suprapubic tenderness, no CVA tenderness MSK: Extremities with full range of motion, no deformity or TTP SKIN: Warm, Dry. No rashes or lesions. NEURO: No focal neurologic deficits. 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 Sensation grossly intact Normal strength throughout PSYCH: Appropriate mood and affect Course Vital Signs Vital signs: Vital Signs Temperature 37.0 C 09/18/23 18:50 Pulse 70 09/18/23 18:50 Respiratory Rate 20 09/18/23 18:50 Blood Pressure 134/67 09/18/23 18:50 Pulse Oximetry 95 09/18/23 18:50 Temperature 37 C 09/18/23 19:12 Temperature Source Tympanic 09/18/23 19:12 Pulse 63 09/18/23 19:12 Respiratory Rate 22 09/18/23 19:12 Respiratory Effort Normal, Non-Labored 09/18/23 19:12 Blood Pressure 135/67 09/18/23 19:12 Blood Pressure Position Supine 09/18/23 19:12 Pulse Oximetry 96 09/18/23 19:12 Oxygen Delivery Method Room Air 09/18/23 19:12 Oxygen Flow Rate 0 09/18/23 19:12 Pain Level 9 09/18/23 19:16 Lab/Test Results Lab/Test Results: Laboratory Tests Range/Units 09/18/23 09/18/23 19:24 20:02 WBC (4.4-10.8) 10^3/uL 14.29 H RBC (3.93-5.22) 10^6/uL 4.47 Hgb (11.2-15.7) g/dL 12.9 Hct (36.0-46.0) % 39.5 MCV (80-95) fL 88 MCH (27.0-33.0) pg 28.9 MCHC (32.0-36.0) % 32.7 RDW (11.7-14.6) % 13.6 Plt Count (130-400) 10^3/uL 305 MPV (8.0-11.0) fL 9.3 Immature Gran % 0.5 Neutrophils % 75.2 Lymphocytes % 14.3 Monocytes % 8.6 Eosinophils % 1.0 Basophils % 0.4 Nucleated RBC % (0.0-0.3) % 0.0 Absolute Neutrophils (1.2-6.7) 10^3/uL 10.75 H Absolute Lymphocytes (1.2-3.4) 10^3/uL 2.04 Absolute Monocytes (0.1-0.8) 10^3/uL 1.23 H Absolute Eosinophils (0.0-0.7) 10^3/uL 0.14 Absolute Basophils (0.0-0.2) 10^3/uL 0.06 Sodium (136-145) mmol/L 134 L Potassium (3.5-5.1) mmol/L 3.9 Chloride (98-107) mmol/L 100 Carbon Dioxide (21.0-32.0) mmol/L 26.8 Anion Gap (3-11) mmol/L 7.2 BUN (7-18) mg/dL 22 H Creatinine (0.55-1.02) mg/dL 1.8 H Est GFR (CKD-EPI 2020) (mL/min/1.73m2) 29.38 Glucose (74-106) mg/dL 309 H Calcium (8.5-10.1) mg/dL 9.1 Total Bilirubin (0.2-1.0) mg/dL 0.8 AST (15-37) U/L 44 H ALT (14-59) U/L 41 Alkaline Phosphatase (46-116) U/L 144 H Total Protein (6.4-8.2) g/dL 7.4 Albumin (3.4-5.0) g/dL 3.0 L
[2023-09-18 21:50] LABS: Bilirubin Negative (Negative); Blood Trace-intact (Negative); Clarity Clear (Clear); Glucose 500 mg/dL (Negative); Ketones Negative (Negative); Leukocyte Esterase Trace (Negative); Nitrite Negative (Negative); Urobilinogen 0.2 mg/dL (Up to 0.2); pH 5.5 (5-8)
[2023-09-18 22:03] LABS: Bacteria Negative HPF (Negative); C & S Indicated? Yes; Crystals Negative HPF (Negative); Epithelial Cells Rare HPF (Negative); Mucus Negative (Negative); RBC 0-2 HPF (0-2)
--- NOTE | 2023-09-18 22:29 | DI.VRAD_ITS ---
Addendum created by Molly Fontaine MD on 09/18/2023 10:34:02 PM EST: THIS REPORT CONTAINS FINDINGS THAT MAY BE CRITICAL TO PATIENT CARE. The findings were verbally communicated via telephone conference with MAR IRWIN at 10:33 PM EST on 09/18/2023. The findings were acknowledged and understood. Initial report created on 09/18/2023 10:29:22 PM EST: PROCEDURE INFORMATION: Exam: CT Abdomen And Pelvis Without Contrast Exam date and time: 09/18/2023 8:25 PM Age: 72 years old Clinical indication: Abdominal pain; Other: Bilateral; Patient HX: Flank pain 3+ days TECHNIQUE: Imaging protocol: Computed tomography of the abdomen and pelvis without contrast. COMPARISON: CT ABDOMEN PELVIS WO 08/26/2021 2:25 AM FINDINGS: Lungs: There is an incompletely imaged patchy opacity in the lingula on series 2, image 1 which could represent a small focus of atelectasis , infection, or scarring. However, it appears more solid than on prior examination. Given the change in appearance, a dedicated nonemergent CT scan is recommended. Liver: Normal. No mass. Gallbladder and bile ducts: Cholecystectomy. Pancreas: Normal. No ductal dilation. Spleen: Normal. No splenomegaly. Adrenal glands: Normal. No mass. Kidneys and ureters: There is left-sided hydronephrosis and hydroureter which ends in a 7 mm calculus at the left UVJ. There is associated perinephric and periureteral stranding which may be reactive but should be correlated with any concern for infection. There is a nonobstructive left renal calculus. Stomach and bowel: No obstruction. There is some wall prominence to portions of the sigmoid colon which can be seen with underdistention or colitis. Appendix: No evidence of appendicitis. Intraperitoneal space: Unremarkable. No free air. No significant fluid collection. Vasculature: Vascular calcifications. Lymph nodes: Unremarkable. No enlarged lymph nodes. Urinary bladder: Unremarkable as visualized. Reproductive: Unremarkable as visualized. Bones/joints: Skeletal degenerative changes. No acute fracture. Soft tissues: Postsurgical changes to the anterior abdominal wall. IMPRESSION: 1. There is left-sided hydronephrosis and hydroureter which ends in a 7 mm calculus at the left UVJ. There is associated perinephric and periureteral stranding which may be reactive but should be correlated with any concern for infection. 2. There is some wall prominence to portions of the sigmoid colon which can be seen with underdistention or colitis. 3. There is a nonobstructive left renal calculus. 4. There is an incompletely imaged patchy opacity in the lingula on series 2, image 1 which could represent a small focus of atelectasis , infection, or scarring. However, it appears more solid than on prior examination. Given the change in appearance, a dedicated nonemergent CT scan is recommended. Other findings/details as above. Dictated and Authenticated by: Molly Fontaine MD. Ordering:[facility] Virgilio Bagley MD
[2023-09-18 22:46] LABS: Source Nasal/Nares
[2023-09-18 23:24] LABS: COVID-19 PCR Negative (Negative)
--- NOTE | 2023-09-18 23:33 | HPE_ITS ---
Date of service: 09/18/23 Time of Service: 23:33 Assessment and Plan Assessment and plan (1) Hydronephrosis due to obstruction of ureter: Start date: 09/18/23 Status: Acute Assessment and plan: This is a 72-year-old lady presenting with a 7 mm stone in the distal left ureter with obstruction. She has signs and symptoms of UTI and possible pyelonephritis and needs to be stented as it is possible. She will be admitted for IV hydration, pain management and IV Rocephin. Urology consultation has been placed and hopefully patient will be seen first in the morning. She will be n.p.o. after midnight. She is a DNR/DNI. (2) UTI (urinary tract infection): Start date: 09/18/23 Status: Acute Assessment and plan: Rocephin IV with relief of obstruction left ureter as soon as possible. Qualifiers: Urinary tract infection type: acute pyelonephritis Qualified Code(s): N 10 - Acute pyelonephritis (3) Ureteral calculus, left: Start date: 09/18/23 Status: Acute Assessment and plan: Patient needs ureteral stent as soon as possible with signs and symptoms of infection or inflammation. Patient will continue Rocephin IV. (4) Leukocytosis: Start date: 09/18/23 Status: Acute Assessment and plan: Trend labs with patient being treated for UTI and possible left pyonephritis with obstruction. She has not toxic at this time and urology consultation with stenting of the left ureter will be hopefully accomplished within the next 12 hours. Tertiary care center were not available for transfer. Qualifiers: Leukocytosis type: other Qualified Code(s): D72.828 - Other elevated white blood cell count (5) Essential hypertension: Status: Chronic Assessment and plan: Continue outpatient medical therapy and monitor labs. (6) Diabetes mellitus: Status: Chronic Assessment and plan: Hold outpatient therapy with glucometer measurements and short acting insulin coverage while hospitalized. 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 History of Present Illness History of Present Illness Chief Complaint: Left flank pain Narrative: This is a 72-year-old female patient with a history of kidney stones in the past usually presenting with hematuria and pain who presents with a 3-day history of left flank pain with nausea but no vomiting, though reported dry heaving to the ED provider and decreased appetite though she was hydrating well as well as chills but no fever. She denies any hematuria grossly. She is overweight and diabetic and presented to the ED for evaluation with CT scan revealing left ureteral stone which is 7 mm and probably not going to pass past the UVJ where there is an obstruction with hydroureter. There is imaging evidence of possible inflammation and patient was placed on Rocephin with immediate ureteral stenting needed but not available by transfer. Patient will be hospitalized overnight with IV hydration and IV antibiotics with urology consultation for the morning for possible ureteral stent for obstruction. She is not toxic at this time. Her other medical problems are stable. She is a DNR/DNI with question of allowing intubation in the past but recent problem list indicating DNI. Urology consultation is in place and the patient will be n.p.o. after midnight. Review of Systems Narrative: 13 point review of systems otherwise unrevealing or stable. Patient is diabetic and obese. PFSH All Active Problems (Updated 09/19/23 @ 00:50 by Eduard Richards) UTI (urinary tract infection) (Acute) Acute flank pain (Acute) Left ureteral calculus (Acute) Ureteral calculus, left (Acute) Hydronephrosis due to obstruction of ureter (Acute) Allergic conjunctivitis (Acute) Claustrophobia (Acute) Cognitive impairment (Acute) Frequent falls (Acute) Rash (Acute) Personal history of nicotine dependence (Acute) Leukocytosis (Acute) Angioedema of tongue (Acute) Right knee pain (Acute) Asthma-COPD overlap syndrome (Chronic) DNI (do not intubate) (Acute) DNR (do not resuscitate) (Chronic) POLST (Physician Orders for Life-Sustaining Treatment) (Acute) Cubital tunnel syndrome on right (Chronic) Diabetic peripheral neuropathy (Chronic) Coronary artery disease (Chronic) Recurrent urinary tract infection (Chronic) Osteopenia (Chronic 09/29/03) Non-alcoholic fatty liver disease (Chronic) 2011elevated transaminases 2013 normal AST ALT Hypothy[place] (Chronic 04[place]17/13[place] [facility] [place]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 D.Bilotta/ uncontrolled db. /HbA1c 8.7; increase Glimepiride 4 bid/fup 6 mo. [place] [facility] [place] Depressive disorder (Chronic) Degenerative disc disease (Chronic) lumbar facet hypertrophy L4-5; L5-S1; MRI 07/2009 lumbar spondylosis Cervical spinal stenosis (Chronic) MRI 03/2013; Severe left C5-6 and moderate left C3-4 stenosis; multilevel DDD 06/12-GUILLE Brachial plexus neuropathy (Chronic) Medical History Former smoker Colitis History of tobacco use Kidney stone Tension-type headache Shoulder pain left;2010- S/P supraclavicular lipoma removal; S/P neuroma 1987 [id number]. degenerative cervical spondylosis Chronic pain syndrome (10/27/12) on METHADONE; [facility] ; Shana Vaz- visit:12-06-2016 q 4 weeks (left neck and shoulder pain) 01/2022 - Reports she weaned off a while ago. Chronic obstructive lung disease (07/16/13) Dr. PINK/ PFT'S 08/09 Quit smoking 1999 Surgical History Hx of cardiac cath PROCEDURES BLADDER REPAIR NEC, 1985 URETEROSCOPY, 2002 multiple kidney stones PERIPH GANGLIONECT NEC left ABD REPAIR-DIAPHR HERNIA Oophrectomy, Left (~1998) Hysterectomy, Laproscopic (~1985) Repair of umbilical hernia (06/04/16) [facility] [place]air of inguinal hernia RIGHT Cholecystectomy (~2000) Family History Mother , 85 Essential hypertension Heart disease Hyperlipidemia Father Essential hypertension Personal history of malignant neoplasm MELANOMA Heart disease Hyperlipidemia Stroke Sister Diabetes Brother Stroke Grandfather Heart disease Grandfather Stroke Grandmother Personal history of malignant neoplasm BREAST/UTERINE Heart disease Grandmother No problems noted. Sister No problems noted. Sister No problems noted. Sister No problems noted. Brother No problems noted. Brother No problems noted. Son No problems noted. Son No problems noted. Social History Smoking/Tobacco Use Status: Former Tobacco Use tobacco type: cigarettes Quit Date: 10/31/99 Second Hand Exposure: Yes Smoking risk assessment performed?: Yes Alcohol Intake: current Alcohol Intake frequency: holidays/special occasions only Alcohol type: hard liquor Drug use: Never Substance use type: does not use Caregiver/Support person: No Household members: spouse Housing: house Number of Children: 3 Do you need help understanding health information?: Rarely Pets and animals: Yes Pets and animals: dog(s) Sexually active: No Current gender identity: female What is your relationship status?: How often do you talk on the phone with friends or family?: decline to answer How often do you get together with friends or relatives?: once per week How often do you attend christianity or sabianist services?: decline to answer Do you belong to any clubs or organized social groups?: no Panel score (0-1 are the most socially isolated patients): 1 What type of physical activity do you participate in: none Duration: 15-30 minutes/day Frequency: does not exercise Chely/Episcopalian: None Special chely needs: No Seatbelt use: always Drive intox or ride w/intox ambulance driver: No Do you feel safe at home: Yes Do you feel safe in your relationship?: Yes Meds Allergies and Home Medications Allergies Allergy/AdvReac Type Severity Reaction Status Date / Time MEEUN Inhibitors Allergy Severe Anaphylaxis Unverified 09/18/23 18:57 acetaminophen [From Tylenol] Allergy Severe Anaphylaxis Unverified 09/18/23 18:57 enalapril Allergy Severe angioedema Verified 09/18/23 18:57 shellfish derived Allergy Severe Anaphylaxis Unverified 09/18/23 18:57 metaxalone Allergy Unknown unknown Unverified 09/18/23 18:57 rofecoxib Allergy Unknown unknown Unverified 09/18/23 18:57 exenatide [From Byetta] AdvReac Intermediate GI Upset Unverified 09/18/23 18:57 adams pepper Allergy Severe Anaphylaxis Uncoded 09/18/23 18:57 mushrooms Allergy Severe Anaphylaxis Uncoded 09/18/23 18:57 Home Medications Medication Instructions Recorded Confirmed Type docusate sodium 50 mg capsule 50 mg PO DAILY PRN #90 tab-caps 08/09/18 09/18/23 History (Colace) trazodone 50 mg tablet 50 mg PO QHS PRN sleep #90 tabs 10/16/20 09/18/23 Rx budesonide-formoterol HFA 160 1 puff inhalation DAILY 06/27/22 09/18/23 History mcg-4.5 mcg/actuation aerosol inhaler (Symbicort) epinephrine 0.3 mg/0.3 mL 0.3 mg (0.3 mL) IM ONCE history 06/30/22 09/18/23 Rx injection, auto-injector (EpiPen) angioedema tongue #2 ea pen needle, diabetic 31 gauge x #300 ea 09/02/22 09/18/23 Rx 3/16 (BD Ultra-Fine Mini Pen Needle) chlorthalidone 25 mg tablet 12.5 mg (1/2 x 25 mg) PO DAILY #90 09/03/22 09/18/23 Rx tabs estradiol 0.01% (0.1 mg/gram) 1 appful vaginal DAILY #42.5 grams 01/07/23 09/18/23 Rx vaginal cream (Estrace) levothyroxine 112 mcg tablet 112 mcg PO DAILY #90 tabs 01/20/23 09/18/23 Rx albuterol sulfate 90 mcg/actuation 2 puff inhalation Q6H PRN 03/17/23 07/19/23 Rx aerosol inhaler shortness of breath or wheezing #8.5 grams magnesium See Rx Instructions PO DIRECTED 03/17/23 09/18/23 History tiotropium bromide 2.5 See Rx Instructions .Route 04/18/23 09/18/23 Rx mcg/actuation mist for inhalation .COMPLEX #4 grams (Spiriva Respimat) metformin 1,000 mg tablet See Rx Instructions .Route 04/19/23 09/18/23 Rx .COMPLEX #180 tabs mirtazapine 7.5 mg tablet 7.5 mg PO QHS #90 tabs 07/12/23 09/18/23 Rx lorazepam 0.5 mg tablet 0.5 mg PO DAILY PRN anxiety #2 tabs 07/19/23 09/18/23 Rx olopatadine 0.2 % eye drops 1 drp ophthalmic (eye) DAILY PRN 07/19/23 09/18/23 Rx itching #2.5 mL atorvastatin 80 mg tablet 80 mg PO DAILY #90 tabs 08/10/23 09/18/23 Rx bupropion HCl 150 mg 24 hr tablet, 450 mg (3 x 150 mg) PO DAILY #270 08/10/23 09/18/23 Rx extended release tab-caps duloxetine 60 mg capsule,delayed 60 mg PO HS #90 caps 08/10/23 09/18/23 Rx release glimepiride 4 mg tablet 4 mg PO BID #180 tab-caps 08/10/23 09/18/23 Rx insulin glargine 100 unit/mL (3 14 unit (0.14 mL) subcut HS #45 mL 08/10/23 09/18/23 Rx mL) subcutaneous pen (Lantus Solostar U-100 Insulin) metoprolol succinate 100 mg 100 mg PO DAILY #90 tabs 08/10/23 09/18/23 Rx tablet,extended release 24 hr liraglutide 0.6 mg/0.1 mL (18 mg/3 1.8 mg (0.3 mL) subcut DAILY #9 mL 08/29/23 09/18/23 Rx mL) subcutaneous pen injector Exam Narrative Exam Narrative: General: Patient is obese, lying comfortably in bed in no acute distress and alert and oriented x3. HEENT: Normocephalic, eyes with pupils equal and react to light symmetrically with lens implants bilaterally, extraocular movement intact and sclera anicteric. Oropharynx with moist mucosa and fair dentition. Neck: Supple without JVD. Back: Stooped posture with left CVA tenderness. Lungs: Fair aeration clear to oscillation percussion with no focalizing rales or rhonchi. Breast: Exam deferred. Heart: Regular rate and rhythm with no murmurs or gallops appreciated. Abdomen: Obese contour, soft with no palpable hepatosplenomegaly. Bowel sounds positive in all quadrants. Tender to palpation of the left abdomen with no palpable mass. No rebound. Genitalia/rectal: Exam deferred. Extremities: Without clubbing, cyanosis or grossly pitting edema. Good capillary refill. Skin: Normal color, warm and dry. Neuro: Cranial nerves II through XII gross intact, no focal motor deficits. No tremor. Psych: Normal affect and mood. No abnormal thought processes. Remote and recent memory intact. Results Imaging Imaging Studies: Exam: CT Abdomen And Pelvis Without Contrast Exam date and time: 09/18/2023 8:25 PM Age: 72 years old Clinical indication: Abdominal pain; Other: Bilateral; Patient HX: Flank pain 3+ days TECHNIQUE: Imaging protocol: Computed tomography of the abdomen and pelvis without contrast. COMPARISON: CT ABDOMEN PELVIS WO 08/26/2021 2:25 AM FINDINGS: Lungs: There is an incompletely imaged patchy opacity in the lingula on series 2, image 1 which could represent a small focus of atelectasis , infection, or scarring. However, it appears more solid than on prior examination. Given the change in appearance, a dedicated nonemergent CT scan is recommended. Liver: Normal. No mass. Gallbladder and bile ducts: Cholecystectomy. Pancreas: Normal. No ductal dilation. Spleen: Normal. No splenomegaly. Adrenal glands: Normal. No mass. Kidneys and ureters: There is left-sided hydronephrosis and hydroureter which ends in a 7 mm calculus at the left UVJ. There is associated perinephric and periureteral stranding which may be reactive but should be correlated with any concern for infection. There is a nonobstructive left renal calculus. Stomach and bowel: No obstruction. There is some wall prominence to portions of the sigmoid colon which can be seen with underdistention or colitis. Appendix: No evidence of appendicitis. Intraperitoneal space: Unremarkable. No free air. No significant fluid collection. Vasculature: Vascular calcifications. Lymph nodes: Unremarkable. No enlarged lymph nodes. Urinary bladder: Unremarkable as visualized. Reproductive: Unremarkable as visualized. Bones/joints: Skeletal degenerative changes. No acute fracture. Soft tissues: Postsurgical changes to the anterior abdominal wall. IMPRESSION: 1. There is left-sided hydronephrosis and hydroureter which ends in a 7 mm calculus at the left UVJ. There is associated perinephric and periureteral stranding which may be reactive but should be correlated with any concern for infection. 2. There is some wall prominence to portions of the sigmoid colon which can be seen with underdistention or colitis. 3. There is a nonobstructive left renal calculus. 4. There is an incompletely imaged patchy opacity in the lingula on series 2, image 1 which could represent a small focus of atelectasis , infection, or scarring. However, it appears more solid than on prior examination. Given the change in appearance, a dedicated nonemergent CT scan is recommended. Other findings/details as above. Labs 09/18/23 19:24 09/18/23 20:02 Labs: Laboratory Results - last 24 hr 09/18/23 09/18/23 09/18/23 19:24 20:02 20:35 WBC 14.29 H RBC 4.47 Hgb 12.9 Hct 39.5 MCV 88 MCH 28.9 MCHC 32.7 RDW 13.6 Plt Count 305 MPV 9.3 Immature Gran % 0.5 Neutrophils % 75.2 Lymphocytes % 14.3 Monocytes % 8.6 Eosinophils % 1.0 Basophils % 0.4 Nucleated RBC % 0.0 Absolute Neutrophils 10.75 H Absolute Lymphocytes 2.04 Absolute Monocytes 1.23 H Absolute Eosinophils 0.14 Absolute Basophils 0.06 Sodium 134 L Potassium 3.9 Chloride 100 Carbon Dioxide 26.8 Anion Gap 7.2 BUN 22 H Creatinine 1.8 H Est GFR (CKD-EPI 2020) 29.38 Glucose 309 H Calcium 9.1 Total Bilirubin 0.8 AST 44 H ALT 41 Alkaline Phosphatase 144 H Total Protein 7.4 Albumin 3.0 L Urine Color Yellow Urine Clarity Clear Urine pH 5.5 Ur Specific [place] 1.010 Urine Protein Negative Urine Ketones Negative Urine Blood Trace-intact H Urine Nitrite Negative Urine Bilirubin Negative Urine Urobilinogen 0.2 Ur Leukocyte Esterase Trace H Urine RBC 0-2 Urine WBC 5-10 Ur Epithelial Cells Rare Urine Crystals Negative Urine Bacteria Negative Urine Mucus Negative Ur Culture Indicated? Yes Urine Glucose 500 H COVID-19 Source SARS-CoV-2 (PCR) 09/18/23 22:41 WBC RBC Hgb Hct MCV MCH MCHC RDW Plt Count MPV Immature Gran % Neutrophils % Lymphocytes % Monocytes % Eosinophils % Basophils % Nucleated RBC % Absolute Neutrophils Absolute Lymphocytes Absolute Monocytes Absolute Eosinophils Absolute Basophils Sodium Potassium Chloride Carbon Dioxide Anion Gap BUN Creatinine Est GFR (CKD-EPI 2020) Glucose Calcium Total Bilirubin AST ALT Alkaline Phosphatase Total Protein Albumin Urine Color Urine Clarity Urine pH Ur Specific [place] Urine Protein Urine Ketones Urine Blood Urine Nitrite Urine Bilirubin Urine Urobilinogen Ur Leukocyte Esterase Urine RBC Urine WBC Ur Epithelial Cells Urine Crystals Urine Bacteria Urine Mucus Ur Culture Indicated? Urine Glucose COVID-19 Source Nasal/Nares SARS-CoV-2 (PCR) Negative Last Vital Signs Temp 37 C 09/18/23 19:12 Pulse 63 09/18/23 19:12 Resp 22 09/18/23 19:12 BP 135/67 09/18/23 19:12 Pulse Ox 96 09/18/23 19:12 Time Spent Time spent with Patient: >75 minutes Time was spent: preparing to see the patient(eg.review tests), obtaining and/or reviewing separately otained hiistory, ordering medications,tests, procedures, referring, communicating with other health respiratory care technician, indepentently interpreting results and care coordination
[2023-09-18] MEDS: cefTRIAXone 2 GM/50 ML BAG IVPB (23:51)
[2023-09-19] VITALS (20 sets, daily range): BP systolic 113–151; BP diastolic 44–96; PULSE 58–77; RESP 14–24; TEMP 36.4–37.9; O2SAT 90–97; BMI 37.5
[2023-09-19 00:26] LABS: TSH (W/Ref FT4) 2.45 uIU/mL (0.36-3.74)
[2023-09-19] MEDS: Mirtazapine 15 MG TAB 7.5 MG PO ×2 (01:13→20:13)
[2023-09-19] MEDS: DULoxetine 30 MG CAP 60 MG PO ×2 (01:13→20:13)
[2023-09-19] MEDS: Normal Saline 1,000 ML 125 ML IV ×2 (01:14→14:15)
[2023-09-19] MEDS: Ketorolac 15 MG/ML VIAL IVP ×3 (02:14→19:15)
[2023-09-19] MEDS: Levothyroxine 112 MCG TAB PO (05:20)
[2023-09-19 06:52] LABS: HCT 37.7 % (36.0-46.0); MCH 28.5 pg (27.0-33.0); MCHC 31.8 % (32.0-36.0); MCV 90 fL (80-95); Platelet Count 280 10^3/uL (130-400); RBC 4.21 10^6/uL (3.93-5.22); RDW 13.7 % (11.7-14.6); RDW-SD 45.1 fL
[2023-09-19 07:16] LABS: ALT 33 U/L (14-59); AST 32 U/L (15-37); Albumin 2.8 g/dL (3.4-5.0); Alkaline Phosphatase 121 U/L (46-116); Anion Gap 5.4 mmol/L (3-11); BUN 21 mg/dL (7-18); Bilirubin, Total 0.9 mg/dL (0.2-1.0); CO2 27.6 mmol/L (21.0-32.0); CREATININE 1.7 mg/dL (0.55-1.02); Calcium 8.7 mg/dL (8.5-10.1); Chloride 104 mmol/L (98-107); Estimated GFR 31.47 (mL/min/1.73m2); Glucose 213 mg/dL (74-106); Magnesium 1.5 mg/dL (1.8-2.4); Potassium 3.8 mmol/L (3.5-5.1); Sodium 137 mmol/L (136-145); Total Protein 6.8 g/dL (6.4-8.2)
--- NOTE | 2023-09-19 07:31 | UCONE_ITS ---
Date of service: 09/19/23 Time of Service: 10:25 Assessment and Plan Assessment and plan (1) Left ureteral calculus: Status: Acute Assessment and plan: The patient is afebrile, but she does have 5-10 white blood cells per high-power field with a few epithelial cells present. She has a history of recurrent UTIs and a history of pyelonephritis following ureteroscopy in the past. We will arrange for a cystoscopy and stent placement. With the location of her ureteral stone, we may very well be able to extract her stone under the same anesthesia and avoid a return trip to the OR and a second anesthesia exposure. History of Present Illness History of Present Illness Chief Complaint: Left ureteral stone Narrative: This is a 72-year-old woman who has a past history of kidney stones. She had been under the care of the urology team at [facility]. She underwent ureteroscopy for a left ureteral stone back in 2011. She developed pyelonephritis after the ureteroscopy and required replacement of a ureteral stent. She has not required any type of surgical treatment since 2011. She had been followed yearly with imaging studies. At the time of her last visit (in 2018) there was a nonobstructing stone in the lower pole of the left kidney. She presented to our emergency department last evening with left-sided renal colic. The pain started about 3 days ago. She describes the pain as being in the back and radiating around to the right. She does have some chills but no documented fever. She has no dysuria or gross hematuria. She was evaluated in the emergency department and a CT scan shows that the previously identified left lower pole stone had migrated into the distal ureter and was causing hydronephrosis. There was some concern that the patient may have pyelonephritis, but it was not felt that a transfer last evening was required. Instead, I have been asked to see her this morning for consideration of stent placement. She tells me that her pain continues and is associated with dry heaves. She has not passed a stone previously and has not passed the stone since her admission. Review of Systems Narrative: c/o chills. No documented fever No vision change or dysphasia Diabetes. No thyroid dysfunction COPD. No hemoptysis No chest pain or palpitations c/o dry heaves. No hepatitis, ulcers, jaundice, diarrhea or constipation Hx diabetic peripheral neuropathy. No seizures or strokes No bleeding disorders or anemia Chronic back pain. No gout PFSH All Active Problems (Updated 09/19/23 @ 00:50 by Eduard Richards) UTI (urinary tract infection) (Acute) Acute flank pain (Acute) Left ureteral calculus (Acute) Ureteral calculus, left (Acute) Hydronephrosis due to obstruction of ureter (Acute) Allergic conjunctivitis (Acute) Claustrophobia (Acute) Cognitive impairment (Acute) Frequent falls (Acute) Rash (Acute) Personal history of nicotine dependence (Acute) Leukocytosis (Acute) Angioedema of tongue (Acute) Right knee pain (Acute) Asthma-COPD overlap syndrome (Chronic) DNI (do not intubate) (Acute) DNR (do not resuscitate) (Chronic) POLST (Physician Orders for Life-Sustaining Treatment) (Acute) Cubital tunnel syndrome on right (Chronic) Diabetic peripheral neuropathy (Chronic) Coronary artery disease (Chronic) Recurrent urinary tract infection (Chronic) Osteopenia (Chronic 09/29/03) Non-alcoholic fatty liver disease (Chronic) 2010elevated transaminases 2013 normal AST ALT Hypothyroidism (Chronic 04/17/13) [facility]D.Bilotta [employer]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 D.Bilotta/ uncontrolled db. /HbA1c 8.7; increase Glimepiride 4 bid/fup 6 mo. FO[place] [facility]LABS INCLUDED Depressive disorder (Chronic) Degenerative disc disease (Chronic) lumbar facet hypertrophy L4-5; L5-S1; MRI 07/2009 lumbar spondylosis Cervical spinal stenosis (Chronic) MRI 03/2013; Severe left C5-6 and moderate left C3-4 stenosis; multilevel DDD 06/12-GUILLE Brachial plexus neuropathy (Chronic) Medical History Former smoker Colitis History of tobacco use Kidney stone Tension-type headache Shoulder pain left;2010- S/P supraclavicular lipoma removal; S/P neuroma 1988 [id number]. degenerative cervical spondylosis Chronic pain syndrome (10/27/12) on METHADONE; [facility] ; Shana Vaz- visit:12-06-2016 q 4 weeks (left neck and shoulder pain) 01/2022 - Reports she weaned off a while ago. Chronic obstructive lung disease (07/16/13) Dr. PINK/ PFT'S 08/09 Quit smoking 1999 Surgical History Hx of cardiac cath PROCEDURES BLADDER REPAIR NEC, 1985 URETEROSCOPY, 2002 multiple kidney stones PERIPH GANGLIONECT NEC left ABD REPAIR-DIAPHR HERNIA Oophrectomy, Left (~1998) Hysterectomy, Laproscopic (~1985) Repair of umbilical hernia (06/04/16) [facility] [place]air of inguinal hernia RIGHT Cholecystectomy (~2000) Family History Mother , 85 Essential hypertension Heart disease Hyperlipidemia Father Essential hypertension Personal history of malignant neoplasm MELANOMA Heart disease Hyperlipidemia Stroke Sister Diabetes Brother Stroke Grandfather Heart disease Grandfather Stroke Grandmother Personal history of malignant neoplasm BREAST/UTERINE Heart disease Grandmother No problems noted. Sister No problems noted. Sister No problems noted. Sister No problems noted. Brother No problems noted. Brother No problems noted. Son No problems noted. Son No problems noted. Social History Smoking/Tobacco Use Status: Former Tobacco Use tobacco type: cigarettes Quit Date: 10/31/99 Second Hand Exposure: Yes Smoking risk assessment performed?: Yes Alcohol Intake: current Alcohol Intake frequency: holidays/special occasions only Alcohol type: hard liquor Drug use: Never Substance use type: does not use Caregiver/Support person: No Household members: spouse Housing: house Number of Children: 3 Do you need help understanding health information?: Rarely Pets and animals: Yes Pets and animals: dog(s) Sexually active: No Current gender identity: female What is your relationship status?: How often do you talk on the phone with friends or family?: decline to answer How often do you get together with friends or relatives?: once per week How often do you attend taoism or yazidi services?: decline to answer Do you belong to any clubs or organized social groups?: no Panel score (0-1 are the most socially isolated patients): 1 What type of physical activity do you participate in: none Duration: 15-30 minutes/day Frequency: does not exercise Chely/Worship: None Special chely needs: No Seatbelt use: always Drive intox or ride w/intox tow motor driver: No Do you feel safe at home: Yes Do you feel safe in your relationship?: Yes Exam Narrative Exam Narrative: She appears more chronic ill and acutely ill Her vital signs are documented elsewhere Her chest wall motion is normal. She is not short of breath at rest. She is awake and alert I reviewed her most recent positive urine cultures. Her cultures grew E. coli that was resistant to the ana quinolones We was able to to find extensive urology records through the [facility] EMR. She required ureteroscopy back in 2011. She was last seen by their service in 2019. At the time of her last appointment, she had a 3 to 4 mm stone in the left lower pole. I was able to review her renal ultrasound from [facility] along with her CT scan done here in 2020. These studies confirmed a lower pole stone on the left. Her study done through the emergency department last night shows the same stone is now at the left ureterovesical junction. Results Last Vital Signs Temp 36.4 C L 09/19/23 04:26 Pulse 66 09/19/23 04:26 Resp 16 09/19/23 04:26 BP 115/96 H 09/19/23 04:26 Pulse Ox 93 09/19/23 04:26 Labs 09/19/23 06:06 09/19/23 06:06 Labs: Laboratory Results - last 24 hr 09/18/23 09/18/23 09/18/23 19:24 20:02 20:35 WBC 14.29 H RBC 4.47 Hgb 12.9 Hct 39.5 MCV 88 MCH 28.9 MCHC 32.7 RDW 13.6 Plt Count 305 MPV 9.3 Immature Gran % 0.5 Neutrophils % 75.2 Lymphocytes % 14.3 Monocytes % 8.6 Eosinophils % 1.0 Basophils % 0.4 Nucleated RBC % 0.0 Absolute Neutrophils 10.75 H Absolute Lymphocytes 2.04 Absolute Monocytes 1.23 H Absolute Eosinophils 0.14 Absolute Basophils 0.06 Sodium 134 L Potassium 3.9 Chloride 100 Carbon Dioxide 26.8 Anion Gap 7.2 BUN 22 H Creatinine 1.8 H Est GFR (CKD-EPI 2020) 29.38 Glucose 309 H Calcium 9.1 Magnesium Total Bilirubin 0.8 AST 44 H ALT 41 Alkaline Phosphatase 144 H Total Protein 7.4 Albumin 3.0 L TSH 2.45 Urine Color Yellow Urine Clarity Clear Urine pH 5.5 Ur Specific [place] 1.010 Urine Protein Negative Urine Ketones Negative Urine Blood Trace-intact H Urine Nitrite Negative Urine Bilirubin Negative Urine Urobilinogen 0.2 Ur Leukocyte Esterase Trace H Urine RBC 0-2 Urine WBC 5-10 Ur Epithelial Cells Rare Urine Crystals Negative Urine Bacteria Negative Urine Mucus Negative Ur Culture Indicated? Yes Urine Glucose 500 H COVID-19 Source SARS-CoV-2 (PCR) 09/18/23 09/19/23 22:41 06:06 WBC 12.90 H RBC 4.21 Hgb 12.0 Hct 37.7 MCV 90 MCH 28.5 MCHC 31.8 L RDW 13.7 Plt Count 280 MPV 9.0 Immature Gran % Neutrophils % Lymphocytes % Monocytes % Eosinophils % Basophils % Nucleated RBC % Absolute Neutrophils Absolute Lymphocytes Absolute Monocytes Absolute Eosinophils Absolute Basophils Sodium 137 Potassium 3.8 Chloride 104 Carbon Dioxide 27.6 Anion Gap 5.4 BUN 21 H Creatinine 1.7 H Est GFR (CKD-EPI 2020) 31.47 Glucose 213 H Calcium 8.7 Magnesium 1.5 L Total Bilirubin 0.9 AST 32 ALT 33 Alkaline Phosphatase 121 H Total Protein 6.8 Albumin 2.8 L TSH Urine Color Urine Clarity Urine pH Ur Specific [place] Urine Protein Urine Ketones Urine Blood Urine Nitrite Urine Bilirubin Urine Urobilinogen Ur Leukocyte Esterase Urine RBC Urine WBC Ur Epithelial Cells Urine Crystals Urine Bacteria Urine Mucus Ur Culture Indicated? Urine Glucose COVID-19 Source Nasal/Nares SARS-CoV-2 (PCR) Negative
[2023-09-19] MEDS: MAGNESIUM SULFATE 4 GM/100 ML BAG IVPB (08:48)
[2023-09-19] MEDS: buPROPion-XL 150 MG TABCR 450 MG PO (08:49)
[2023-09-19] MEDS: Metoprolol CR 100 MG TABCR PO (08:49)
[2023-09-19] MEDS: Chlorthalidone 25 MG TAB 12.5 MG PO (08:49)
[2023-09-19] MEDS: Tiotropium Bromide-Respimat 10 PUFF INH IH (09:05)
[2023-09-19] MEDS: Budesonide/Formoterol 160/4.5 6 GM 60 PUFF INH IH (09:05)
--- NOTE | 2023-09-19 09:22 | INITIAL_ITS ---
Date of service: 09/19/23 Time of Service: 09:22 Care Management Initial Assmt Initial Assessment REASON FOR HOSPITALIZATION:: Hydronephrosis secondary to ureteral obstruction PREVIOUS FUNCTIONAL STATUS/SOCIAL/FAMILY SUPPORTS:: Wanda lives in [place] with her Mook. CURRENT FUNCTIONAL STATUS:: CM unable to meet with Wanda as she was in surgery. She had a cystoscopy with stone extraction and stent placement and tolerated the procedure well. She had a mild fever post-op but her vital signs are stable. She is tolerating food and fluids and her pain is controlled. She will likely be discharged in the next 24-48 hours, per provider. ADVANCE DIRECTIVES:: on file. [facility] Has patient been provided with info about the portal/API?: Yes Did the patient sign up for the portal?: No CODE STATUS:: DNR/DNI INSURANCE COVERAGE / FINANCIAL ISSUES:: Medicare Financial Assist 100 PRIMARY CARE PHYSICIAN:: Markie Maya POTENTIAL DISCHARGE NEEDS:: follow up with PCP and plan of care PATIENT/FAMILY EDUCATION NEEDS:: Review of discharge instructions, activity, limitations, follow up plan, discuss Ask Me Three TRANSPORTATION:: via private vehicle with family PLAN:: Anticipate Wanda will be discharged home with no new services. She will follow up with Urology, her PCP and plan of care and transport with family. CM will support Wanda and assess for discharge needs. PFSH All Active Problems (Updated 09/19/23 @ 16:07 by Kyung Otoole MD) Discharge planning issues (Acute) DVT prophylaxis (Acute) Hypomagnesemia (Acute) MEREDITH (acute kidney injury) (Acute) UTI (urinary tract infection) (Acute) Acute flank pain (Acute) Left ureteral calculus (Acute) Ureteral calculus, left (Acute) Hydronephrosis due to obstruction of ureter (Acute) Allergic conjunctivitis (Acute) Claustrophobia (Acute) Cognitive impairment (Acute) Frequent falls (Acute) Rash (Acute) Personal history of nicotine dependence (Acute) Leukocytosis (Acute) Angioedema of tongue (Acute) Right knee pain (Acute) Asthma-COPD overlap syndrome (Chronic) DNI (do not intubate) (Acute) DNR (do not resuscitate) (Chronic) POLST (Physician Orders for Life-Sustaining Treatment) (Acute) Cubital tunnel syndrome on right (Chronic) Diabetic peripheral neuropathy (Chronic) Coronary artery disease (Chronic) Recurrent urinary tract infection (Chronic) Osteopenia (Chronic 09/29/03) Non-alcoholic fatty liver disease (Chronic) 2010elevated transaminases 2013 normal AST ALT Hypothyroidism (Chronic 04/17/13) [facility] [place]; 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 D.Bilotta/ uncontrolled db. /HbA1c 8.7; increase Glimepiride 4 bid/fup 6 mo. FOLLOWED AT [facility] [place]/LABS INCLUDED Depressive disorder (Chronic) Degenerative disc disease (Chronic) lumbar facet hypertrophy L4-5; L5-S1; MRI 07/2009 lumbar spondylosis Cervical spinal stenosis (Chronic) MRI 03/2013; Severe left C5-6 and moderate left C3-4 stenosis; multilevel DDD 06/12-GUILLE Brachial plexus neuropathy (Chronic) Medical History Former smoker Colitis History of tobacco use Kidney stone Tension-type headache Shoulder pain left;2010- S/P supraclavicular lipoma removal; S/P neuroma 1988 [id number]. degenerative cervical spondylosis Chronic pain syndrome (10/27/12) on METHADONE; [facility] ; Shana Vaz- visit:12-06-2016 q 4 weeks (left neck and shoulder pain) 01/2022 - Reports she weaned off a while ago. Chronic obstructive lung disease (07/16/13) Dr. PNIK/ PFT'S 08/09 Quit smoking 1999 Surgical History Hx of cardiac cath PROCEDURES BLADDER REPAIR NEC, 1985 URETEROSCOPY, 2002 multiple kidney stones PERIPH GANGLIONECT NEC left ABD REPAIR-DIAPHR HERNIA Oophrectomy, Left (~1998) Hysterectomy, Laproscopic (~1985) Repair of umbilical hernia (06/04/16) [facility] [place] Repair of inguinal hernia RIGHT Cholecystectomy (~2000) Family History Mother , 85 Essential hypertension Heart disease Hyperlipidemia Father Essential hypertension Personal history of malignant neoplasm MELANOMA Heart disease Hyperlipidemia Stroke Sister Diabetes Brother Stroke Grandfather Heart disease Grandfather Stroke Grandmother Personal history of malignant neoplasm BREAST/UTERINE Heart disease Grandmother No problems noted. Sister No problems noted. Sister No problems noted. Sister No problems noted. Brother No problems noted. Brother No problems noted. Son No problems noted. Son No problems noted. Social History Smoking/Tobacco Use Status: Former Tobacco Use tobacco type: cigarettes Quit Date: 10/31/99 Second Hand Exposure: Yes Smoking risk assessment performed?: Yes Alcohol Intake: current Alcohol Intake frequency: holidays/special occasions only Alcohol type: hard liquor Drug use: Never Substance use type: does not use Caregiver/Support person: No Household members: spouse Housing: house Number of Children: 3 Do you need help understanding health information?: Rarely Pets and animals: Yes Pets and animals: dog(s) Sexually active: No Current gender identity: female What is your relationship status?: How often do you talk on the phone with friends or family?: decline to answer How often do you get together with friends or relatives?: once per week How often do you attend methodist or judaism services?: decline to answer Do you belong to any clubs or organized social groups?: no Panel score (0-1 are the most socially isolated patients): 1 What type of physical activity do you participate in: none Duration: 15-30 minutes/day Frequency: does not exercise Chely/Hindu: None Special chely needs: No Seatbelt use: always Drive intox or ride w/intox pick up driver: No Do you feel safe at home: Yes Do you feel safe in your relationship?: Yes
--- NOTE | 2023-09-19 11:00 | DI.RAD_ITS ---
Exam(s) XR RETROGRADE IN OR EXAM: XR RETROGRADE IN OR CLINICAL HISTORY: LEFT URETERAL STONE. TECHNIQUE: Fluoroscopy was provided for the referring physician for guidance with performing retrogr katie procedure. COMPARISON: No exams were available for comparison FINDINGS: Please see procedure note for details. Fluoro time: 20.3 seconds RADIATION DOSE DELIVERED: filemon Iglesias=6.12 mGy
[2023-09-19] MEDS: Normal Saline Flush 10 ML SYR IVP ×2 (11:21→19:16)
--- NOTE | 2023-09-19 11:27 | ANES.PREOP_ITS ---
General Info Date of Service Date Performed: 09/19/23 Height: 5 ft 6 in Weight: 105.448 kg Body Mass Index (BMI): 37.5 Surgical Procedure: Operation Date: 09/19/23 11:40 Proposed Procedure Side Surgeon p Cystoscopy/Retrograde/Ureteroscopy/ Stone Manipulation/ Stent Placement Left Ferdinand Lee MD Meds Allergies and Home Medications Allergies Allergy/AdvReac Type Severity Reaction Status Date / Time MEENU Inhibitors Allergy Severe Anaphylaxis Unverified 09/18/23 18:57 acetaminophen [From Tylenol] Allergy Severe Anaphylaxis Unverified 09/18/23 18:57 enalapril Allergy Severe angioedema Verified 09/18/23 18:57 shellfish derived Allergy Severe Anaphylaxis Unverified 09/18/23 18:57 metaxalone Allergy Unknown unknown Unverified 09/18/23 18:57 rofecoxib Allergy Unknown unknown Unverified 09/18/23 18:57 exenatide [From Byetta] AdvReac Intermediate GI Upset Unverified 09/18/23 18:57 adams pepper Allergy Severe Anaphylaxis Uncoded 09/18/23 18:57 mushrooms Allergy Severe Anaphylaxis Uncoded 09/18/23 18:57 Home Medication Medication Instructions Recorded docusate sodium 50 mg capsule 50 mg PO DAILY PRN #90 tab-caps 08/09/18 (Colace) trazodone 50 mg tablet 50 mg PO QHS PRN sleep #90 tabs 10/16/20 budesonide-formoterol HFA 160 1 puff inhalation DAILY 06/27/22 mcg-4.5 mcg/actuation aerosol inhaler (Symbicort) epinephrine 0.3 mg/0.3 mL 0.3 mg (0.3 mL) IM ONCE history 06/30/22 injection, auto-injector (EpiPen) angioedema tongue #2 ea pen needle, diabetic 31 gauge x #300 ea 09/02/22 3/16 (BD Ultra-Fine Mini Pen Needle) chlorthalidone 25 mg tablet 12.5 mg (1/2 x 25 mg) PO DAILY #90 09/03/22 tabs estradiol 0.01% (0.1 mg/gram) 1 appful vaginal DAILY #42.5 grams 01/07/23 vaginal cream (Estrace) levothyroxine 112 mcg tablet 112 mcg PO DAILY #90 tabs 01/20/23 albuterol sulfate 90 mcg/actuation 2 puff inhalation Q6H PRN 03/17/23 aerosol inhaler shortness of breath or wheezing #8.5 grams magnesium See Rx Instructions PO DIRECTED 03/17/23 tiotropium bromide 2.5 See Rx Instructions .Route 04/18/23 mcg/actuation mist for inhalation .COMPLEX #4 grams (Spiriva Respimat) metformin 1,000 mg tablet See Rx Instructions .Route 04/19/23 .COMPLEX #180 tabs mirtazapine 7.5 mg tablet 7.5 mg PO QHS #90 tabs 07/12/23 lorazepam 0.5 mg tablet 0.5 mg PO DAILY PRN anxiety #2 tabs 07/19/23 olopatadine 0.2 % eye drops 1 drp ophthalmic (eye) DAILY PRN 07/19/23 itching #2.5 mL atorvastatin 80 mg tablet 80 mg PO DAILY #90 tabs 08/10/23 bupropion HCl 150 mg 24 hr tablet, 450 mg (3 x 150 mg) PO DAILY #270 08/10/23 extended release tab-caps duloxetine 60 mg capsule,delayed 60 mg PO HS #90 caps 08/10/23 release glimepiride 4 mg tablet 4 mg PO BID #180 tab-caps 08/10/23 insulin glargine 100 unit/mL (3 14 unit (0.14 mL) subcut HS #45 mL 08/10/23 mL) subcutaneous pen (Lantus Solostar U-100 Insulin) metoprolol succinate 100 mg 100 mg PO DAILY #90 tabs 08/10/23 tablet,extended release 24 hr liraglutide 0.6 mg/0.1 mL (18 mg/3 1.8 mg (0.3 mL) subcut DAILY #9 mL 08/29/23 mL) subcutaneous pen injector Current Visit Medications: Current Medications Generic Name Dose Route Start Last Admin Trade Name Freq PRN Reason Stop Dose Admin Al Hydrox/Mg Hydrox/Simethicone 30 ml 09/18/23 23:50 Mylanta Suspension 30 Ml Cup PO Q2H PRN PRN Albuterol Sulfate 2 puff 09/18/23 23:53 Albuterol Hfa 8 Gm 60 Puff Inh IH Q6H PRN PRN shortness of breath or wheezing Atorvastatin Calcium 80 mg 09/19/23 20:00 Atorvastatin 40 Mg Tab PO QPM THIAGO Budesonide/Formoterol Fumarate 1 puff 09/19/23 08:30 09/19/23 09:05 Budesonide/Formoterol 160/4.5 6 Gm 60 Puff Inh IH 1 puff DAILY THIAGO Administration Bupropion HCl 450 mg 09/19/23 08:30 09/19/23 08:49 Bupropion-Xl 150 Mg Tabcr PO 450 mg DAILY THIAGO Administration Chlorthalidone 12.5 mg 09/19/23 08:30 09/19/23 08:49 Chlorthalidone 25 Mg Tab PO 12.5 mg DAILY THIAGO Administration Device 1 each 09/18/23 23:45 Inhaler, Assist Device MC DIRECTED THIAGO Dextrose 0 gm 09/18/23 23:53 Glucose Oral Gel 15 Gm/37.5 Gm Tube PO DIRECTED PRN Dextrose/Water 0 gm 09/18/23 23:53 Dextrose 50%-Water 25 Gm/50 Ml Syr IVP DIRECTED PRN Docusate Sodium 100 mg 09/18/23 23:45 Docusate Sodium 100 Mg Cap PO TID PRN PRN Duloxetine HCl 60 mg 09/19/23 01:00 09/19/23 01:13 Duloxetine 30 Mg Cap PO 60 mg HS THIAGO Administration Sodium Chloride 1,000 mls @ 125 mls/hr 09/18/23 23:45 09/19/23 01:14 Saline 1000ml Bag IV 125 mls/hr [facility] Administration Ceftriaxone Sodium/Dextrose 1 gm in 50 mls @ 100 mls/hr 09/19/23 22:00 Rocephin IVPB Q24H [facility] Magnesium Sulfate 4 gm in 100 mls @ 25 mls/hr 09/19/23 08:11 09/19/23 08:48 IVPB 09/19/23 12:10 25 mls/hr NOW ONE Administration IV Miscellaneous Supplies 1 each 09/18/23 23:45 Iv Access IV DIRECTED [facility] Insulin Aspart 0 units 09/19/23 08:00 09/19/23 10:08 Insulin Aspart 300 Units/3 Ml Pen SC Not Given 0800,1200,1700,2200 [facility] Protocol Ketorolac Tromethamine 15 mg 09/19/23 00:55 09/19/23 08:48 Ketorolac 15 Mg/Ml Vial IVP 09/24/23 00:54 15 mg Q6H PRN PRN Administration Pain Levothyroxine Sodium 112 mcg 09/20/23 06:00 Levothyroxine 112 Mcg Tab PO DAILY@0600 THIAGO Lorazepam 0.5 mg 09/18/23 23:53 Lorazepam 0.5 Mg Tab PO DAILY PRN PRN anxiety Magnesium Hydroxide 30 ml 09/18/23 23:45 Milk Of Magnesia 30 Ml Cup PO DAILY PRN PRN Metoprolol Succinate 100 mg 09/19/23 08:30 09/19/23 08:49 Metoprolol Cr 100 Mg Tabcr PO 100 mg DAILY THIAGO Administration Mirtazapine 7.5 mg 09/19/23 01:02 09/19/23 01:13 Mirtazapine 15 Mg Tab PO 7.5 mg HS THIAGO Administration Olopatadine HCl 0 ml 09/19/23 09:42 Olopatadine 0.1% Ophth Cassie 5 Ml Btl OP DAILY PRN PRN itching Polyethylene Glycol 17 gm 09/18/23 23:45 Polyethylene Glycol 3350 17 Gm Packet PO DAILY PRN PRN Constipation Sodium Chloride 0 ml 09/18/23 23:45 09/19/23 11:21 Normal Saline Flush 10 Ml Syr IVP 30 ml PRN PRN Administration Tiotropium [place] 0 puff 09/19/23 08:30 09/19/23 09:05 Tiotropium [place]-Respimat 10 Puff Inh IH 2 inh DAILY THIAGO Administration Trazodone HCl 50 mg 09/18/23 23:53 Trazodone 50 Mg Tab PO HS PRN PRN sleep PFSH Active Problems Active Problems: Problem Status Onset Code UTI (urinary tract infection) N39.0 Acute flank pain R10.9 Left ureteral calculus N20.1 Ureteral calculus, left N20.1 Hydronephrosis due to obstruction of ureter N13.1 Allergic conjunctivitis H10.10 Claustrophobia F40.240 Cognitive impairment R41.89 Frequent falls R29.6 Rash R21 Personal history of nicotine dependence Z87.891 Leukocytosis D72.829 Angioedema of tongue T78.3XXA Right knee pain M25.561 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 DNI (do not intubate) Z78.9 DNR (do not resuscitate) Z66 POLST (Physician Orders for Life-Sustaining Treatment) Z78.9 Cubital tunnel syndrome on right G56.21 Diabetic peripheral neuropathy E11.42 Coronary artery disease I25.10 Recurrent urinary tract infection N39.0 Osteopenia 09/29/03 M85.80 Non-alcoholic fatty liver disease K76.0 Hypothyroidism 04/17/13 E03.9 Hyperlipidemia E78.5 Urinary, incontinence, stress female N39.3 Essential hypertension 08/15/13 I10 Diastolic heart failure 12/02/09 I50.30 Diabetes mellitus E11.9 Depressive disorder F32.9 Degenerative disc disease Cervical spinal stenosis M48.02 Brachial plexus neuropathy G54.0 Medical History Medical History Former smoker Colitis History of tobacco use Kidney stone Tension-type headache Shoulder pain left;2010- S/P supraclavicular lipoma removal; S/P neuroma 1988 [id number]. degenerative cervical spondylosis Chronic pain syndrome (10/27/12) on METHADONE; [facility] ; Shana V[facility]- visit:12-06-2016 q 4 weeks (left neck and shoulder pain) 01/2022 - Reports she weaned off a while ago. Chronic obstructive lung disease (07/16/13) Dr. PINK/ PFT'S 08/09 Quit smoking 1999 Medical History Comments:: Pt reports that during her hysterectomy (many years ago) she was told her heart stopped, and she was told it was likely r/t anesthesia. Surgical History Surgical History Hx of cardiac cath PROCEDURES BLADDER REPAIR NEC, 1985 URETEROSCOPY, 2002 multiple kidney stones PERIPH GANGLIONECT NEC left ABD REPAIR-DIAPHR HERNIA Oophrectomy, Left (~1998) Hysterectomy, Laproscopic (~1985) Repair of umbilical hernia (06/04/16) [facility] [place] Repair of inguinal hernia RIGHT Cholecystectomy (~2000) Tobacco Smoking/Tobacco Use Status: Former Tobacco Use Passive smoking exposure: Yes Second hand exposure: Yes Alcohol Alcohol Intake: current Alcohol intake frequency: holidays/special occasions only Alcohol type: hard liquor Substance Use Substance use: Never Substance use type: does not use Vital Signs and Lab Results Vital Signs Most Recent Vital Signs in EMR: Most Recent Vital Signs Temp Pulse Resp BP Pulse Ox 37.0 C 62 18 123/59 L 92 09/19/23 11:10 09/19/23 11:10 09/19/23 11:10 09/19/23 11:10 09/19/23 11:10 Point of Care Results Point of Care Results: Finger Stick Blood Glucose 224 09/19/23 11:14 Lab Results 09/19/23 06:06 09/19/23 06:06 Blood Type / Crossmatch: 2 No Data to Display Complete Blood Count: 2 White Blood Count 12.90 10^3/uL (4.4-10.8) H 09/19/23 06:06 Red Blood Count 4.21 10^6/uL (3.93-5.22) 09/19/23 06:06 Hemoglobin 12.0 g/dL (11.2-15.7) 09/19/23 06:06 Hematocrit 37.7 % (36.0-46.0) 09/19/23 06:06 Platelet Count 280 10^3/uL (130-400) 09/19/23 06:06 Complete Metabolic Panel: 2 Sodium 137 mmol/L (136-145) 09/19/23 06:06 Potassium 3.8 mmol/L (3.5-5.1) 09/19/23 06:06 Chloride 104 mmol/L (98-107) 09/19/23 06:06 Carbon Dioxide 27.6 mmol/L (21.0-32.0) 09/19/23 06:06 BUN 21 mg/dL (7-18) H 09/19/23 06:06 Creatinine 1.7 mg/dL (0.55-1.02) H 09/19/23 06:06 Est GFR (CKD-EPI 2020) 31.47 (mL/min/1.73m2) 09/19/23 06:06 Magnesium 1.5 mg/dL (1.8-2.4) L 09/19/23 06:06 Calcium 8.7 mg/dL (8.5-10.1) 09/19/23 06:06 Albumin 2.8 g/dL (3.4-5.0) L 09/19/23 06:06 Glucose 213 mg/dL (74-106) H 09/19/23 06:06 Liver Function Panel: 2 Alanine Aminotransferase (ALT/SGPT) 33 U/L (14-59) 09/19/23 06: 06 Aspartate Amino Transf (AST/SGOT) 32 U/L (15-37) 09/19/23 06:06 Coagulation Panel: 2 No Data to Display Cardiac Panel: 2 No Data to Display Arterial Blood Gas: 2 No Data to Display Venous Blood Gas: 2 No Data to Display Pancreas Panel: 2 No Data to Display Thyroid Panel: 2 Thyroid Stimulating Hormone (TSH) 2.45 uIU/mL (0.36-3.74) 09/18 20:02 Infectious Disease: 2 Coronavirus (COVID-19)(PCR) Negative (Negative) 09/18/23 22:41 Coronavirus 2019 Source Nasal/Nares 09/18/23 22:41 Blood Cultures: 2 No Data to Display Toxicology Panel: 2 No Data to Display Imaging and Studies Imaging and Studies Study information below may be from another EMR and interpreted by another provider. Please see original notes in EMR for more complete details. EKG Summary: 05/07/2022: Exam: Resting ECG Reason for Exam: ekg changes Patient Location: E HR:65 bpm ECG Measurements Heart Rate 65 AXIS CA 224 P -12 QRSd 81 QRS -9 QT 434 T54 QTc 451 Conclusion Sinus rhythm...normal P axis, V-rate 60- 99 Prolonged CA interval...CA >220, V-rate 50- 90 Low voltage, precordial leads...precordial leads <1.0mV Stress Test Summary: 01/17/2019: Impressions: - Abnormal study after pharmacologic stress. - Low risk of cardiac events, but higher compared to non-diabetics. Summary: 1. Myocardial perfusion imaging: There is a small sized, mildly intense defect involving the apical wall(s). This suggests small myocardial infarction in the distribution of the left anterior descending coronary artery versus artifact. 2. The calculated left ventricular ejection fraction after stress: 56%. LV global systolic function is normal. No left ventricular regional motion abnormality. 3. Stress ECG conclusions: The stress ECG is negative. Recommendations: Risk factor optimization. Pulmonary Function Summary: 04/01/2023: Pulmonary Function Test Result Indications: ACOS Interpretation Spirometry: Although the FEV1/FVC ratio is technically normal, obstruction is inferred by the flow volume loop and volume time curve. There is a significant bronchodilator response. Lung Volumes: There is air trapping Diffusion Capacity: Normal diffusion Airway Pressure: Increased airways resistance Impression Moderate airflow obstruction with a bronchodilator response, normal diffusion and air trapping. Note: When compared to 07/21/22, lung function appears improved, however is worse than 10/15/21. Clinical Correlation therefore is recommended. Anesthesia Assessment and Plan Anesthesia History Personal History: Other Family History: No Family History of Anesthesia Complications Exercise Tolerance Exercise Tolerance: Metabolic Equivalents<4 Pertinent Negatives Pertinent Negatives: No Symptoms of GERD and No Major Cardiovascular Symptoms or Complaints Cardiac & Pulmonary Exam Cardiac Exam: Normal S1/S2 Heart Sounds Pulmonary Exam: Clear Bilateral Breath Sounds Implantable Cardiac Device Does patient have a Pacemaker or an ICD?: No Airway Exam Known Difficult Airway: No Mallampati Class: 2 Mouth Opening: Normal (> 3cm) Thyromental Distance: Greater than 3 cm Neck Range of Motion: Full ROM Neck Circumference: Thick Teeth Condition: Removable Dentures/Plates Upper and Removable Dentures/Plates Lower ASA Classification ASA Score: ASA 3 Emergency Case?: Yes NPO Status NPO Status: NPO Clears >2 hours, Solids >8 hours Anesthesia Plan Resuscitation Status: DNR Fully Suspended During Perioperative Period Anesthesia Technique: Spinal Anesthesia Airway Planned: Natural Airway Monitors Used: Standard Monitors Preoperative Comments:: SAB with GA backup. Patient reports she mistakenly selected DNR/DNI as her wishes and will suspend. Medication chart reviewed with patient and RN, no anticoagulation.
[2023-09-19] MEDS: Lactated Ringers 1,000 ML 30 ML IV (11:44)
[2023-09-19] MEDS: Lidocaine 2% Jelly 11 ML SYR (12:17)
[2023-09-19] MEDS: Omnipaque 300 MG/ML 50 ML BTL (12:32)
--- NOTE | 2023-09-19 12:43 | W.PM.OP ---
Date of service: 09/19/23 Time of Service: 12:43 Operative Note Operative Note DATE OF PROCEDURE: 09/19/23 PRE-OP DIAGNOSIS: Left ureteral stone POST-OP DIAGNOSIS: same PROCEDURE: Cystoscopy, left retrograde pyelogram, left ureteroscopy with stone extraction, insert left ureteral stent SURGEON: Ferdinand Lee ANESTHESIA TYPE: Local By Surgeon and Spinal Refer to Anesthesia Record ESTIMATED BLOOD LOSS: 0 PATHOLOGY: other (stone for chemical analysis) COMPLICATIONS: None Patient was transported to: floor Patient's condition: stable Implants: 6 Cam[place]onian by 22 to 30 cm ureteral stent Indications: This is a 72-year-old woman who has a past history stones. She had undergone ureteroscopy back in 2011. She presented to our emergency department with renal colic. On imaging studies, her previously identified left lower pole stone had migrated into the left distal ureter. She presents now for stone manipulation. Findings: Left distal ureteral stone Procedure Description: The patient was brought to the operating room on 09/19/2023. After successful induction of spinal anesthesia, she was placed in the dorsal lithotomy position. Her genitalia was prepped and draped. 2% Xylocaine jelly was instilled into the urethra. A 22 Cam[place]onian rigid cystoscope was passed through the urethra into the bladder. The bladder was inspected with the 30 degree lens. The right ureteral orifice was visualized and appeared normal. The left orifice appeared more edematous than the right. I was able to cannulate the left orifice with a 5 Cameroonian access catheter. A retrograde film was obtained by injecting Omnipaque through the access catheter under fluoroscopic guidance. A filling defect was identified in the left distal ureter. I was able to pass a guidewire through the lumen of the access catheter and maneuver the wire up the remainder of the ureter. Cloudy urine was seen coming from the ureteral orifice once the wire was placed. I was then able to run a semirigid ureteroscope through the urethra into the bladder and engage the scope in the left ureteral orifice. The stone was visualized in the left distal ureter and I was able to grasp the stone in a Marina stone basket. The stone was then extracted and sent to pathology for chemical analysis. Once the stone was removed, we placed a 6 Cam[place]onian variable length stent over the wire. The proximal end of the stent was curled in the renal pelvis and the distal end was curled within the bladder. The positioning of the stent was confirmed both fluoroscopically and cystoscopically. The patient tolerated this procedure well with no complications.
--- NOTE | 2023-09-19 13:55 | W.ANESPOSTOP ---
Postoperative Evaluation Date, Time and Location Date Performed: 09/19/23 Time Performed: 13:45 Patient Location: Med/Surg Vital Signs Most Recent Imported Vital Signs: Most Recent Vital Signs Temp Pulse Resp BP Pulse Ox 36.5 C 59 L 21 122/45 L 95 09/19/23 13:21 09/19/23 13:21 09/19/23 13:21 09/19/23 13:21 09/19/23 13:21 Pain Score Most Recent Pain Score: Most Recent Pain Score Pain Level 0 09/19/23 13:21 Assessment Mental Status: Awake (Alert & Oriented to Patient Baseline) Airway and Respiratory Function: Patent airway with normal (patient baseline) respiratory exam Cardiovascular Function: Hemodynamically Stable Hydration Status: Adequately Hydrated Nausea & Vomiting: No Nausea or Vomiting Pain: Pt. Denies Any Pain Peripheral Nerve Block: Patient did not receive a nerve block
[2023-09-19] MEDS: Insulin Aspart 300 UNITS/3 ML PEN SC ×3 (14:14→21:32)
--- NOTE | 2023-09-19 16:01 | W.PM.PROGNOT ---
Date of Service Date of service: 09/19/23 Time of Service: 16:01 Assessment and Plan Assessment and plan (1) UTI (urinary tract infection): Status: Acute Assessment and plan: Present on admission. The extent of it is difficult to assess by UA alone because the concern is that the infection was above the level of obstruction. Continue empiric ceftriaxone and await a urine C&S. The stone has been removed. Qualifiers: Urinary tract infection type: acute pyelonephritis Qualified Code(s): N10 - Acute pyelonephritis (2) Left ureteral calculus: Status: Acute Assessment and plan: Was causing obstruction. S/p cysto/removal/stent/removal of stent. As above (3) Hydronephrosis due to obstruction of ureter: Status: Acute Assessment and plan: As above (4) MEREDITH (acute kidney injury): Status: Acute Assessment and plan: Suspect this was a combined post-renal/obstructive MEREDITH as well as mild prerenal MEREDITH. At this point, the patient has been tolerating PO, obstruction has been relieved, and I feel comfortable stopping her IVF and rechecking her kidney function tomorrow. (5) Hypomagnesemia: Status: Acute Assessment and plan: Replete; recheck in am. (6) DVT prophylaxis: Status: Acute Assessment and plan: SCDs (7) Discharge planning issues: Status: Acute Assessment and plan: DNR/DNI Ancitipate discharge home in the next 24-[address]. Discussed case with Dr Lee. Subjective Subjective Interval history since last seen: S/p cystoscopy/stone removal/stent placement. The patient then accidentally dislodged her ureteral stent, which Dr Lee then definitively pulled out. THe patient states her L flank pain resolved entirely. She denies dizziness, CP, SOB, n/v. She is eating and drinking. She states her IV is bothering her. Exam Narrative Exam Narrative: General: A very pleasant elderly female who is laying comfortably in bed, A&Ox3, NAD HEENT: EOMI, MMM Heart: RRR, no m/r/g Lungs: CTAB anteriorly Abdomen: soft, nontender, nondistended Extremities: no edema BLEs Objective Last Vital Signs Temp 37.1 C 09/19/23 15:20 Pulse 74 09/19/23 15:20 Resp 20 09/19/23 15:20 BP 119/63 11/20/23 15:20 Pulse Ox 95 09/19/23 15:20 Laboratory Results - last 24 hr 09/18/23 09/18/23 09/18/23 19:24 20:02 20:35 WBC 14.29 H RBC 4.47 Hgb 12.9 Hct 39.5 MCV 88 MCH 28.9 MCHC 32.7 RDW 13.6 Plt Count 305 MPV 9.3 Immature Gran % 0.5 Neutrophils % 75.2 Lymphocytes % 14.3 Monocytes % 8.6 Eosinophils % 1.0 Basophils % 0.4 Nucleated RBC % 0.0 Absolute Neutrophils 10.75 H Absolute Lymphocytes 2.04 Absolute Monocytes 1.23 H Absolute Eosinophils 0.14 Absolute Basophils 0.06 Sodium 134 L Potassium 3.9 Chloride 100 Carbon Dioxide 26.8 Anion Gap 7.2 BUN 22 H Creatinine 1.8 H Est GFR (CKD-EPI 2020) 29.38 Glucose 309 H Calcium 9.1 Magnesium Total Bilirubin 0.8 AST 44 H ALT 41 Alkaline Phosphatase 144 H Total Protein 7.4 Albumin 3.0 L TSH 2.45 Urine Color Yellow Urine Clarity Clear Urine pH 5.5 Ur Specific [place] 1.010 Urine Protein Negative Urine Ketones Negative Urine Blood Trace-intact H Urine Nitrite Negative Urine Bilirubin Negative Urine Urobilinogen 0.2 Ur Leukocyte Esterase Trace H Urine RBC 0-2 Urine WBC 5-10 Ur Epithelial Cells Rare Urine Crystals Negative Urine Bacteria Negative Urine Mucus Negative Ur Culture Indicated? Yes Urine Glucose 500 H COVID-19 Source SARS-CoV-2 (PCR) 09/18/23 09/19/23 22:41 06:06 WBC 12.90 H RBC 4.21 Hgb 12.0 Hct 37.7 MCV 90 MCH 28.5 MCHC 31.8 L RDW 13.7 Plt Count 280 MPV 9.0 Immature Gran % Neutrophils % Lymphocytes % Monocytes % Eosinophils % Basophils % Nucleated RBC % Absolute Neutrophils Absolute Lymphocytes Absolute Monocytes Absolute Eosinophils Absolute Basophils Sodium 137 Potassium 3.8 Chloride 104 Carbon Dioxide 27.6 Anion Gap 5.4 BUN 21 H Creatinine 1.7 H Est GFR (CKD-EPI 2020) 31.47 Glucose 213 H Calcium 8.7 Magnesium 1.5 L Total Bilirubin 0.9 AST 32 ALT 33 Alkaline Phosphatase 121 H Total Protein 6.8 Albumin 2.8 L TSH Urine Color Urine Clarity Urine pH Ur Specific [place] Urine Protein Urine Ketones Urine Blood Urine Nitrite Urine Bilirubin Urine Urobilinogen Ur Leukocyte Esterase Urine RBC Urine WBC Ur Epithelial Cells Urine Crystals Urine Bacteria Urine Mucus Ur Culture Indicated? Urine Glucose COVID-19 Source Nasal/Nares SARS-CoV-2 (PCR) Negative Time Spent with Patient Time Spent with Patient: 25-34 minutes Time was spent: preparing to see the patient(eg.review tests), obtaining and/or reviewing separately otained hiistory, ordering medications,tests, procedures, referring, communicating with other health intensive care anaesthetist, indepentently interpreting results, counseling the patient and care coordination
[2023-09-19] MEDS: Tamsulosin 0.4 MG CAPCR PO (20:14)
[2023-09-19] MEDS: Atorvastatin 40 MG TAB 80 MG PO (20:14)
[2023-09-19] MEDS: cefTRIAXone 1 GM/50 ML BAG IVPB (21:30)
[2023-09-20] VITALS (8 sets, daily range): BP systolic 113–179; BP diastolic 60–80; PULSE 69–79; RESP 20–24; TEMP 36.3–38.9; O2SAT 93–96
--- NOTE | 2023-09-20 | DI.RAD_ITS ---
Exam(s) XR PORTABLE CHEST AP EXAM: XR PORTABLE CHEST AP CLINICAL HISTORY: new cough, fever TECHNIQUE: 2D digital imaging was performed. COMPARISON: CR CHEST 2 VIEWS PA,LAT from 04/15/2014 FINDINGS: LUNGS: Clear. No pleural abnormality seen. HEART: Normal size. AORTA: Normal diameter. BONES: Unremarkable for age. Soft tissues: Unremarkable. IMPRESSION: No acute findings. DATA REPOSITORY: RADIATION DOSE DELIVERED:
[2023-09-20] MEDS: Levothyroxine 112 MCG TAB PO (05:55)
[2023-09-20 06:56] LABS: Abs Immature Grans 0.06 10^3/uL (0.0-0.06); Absolute Basophil Count 0.09 10^3/uL (0.0-0.2); Absolute Eosinophil Count 0.11 10^3/uL (0.0-0.7); Absolute Monocyte Count 0.81 10^3/uL (0.1-0.8); Basophils % 0.8; HCT 34.4 % (36.0-46.0); HGB 11.1 g/dL (11.2-15.7); Immature Grans % 0.5; Lymphocytes % 7.8; MCH 28.8 pg (27.0-33.0); MCHC 32.3 % (32.0-36.0); MCV 89 fL (80-95); MPV 9.5 fL (8.0-11.0); Monocytes % 7.4; Neutrophils % 82.5; Platelet Count 249 10^3/uL (130-400); RBC 3.85 10^6/uL (3.93-5.22); RDW 13.7 % (11.7-14.6); RDW-SD 44.7 fL; WBC 10.96 10^3/uL (4.4-10.8)
[2023-09-20 07:02] LABS: Anion Gap 5.9 mmol/L (3-11); BUN 29 mg/dL (7-18); CO2 24.1 mmol/L (21.0-32.0); CREATININE 1.9 mg/dL (0.55-1.02); Chloride 102 mmol/L (98-107); Estimated GFR 27.54 (mL/min/1.73m2); Glucose 291 mg/dL (74-106); Magnesium 1.9 mg/dL (1.8-2.4); Potassium 4.4 mmol/L (3.5-5.1); Sodium 132 mmol/L (136-145)
[2023-09-20 07:10] LABS: Absolute Lymphocyte Count 0.85 10^3/uL (1.2-3.4); Absolute Neutrophil Count 9.04 10^3/uL (1.2-6.7)
[2023-09-20] MEDS: Ketorolac 15 MG/ML VIAL IVP ×3 (07:13→22:17)
[2023-09-20] MEDS: Budesonide/Formoterol 160/4.5 6 GM 60 PUFF INH IH (07:56)
[2023-09-20] MEDS: Tiotropium Bromide-Respimat 10 PUFF INH IH (07:57)
--- NOTE | 2023-09-20 07:59 | W.PM.PROGNOT ---
Date of Service Date of service: 09/20/23 Time of Service: 07:59 Assessment and Plan Assessment and plan (1) Left ureteral calculus: Status: Acute Assessment and plan: Her stone has been extracted and I would expect any remaining ureteral edema to resolve in the next day or 2. Once her final urine culture is obtained, we can decide which antibiotic to send her home with. She should follow-up with me in about 6 to 8 weeks. We will get a renal ultrasound at the time of that appointment. The ultrasound helps us ensure that there is no silent hydronephrosis from a ureteral stricture remaining after her procedure Subjective Subjective Interval history since last seen: She feels much better than yesterday before her stone extraction. She is not having much flank pain. She does have some dysuria. Yesterday following her procedure, she inadvertently tugged on the safety string on her ureteral stent. The stent came part way out and she became incontinent of urine. We remove the stent completely. Exam Narrative Exam Narrative: She is in no obvious distress Her vital signs are documented elsewhere She is awake and alert Objective Last Vital Signs Temp 38.0 C H 09/20/23 07:38 Pulse 76 09/20/23 07:38 Resp 22 09/20/23 07:38 BP 116/68 09/20/23 07:38 Pulse Ox 94 09/20/23 07:38 Laboratory Results - last 24 hr 09/20/23 06:30 WBC 10.96 H RBC 3.85 L Hgb 11.1 L Hct 34.4 L MCV 89 MCH 28.8 MCHC 32.3 RDW 13.7 Plt Count 249 MPV 9.5 Immature Gran % 0.5 Neutrophils % 82.5 Lymphocytes % 7.8 Monocytes % 7.4 Eosinophils % 1.0 Basophils % 0.8 Nucleated RBC % 0.0 Absolute Neutrophils 9.04 H Absolute Lymphocytes 0.85 L Absolute Monocytes 0.81 H Absolute Eosinophils 0.11 Absolute Basophils 0.09 Sodium 132 L Potassium 4.4 Chloride 102 Carbon Dioxide 24.1 Anion Gap 5.9 BUN 29 H Creatinine 1.9 H Est GFR (CKD-EPI 2020) 27.54 Glucose 291 H Calcium 9.0 Magnesium 1.9 Time Spent with Patient Time Spent with Patient: <25 minutes Time was spent: obtaining and/or reviewing separately otained hiistory, ordering medications,tests, procedures and other
--- NOTE | 2023-09-20 08:14 | PDOC.CMPRO ---
Date of service: 09/20/23 Time of Service: 08:14 Care Management Progress Note Progress Note Text Progress Note Text: Per Dr. Lee, Wanda's stone has been extracted and edema is anticipated to resolve within a few days. Awaiting final urine culture and determination for antibiotic for discharge. Wanda will be discharged home with no new services. She will follow up with Urology, her PCP and plan of care and transport with family. CM will support Wanda and assess for discharge needs.
[2023-09-20] MEDS: buPROPion-XL 150 MG TABCR 450 MG PO (08:22)
[2023-09-20] MEDS: Chlorthalidone 25 MG TAB 12.5 MG PO (08:22)
[2023-09-20] MEDS: Insulin Aspart 300 UNITS/3 ML PEN SC ×4 (08:23→22:15)
[2023-09-20] MEDS: Metoprolol CR 100 MG TABCR PO (08:23)
[2023-09-20] MEDS: Tamsulosin 0.4 MG CAPCR PO (08:23)
[2023-09-20] MEDS: Lactated Ringers 1,000 ML 150 ML IV ×2 (11:00→23:58)
[2023-09-20] MEDS: Normal Saline Flush 10 ML SYR IVP ×2 (11:01→18:23)
--- NOTE | 2023-09-20 18:01 | W.PM.PROGNOT ---
Date of Service Date of service: 09/20/23 Time of Service: 18:01 Assessment and Plan Assessment and plan (1) UTI (urinary tract infection): Status: Acute Assessment and plan: Present on admission, complicated by obstructive ureterolithiasis. The extent of it is difficult to assess by UA alone because the concern is that the infection was above the level of obstruction. Had another fever today. Reculture urine now that the stone has been removed. Also culture blood. The urine culture from admission is mixed. Continue empiric ceftriaxone and await a urine C&S. Qualifiers: Urinary tract infection type: acute pyelonephritis Qualified Code(s): N10 - Acute pyelonephritis (2) Cough: Status: Acute Assessment and plan: Obtain CXR, FLUVID. (3) Left ureteral calculus: Status: Acute Assessment and plan: Was causing obstruction. S/p cysto/removal/stent/removal of stent 09/19/23. As above (4) Hydronephrosis due to obstruction of ureter: Status: Acute Assessment and plan: As above (5) MEREDITH (acute kidney injury): Status: Acute Assessment and plan: A little worse today. Suspect this was a combined post-renal/obstructive MEREDITH as well as mild prerenal MEREDITH. IVF resumed today. Monitor Kidney function. (6) Hypomagnesemia: Status: Resolved Assessment and plan: Recheck in am. (7) DVT prophylaxis: Status: Acute Assessment and plan: SCDs (8) Discharge planning issues: Status: Acute Assessment and plan: DNR/DNI Ancitipate discharge home in the next 24-[address]. Discussed case with Dr Lee. Subjective Subjective Interval history since last seen: Ms Larose had a fever this afternoon. She has developed a new dry cough. Reports occasional flank pain. Denies dizziness, CP, SOB, n/v. Exam Narrative Exam Narrative: General: A very pleasant elderly female who looks worse today, less comfortable, laying diagonally in bed, A&Ox3, NAD HEENT: EOMI, MMM Heart: RRR, no m/r/g Lungs: CTAB Abdomen: soft, nontender, nondistended Extremities: trace edema BLEs Objective Last Vital Signs Temp 37.3 C 09/20/23 16:16 Pulse 71 09/20/23 15:05 Resp 24 11/21/23 15:05 BP 130/73 09/20/23 15:05 Pulse Ox 96 09/20/23 15:05 Laboratory Results - last 24 hr 09/20/23 06:30 WBC 10.96 H RBC 3.85 L Hgb 11.1 L Hct 34.4 L MCV 89 MCH 28.8 MCHC 32.3 RDW 13.7 Plt Count 249 MPV 9.5 Immature Gran % 0.5 Neutrophils % 82.5 Lymphocytes % 7.8 Monocytes % 7.4 Eosinophils % 1.0 Basophils % 0.8 Nucleated RBC % 0.0 Absolute Neutrophils 9.04 H Absolute Lymphocytes 0.85 L Absolute Monocytes 0.81 H Absolute Eosinophils 0.11 Absolute Basophils 0.09 Sodium 132 L Potassium 4.4 Chloride 102 Carbon Dioxide 24.1 Anion Gap 5.9 BUN 29 H Creatinine 1.9 H Est GFR (CKD-EPI 2020) 27.54 Glucose 291 H Calcium 9.0 Magnesium 1.9 Time Spent with Patient Time Spent with Patient: 35-49 minutes Time was spent: preparing to see the patient(eg.review tests), obtaining and/or reviewing separately otained hiistory, ordering medications,tests, procedures, referring, communicating with other health healthcare social worker, indepentently interpreting results, counseling the patient and care coordination
[2023-09-20 19:24] LABS: COVID-19 PCR Negative (Negative); Influenza A PCR Negative (Negative); Influenza B PCR Negative (Negative); RSV PCR Negative (Negative)
[2023-09-20 19:25] LABS: Source Nasopharynx
[2023-09-20] MEDS: Atorvastatin 40 MG TAB 80 MG PO (22:13)
[2023-09-20] MEDS: DULoxetine 30 MG CAP 60 MG PO (22:14)
[2023-09-20] MEDS: Mirtazapine 15 MG TAB 7.5 MG PO (22:14)
[2023-09-20] MEDS: Insulin Glargine 300 UNITS/3 ML PEN 15 UNITS SC (22:14)
[2023-09-20] MEDS: cefTRIAXone 1 GM/50 ML BAG IVPB (22:17)
[2023-09-21] VITALS (7 sets, daily range): BP systolic 114–159; BP diastolic 66–85; PULSE 60–94; RESP 18–20; TEMP 36.4–38.5; O2SAT 90–94
[2023-09-21] MEDS: Ketorolac 15 MG/ML VIAL IVP ×2 (06:06→12:19)
[2023-09-21] MEDS: Normal Saline Flush 10 ML SYR IVP ×2 (06:06→18:37)
[2023-09-21] MEDS: Levothyroxine 112 MCG TAB PO (06:06)
[2023-09-21] MEDS: CEFEPIME 1 GM in Normal Saline 50 ML IVPB ×2 (06:32→18:36)
[2023-09-21 06:57] LABS: Abs Immature Grans 0.05 10^3/uL (0.0-0.06); Absolute Basophil Count 0.02 10^3/uL (0.0-0.2); Absolute Eosinophil Count 0.06 10^3/uL (0.0-0.7); Absolute Lymphocyte Count 0.46 10^3/uL (1.2-3.4); Absolute Monocyte Count 0.26 10^3/uL (0.1-0.8); Basophils % 0.3; HCT 34.1 % (36.0-46.0); Immature Grans % 0.8; Lymphocytes % 7.4; MCH 28.6 pg (27.0-33.0); MCHC 32.3 % (32.0-36.0); MCV 89 fL (80-95); MPV 9.1 fL (8.0-11.0); Monocytes % 4.2; Neutrophils % 86.3; Platelet Count 222 10^3/uL (130-400); RBC 3.85 10^6/uL (3.93-5.22); RDW 13.7 % (11.7-14.6); RDW-SD 44.8 fL; WBC 6.25 10^3/uL (4.4-10.8)
[2023-09-21 07:11] LABS: BUN 32 mg/dL (7-18); Chloride 102 mmol/L (98-107); Estimated GFR 25.89 (mL/min/1.73m2); Glucose 232 mg/dL (74-106); Magnesium 1.5 mg/dL (1.8-2.4); Potassium 4.2 mmol/L (3.5-5.1); Sodium 134 mmol/L (136-145)
[2023-09-21] MEDS: Tiotropium Bromide-Respimat 10 PUFF INH IH (07:45)
[2023-09-21] MEDS: Budesonide/Formoterol 160/4.5 6 GM 60 PUFF INH IH (07:45)
[2023-09-21] MEDS: Magnesium Oxide 400 MG TAB PO ×2 (07:53→19:42)
[2023-09-21] MEDS: Chlorthalidone 25 MG TAB 12.5 MG PO (07:53)
[2023-09-21] MEDS: MAGNESIUM SULFATE 4 GM/100 ML BAG IVPB (07:53)
[2023-09-21] MEDS: Tamsulosin 0.4 MG CAPCR PO (07:54)
[2023-09-21] MEDS: Metoprolol CR 100 MG TABCR PO (07:54)
[2023-09-21] MEDS: buPROPion-XL 150 MG TABCR 450 MG PO (07:54)
[2023-09-21 08:21] LABS: Lab Add On Test DONE
[2023-09-21] MEDS: Lactated Ringers 1,000 ML 75 ML IV (08:36)
[2023-09-21] MEDS: Insulin Aspart 300 UNITS/3 ML PEN SC ×4 (08:37→22:51)
[2023-09-21 08:52] LABS: Procalcitonin < 0.1 ng/mL
--- NOTE | 2023-09-21 09:34 | PDOC.CMPRO ---
Date of service: 09/21/23 Time of Service: 09:34 Care Management Progress Note Progress Note Text Progress Note Text: S/O:Wanda was lying in bed when CM met with her. She was yawning and admitted to being really tired today. She stated that she slept well last night so does not know why she is so tired. Wanda continues to have fevers as high as 38.9C, however she denies having any pain or discomfort. Her WBC has returned to normal and a procalcitonin done today is negative. A: Wanda is a 72 year old woman admitted on 09/18/23 with Ureteterolithiasis P:Anticipate Wanda will be discharged home with no new services. She will follow up with Urology, her PCP and plan of care and transport with family. CM will support Wanad and assess for discharge needs.
[2023-09-21 10:51] LABS: Creatinine,Urine 106.31 mg/dL; Sodium, Urine 55 mmol/L
[2023-09-21 11:21] LABS: Bilirubin Negative (Negative); Blood Large (Negative); Clarity Cloudy (Clear); Glucose Negative (Negative); Ketones Negative (Negative); Leukocyte Esterase Moderate (Negative); Nitrite Negative (Negative); Urobilinogen 0.2 mg/dL (Up to 0.2); pH 5.5 (5-8)
[2023-09-21 11:28] LABS: Bacteria Moderate HPF (Negative); C & S Indicated? C&S Done As Ordered; Casts Negative LPF (Negative); Crystals Negative HPF (Negative); Epithelial Cells Few HPF (Negative); Mucus Trace (Negative); RBC >50 HPF (0-2); WBC 20-50 HPF (0-5)
[2023-09-21 14:20] LABS: Vancomycin, Random 21.6 ug/mL
--- NOTE | 2023-09-21 16:49 | CHAPLAIN ---
Wanda was resting in bed when I visited. She was pleasant and easily engaged in a conversation. I explained my role and offered support. Wanda talked about her grandsons and a wedding that one is planning next summer.
--- NOTE | 2023-09-21 18:24 | PGE_ITS ---
Date of Service Date of service: 09/21/23 Time of Service: 18:24 Assessment and Plan Assessment and plan (1) UTI (urinary tract infection): Status: Acute Assessment and plan: Present on admission, complicated by obstructive ureterolithiasis. The extent of it is difficult to assess by UA alone because the concern is that the infection was above the level of obstruction. Recultured; abx upgraded to vanco/cefepime overnight. Await repeat urine C&s and blood cx. The urine culture from admission is mixed. Qualifiers: Urinary tract infection type: acute pyelonephritis Qualified Code(s): N10 - Acute pyelonephritis (2) Cough: Status: Acute Assessment and plan: Today I believe that she is fluid overloaded. D/c IVF. Will give a dose of furosemide. (3) Left ureteral calculus: Status: Acute Assessment and plan: Was causing obstruction. S/p cysto/removal/stent/removal of stent 09/19/23. As above I am noticing the rising creatinine. Consider repeat imaging to assess for worsening of hydronephrosis. (4) Hydronephrosis due to obstruction of ureter: Status: Acute Assessment and plan: As above (5) MEREDITH (acute kidney injury): Status: Acute Assessment and plan: Continues to worsen. Suspect this was a combined post-renal/obstructive MEREDITH as well as mild prerenal MEREDITH. D/c IVF as she is clinically fluid overloaded and monitor Cr w/ IV lasix. I d/c'ed her home chlorthalidone. Monitor Kidney function. (6) Hypomagnesemia: Status: Acute Assessment and plan: Replete; recheck in am (7) DVT prophylaxis: Status: Acute Assessment and plan: Sc heparin (8) Discharge planning issues: Status: Acute Assessment and plan: DNR/DNI Continues to require hospitalization. Subjective Subjective Interval history since last seen: Ms Larose states she has been coughing more today. Denies dizziness, CP, SOB, nausea. She does have some L flank pain still. She is not feeling too well tonight. She did have a temp of 38.8 last night and 38.5 today. Her abx were changed to vancomycin/cefepime overinght. Exam Narrative Exam Narrative: General: A very pleasant elderly female who looks like she is not feeling well, laying diagonally again, A&Ox3, NAD HEENT: EOMI, MMM Heart: RRR, no m/r/g Lungs: Crackles R Base Abdomen: soft, nontender, nondistended Extremities: +1 edema BLEs Objective Last Vital Signs Temp 37.2 C 09/21/23 15:15 Pulse 60 09/21/23 15:15 Resp 20 09/21/23 15:15 BP 114/66 09/21/23 15:15 Pulse Ox 93 09/21/23 15:15 Laboratory Results - last 24 hr 09/20/23 09/21/23 09/21/23 18:23 06:50 10:15 WBC 6.25 RBC 3.85 L Hgb 11.0 L Hct 34.1 L MCV 89 MCH 28.6 MCHC 32.3 RDW 13.7 Plt Count 222 MPV 9.1 Immature Gran % 0.8 Neutrophils % 86.3 Lymphocytes % 7.4 Monocytes % 4.2 Eosinophils % 1.0 Basophils % 0.3 Nucleated RBC % 0.0 Absolute Neutrophils 5.40 Absolute Lymphocytes 0.46 L Absolute Monocytes 0.26 Absolute Eosinophils 0.06 Absolute Basophils 0.02 Sodium 134 L Potassium 4.2 Chloride 102 Carbon Dioxide 23.0 Anion Gap 9.0 BUN 32 H Creatinine 2.0 H Est GFR (CKD-EPI 2020) 25.89 Glucose 232 H Calcium 9.0 Magnesium 1.5 L Procalcitonin < 0.1 Urine Color Yellow Urine Clarity Cloudy Urine pH 5.5 Ur Specific [place] 1.020 Urine Protein 100 H Urine Ketones Negative Urine Blood Large H Urine Nitrite Negative Urine Bilirubin Negative Urine Urobilinogen 0.2 Ur Leukocyte Esterase Moderate H Urine RBC >50 H Urine WBC 20-50 H Ur Epithelial Cells Few Urine Crystals Negative Urine Bacteria Moderate Urine Casts Negative Urine Mucus Trace Ur Culture Indicated? C&S Done As Ordered Ur Random Creatinine 106.31 Ur Random Sodium 55 Urine Glucose Negative Random Vancomycin COVID-19 Source Nasopharynx SARS-CoV-2 (PCR) Negative Influenza Type A (PCR) Negative Influenza Type B (PCR) Negative RSV (PCR) Negative Add-On Test Request DONE 09/21/23 13:50 WBC RBC Hgb Hct MCV MCH MCHC RDW Plt Count MPV Immature Gran % Neutrophils % Lymphocytes % Monocytes % Eosinophils % Basophils % Nucleated RBC % Absolute Neutrophils Absolute Lymphocytes Absolute Monocytes Absolute Eosinophils Absolute Basophils Sodium Potassium Chloride Carbon Dioxide Anion Gap BUN Creatinine Est GFR (CKD-EPI 2020) Glucose Calcium Magnesium Procalcitonin Urine Color Urine Clarity Urine pH Ur Specific [place] Urine Protein Urine Ketones Urine Blood Urine Nitrite Urine Bilirubin Urine Urobilinogen Ur Leukocyte Esterase Urine RBC Urine WBC Ur Epithelial Cells Urine Crystals Urine Bacteria Urine Casts Urine Mucus Ur Culture Indicated? Ur Random Creatinine Ur Random Sodium Urine Glucose Random Vancomycin 21.6 COVID-19 Source SARS-CoV-2 (PCR) Influenza Type A (PCR) Influenza Type B (PCR) RSV (PCR) Add-On Test Request Time Spent with Patient Time Spent with Patient: 35-49 minutes Time was spent: preparing to see the patient(eg.review tests), obtaining and/or reviewing separately otained hiistory, ordering medications,tests, procedures, referring, communicating with other health healthcare insurance sales agent, indepentently interpreting results, counseling the patient and care coordination
[2023-09-21] MEDS: Heparin 5,000 UNITS/ML VIAL 5000 UNITS SC (19:42)
[2023-09-21] MEDS: Furosemide 20 MG/2 ML VIAL 10 MG IVP (19:42)
[2023-09-21] MEDS: Atorvastatin 40 MG TAB 80 MG PO (19:42)
[2023-09-21] MEDS: Mirtazapine 15 MG TAB 7.5 MG PO (22:38)
[2023-09-21] MEDS: DULoxetine 30 MG CAP 60 MG PO (22:38)
[2023-09-21] MEDS: LORazepam 0.5 MG TAB PO (22:38)
[2023-09-21] MEDS: Insulin Glargine 300 UNITS/3 ML PEN 15 UNITS SC (22:40)
[2023-09-22] VITALS (10 sets, daily range): BP systolic 109–148; BP diastolic 60–89; PULSE 58–91; RESP 18–22; TEMP 36–38.4; O2SAT 90–98
[2023-09-22] MEDS: VANCOMYCIN/WATER (PEG) 1 GM/200 ML BAG IV (00:25)
[2023-09-22] MEDS: Ketorolac 15 MG/ML VIAL IVP ×3 (01:12→14:32)
[2023-09-22] MEDS: CEFEPIME 1 GM in Normal Saline 50 ML IVPB (05:59)
[2023-09-22] MEDS: Levothyroxine 112 MCG TAB PO (06:00)
[2023-09-22 07:11] LABS: Abs Immature Grans 0.06 10^3/uL (0.0-0.06); Absolute Basophil Count 0.03 10^3/uL (0.0-0.2); Absolute Eosinophil Count 0.13 10^3/uL (0.0-0.7); Absolute Lymphocyte Count 0.84 10^3/uL (1.2-3.4); Absolute Monocyte Count 0.61 10^3/uL (0.1-0.8); Absolute Neutrophil Count 4.26 10^3/uL (1.2-6.7); Basophils % 0.5; Eosinophils % 2.2; HCT 36.5 % (36.0-46.0); HGB 11.8 g/dL (11.2-15.7); Lymphocytes % 14.2; MCH 28.8 pg (27.0-33.0); MCHC 32.3 % (32.0-36.0); MCV 89 fL (80-95); MPV 10.3 fL (8.0-11.0); Monocytes % 10.3; Neutrophils % 71.8; Platelet Count 215 10^3/uL (130-400); RDW 13.8 % (11.7-14.6); RDW-SD 45.4 fL; WBC 5.93 10^3/uL (4.4-10.8)
[2023-09-22 07:21] LABS: Anion Gap 9.6 mmol/L (3-11); BUN 27 mg/dL (7-18); CO2 23.4 mmol/L (21.0-32.0); CREATININE 1.6 mg/dL (0.55-1.02); Calcium 9.1 mg/dL (8.5-10.1); Chloride 102 mmol/L (98-107); Estimated GFR 33.84 (mL/min/1.73m2); Glucose 158 mg/dL (74-106); Magnesium 1.8 mg/dL (1.8-2.4); Potassium 3.9 mmol/L (3.5-5.1); Sodium 135 mmol/L (136-145)
[2023-09-22] MEDS: Heparin 5,000 UNITS/ML VIAL 5000 UNITS SC ×2 (07:21→19:54)
[2023-09-22] MEDS: Budesonide/Formoterol 160/4.5 6 GM 60 PUFF INH IH (07:46)
[2023-09-22] MEDS: Tiotropium Bromide-Respimat 10 PUFF INH IH (07:46)
[2023-09-22] MEDS: Insulin Aspart 300 UNITS/3 ML PEN SC ×4 (08:18→21:17)
[2023-09-22] MEDS: Magnesium Oxide 400 MG TAB PO ×2 (08:21→19:53)
[2023-09-22] MEDS: buPROPion-XL 150 MG TABCR 450 MG PO (08:21)
[2023-09-22] MEDS: Metoprolol CR 100 MG TABCR PO (08:21)
[2023-09-22] MEDS: Tamsulosin 0.4 MG CAPCR PO (08:22)
--- NOTE | 2023-09-22 11:40 | DI.CT_ITS ---
Exam(s) CT HEAD - STROKE PROTOCOL EXAM: CT HEAD - STROKE PROTOCOL CLINICAL HISTORY: acute encephalopathy. TECHNIQUE: Imaging Protocol: Axial computed tomography images with coronal and sagittal reformatted images were created and reviewed COMPARISON: CT CT HEAD CERVICAL SPINE WO from 05/18/2023 FINDINGS: Ventricles and Extra axial spaces: Normal in size and morphology for the patient's age. Hemorrhage: None. Cerebral parenchyma: There are areas of decreased attenuation in the white matter most consistent wit h small vessel ischemic disease. No evidence of an acute territorial infarct. Midline shift: None. Brainstem/Cerebellum: Normal. Calvarium: Normal. Visualized Paranasal sinuses/Mastoids: The frontal sinuses are not developed. No fluid levels are se en in the visualized paranasal sinuses. The mastoid air cells are clear. Soft Tissues: Unremarkable. IMPRESSION: No acute intracranial process. RADIATION DOSE DELIVERED: Total DLP DATA REPOSITORY: All CT scans at this facility are submitted to the National Radiology Data Registry (NRDR) Dose Index Registry (DIR) with the [employer] (A[employer]). RADIATION OPTIMIZATION: All CT scans at this facility use at least one of these dose optimization te chniques: automated exposure control; mA and/or kV adjustment per patient size (includes targeted exa ms where dose is matched to clinical indication); or iterative reconstruction.
--- NOTE | 2023-09-22 11:45 | DI.VRAD_ITS ---
PROCEDURE INFORMATION: Exam: CT Head Without Contrast Exam date and time: 09/22/2023 11:32 AM Age: 72 years old Clinical indication: Stroke-like symptoms; Altered mental status/memory loss TECHNIQUE: Imaging protocol: Computed tomography of the head without contrast. Radiation optimization: All CT scans at this facility use at least one of these dose optimization techniques: automated exposure control; mA and/or kV adjustment per patient size (includes targeted exams where dose is matched to clinical indication); or iterative reconstruction. Other technique: STROKE PROTOCOL was implemented. COMPARISON: MR BRAIN WO 08/08/2023 10:44 AM FINDINGS: Brain: Mild involutional changes of the brain parenchyma. Mild low attenuation in the periventricular white matter. This is a nonspecific finding most commonly seen in setting of microvascular ischemic change. No evidence of acute infarct. No intraparenchymal hemorrhage. No midline shift or mass effect. No extra-axial fluid collections or hemorrhage. Cerebral ventricles: No ventriculomegaly. Paranasal sinuses: Mild mucosal thickening in the maxillary sinuses. Hypoplastic frontal sinuses. Mastoid air cells: Visualized mastoid air cells are well aerated. Bones/joints: Unremarkable. No acute fracture. Soft tissues: Unremarkable. IMPRESSION: No evidence of acute intracranial abnormality. ASSESSMENT: ASPECTS ([place] Stroke Program Early CT Score) is 10. Dictated and Authenticated by: Nay Almarza MD. Ordering:[facility] Cathy Gloria MD
[2023-09-22] MEDS: Normal Saline Flush 10 ML SYR IVP ×2 (14:32→19:53)
--- NOTE | 2023-09-22 15:46 | PGE_ITS ---
Date of Service Date of service: 09/22/23 Time of Service: 15:46 Assessment and Plan Assessment and plan (1) Left ureteral calculus: Status: Acute Assessment and plan: Was causing obstruction causing complicated urinary tract infection including fungemia and funguria. Currently on micafungin. Awaiting culture results. This turns out to be Shirin and we can switch her over to fluconazole and discontinue the micafungin. S/p cysto/removal/stent/removal of stent 09/19/23. Professional time spent interviewing and examining patient, discussion of goals of care with hospital team (care management, nursing and consulting professionals) was 30 minutes. (2) UTI (urinary tract infection): Status: Acute Assessment and plan: Complicated UTI due to Left ureteral calculus and obstructive uropathy. Initial urine culture from 09/18/2023 demonstrated mixed positive ana at 10- 50,000 colonies. No blood cultures were obtained on admission but subsequent blood cultures from 1121 showed no growth we will repeat blood cultures from 09/20/2023 shows budding yeast as does her repeat urine culture from 09/21/2023. Patient is currently on micafungin but also remains on cefepime and vancomycin. At this point I think we can drop the vancomycin and allow some bacterial culture grows on her blood culture urine culture we can discontinue the cefepime tomorrow. She will need prolonged course of antifungal treatment I would may be able to switch her over to fluconazole if this is a candidemia. Qualifiers: Urinary tract infection type: acute pyelonephritis Qualified Code(s): N10 - Acute pyelonephritis (3) Hydronephrosis due to obstruction of ureter: Status: Acute Assessment and plan: Cystoscopy, left retrograde pyelogram, left ureteroscopy with stone extraction, insert left ureteral stent performed 09/19/2023. Left ureteral stent inadv ertently removed. (4) MEREDITH (acute kidney injury): Status: Acute Assessment and plan: Improving. BUN down to 27 creatinine down to 1.6. Continue to monitor. MEREDITH secondary to obstructive uropathy (5) Hypomagnesemia: Status: Acute Assessment and plan: Replete; now corrected at 1.8 continue to monitor, continue oral replacement (6) DVT prophylaxis: Status: Acute Assessment and plan: Sc heparin (7) Discharge planning issues: Status: Acute Assessment and plan: DNR/DNI Continues to require hospitalization. Subjective Subjective Interval history since last seen: Patient had some transient confusion earlier today. We did a stat CT of her head without contrast and showed no acute abnormality. Her confusion has improved over the course of the day. She now recognizes that she is at [facility] she knows she came in because of severe flank pain she recalls having had cystoscopy and stent stent placement performed by Dr. Lee. I think her confusion was secondary to her fungemia. Still having intermittent fever spikes. Pain is much better since she had a cystoscopy and removal of the stone. She no longer has a catheter in place. She is voiding freely. She did have some incontinence issues approximately. No dysuria. She is constipated however. Exam Narrative Exam Narrative: Elderly obese white female who is sitting up in the chair talking on her she is alert oriented and answers questions appropriately. Lungs are clear to auscultation Heart is regular rate and rhythm Abdomen obese soft and nontender with normoactive bowel sounds Extremities without peripheral cyanosis or edema Objective Last Vital Signs Temp 36.6 C 09/22/23 15:26 Pulse 91 H 09/22/23 15:26 Resp 18 09/22/23 15:26 BP 142/83 H 09/22/23 15:26 Pulse Ox 98 09/22/23 15:26 Laboratory Results - last 24 hr 09/22/23 06:10 WBC 5.93 RBC 4.10 Hgb 11.8 Hct 36.5 MCV 89 MCH 28.8 MCHC 32.3 RDW 13.8 Plt Count 215 MPV 10.3 Immature Gran % 1.0 Neutrophils % 71.8 Lymphocytes % 14.2 Monocytes % 10.3 Eosinophils % 2.2 Basophils % 0.5 Nucleated RBC % 0.0 Absolute Neutrophils 4.26 Absolute Lymphocytes 0.84 L Absolute Monocytes 0.61 Absolute Eosinophils 0.13 Absolute Basophils 0.03 Sodium 135 L Potassium 3.9 Chloride 102 Carbon Dioxide 23.4 Anion Gap 9.6 BUN 27 H Creatinine 1.6 H Est GFR (CKD-EPI 2020) 33.84 Glucose 158 H Calcium 9.1 Magnesium 1.8 Time Spent with Patient Time Spent with Patient: 25-34 minutes Time was spent: preparing to see the patient(eg.review tests), ordering medications,tests, procedures, indepentently interpreting results, counseling the patient and care coordination
[2023-09-22] MEDS: Polyethylene Glycol 3350 17 GM PACKET PO (16:40)
[2023-09-22] MEDS: Docusate Sodium 100 MG CAP PO (19:53)
[2023-09-22] MEDS: Atorvastatin 40 MG TAB 80 MG PO (19:54)
[2023-09-22] MEDS: Mirtazapine 15 MG TAB 7.5 MG PO (21:15)
[2023-09-22] MEDS: DULoxetine 30 MG CAP 60 MG PO (21:16)
[2023-09-22] MEDS: Insulin Glargine 300 UNITS/3 ML PEN 15 UNITS SC (21:16)
[2023-09-22] MEDS: Senna TAB 1 TAB PO (21:16)
--- NOTE | 2023-09-22 22:15 | RT.EKG_ITS ---
APPROVED REPORT Exam: Resting ECG Reason for Exam: chest pressure and sob Patient Location: I HR:70 bpm ECG Measurements Heart Rate 70 AXIS NE 199 P 56 QRSd 86 QRS 9 QT 394 T 46 QTc 426 Conclusion Sinus rhythm...normal P axis, V-rate 50- 99 Poor R wave progression
[2023-09-22] MEDS: Furosemide 20 MG/2 ML VIAL 10 MG IVP (23:06)
[2023-09-22 23:07] LABS: Troponin I < 50 ng/L (<or=60)
[2023-09-22] MEDS: diphenhydrAMINE 50 MG/ML VIAL 25 MG IVP (23:07)
[2023-09-23] VITALS (7 sets, daily range): BP systolic 102–177; BP diastolic 64–92; PULSE 64–75; RESP 16–18; TEMP 36.2–38.2; O2SAT 91–95
[2023-09-23] MEDS: Ketorolac 15 MG/ML VIAL IVP (00:10)
[2023-09-23] MEDS: Albuterol HFA 8 GM 60 PUFF INH IH ×2 (02:00→07:55)
[2023-09-23] MEDS: Levothyroxine 112 MCG TAB PO (05:22)
[2023-09-23 07:01] LABS: Abs Immature Grans 0.04 10^3/uL (0.0-0.06); Absolute Basophil Count 0.04 10^3/uL (0.0-0.2); Absolute Eosinophil Count 0.15 10^3/uL (0.0-0.7); Absolute Lymphocyte Count 1.08 10^3/uL (1.2-3.4); Absolute Monocyte Count 0.99 10^3/uL (0.1-0.8); Absolute Neutrophil Count 4.83 10^3/uL (1.2-6.7); Basophils % 0.6; Eosinophils % 2.1; HCT 33.6 % (36.0-46.0); HGB 10.9 g/dL (11.2-15.7); Immature Grans % 0.6; Lymphocytes % 15.1; MCH 28.7 pg (27.0-33.0); MCHC 32.4 % (32.0-36.0); MCV 88 fL (80-95); MPV 9.8 fL (8.0-11.0); Monocytes % 13.9; Neutrophils % 67.7; Platelet Count 248 10^3/uL (130-400); RDW 13.8 % (11.7-14.6); RDW-SD 44.8 fL; WBC 7.13 10^3/uL (4.4-10.8)
[2023-09-23 07:24] LABS: ALT 75 U/L (14-59); AST 92 U/L (15-37); Albumin 2.3 g/dL (3.4-5.0); Alkaline Phosphatase 133 U/L (46-116); Anion Gap 6.6 mmol/L (3-11); BUN 29 mg/dL (7-18); Bilirubin, Direct 0.2 mg/dL (0.0-0.2); Bilirubin, Total 0.7 mg/dL (0.2-1.0); C-Reactive Protein 16.24 mg/dL (0.0-0.3); CO2 26.4 mmol/L (21.0-32.0); CREATININE 1.5 mg/dL (0.55-1.02); Calcium 9.3 mg/dL (8.5-10.1); Chloride 101 mmol/L (98-107); Estimated GFR 36.57 (mL/min/1.73m2); Glucose 174 mg/dL (74-106); Sodium 134 mmol/L (136-145); Total Protein 7.1 g/dL (6.4-8.2)
[2023-09-23 07:46] LABS: Procalcitonin 0.1 ng/mL
[2023-09-23] MEDS: Budesonide/Formoterol 160/4.5 6 GM 60 PUFF INH IH (07:48)
[2023-09-23] MEDS: Tiotropium Bromide-Respimat 10 PUFF INH IH (07:49)
[2023-09-23] MEDS: buPROPion-XL 150 MG TABCR 450 MG PO (08:16)
[2023-09-23] MEDS: Heparin 5,000 UNITS/ML VIAL 5000 UNITS SC ×2 (08:17→20:12)
[2023-09-23] MEDS: Docusate Sodium 100 MG CAP PO ×3 (08:17→20:13)
[2023-09-23] MEDS: Magnesium Oxide 400 MG TAB PO ×2 (08:17→20:13)
[2023-09-23] MEDS: Tamsulosin 0.4 MG CAPCR PO (08:17)
[2023-09-23] MEDS: Metoprolol CR 100 MG TABCR PO (08:17)
[2023-09-23] MEDS: Polyethylene Glycol 3350 17 GM PACKET PO (08:18)
[2023-09-23] MEDS: Insulin Aspart 300 UNITS/3 ML PEN SC ×4 (08:21→23:31)
[2023-09-23 12:06] LABS: Source: Ureter
--- NOTE | 2023-09-23 13:17 | PT.INIE ---
PT Notes Visit Reasons: Left ureterolithiasis, UTI Inpatient Physical Therapy Evaluation Date: 09/23/23 Referring Doctor: Alejandra Rodriguez NP PT Orders: PT CONSULT: limited ability to ambulate Precautions: fall, standard Patient Profile/Admitting Diagnosis: Wanda was admitted from the ER 09/18/23 for medical management of hydronephrosis due to ureteral obstruction. She underwent stone extraction and placement of ureteral stent 09/19, and is currently being treated for fungemia and funguria. PT evaluation and treatment requested. Social History/Home Situation: Patient lives with her in a private home with 3-4 steps to enter. Single rail. Son is actively involved. States that she normally ambulates independently, although with frequent falls. Has been recommended for walker, although does not currently utilize. States that her family no longer allows her to drive. Equipment Owned/DME: none Subjective: Wanda states that she is looking forward to walking and getting stronger. States that she had a near fall just prior to my arrival, when she reached for the floor to pick something up. Denies any actual fall. When discussing this later in session, she is unable to recall this event. Objective: General Observation: Resting in chair with IV and LUE. Mental Status: Pleasant and cooperative throughout session. Struggles with word finding, and demonstrates confusion periodically throughout session. Difficulty providing specifics on home set up, baseline level of function. ROM: Right Upper Extremity: WFL Left Upper Extremity: WFL with the exception of shoulder flexion, which is limited to 100 degrees Right Lower Extremity: WFL Left Lower Extremity: WFL Strength: Right Upper Extremity: Shoulder flexion 4 -/5, biceps 4/5, triceps 4 -/5, panelboard operator is equal Left Upper Extremity: Shoulder flexion 4 -/5, biceps 4/5, triceps 4 -/5, panelboard operator is equal Right Lower Extremity: Hip flexion 5/5. Quads 5/5, ankle dorsiflexion 4+/5 Left Lower Extremity: Hip flexion 5/5. Quads 5/5, ankle dorsiflexion 5/5 Bed Mobility/Transfers: Sit?stand: CGA, with heavy reliance on upper extremity support stand?sit: CGA, with max cues for safety and technique Gait: Ambulates 6 feet with CGA and FWW. Requires max cues for equipment management and safety. Assisted back to chair due to increasing dizziness. This resolves with rest. On second attempt, patient stands for 1 minute prior to ambulation, and is able to tolerate 25 feet with CGA and FWW, minimal dizziness. Reports that she is exhausted post ambulation. Ambulates with slow shuffling gait, requiring max cues for management of FWW throughout. Balance: Static Sitting: good Dynamic Sitting: fair Static Standing: fair Dynamic Standing: poor Special Tests: Mobility Limitations Standardized Measure [facility] AM-PAC 6 clicks Basic Mobility Inpatient Short Form: Raw Score: 18 CMS Score: 47% impairment Informed Consent/Education: Patient instructed in purpose of PT consult and plan of care. Treatment: Initial evaluation (04117) Therapeutic activity (09781 x 1) (10 minutes) Sit?stand training, with cues for hand placement, positioning, and equipment management Transfer training, with cues for static standing for alleviation of symptoms of dizziness upon standing FWW management, with verbal and visual cues for effective positioning and technique Assessment: Patient is a 72 year old female referred to physical therapy services with the diagnosis of limited ability to ambulate. Patient presents with clinical signs and symptoms consistent with diagnosis, with strength, balance, and gait impairments related to acute medical issues. Patient also demonstrates periods of confusion during our session, which was reported to nursing after session. She requires skilled PT intervention to maximize safety mobility to allow for safe transition home once medically stable. She currently demonstrates the following impairment level findings: 1. gait impairment 2. decreased activity tolerance 3. confusion with decreased safety awareness 4. balance impairment Impairments are contributing to the following functional limitations: 1. unable to independently ambulate household distances 2. unable to tolerate community distance ambulation 3. increased risk for falls 4. decreased safety awareness Patient is assessed as Moderate 40996 complexity based on the following: History: Patient is a 72 year old female presenting in acute care setting with decreased balance, safety awareness and activity tolerance. She will require FWW at time of discharge to maximize safety at home and reduce fall risk in the presence of multiple previous falls. Examination: functional limitations as noted above Presentation: evolving Decision Making: moderate complexity Goals: Goals X1 week 1. Supine-Sit : supervision 2. Sit-Supine : supervision 3. Sit-Stand : supervision 4. Stand-Sit : supervision 5. Bed-Chair : supervision with FWW 6. Chair-Bed : supervision with FWW 7. Gait : supervision with FWW x 150' 8. Stairs : able to ascend and descend stairs x 4 with single rail and SBA Plan of Care/Treatment Plan: 1-2x/day, 7 days/week x 1 week. Plan of care has been reviewed with the BAND CUTTING MACHINE OPERATOR providing the service under Physical Therapy direction. Initiate Physical Therapy intervention for strengthening, bed mobility, transfers, gait, stairs, balance training, use of assistive device. DISCHARGE RECOMMENDATIONS: Home with outpatient PT vs HH PT. Will need FWW issued prior to discharge. TREATMENT CODE/TIME: 2941-9155; [id number] ([id number], [id number]) Lynne Garcia, PT, DPT [facility]
--- NOTE | 2023-09-23 17:01 | PGE_ITS ---
Date of Service Date of service: 09/23/23 Time of Service: 17:01 Assessment and Plan Assessment and plan (1) Left ureteral calculus: Status: Acute Assessment and plan: Was causing obstruction causing complicated urinary tract infection including fungemia and funguria. Currently on micafungin. Awaiting culture results. If this turns out to be Shirin and we can switch her over to fluconazole and discontinue the micafungin. Once her repeat blood cultures show clearance of the fungemia she can go on oral fluconazole. S/p cysto/removal/stent/removal of stent 09/19/23. Professional time spent interviewing and examining patient, discussion of goals of care with hospital team (care management, nursing and consulting professionals) was 30 minutes. (2) UTI (urinary tract infection): Status: Acute Assessment and plan: As above. Qualifiers: Urinary tract infection type: acute pyelonephritis Qualified Code(s): N10 - Acute pyelonephritis (3) Hydronephrosis due to obstruction of ureter: Status: Acute Assessment and plan: Cystoscopy, left retrograde pyelogram, left ureteroscopy with stone extraction, insert left ureteral stent performed 09/19/2023. Left ureteral stent inadvertently removed. (4) MEREDITH (acute kidney injury): Status: Acute Assessment and plan: Improving. BUN down to 29 creatinine down to 1.5. Continue to monitor. MEREDITH secondary to obstructive uropathy (5) Diabetes mellitus: Status: Chronic Assessment and plan: Patient is experiencing hyperglycemia with glucose readings in the 170-270 range. I have increased her Lantus from 15 units nightly to 20 units nightly and I have adjusted her sliding scale to insulin resistant levels and added carbohydrate coverage. Presumably the hyperglycemia secondary to her urinary tract infection. Qualifiers: Diabetes mellitus type: type 2 Diabetes mellitus moth exterminator insulin use: with fdc use Diabetes mellitus complication status: with neurologic complications Diabetes mellitus complication detail: with polyneuropathy Qualified Code(s): E11.42 - Type 2 diabetes mellitus with diabetic polyneuropathy; Z79.4 - superintendent container terminal (current) use of insulin (6) Hypomagnesemia: Status: Acute Assessment and plan: Replete; now corrected at 1.8 continue to monitor, continue oral replacement (7) DVT prophylaxis: Status: Acute Assessment and plan: Sc heparin (8) Discharge planning issues: Status: Acute Assessment and plan: DNR/DNI Continues to require hospitalization. Subjective Subjective Interval history since last seen: Patient has minimal left-sided flank pain. Some slight dysuria but no hematuria no abdominal pain nausea or vomiting. She remains afebrile. Exam Narrative Exam Narrative: Alert and oriented x4 Lungs: Clear to auscultation and percussion Heart: Regular rate and rhythm without murmur rub or gallop. Normal apical impulse Abdomen: Nondistended, normal bowel sounds, nontender to palpation or percussion, no organomegaly, no bruits, no palpable masses, minimal left sided CVA tenderness, no suprpubic tenderness Extremities: Normal range of motion with normal strength. No peripheral cyanosis or edema. Normal pulses Objective Last Vital Signs Temp 37.4 C 09/23/23 15:02 Pulse 66 09/23/23 15:02 Resp 16 09/23/23 15:02 BP 102/64 09/23/23 15:02 Pulse Ox 91 L 09/23/23 15:02 Laboratory Results - last 24 hr 09/22/23 09/23/23 22:35 06:24 WBC 7.13 RBC 3.80 L Hgb 10.9 L Hct 33.6 L MCV 88 MCH 28.7 MCHC 32.4 RDW 13.8 Plt Count 248 MPV 9.8 Immature Gran % 0.6 Neutrophils % 67.7 Lymphocytes % 15.1 Monocytes % 13.9 Eosinophils % 2.1 Basophils % 0.6 Nucleated RBC % 0.0 Absolute Neutrophils 4.83 Absolute Lymphocytes 1.08 L Absolute Monocytes 0.99 H Absolute Eosinophils 0.15 Absolute Basophils 0.04 Sodium 134 L Potassium 4.0 Chloride 101 Carbon Dioxide 26.4 Anion Gap 6.6 BUN 29 H Creatinine 1.5 H Est GFR (CKD-EPI 2020) 36.57 Glucose 174 H Calcium 9.3 Total Bilirubin 0.7 Conjugated Bilirubin 0.2 AST 92 H ALT 75 H Alkaline Phosphatase 133 H Troponin I < 50 C-Reactive Protein 16.24 H Total Protein 7.1 Albumin 2.3 L Procalcitonin 0.1 Time Spent with Patient Time Spent with Patient: 25-34 minutes Time was spent: preparing to see the patient(eg.review tests), ordering medications,tests, procedures, referring, communicating with other health care coordination manager (Nursing staff and-Case management), indepentently interpreting results, counseling the patient and care coordination
[2023-09-23] MEDS: DULoxetine 30 MG CAP 60 MG PO (20:12)
[2023-09-23] MEDS: Atorvastatin 40 MG TAB 80 MG PO (20:12)
[2023-09-23] MEDS: Senna TAB 1 TAB PO (20:13)
[2023-09-23] MEDS: Mirtazapine 15 MG TAB 7.5 MG PO (20:13)
[2023-09-23] MEDS: traZODone 50 MG TAB PO (20:13)
[2023-09-23] MEDS: Insulin Glargine 300 UNITS/3 ML PEN 20 UNITS SC (23:31)
[2023-09-24] MEDS: Levothyroxine 112 MCG TAB PO (04:38)
[2023-09-24 04:44] VITALS: BP 149/96; PULSE 67; RESP 18; TEMP 37; O2SAT 94
[2023-09-24 07:20] LABS: Abs Immature Grans 0.07 10^3/uL (0.0-0.06); HCT 31.1 % (36.0-46.0); HGB 9.9 g/dL (11.2-15.7); MCH 28.2 pg (27.0-33.0); MCHC 31.8 % (32.0-36.0); MCV 89 fL (80-95); MPV 9.8 fL (8.0-11.0); RBC 3.51 10^6/uL (3.93-5.22); RDW 14.1 % (11.7-14.6); RDW-SD 45.2 fL; WBC 7.88 10^3/uL (4.4-10.8)
[2023-09-24 07:28] VITALS: BP 145/86; PULSE 63; RESP 15; TEMP 36.4; O2SAT 92
[2023-09-24 07:41] LABS: Magnesium 1.5 mg/dL (1.8-2.4)
[2023-09-24 07:43] LABS: ALT 78 U/L (14-59); AST 85 U/L (15-37); Albumin 2.1 g/dL (3.4-5.0); Alkaline Phosphatase 130 U/L (46-116); Anion Gap 5.9 mmol/L (3-11); BUN 25 mg/dL (7-18); Bilirubin, Total 0.7 mg/dL (0.2-1.0); C-Reactive Protein 16.84 mg/dL (0.0-0.3); CO2 27.1 mmol/L (21.0-32.0); CREATININE 1.2 mg/dL (0.55-1.02); Calcium 9.2 mg/dL (8.5-10.1); Chloride 105 mmol/L (98-107); Glucose 131 mg/dL (74-106); Potassium 3.9 mmol/L (3.5-5.1); Sodium 138 mmol/L (136-145); Total Protein 6.6 g/dL (6.4-8.2)
[2023-09-24] MEDS: Heparin 5,000 UNITS/ML VIAL 5000 UNITS SC ×2 (08:00→19:56)
[2023-09-24 08:02] LABS: Absolute Basophil Count 0.08 10^3/uL (0.0-0.2); Absolute Eosinophil Count 0.24 10^3/uL (0.0-0.7); Absolute Lymphocyte Count 1.89 10^3/uL (1.2-3.4); Absolute Neutrophil Count 4.41 10^3/uL (1.2-6.7); Atypical Lymphocytes % 1; Diff Comment Manual Differential; Platelet Count 256 10^3/uL (130-400); RBC Morphology Normal
[2023-09-24] MEDS: Tiotropium Bromide-Respimat 10 PUFF INH IH (08:07)
[2023-09-24] MEDS: Budesonide/Formoterol 160/4.5 6 GM 60 PUFF INH IH (08:07)
[2023-09-24] MEDS: Docusate Sodium 100 MG CAP PO ×3 (08:54→20:17)
[2023-09-24] MEDS: buPROPion-XL 150 MG TABCR 450 MG PO (08:55)
[2023-09-24] MEDS: Magnesium Oxide 400 MG TAB PO ×2 (09:01→19:56)
[2023-09-24] MEDS: Polyethylene Glycol 3350 17 GM PACKET PO (09:07)
[2023-09-24] MEDS: Tamsulosin 0.4 MG CAPCR PO (09:07)
[2023-09-24] MEDS: Metoprolol CR 100 MG TABCR PO (09:08)
[2023-09-24 11:58] VITALS: BP 145/67; PULSE 54; RESP 15; TEMP 36.2; O2SAT 94
[2023-09-24] MEDS: Insulin Aspart 300 UNITS/3 ML PEN SC ×4 (12:08→21:42)
--- NOTE | 2023-09-24 12:27 | PT.INTREAT ---
PT Notes Visit Reasons: Left ureterolithiasis, UTI Inpatient Physical Therapy Treatment Note [facility] Date: 09/24/23 SUBJECTIVE: Pt reports that she has pain with urination. OBJECTIVE: Therapeutic Activities (69416f[]): Direct one-on-one instruction in dynamic activities to improve functional performance. ? BED MOBILITY/TRANSFERS? Rolling L/R: [] Supine-sit: []? Sit-supine: [] ? Sit-stand: []? Stand-sit: [] ? Bed-Chair: [] ? Chair-bed: [] Provided skilled cues and instruction on performance and technique throughout. Gait Training (01783d[]): Direct one-on-one instruction and skilled instruction in: [] employing an assistive device [] modified weight-bearing status [] movement sequencing [] turning and movement with proper form [] Provided verbal cues for equipment management and technique [] Provided instruction in gait pattern [] Patient education regarding pacing and breathing techniques to maximize activity tolerance? GAIT? Assistive Device: []? Weight bearing: [] Assist: [] ? Distance:? [] ? Deviation: [] ? STAIRS:[] ? Therapeutic Exercises (06128k[1]): Direct one-on-one instruction in therapeutic exercises to develop strength, endurance, range of motion and flexibility. ? Exercises ? Seated Rowing x 10 LAQ x 10 Shoulder flexion x 10 Seated marching x 10 Ambulation ? Assistive Device: FWW? Weight bearing: Full Assist: CGA/SBA ? Distance:? From the bed to the bathroom and back ? Provided skilled instruction in proper exercise performance ASSESSMENT:? Pt tolerated today's session fairly well. Pt was experiencing some discomfort post urination. Pt was fatigued fairly quickly. PLAN: Cont as per PT POC. TREATMENT CODE/TIME: 09-10:20 TP (20)
--- NOTE | 2023-09-24 13:19 | PGE_ITS ---
Date of Service Date of service: 09/24/23 Time of Service: 13:19 Assessment and Plan Assessment and plan (1) Left ureteral calculus: Status: Acute Assessment and plan: Causing obstructive uropathy and leading to fungemia and funguria. Urine and blood cultures currently growing Shirin glabrata. Continue micafungin. Repeat blood cultures show no growth. Urine culture sent off for sensitivity testing. If this is sensitive to fluconazole then consider down stepping to fluconazole and switching to oral therapy. If not she will remain an echinocandin (2) UTI (urinary tract infection): Status: Acute Assessment and plan: As above. Qualifiers: Urinary tract infection type: acute pyelonephritis Qualified Code(s): N10 - Acute pyelonephritis (3) Hydronephrosis due to obstruction of ureter: Status: Acute Assessment and plan: as above, s/p cystoscopy and stent to left ureter performed by Dr. Lee on09/19. stent inadvertently removed by patient (4) Anemia: Status: Chronic Assessment and plan: unclear etiology, no sign of overt bleeding, I attempted to get stool for occult blood, rectal exam demonstrated empty rectal vault of any stool althoug she has been constipated. I have ordere anemia workup and stool for occult blood when she has a BM and empiric prophylaxis w/ protonix Qualifiers: Anemia type: unspecified type Qualified Code(s): D64.9 - Anemia, unspecified (5) MEREDITH (acute kidney injury): Status: Acute Assessment and plan: secondary to obstructive uropathy, now improving. BUN now 25 and creatinine 1.2 (6) Diabetes mellitus: Status: Chronic Assessment and plan: continues to have hyperglcyemia w/ glucose levels in the 300's this afternoon however nursing was not giving her any novolog coverage for her carbohydrate intake either d/t her glucose allegedly below parameter (which only applies to the corrective scale) or due to her glucose was checked too late after her lunch and was deemed to late to cover her lunch, hence her glucose is now in the 300's this afternoon. her fasting glucose was good at 124, she remains on insulin resistant scale but need coverage for her meals and her insulin should not be delayed until after she eats. Qualifiers: Diabetes mellitus type: type 2 Diabetes mellitus prison insulin use: with vice president sales and marketing use Diabetes mellitus complication status: with neurologic complications Diabetes mellitus complication detail: with polyneuropathy Qualified Code(s): E11.42 - Type 2 diabetes mellitus with diabetic polyneuropathy; Z79.4 - manager architectural (current) use of insulin (7) Hypomagnesemia: Status: Acute Assessment and plan: 1.5, give oral and iv replacement and monitor (8) DVT prophylaxis: Status: Acute Assessment and plan: Sc heparin (9) Discharge planning issues: Status: Acute Assessment and plan: DNR/DNI Continues to require hospitalization. Subjective Subjective Interval history since last seen: Patient states she feels fatigued. No nausea or vomiting no diarrhea. No chest pain. Exam Narrative Exam Narrative: Pale appearing elderly white female lying in bed. She is not acutely dyspneic. Able to converse without dyspnea. Lungs clear to auscultation Heart is regular rate and rhythm Abdomen obese slightly distended soft, minimal tenderness Extremities without peripheral cyanosis or edema Objective Last Vital Signs Temp 36.2 C L 09/24/23 11:58 Pulse 54 L 09/24/23 11:58 Resp 15 09/24/23 11:58 BP 145/67 H 09/24/23 11:58 Pulse Ox 94 09/24/23 11:58 Laboratory Results - last 24 hr 09/24/23 06:35 WBC 7.88 RBC 3.51 L Hgb 9.9 L Hct 31.1 L MCV 89 MCH 28.2 MCHC 31.8 L RDW 14.1 Plt Count 256 MPV 9.8 Immature Gran % See Differential Neutrophils % 56.0 Lymphocytes % 23.0 Atypical Lymphs % 1 Monocytes % 165.0 Eosinophils % 3.0 Basophils % 1.0 Nucleated RBC % 0.0 Absolute Neutrophils 4.41 Absolute Lymphocytes 1.89 Absolute Monocytes 13.00 H Absolute Eosinophils 0.24 Absolute Basophils 0.08 RBC Morphology Normal Sodium 138 Potassium 3.9 Chloride 105 Carbon Dioxide 27.1 Anion Gap 5.9 BUN 25 H Creatinine 1.2 H Est GFR (CKD-EPI 2020) 47.80 Glucose 131 H Calcium 9.2 Magnesium 1.5 L Total Bilirubin 0.7 AST 85 H ALT 78 H Alkaline Phosphatase 130 H C-Reactive Protein 16.84 H Total Protein 6.6 Albumin 2.1 L Time Spent with Patient Time Spent with Patient: 35-49 minutes Time was spent: preparing to see the patient(eg.review tests), ordering medications,tests, procedures, referring, communicating with other health urgent care physician assistant, indepentently interpreting results, counseling the patient and care coordination
[2023-09-24 13:41] LABS: HCT 31.1 % (36.0-46.0)
[2023-09-24 14:10] LABS: Lab Add On Test DONE
[2023-09-24] MEDS: Milk of Magnesia 30 ML CUP PO (14:25)
[2023-09-24 14:29] LABS: Iron 17 ug/dL (50-170); Total Iron Binding Capacity 182 ug/dL (250-450); Transferrin Sat 9 % (15-50)
[2023-09-24 14:56] LABS: Ferritin 335 ng/mL (8-252); Folate 18.7 ng/mL (8.6-20.0); Vitamin B12 247 pg/mL (193-986)
[2023-09-24 15:12] VITALS: BP 172/92; PULSE 58; RESP 16; TEMP 36; O2SAT 94
[2023-09-24 15:14] LABS: Absolute Monocyte Count 1.26 10^3/uL (0.1-0.8)
[2023-09-24] MEDS: Atorvastatin 40 MG TAB 80 MG PO (19:56)
[2023-09-24] MEDS: MAGNESIUM SULFATE 2 GM/50 ML BAG IVPB (20:17)
[2023-09-24 20:18] VITALS: BP 136/60; PULSE 54; RESP 18; TEMP 36.6; O2SAT 94
[2023-09-24] MEDS: Insulin Glargine 300 UNITS/3 ML PEN 20 UNITS SC (21:42)
[2023-09-24] MEDS: DULoxetine 30 MG CAP 60 MG PO (21:42)
[2023-09-24] MEDS: Senna TAB 1 TAB PO (21:43)
[2023-09-24] MEDS: Pantoprazole 40 MG TABCR PO (21:43)
[2023-09-24] MEDS: Mirtazapine 15 MG TAB 7.5 MG PO (21:43)
[2023-09-24] MEDS: traZODone 50 MG TAB PO (21:43)
[2023-09-24 23:43] VITALS: BP 155/66; PULSE 58; RESP 18; TEMP 36.7; O2SAT 96
[2023-09-25 03:59] VITALS: BP 145/80; PULSE 60; RESP 18; TEMP 36.2; O2SAT 96
[2023-09-25] MEDS: Milk of Magnesia 30 ML CUP PO (04:12)
[2023-09-25] MEDS: Levothyroxine 112 MCG TAB PO (05:10)
[2023-09-25 06:58] LABS: Abs Immature Grans 0.17 10^3/uL (0.0-0.06); MCH 28.7 pg (27.0-33.0); MCHC 32.4 % (32.0-36.0); MCV 89 fL (80-95); MPV 9.6 fL (8.0-11.0); Platelet Count 307 10^3/uL (130-400); RBC 3.83 10^6/uL (3.93-5.22); RDW-SD 45.2 fL; WBC 10.44 10^3/uL (4.4-10.8)
[2023-09-25 07:08] LABS: Anion Gap 1.3 mmol/L (3-11); BUN 19 mg/dL (7-18); CO2 28.7 mmol/L (21.0-32.0); CREATININE 1.2 mg/dL (0.55-1.02); Calcium 9.2 mg/dL (8.5-10.1); Chloride 99 mmol/L (98-107); Glucose 138 mg/dL (74-106); Potassium 3.8 mmol/L (3.5-5.1); Sodium 129 mmol/L (136-145)
[2023-09-25 07:43] LABS: Absolute Neutrophil Count 5.32 10^3/uL (1.2-6.7)
[2023-09-25 07:44] LABS: Absolute Lymphocyte Count 3.45 10^3/uL (1.2-3.4); Absolute Monocyte Count 1.57 10^3/uL (0.1-0.8); Atypical Lymphocytes % 3; Diff Comment Manual Differential; RBC Morphology Normal
[2023-09-25] MEDS: Tamsulosin 0.4 MG CAPCR PO (07:54)
[2023-09-25] MEDS: Pantoprazole 40 MG TABCR PO ×2 (07:54→20:01)
[2023-09-25] MEDS: buPROPion-XL 150 MG TABCR 450 MG PO (07:54)
[2023-09-25] MEDS: Heparin 5,000 UNITS/ML VIAL 5000 UNITS SC ×2 (07:54→20:00)
[2023-09-25] MEDS: Magnesium Oxide 400 MG TAB 800 MG PO ×2 (07:54→20:00)
[2023-09-25] MEDS: Docusate Sodium 100 MG CAP PO ×3 (07:55→20:01)
[2023-09-25] MEDS: Metoprolol CR 100 MG TABCR PO (07:55)
[2023-09-25] MEDS: Polyethylene Glycol 3350 17 GM PACKET PO (07:55)
[2023-09-25] MEDS: Insulin Aspart 300 UNITS/3 ML PEN SC ×5 (08:06→17:04)
[2023-09-25] MEDS: Insulin NPH-Human 300 UNITS/3 ML PEN 15 UNIT SC (08:12)
[2023-09-25 08:13] VITALS: BP 165/89; PULSE 59; RESP 16; TEMP 35.8; O2SAT 96
--- NOTE | 2023-09-25 11:10 | PT.INTREAT ---
PT Notes Visit Reasons: Left ureterolithiasis, UTI Inpatient Physical Therapy Treatment Note [facility] Date: 09/25/23 OBJECTIVE: ? Therapeutic Exercises (47238n[1]): Direct one-on-one instruction in therapeutic exercises to develop strength, endurance, range of motion and flexibility. ? Exercises ? Rowing x10 Shoulder flexion x10 Horz abd x 10 Circles x 10 LAQx10 Marching x 10 HR/TR x10 Hip abd x 10 All exercises completed in chair Ambulation ? Assistive Device: FWW? Weight bearing: Full Assist: CGA ? Distance:? Bed to bathroom and back to sit up in the chair by the bed ? Provided skilled instruction in proper exercise performance ASSESSMENT:? Pt tolerated today's session fairly well. She was fatigued post ambulation. PLAN: Cont as per PT POC. TREATMENT CODE/TIME: 9:35-9:52 (17) Therapeutic exercise x1
[2023-09-25 11:20] VITALS: BP 104/73; PULSE 57; RESP 16; TEMP 36.5; O2SAT 94
[2023-09-25 14:57] VITALS: BP 121/73; PULSE 60; RESP 18; TEMP 36.7; O2SAT 95
--- NOTE | 2023-09-25 16:30 | W.PM.PROGNOT ---
Date of Service Date of service: 09/25/23 Time of Service: 16:30 Assessment and Plan Assessment and plan (1) Left ureteral calculus: Status: Acute Assessment and plan: Causing obstructive uropathy and leading to fungemia and funguria. Urine and blood cultures currently growing Shirin glabrata. Continue micafungin. Repeat blood cultures show no growth. Urine and blood culture sent off for sensitivity testing. If this is sensitive to fluconazole then consider down stepping to fluconazole and switching to oral therapy. If not she will remain an echinocandin currently on day #4 of micafungin Professional time spent interviewing and examining patient, discussion of goals of care with hospital team (care management, nursing and consulting professionals) was 30 minutes. (2) UTI (urinary tract infection): Status: Acute Assessment and plan: As above. Qualifiers: Urinary tract infection type: acute pyelonephritis Qualified Code(s): N10 - Acute pyelonephritis (3) Hydronephrosis due to obstruction of ureter: Status: Acute Assessment and plan: as above, s/p cystoscopy and stent to left ureter performed by Dr. Lee on09/19. stent inadvertently removed by patient . We will ask Dr. Lee to follow-up with the patient tomorrow (4) Anemia: Status: Chronic Assessment and plan: unclear etiology, no sign of overt bleeding, I attempted to get stool for occult blood, rectal exam demonstrated empty rectal vault of any stool althoug she has been constipated. I have ordere anemia workup and stool for occult blood when she has a BM and empiric prophylaxis w/ protonix Serum iron is low at 17 however her TIBC is also low at 182 while her transferrin saturation is low at 9%. Ferritin level is high at 335 but this may be secondary to her acute infection. A low transferrin saturation and low iron would suggest an iron deficiency anemia where is the low TIBC would suggest otherwise. Hb up to 11 gm today. Qualifiers: Anemia type: unspecified type Qualified Code(s): D64.9 - Anemia, unspecified (5) MEREDITH (acute kidney injury): Status: Acute Assessment and plan: secondary to obstructive uropathy, now improving. BUN now 19 and creatinine 1.2 (6) Diabetes mellitus: Status: Chronic Assessment and plan: Hyperglycemia seems to have improved with adjustment of her insulin. I added NPH in the morning and adjusted her Lantus. She has also been getting her carbohydrate coverage unlike yesterday. Glucose this morning was 139 went up to 194 at lunchtime but is now down to 175 at dinner. Qualifiers: Diabetes mellitus type: type 2 Diabetes mellitus manager merchandise insulin use: with usp use Diabetes mellitus complication status: with neurologic complications Diabetes mellitus complication detail: with polyneuropathy Qualified Code(s): E11.42 - Type 2 diabetes mellitus with diabetic polyneuropathy; Z79.4 - tube closing machine operator (current) use of insulin (7) Hypomagnesemia: Status: Acute Assessment and plan: Magnesium levels up to 2.0 today. Continue oral replacement. (8) DVT prophylaxis: Status: Acute Assessment and plan: Sc heparin (9) Discharge planning issues: Status: Acute Assessment and plan: DNR/DNI Continues to require hospitalization but disposition will depend on sensitivity of her blood and urine cultures. If she needs continued IV antifungals then she will need a SNF or swing bed status at [facility]. Subjective Subjective Interval history since last seen: Wanda is doing much better. She has no pain she is voiding freely. No fevers. Blood culture has come back positive for Shirin glabrata however sensitivities are pending. Her repeat blood cultures show no growth. She remains on micafungin. I explained to her that if the Shirin glabrata is sensitive to fluconazole we could probably switch her over to oral fluconazole for 2 weeks. However if it is not sensitive she will need to complete her micafungin treatment. She has only had 4 days. Exam Narrative Exam Narrative: Wanda is lying in bed she is alert and oriented no acute distress Lungs are clear Heart is regular rate and rhythm Abdomen obese soft and nontender No CVA tenderness No calf edema or tenderness Objective Last Vital Signs Temp 36.7 C 09/25/23 14:57 Pulse 60 09/25/23 14:57 Resp 18 09/25/23 14:57 BP 121/73 09/25/23 14:57 Pulse Ox 95 09/25/23 14:57 Laboratory Results - last 24 hr 09/25/23 06:32 WBC 10.44 RBC 3.83 L Hgb 11.0 L Hct 34.0 L MCV 89 MCH 28.7 MCHC 32.4 RDW 14.0 Plt Count 307 MPV 9.6 Immature Gran % See Differential Neutrophils % 51.0 Lymphocytes % 30.0 Atypical Lymphs % 3 Monocytes % 15.0 Eosinophils % 1.0 Basophils % 0.0 Nucleated RBC % 0.0 Absolute Neutrophils 5.32 Absolute Lymphocytes 3.45 H Absolute Monocytes 1.57 H Absolute Eosinophils 0.10 Absolute Basophils 0.00 RBC Morphology Normal Sodium 129 L Potassium 3.8 Chloride 99 Carbon Dioxide 28.7 Anion Gap 1.3 L BUN 19 H Creatinine 1.2 H Est GFR (CKD-EPI 2020) 47.80 Glucose 138 H Calcium 9.2 Magnesium 2.0 Time Spent with Patient Time Spent with Patient: 25-34 minutes Time was spent: preparing to see the patient(eg.review tests), ordering medications,tests, procedures, referring, communicating with other health client care specialist, indepentently interpreting results, counseling the patient and care coordination
[2023-09-25] MEDS: Atorvastatin 40 MG TAB 80 MG PO (20:01)
[2023-09-25] MEDS: Insulin Glargine 300 UNITS/3 ML PEN 20 UNITS SC (22:21)
[2023-09-25] MEDS: Mirtazapine 15 MG TAB 7.5 MG PO (22:23)
[2023-09-25] MEDS: DULoxetine 30 MG CAP 60 MG PO (22:23)
[2023-09-25] MEDS: traZODone 50 MG TAB PO (22:23)
[2023-09-25] MEDS: Senna TAB 1 TAB PO (22:24)
[2023-09-26] VITALS (7 sets, daily range): BP systolic 119–158; BP diastolic 61–78; PULSE 53–68; RESP 16–19; TEMP 35.8–36.7; O2SAT 91–96
[2023-09-26] MEDS: Levothyroxine 112 MCG TAB PO (04:38)
[2023-09-26 07:06] LABS: HCT 31.6 % (36.0-46.0); MCH 28.4 pg (27.0-33.0); MCHC 31.6 % (32.0-36.0); MCV 90 fL (80-95); MPV 9.4 fL (8.0-11.0); Platelet Count 333 10^3/uL (130-400); RBC 3.52 10^6/uL (3.93-5.22); RDW 13.9 % (11.7-14.6); RDW-SD 45.6 fL; WBC 10.58 10^3/uL (4.4-10.8)
[2023-09-26 07:23] LABS: Absolute Eosinophil Count 0.74 10^3/uL (0.0-0.7); Absolute Lymphocyte Count 3.91 10^3/uL (1.2-3.4); Absolute Monocyte Count 0.21 10^3/uL (0.1-0.8); Atypical Lymphocytes % 3; Diff Comment Manual Differential; Metamyelocytes % 3; RBC Morphology Normal
[2023-09-26 07:34] LABS: ALT 67 U/L (14-59); AST 64 U/L (15-37); Alkaline Phosphatase 123 U/L (46-116); Anion Gap 7.6 mmol/L (3-11); BUN 18 mg/dL (7-18); Bilirubin, Total 0.5 mg/dL (0.2-1.0); CO2 27.4 mmol/L (21.0-32.0); CREATININE 1.2 mg/dL (0.55-1.02); Calcium 9.1 mg/dL (8.5-10.1); Chloride 106 mmol/L (98-107); Glucose 138 mg/dL (74-106); Magnesium 1.8 mg/dL (1.8-2.4); Potassium 4.1 mmol/L (3.5-5.1); Sodium 141 mmol/L (136-145)
[2023-09-26] MEDS: Budesonide/Formoterol 160/4.5 6 GM 60 PUFF INH IH (08:05)
[2023-09-26] MEDS: Tiotropium Bromide-Respimat 10 PUFF INH IH (08:05)
[2023-09-26] MEDS: Polyethylene Glycol 3350 17 GM PACKET PO (08:14)
[2023-09-26] MEDS: Metoprolol CR 100 MG TABCR PO (08:15)
[2023-09-26] MEDS: Docusate Sodium 100 MG CAP PO ×3 (08:15→20:00)
[2023-09-26] MEDS: Heparin 5,000 UNITS/ML VIAL 5000 UNITS SC ×2 (08:15→20:00)
[2023-09-26] MEDS: Pantoprazole 40 MG TABCR PO ×2 (08:15→20:00)
[2023-09-26] MEDS: Tamsulosin 0.4 MG CAPCR PO (08:16)
[2023-09-26] MEDS: Magnesium Oxide 400 MG TAB 800 MG PO ×2 (08:16→20:00)
[2023-09-26] MEDS: buPROPion-XL 150 MG TABCR 450 MG PO (08:16)
[2023-09-26] MEDS: Insulin Aspart 300 UNITS/3 ML PEN SC ×4 (09:01→17:58)
[2023-09-26] MEDS: Insulin NPH-Human 300 UNITS/3 ML PEN 15 UNIT SC (09:02)
--- NOTE | 2023-09-26 11:16 | PTTR_ITS ---
PT Notes Visit Reasons: Left ureterolithiasis, UTI Inpatient Physical Therapy Treatment Note [facility] Date: 09/26/23 PRECAUTIONS:fall, standard SUBJECTIVE: Wanda states that she continues to get very tired after walking. OBJECTIVE: ? PAIN: denies Therapeutic Activities (65553a1): Direct one-on-one instruction in dynamic activities to improve functional performance. ? BED MOBILITY/TRANSFERS? Rolling L/R: Independent Supine-sit: independent? Sit-supine: independent ? Sit-stand: supervision, with heavy reliance on UE support? Stand-sit: supervision ? Provided skilled cues and instruction on performance and technique throughout. Instructed in the following: sit-stand, 5x, no UE support. CGA and cues for technique static standing without UE support for improved activity tolerance GAIT? Assistive Device: FWW? Weight bearing: AT Assist: CGA ? Distance:? 100' ? Deviation: cues for FWW management, particularly during turning ? Therapeutic Exercises (27608j6): Direct one-on-one instruction in therapeutic exercises to develop strength, endurance, range of motion and flexibility. ? Exercises ? standing march 10x each standing HR 10x, CGA, bilat UE support to FWW seated punch ups 10x LAQ 10x ASSESSMENT:? Improving independence and activity tolerance. Very fatigued after increasing walking distance today. Encouraged sitting up to chair post- treatment. Remained in chair with call adams within reach and chair alarm activated. PLAN: Continue progressing to maximize functional mobility and independence. TREATMENT CODE/TIME: 4946-2410 ([id number]) Lynne Garcia, PT, DPT [facility]
--- NOTE | 2023-09-26 12:15 | PDOC.CMPRO ---
Date of service: 09/26/23 Time of Service: 12:15 Care Management Progress Note Progress Note Text Progress Note Text: S/O: Wanda remains inpatient, CM continues to follow. A: Wanda is a 72 year old woman admitted on 09/18/23 with Ureteterolithiasis P: Per MD: continued IV antifungals anticipated for nine more days; anticipate [facility] infusion [id number] as patient has MCR only-to be reviewed with patient tomorrow per MD. CM continues to follow.
--- NOTE | 2023-09-26 13:17 | PT.INTREAT ---
PT Notes Visit Reasons: Left ureterolithiasis, UTI Inpatient Physical Therapy Treatment Note [facility] Date: 09/26/23 OBJECTIVE: ? Therapeutic Exercises ([id number][]): Direct one-on-one instruction in therapeutic exercises to develop strength, endurance, range of motion and flexibility. ? Exercises ? Rowing x 10 Ambulation ? Assistive Device: FWW? Weight bearing: Full Assist: CGA? Distance:? Approx 100ft? STS SBA and did not have to use her hands.? Provided skilled instruction in proper exercise performance ASSESSMENT:? Pt was fatigued post ambulation and tolerated only UE seated rowing. Very motivated for PT. PLAN: Cont as per PT POC. TREATMENT CODE/TIME: 10 TA 1:10-1:20
--- NOTE | 2023-09-26 15:49 | PGE_ITS ---
Date of Service Date of service: 09/26/23 Time of Service: 15:49 Assessment and Plan Assessment and plan (1) Left ureteral calculus: Status: Acute Assessment and plan: Causing obstructive uropathy and leading to fungemia and funguria. Urine and blood cultures currently growing Shirin glabrata. Continue micafungin. Repeat blood cultures show no growth. Urine and blood culture sent off for sensitivity testing Which are pending at this time. If this is sensitive to fluconazole then consider down stepping to fluconazole and switching to oral therapy. If not then we will plan for continued miconazole for full 14 days through October 07, 2023 but this can be given through the outpatient infusion center. (2) UTI (urinary tract infection): Status: Acute Assessment and plan: As above. Qualifiers: Urinary tract infection type: acute pyelonephritis Qualified Code(s): N10 - Acute pyelonephritis (3) Hydronephrosis due to obstruction of ureter: Status: Acute Assessment and plan: as above, s/p cystoscopy and stent to left ureter performed by Dr. Lee on09/19. stent inadvertently removed by patient . Follow-up with Dr. Lee upon discharge (4) Anemia: Status: Chronic Assessment and plan: unclear etiology, no sign of overt bleeding, I attempted to get stool for occult blood, rectal exam demonstrated empty rectal vault of any stool althoug she has been constipated. I have ordere anemia workup and stool for occult blood when she has a BM and empiric prophylaxis w/ protonix Serum iron is low at 17 however her TIBC is also low at 182 while her transferrin saturation is low at 9%. Ferritin level is high at 335 but this may be secondary to her acute infection. A low transferrin saturation and low iron would suggest an iron deficiency anemia where is the low TIBC would suggest otherwise. Hb up to 10 gm today. Qualifiers: Anemia type: unspecified type Qualified Code(s): D64.9 - Anemia, unspecified (5) MEREDITH (acute kidney injury): Status: Acute Assessment and plan: secondary to obstructive uropathy, now improving. BUN now 19 and creatinine 1.2 (6) Diabetes mellitus: Status: Chronic Assessment and plan: Hyperglycemia seems to have improved with adjustment of her insulin. I added NPH in the morning and adjusted her Lantus. She has also been getting her carbohydrate coverage Glucose was 123 at breakfast and 145 at lunch. 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 Continue oral replacement. (8) DVT prophylaxis: Status: Acute Assessment and plan: Sc heparin (9) Discharge planning issues: Status: Acute Assessment and plan: DNR/DNI Continues to require hospitalization but disposition will depend on sensitivity of her blood and urine cultures. Probable dc in the next day once we have her culture sensitivities. Needs 14 days of effective antifungal from her first negative blood culture which was 09/23, therefore she needs Micafungin through 10/07, with weekly monitoring of renal and liver function. Subjective Subjective Patient reports: no new complaints and feels better Interval history since last seen: Minimal back discomfort. I told her that we are awaiting her blood and urine sensitivities to determine whether or not her Shirin glabrata is sensitive to Diflucan or not. If it is not (which is likely) then she would need to complete 14 day course (counting from her negative blood culture from 09/23). Patient is currently on micafungin which is a once a day antifungal. She could potentially have her antifungal treatment through the outpatient infusion center. surgical services manager will talk with her about it. Apparently her insurance coverage is not going to cover home infusions. Exam Narrative Exam Narrative: Wanda is lying in bed resting comfortably no acute distress no discomfort. Lungs few scattered end expiratory wheezes Heart is regular rate and rhythm Abdomen soft nontender No CVA tenderness Extremities without edema Objective Last Vital Signs Temp 35.8 C L 09/26/23 15:25 Pulse 55 L 09/26/23 15:25 Resp 18 09/26/23 15:25 BP 119/64 09/26/23 15:25 Pulse Ox 95 09/26/23 15:25 Laboratory Results - last 24 hr 09/19/23 09/26/23 12:29 06:48 WBC 10.58 RBC 3.52 L Hgb 10.0 L Hct 31.6 L MCV 90 MCH 28.4 MCHC 31.6 L RDW 13.9 Plt Count 333 MPV 9.4 Immature Gran % 0.0 Neutrophils % 51.0 Lymphocytes % 34.0 Atypical Lymphs % 3 Monocytes % 2.0 Eosinophils % 7.0 Basophils % 0.0 Metamyelocytes % 3 Nucleated RBC % 0.0 Absolute Neutrophils 5.40 Absolute Lymphocytes 3.91 H Absolute Monocytes 0.21 Absolute Eosinophils 0.74 H Absolute Basophils 0.00 RBC Morphology Normal Sodium 141 D Potassium 4.1 Chloride 106 Carbon Dioxide 27.4 Anion Gap 7.6 BUN 18 Creatinine 1.2 H Est GFR (CKD-EPI 2020) 47.80 Glucose 138 H Calcium 9.1 Magnesium 1.8 Total Bilirubin 0.5 AST 64 H ALT 67 H Alkaline Phosphatase 123 H Total Protein 7.0 Albumin 2.0 L Stone Source Ureter Stone Comment See Comment Kidney Stone Analysis Not Applicable Time Spent with Patient Time Spent with Patient: 25-34 minutes Time was spent: preparing to see the patient(eg.review tests), ordering medications,tests, procedures, referring, communicating with other health personal care aide, indepentently interpreting results, counseling the patient and care coordination
[2023-09-26] MEDS: Atorvastatin 40 MG TAB 80 MG PO (20:00)
[2023-09-26] MEDS: Senna TAB 1 TAB PO (21:58)
[2023-09-26] MEDS: Mirtazapine 15 MG TAB 7.5 MG PO (21:58)
[2023-09-26] MEDS: DULoxetine 30 MG CAP 60 MG PO (21:58)
[2023-09-26] MEDS: Insulin Glargine 300 UNITS/3 ML PEN 20 UNITS SC (22:02)
[2023-09-27] MEDS: Levothyroxine 112 MCG TAB PO (04:47)
[2023-09-27 07:07] VITALS: BP 153/74; PULSE 54; RESP 18; TEMP 36.2; O2SAT 94
[2023-09-27 07:26] LABS: HCT 33.8 % (36.0-46.0); HGB 10.7 g/dL (11.2-15.7); MCH 28.3 pg (27.0-33.0); MCHC 31.7 % (32.0-36.0); MCV 89 fL (80-95); MPV 9.6 fL (8.0-11.0); Platelet Count 402 10^3/uL (130-400); RBC 3.78 10^6/uL (3.93-5.22); RDW 14.1 % (11.7-14.6); WBC 9.89 10^3/uL (4.4-10.8)
[2023-09-27] MEDS: Budesonide/Formoterol 160/4.5 6 GM 60 PUFF INH IH (07:50)
[2023-09-27] MEDS: Tiotropium Bromide-Respimat 10 PUFF INH IH (07:50)
[2023-09-27] MEDS: Magnesium Oxide 400 MG TAB 800 MG PO ×2 (07:56→20:55)
[2023-09-27] MEDS: buPROPion-XL 150 MG TABCR 450 MG PO (07:56)
[2023-09-27] MEDS: Docusate Sodium 100 MG CAP PO ×3 (07:56→20:56)
[2023-09-27] MEDS: Tamsulosin 0.4 MG CAPCR PO (07:57)
[2023-09-27] MEDS: Metoprolol CR 100 MG TABCR PO (07:57)
[2023-09-27] MEDS: Pantoprazole 40 MG TABCR PO ×2 (07:57→20:56)
[2023-09-27] MEDS: Heparin 5,000 UNITS/ML VIAL 5000 UNITS SC ×2 (07:57→20:56)
[2023-09-27] MEDS: Insulin NPH-Human 300 UNITS/3 ML PEN 15 UNIT SC (07:59)
[2023-09-27] MEDS: Polyethylene Glycol 3350 17 GM PACKET PO (07:59)
[2023-09-27] MEDS: Normal Saline Flush 10 ML SYR IVP (07:59)
[2023-09-27] MEDS: Insulin Aspart 300 UNITS/3 ML PEN SC ×5 (08:02→22:44)
--- NOTE | 2023-09-27 09:56 | PDOC.CMPRO ---
Date of service: 09/27/23 Time of Service: 09:56 Care Management Progress Note Progress Note Text Progress Note Text: S/O: Wanda was sitting up in a chair when CM met with her, She was in good spirits and engaged well with CM. Wanda's discharge has been contingent on the antimicrobial susceptibilities for the silvina in her blood. The results came back today and it has been determined that she can complete treatment with an oral agent. Wanda informed CM that she would prefer to have one more day in the hospital and discharge home tomorrow. She will have new home health services for PT when discharged. A: Wanda is a 72 year old woman admitted on 09/18/23 with Ureteterolithiasis P: Wanda will likely be discharged home with new home health services for PT. She will complete her antimicrobial therapy with an oral antifungal agent and will follow up with her community providers and plan of care. Wanda will transport with family. CM will continue to follow and support discharge planning considerations.
--- NOTE | 2023-09-27 10:21 | W.PM.PROGNOT ---
Date of Service Date of service: 09/27/23 Time of Service: 10:22 Assessment and Plan Assessment and plan (1) Left ureteral calculus: Status: Acute Assessment and plan: -caused obstructive uropathy and leading to fungemia and funguria. -Urine and blood cultures currently growing Shirin glabrata. -Continue micafungin. -Repeat blood cultures show no growth. -Urine and blood culture sent off for sensitivity testing Which are pending at this time. -If sensitive to fluconazole then consider down stepping to fluconazole and switching to oral therapy. If not then we will plan for continued miconazole for full 14 days through October 07, 2023 but this can be given through the outpatient infusion center. (2) UTI (urinary tract infection): Status: Acute Assessment and plan: As above. Qualifiers: Urinary tract infection type: acute pyelonephritis Qualified Code(s): N10 - Acute pyelonephritis (3) Hydronephrosis due to obstruction of ureter: Status: Acute Assessment and plan: -as above, -s/p cystoscopy and stent to left ureter performed by Dr. Lee on09/19. stent inadvertently removed by patient . -Follow-up with Dr. Lee upon discharge (4) Anemia: Status: Chronic Assessment and plan: -unclear etiology, no sign of overt bleeding -attempted to get stool for occult blood, rectal exam demonstrated empty rectal vault of any stool although she has been constipated. -Serum iron is low at 17 however her TIBC is also low at 182 while her transferrin saturation is low at 9%. Ferritin level is high at 335 but this may be secondary to her acute infection. A low transferrin saturation and low iron would suggest an iron deficiency anemia where is the low TIBC would suggest otherwise. -Hb 10 on 09/26 Qualifiers: Anemia type: unspecified type Qualified Code(s): D64.9 - Anemia, unspecified (5) MEREDITH (acute kidney injury): Status: Acute Assessment and plan: -secondary to obstructive uropathy, now improving. -BUN now 19 and creatinine 1.2 (6) Diabetes mellitus: Status: Chronic Assessment and plan: -Hyperglycemia seems to have improved with adjustment of her insulin. -added NPH in the morning and adjusted her Lantus. -She has also been getting her carbohydrate coverage Qualifiers: Diabetes mellitus type: type 2 Diabetes mellitus digital engineer insulin use: with digital engineer use Diabetes mellitus complication status: with neurologic complications Diabetes mellitus complication detail: with polyneuropathy Qualified Code(s): E11.42 - Type 2 diabetes mellitus with diabetic polyneuropathy; Z79.4 - correction (current) use of insulin (7) Hypomagnesemia: Status: Acute Assessment and plan: -improved -Continue oral replacement. (8) DVT prophylaxis: Status: Acute Assessment and plan: Sc heparin (9) Discharge planning issues: Status: Acute Assessment and plan: DNR/DNI Continues to require hospitalization but disposition will depend on sensitivity of her blood and urine cultures. Probable dc in the next day once we have her culture sensitivities. Needs 14 days of effective antifungal from her first negative blood culture which was 09/23, therefore she needs Micafungin through 10/07, with weekly monitoring of renal and liver function. Subjective Subjective Interval history since last seen: Patient states that she is doing well today. She understands that we are awaiting final fungal sensitivities to determine whether she can complete her antifungal regimen as p.o. or would require daily IV therapy. Exam Narrative Exam Narrative: Well-appearing older female sitting up in the chair no acute distress, lungs clear to auscultation bilaterally, heart RRR, abdomen soft, nontender nondistended Objective Last Vital Signs Temp 97.2 F L 09/27/23 07:07 Pulse 54 L 09/27/23 07:07 Resp 18 09/27/23 07:07 BP 153/74 H 09/27/23 07:07 Pulse Ox 94 09/27/23 07:07 Laboratory Results - last 24 hr 09/27/23 07:00 WBC 9.89 RBC 3.78 L Hgb 10.7 L Hct 33.8 L MCV 89 MCH 28.3 MCHC 31.7 L RDW 14.1 Plt Count 402 H MPV 9.6 Time Spent with Patient Time Spent with Patient: >50 minutes Time was spent: preparing to see the patient(eg.review tests), obtaining and/or reviewing separately otained hiistory, referring, communicating with other health medicare contact specialist, indepentently interpreting results, counseling the patient and care coordination
--- NOTE | 2023-09-27 11:44 | PT.INTREAT ---
Date of service: 09/27/23 Time of Service: 10:32 PT Notes Visit Reasons: Left ureterolithiasis, UTI Inpatient Physical Therapy Treatment Note [facility] Date: 09/27/23 PRECAUTIONS: Fall, standard, activity as tolerated. SUBJECTIVE: Patient reports feeling better. OBJECTIVE: Sitting up in recliner with feet in dependent position, agreeable to therapy.? PAIN: none reported VITALS: monitored by nursing staff. ? ? BED MOBILITY/TRANSFERS? Rolling L/R: not assessed Supine-sit: not assessed ? Sit-supine: not assessed ? Sit-stand: independent ? Stand-sit: independent ? Bed-Chair: independent ? Chair-bed: independent Gait Training (27502e7): Direct one-on-one instruction and skilled instruction in: [] employing an assistive device [] modified weight-bearing status [] movement sequencing [x] turning and movement with proper form [x] Provided verbal cues for equipment management and technique [] Provided instruction in gait pattern [x] Patient education regarding pacing and breathing techniques to maximize activity tolerance? GAIT? Assistive Device: fww? Weight bearing: full Assist: SBA ? Distance:? 200 feet ? Deviation: reduced noy, reduced step height, reduced step length. Patient becomes short of breath, taking several standing rests to catch her breath. ? Therapeutic Exercises (28193e7): Direct one-on-one instruction in therapeutic exercises to develop strength, endurance, range of motion and flexibility. Ambulation ? Assistive Device: FWW ? Weight bearing: full Assist: sba ? Distance:? 300 feet ? Deviation: Gait unremarkable, smooth, continuous. No rest breaks needed. Patient able to maintain conversation throughout ambulation, although she did become very slightly short of breath towards the end. Reports fatigue upon returning to her room. ? Provided skilled instruction in proper exercise performance Provided skilled manual cues to facilitate proper muscle recruitment and/or form. ASSESSMENT:? Patient tolerates therapy well despite becoming somewhat short of breath, recovers quickly whether sitting or standing. PLAN: Continue global strengthening per plan of care until patient is medically cleared for discharge. TREATMENT CODE/TIME: 13 minutes beginning at 10:32 and 11 minutes beginning at 15:15 for a total of 24 minutes today.
[2023-09-27 13:21] LABS: Transferrin 159 mg/dL (201-352)
[2023-09-27 15:00] VITALS: BP 134/73; PULSE 52; RESP 18; TEMP 36.6; O2SAT 94
[2023-09-27] MEDS: Mirtazapine 15 MG TAB 7.5 MG PO (20:55)
[2023-09-27] MEDS: Atorvastatin 40 MG TAB 80 MG PO (20:56)
[2023-09-27] MEDS: DULoxetine 30 MG CAP 60 MG PO (20:56)
[2023-09-27 22:35] VITALS: BP 157/66; PULSE 64; RESP 20; TEMP 37; O2SAT 94
[2023-09-27] MEDS: Senna TAB 1 TAB PO (22:35)
[2023-09-27] MEDS: Insulin Glargine 300 UNITS/3 ML PEN 20 UNITS SC (22:44)
[2023-09-28] MEDS: Levothyroxine 112 MCG TAB PO (06:04)
[2023-09-28 06:56] VITALS: BP 165/89; PULSE 52; RESP 22; TEMP 36.8; O2SAT 92
[2023-09-28] MEDS: Tiotropium Bromide-Respimat 10 PUFF INH IH (07:57)
[2023-09-28] MEDS: Budesonide/Formoterol 160/4.5 6 GM 60 PUFF INH IH (07:57)
[2023-09-28] MEDS: Fluconazole 100 MG TAB 800 MG PO (08:47)
[2023-09-28] MEDS: Tamsulosin 0.4 MG CAPCR PO (08:47)
[2023-09-28] MEDS: Pantoprazole 40 MG TABCR PO (08:50)
[2023-09-28] MEDS: Docusate Sodium 100 MG CAP PO (08:51)
[2023-09-28] MEDS: Metoprolol CR 100 MG TABCR PO (08:51)
[2023-09-28] MEDS: Magnesium Oxide 400 MG TAB 800 MG PO (08:51)
[2023-09-28] MEDS: buPROPion-XL 150 MG TABCR 450 MG PO (08:53)
[2023-09-28] MEDS: Insulin NPH-Human 300 UNITS/3 ML PEN 15 UNIT SC (08:56)
[2023-09-28] MEDS: Insulin Aspart 300 UNITS/3 ML PEN SC ×2 (08:59→12:27)
[2023-09-28] MEDS: Heparin 5,000 UNITS/ML VIAL 5000 UNITS SC (09:01)
--- NOTE | 2023-09-28 10:04 | W.PM.DS.N ---
Date of service: 09/28/23 Time of Service: 10:37 DS: Diagnosis Discharge Diagnosis (1) Left ureteral calculus: Status: Acute Asessment and Plan: -caused obstructive uropathy and leading to fungemia and funguria. -Urine and blood cultures currently growing Shirin glabrata. -Continue micafungin. -Repeat blood cultures show no growth. -Urine and blood culture sent off for sensitivity testing Which are pending at this time. -sensitive to high dose fluconazole, will continue 800mg daily until October 07 (2) UTI (urinary tract infection): Status: Acute Asessment and Plan: -as above (3) Hydronephrosis due to obstruction of ureter: Status: Acute Asessment and Plan: -as above, -s/p cystoscopy and stent to left ureter performed by Dr. Lee on09/19. stent inadvertently removed by patient . -Follow-up with Dr. Lee upon discharge (4) Anemia: Status: Chronic Asessment and Plan: -unclear etiology, no sign of overt bleeding -attempted to get stool for occult blood, rectal exam demonstrated empty rectal vault of any stool although she has been constipated. -Serum iron is low at 17 however her TIBC is also low at 182 while her transferrin saturation is low at 9%. Ferritin level is high at 335 but this may be secondary to her acute infection. A low transferrin saturation and low iron would suggest an iron deficiency anemia where is the low TIBC would suggest otherwise. -Hb 10 on 09/26 (5) MEREDITH (acute kidney injury): Status: Acute Asessment and Plan: -Hyperglycemia seems to have improved with adjustment of her insulin. -added NPH in the morning and adjusted her Lantus. -She has also been getting her carbohydrate coverage (6) Diabetes mellitus: Status: Chronic (7) Hypomagnesemia: Status: Acute Discharge Plan Disposition Patient Disposition: Home W/Home Health Services Condition: Good Discharge Details Reason For Visit: Left ureterolithiasis, UTI Admit Date/Time: 09/18/23 23:45 Admit Provider: Eduard Richards Attending Provider: Eduard Richards Primary Care Provider: Markie Osman Hospital Course Hospital Course: Patient was admitted with a left ureteral calculus for which a stent was placed and ultimately had fungal UTI and bacteremia. She was treated with micafungin was ultimately able to transition to fluconazole just prior to discharge based on culture and sensitivities. Home Meds and New Rx's Prescriptions: New fluconazole 200 mg tablet 800 mg PO DAILY Qty: 32 0RF tamsulosin 0.4 mg Capsule 0.4 mg PO DAILY Qty: 60 0RF oxybutynin chloride 5 mg Tablet 5 mg PO TID PRN PRN (Reason: ureteral spasms) Qty: 60 0RF Continued magnesium See Rx Instructions PO DIRECTED Rx Instructions: orally as directed; albuterol sulfate 90 mcg/actuation HFA aerosol inhaler 2 puff inhalation Q6H PRN (Reason: shortness of breath or wheezing) Qty: 8.5 12RF mirtazapine 7.5 mg tablet 7.5 mg PO QHS Qty: 90 0RF lorazepam 0.5 mg tablet 0.5 mg PO DAILY PRN (Reason: anxiety) Qty: 2 0RF Rx Instructions: 1 tab po 60 min prior to MRI, may repeat immediately prior to MRI for a total daily dose of 1 mg olopatadine 0.2 % drops 1 drp ophthalmic (eye) DAILY PRN (Reason: itching) Qty: 2.5 0RF trazodone 50 mg tablet 50 mg PO QHS PRN (Reason: sleep) Qty: 90 1RF chlorthalidone 25 mg tablet 12.5 mg PO DAILY Qty: 90 1RF Rx Instructions: [facility] endocrinology started 02/25/21/ not sent levothyroxine 112 mcg tablet 112 mcg PO DAILY Qty: 90 1RF Spiriva Respimat 2.5 mcg/actuation mist See Rx Instructions .ROUTE .COMPLEX Qty: 4 12RF Dose Instruction: TWO PUFFS INHALATION DAILY Rx Instructions: TWO PUFFS INHALATION DAILY metformin 1,000 mg tablet See Rx Instructions .ROUTE .COMPLEX Qty: 180 1RF Dose Instruction: TAKE ONE TABLET BY MOUTH TWICE A DAY Rx Instructions: TAKE ONE TABLET BY MOUTH TWICE A DAY atorvastatin 80 mg tablet 80 mg PO DAILY Qty: 90 1RF Rx Instructions: per cardiology [facility] - not sent bupropion HCl 150 mg tablet extended release 24 hr 450 mg PO DAILY Qty: 270 0RF duloxetine 60 mg capsule,delayed release(DR/EC) 60 mg PO HS Qty: 90 2RF glimepiride 4 mg tablet 4 mg PO BID Qty: 180 1RF insulin glargine [Lantus Solostar U-100 Insulin] 100 unit/mL (3 mL) insulin pen 14 unit Sub-Q HS Qty: 45 1RF metoprolol succinate 100 mg tablet extended release 24 hr 100 mg PO DAILY Qty: 90 2RF liraglutide 0.6 mg/0.1 mL (18 mg/3 mL) pen injector 1.8 mg subcut DAILY Qty: 9 3RF budesonide-formoterol [Symbicort] 160-4.5 mcg/actuation HFA aerosol inhaler 1 puff INHALATION DAILY Patient Comments: INHALE TWO PUFFS BY MOUTH TWICE A DAY Discontinued estradiol [Estrace] 0.01 % (0.1 mg/gram) cream 1 appful vaginal DAILY Qty: 42.5 0RF Hold Instructions: Pt Stopped/Never Started Rx Instructions: nightly for 1 week, then twice a week Colace 50 mg capsule 50 mg PO DAILY PRNQty: 90 No Action epinephrine [EpiPen] 0.3 mg/0.3 mL auto-injector 0.3 mg IM ONCE Qty: 2 0RF Rx Instructions: as a single dose; may repeat once (DME) pen needle, diabetic [BD Ultra-Fine Mini Pen Needle] 31 gauge x 3/16 needle See Rx Instructions .ROUTE .MEDSUPPLY Qty: 300 3RF Rx Instructions: Insulin adm. BID: E11.9 Discharge Instructions Stand Alone Forms: Nursing Discharge Form Referrals: Markie Osman NP [Primary Care Provider] - 10/11/23 9:40 am Ferdinand Lee MD [ [facility] STAFF PHYSICIAN] - (They will call you with an appointment ) Activity:: Activity as Tolerated Equipment/Supplies:: Blood Glucose Monitor Diet:: As Tolerated Discharge Orders Discharge Orders: Discharge Order (Routine); Ordered 09/28/23 Ordered By: Edgar Castillo DS: Summary Time Spent with Patient providing and/or coordinating discharge services: Greater than 30 minutes Status at Discharge Functional status at discharge: independent ambulation Overall status at discharge: patient is back to baseline Mental Status: mental status grossly normal Speech and Movement: speech and movement normal Mood: congruent mood Affect: normal affect Exam Narrative Exam Narrative: Well-appearing older female sitting up in the chair no acute distress, lungs clear to auscultation bilaterally, heart RRR, abdomen soft, nontender nondistended Psych Mental Status: mental status grossly normal Speech and Movement: speech and movement normal Mood: congruent mood Affect: normal affect DS: Data Vitals/I&O Vitals and I&O: Vital Signs Temperature 98.2 F 09/28/23 06:56 Temperature Source Tympanic 09/28/23 06:56 Pulse 52 L 09/28/23 06:56 Pulse Rhythm Regular 09/28/23 09:08 Respiratory Rate 22 09/28/23 06:56 Respiratory Effort Non-Labored 09/28/23 09:08 Respiratory Depth Normal 09/28/23 09:08 Respiratory Pattern Normal 09/28/23 09:08 Blood Pressure 165/89 H 09/28/23 06:56 Blood Pressure Position Supine 09/18/23 19:12 Pulse Oximetry 92 09/28/23 06:56 Oxygen Delivery Method Room Air 09/28/23 06:56 Oxygen Flow Rate 0 09/28/23 06:56 Pain Level 0 09/28/23 06:56 Comment BP called over radio 09/27/23 07:07 Intake & Output 09/27/23 09/28/23 09/28/23 17:59 05:59 17:59 Intake Total 590 / 590 250 / 840 120 / 120 Output Total 400 / 400 Balance 190 / 190 250 / 440 120 / 120 Weight 237 lb 3.478 oz Intake: IV Oral 570 / 570 250 / 820 120 / 120 Output: Urine 400 / 400 Other: Urine Color Yellow Pale Urine Appearance Clear Clear Urine Odor None Comment patient reports void x 1 while working with PT Stool Size Small Moderate Stool Characteristics Soft Formed Formed Brown Voiding Methods Toilet Data Completed and Pending Labs on day of discharge: Labs from last 24 hours 09/24/23 06:35 Transferrin 159 L Preliminary micro results at discharge 09/23/23 09:10 Blood Culture - Preliminary Blood NO GROWTH 96 HOURS PFSH All Active Problems (Updated 09/24/23 @ 20:37 by Faizan Morgan MD) Anemia (Chronic) Cough (Acute) Discharge planning issues (Acute) DVT prophylaxis (Acute) Hypomagnesemia (Acute) MEREDITH (acute kidney injury) (Acute) UTI (urinary tract infection) (Acute) Acute flank pain (Acute) Left ureteral calculus (Acute) Ureteral calculus, left (Acute) Hydronephrosis due to obstruction of ureter (Acute) Allergic conjunctivitis (Acute) Claustrophobia (Acute) Cognitive impairment (Acute) Frequent falls (Acute) Rash (Acute) Personal history of nicotine dependence (Acute) Leukocytosis (Acute) Angioedema of tongue (Acute) Right knee pain (Acute) Asthma-COPD overlap syndrome (Chronic) DNI (do not intubate) (Acute) DNR (do not resuscitate) (Chronic) POLST (Physician Orders for Life-Sustaining Treatment) (Acute) Cubital tunnel syndrome on right (Chronic) Diabetic peripheral neuropathy (Chronic) Coronary artery disease (Chronic) Recurrent urinary tract infection (Chronic) Osteopenia (Chronic 09/29/03) Non-alcoholic fatty liver disease (Chronic) 2010elevated transaminases 2013 normal AST ALT Hypothyroidism (Chronic 04/17/13) [facility]; 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 D.Bilotta/ uncontrolled db. /HbA1c 8.7; increase Glimepiride 4 bid/fup 6 mo. FOLLOWED AT [facility]/LABS INCLUDED Depressive disorder (Chronic) Degenerative disc disease (Chronic) lumbar facet hypertrophy L4-5; L5-S1; MRI 07/2009 lumbar spondylosis Cervical spinal stenosis (Chronic) MRI 03/2013; Severe left C5-6 and moderate left C3-4 stenosis; multilevel DDD 06/12-GUILLE Brachial plexus neuropathy (Chronic) Medical History Former smoker Colitis History of tobacco use Kidney stone Tension-type headache Shoulder pain left;2010- S/P supraclavicular lipoma removal; S/P neuroma 1987 [id number]. degenerative cervical spondylosis Chronic pain syndrome (10/27/12) on METHADONE; [facility] ; Shana Vaz- visit:12-06-2016 q 4 weeks (left neck and shoulder pain) 01/2022 - Reports she weaned off a while ago. Chronic obstructive lung disease (07/16/13) Dr. PINK/ PFT'S 08/09 Quit smoking 1999 Surgical History Hx of cardiac cath PROCEDURES BLADDER REPAIR NEC, 1985 URETEROSCOPY, 2002 multiple kidney stones PERIPH GANGLIONECT NEC left ABD REPAIR-DIAPHR HERNIA Oophrectomy, Left (~1998) Hysterectomy, Laproscopic (~1985) Repair of umbilical hernia (06/04/16) [facility] Repair of inguinal hernia RIGHT Cholecystectomy (~2000) Family History Mother , 85 Essential hypertension Heart disease Hyperlipidemia Father Essential hypertension Personal history of malignant neoplasm MELANOMA Heart disease Hyperlipidemia Stroke Sister Diabetes Brother Stroke Grandfather Heart disease Grandfather Stroke Grandmother Personal history of malignant neoplasm BREAST/UTERINE Heart disease Grandmother No problems noted. Sister No problems noted. Sister No problems noted. Sister No problems noted. Brother No problems noted. Brother No problems noted. Son No problems noted. Son No problems noted. Social History Smoking/Tobacco Use Status: Former Tobacco Use tobacco type: cigarettes Quit Date: 10/31/99 Second Hand Exposure: Yes Smoking risk assessment performed?: Yes Alcohol Intake: current Alcohol Intake frequency: holidays/special occasions only Alcohol type: hard liquor Drug use: Never Substance use type: does not use Caregiver/Support person: No Household members: spouse Housing: house Number of Children: 3 Do you need help understanding health information?: Rarely Pets and animals: Yes Pets and animals: dog(s) Sexually active: No Current gender identity: female What is your relationship status?: How often do you talk on the phone with friends or family?: decline to answer How often do you get together with friends or relatives?: once per week How often do you attend lutheran or mosque services?: decline to answer Do you belong to any clubs or organized social groups?: no Panel score (0-1 are the most socially isolated patients): 1 What type of physical activity do you participate in: none Duration: 15-30 minutes/day Frequency: does not exercise Chely/Methodist: None Special chely needs: No Seatbelt use: always Drive intox or ride w/intox log driver: No Do you feel safe at home: Yes Do you feel safe in your relationship?: Yes Time Spent with Patient Time Spent with Patient: <45 minutes Time was spent: preparing to see the patient(eg.review tests), obtaining and/or reviewing separately otained hiistory, referring, communicating with other health animal caretaker, indepentently interpreting results, counseling the patient and care coordination
--- NOTE | 2023-09-28 10:06 | PDOC.HHF2F_ITS ---
Home Health Referral Home Health Orders Clinical synopsis of why skilled professionals are needed: Patient experienced prolonged illness with ureteral stone and fungemia, requiring home physical therapy services Medical diagnosis necessitation home health referral: See above Physical Therapist: Check all that apply Increase strength & endurance for safe mobility at home: Ordered To design/establish home maintenance program: Ordered Fall reduction therapy program for patient with history of frequent falls: Ordered Home safety evaluation and teaching/gait training including stair management (if applicable): Ordered Encounter Date and Reason: I certify that a FTF encounter for this patient was performed on September 28, 2023 and that such encounter was related to the primary reason the patient requires home health services. The encounter was conducted in the following manner: * By me as the certifying physician, [employer], PA or * By an inpatient physician, F[employer] or PA during an inpatient stay who communicated findings to me, Certification And Authentication I certify that I composed the above information based on my clinical judgment relating to this patient's medical condition and, if applicable, clinical findings communicated to me by the NPP or inpatient physician who performed the FTF encounter. Name of Provider that will be monitoring home health services: Markie Maya
--- NOTE | 2023-09-28 15:11 | CMDISCH_ITS ---
Date of service: 09/28/23 Time of Service: 15:12 LACE Index Scoring Tool Questions: Length of Stay (in days): 7 - 13 Was the patient admitted via the E.D.?: Yes Comorbidities: Cerebrovascular Disease, Diabetes w/o Complication, Congestive Heart Failure and Chronic Pulmonary Disease E.D. Visits: 2 Answers: Total Score: 15 Risk of Readmission: High Risk Care Management Discharge Plan Reason for Hospitalization: Hydronephrosis secondary to ureteral obstruction Discharge Plan: Wanda will be discharged home with new home health services for PT. She will follow up with Urology, her PCP and plan [facility] care and [facility] coordinated by CM. Patient/Family Education Needs: Review of discharge instructions, activity, limitations, follow up plan, discuss Ask Me Three Services Needed at Discharge: Home Health Care Services and Transportation
== END 2023-09-28 14:30 | disposition home health service (06) | DRG 660 ==
LOC: ER 09-19 00:02 → MS 09-19 00:49
PROVIDERS: Family Medicine; General Practice; Internal Medicine; Urology; Admitting Provider Family Medicine; Emergency Provider Emergency Medicine; PCP Nurse Practitioner Family; Visit Provider Family Medicine
PROC: BT1FYZZ Fluoroscopy of Left Kidney, Ureter and Bladder using Other Contrast (ICD-10-PCS; CPT 52332; principal; 2023-09-19 11:30)
DX: B37.49 Other urogenital candidiasis; I50.32 Chronic diastolic (congestive) heart failure; M51.06 Intervertebral disc disorders with myelopathy, lumbar region; B49 Unspecified mycosis; N17.9 Acute kidney failure, unspecified; D72.828 Other elevated white blood cell count; E11.42 Type 2 diabetes mellitus with diabetic polyneuropathy; Z79.4 Long term (current) use of insulin; J44.9 Chronic obstructive pulmonary disease, unspecified; E83.42 Hypomagnesemia; N13.6 Pyonephrosis; D64.9 Anemia, unspecified; Z87.442 Personal history of urinary calculi; R41.89 Other symptoms and signs involving cognitive functions and awareness; Z87.891 Personal history of nicotine dependence; Z66 Do not resuscitate; I25.10 Atherosclerotic heart disease of native coronary artery without angina pectoris; M85.80 Other specified disorders of bone density and structure, unspecified site; K76.0 Fatty (change of) liver, not elsewhere classified; E03.9 Hypothyroidism, unspecified; E78.5 Hyperlipidemia, unspecified; N39.3 Stress incontinence (female) (male); I11.0 Hypertensive heart disease with heart failure; F32.A Depression, unspecified; M48.02 Spinal stenosis, cervical region; M50.33 Other cervical disc degeneration, cervicothoracic region; R05.1 Acute cough; E11.65 Type 2 diabetes mellitus with hyperglycemia
CPT/HCPCS: 52332; 52320; 00123; 36415; 80048; 80053; 80076; 84145; 85027; 86850; 86900; 86901; 87040; 87077; 87107; 87186; 87635; 87637; 94640; 96365; 96375; 97110; 97116; 97162; 97530; 99222; 99231; 99285; 70450; 71045; 74176; 74420; 80202; 81003; 81015; 82270; 82365; 82565; 82607; 82728; 82746; 83540; 83550; 83735; 84300; 84443; 84466; 84484; 85014; 85018; 85025; 86140; 87086; 94664; 99223; 99232; 99233; 99239; J0696; J1200; J1644; J1885; J1941; J2405; J3475; Q9967

== ENCOUNTER → 2023-09-19 07:41 | Outpatient (BNVA) | payer MEDICARE, SELFPAY | PROVIDERS: PCP Nurse Practitioner Family; Referring Provider Nurse Practitioner Family; Visit Provider Urology ==

== ENCOUNTER 2023-11-01 20:01 | Outpatient (REF) | payer MEDICARE, SELFPAY ==
[2023-11-01 20:13] LABS: Abs Immature Grans 0.04 10^3/uL (0.0-0.06); Absolute Basophil Count 0.11 10^3/uL (0.0-0.2); Absolute Eosinophil Count 0.26 10^3/uL (0.0-0.7); Absolute Lymphocyte Count 1.97 10^3/uL (1.2-3.4); Absolute Monocyte Count 0.57 10^3/uL (0.1-0.8); Absolute Neutrophil Count 5.28 10^3/uL (1.2-6.7); Basophils % 1.3; Eosinophils % 3.2; HCT 36.6 % (36.0-46.0); HGB 11.7 g/dL (11.2-15.7); Immature Grans % 0.5; Lymphocytes % 23.9; MCH 28.4 pg (27.0-33.0); MCV 89 fL (80-95); MPV 9.7 fL (8.0-11.0); Monocytes % 6.9; Neutrophils % 64.2; Platelet Count 356 10^3/uL (130-400); RBC 4.12 10^6/uL (3.93-5.22); RDW-SD 48.7 fL; WBC 8.23 10^3/uL (4.4-10.8)
[2023-11-01 20:21] LABS: Iron 57 ug/dL (50-170); Total Iron Binding Capacity 246 ug/dL (250-450); Transferrin Sat 23 % (15-50)
[2023-11-01 20:40] LABS: Folate 17.1 ng/mL (8.6-20.0)
[2023-11-01 20:50] LABS: Vitamin B12 309 pg/mL (193-986)
== END 2023-11-01 20:02 | disposition home or self-care (01) ==
LOC: LBN 20:01
PROVIDERS: PCP Nurse Practitioner Family; Visit Provider Nurse Practitioner Family
DX: D64.9 Anemia, unspecified (principal); E11.8 Type 2 diabetes mellitus with unspecified complications; R26.89 Other abnormalities of gait and mobility
CPT/HCPCS: 82607; 82746; 83540; 83550; 85025

== ENCOUNTER → 2023-11-08 07:48 | Outpatient (BNVA) | payer MEDICARE, SELFPAY | PROVIDERS: PCP Nurse Practitioner Family; Referring Provider Nurse Practitioner Family; Visit Provider Urology | DX: N20.1 Calculus of ureter (principal) | CPT/HCPCS: 76775 ==

== ENCOUNTER 2023-12-06 15:08 | Outpatient (REF) | payer MEDICARE, SELFPAY | END 2023-12-06 15:09 | disposition home or self-care (01) | LOC: LBN 15:08 | PROVIDERS: PCP Nurse Practitioner Family; Visit Provider Nurse Practitioner Family | DX: R30.0 Dysuria (principal); N89.8 Other specified noninflammatory disorders of vagina | CPT/HCPCS: 87077; 87086; 87186; 87480; 87510; 87660 ==

== ENCOUNTER → 2024-01-02 10:01 | Outpatient (BNVA) | payer MEDICARE, SELFPAY | PROVIDERS: PCP Nurse Practitioner Family; Referring Provider Nurse Practitioner Family; Visit Provider Student in an Organized Health Care Education/Training Program | DX: J44.9 Chronic obstructive pulmonary disease, unspecified (principal); Z87.891 Personal history of nicotine dependence | CPT/HCPCS: 99214 ==

== ENCOUNTER → 2024-01-17 08:25 | Outpatient (BNVA) | payer MEDICARE, SELFPAY, MEDICAID | PROVIDERS: PCP Nurse Practitioner Family; Referring Provider Nurse Practitioner Family; Visit Provider Urology | DX: R39.15 Urgency of urination (principal); N20.0 Calculus of kidney | CPT/HCPCS: 36415; 80053; 80061; 99213; 84439; 84443 ==

== ENCOUNTER 2024-01-17 09:53 | Outpatient (CLI) | payer MEDICARE, SELFPAY ==
[2024-01-17 09:46] LABS: ALT 43 U/L (14-59); AST 27 U/L (15-37); Albumin 3.3 g/dL (3.4-5.0); Alkaline Phosphatase 163 U/L (46-116); Anion Gap 11.7 mmol/L (3-11); BUN 22 mg/dL (7-18); Bilirubin, Total 0.7 mg/dL (0.2-1.0); CO2 26.3 mmol/L (21.0-32.0); CREATININE 1.3 mg/dL (0.55-1.02); Calcium 9.5 mg/dL (8.5-10.1); Calculated LDL 41 mg/dL (<100); Chloride 104 mmol/L (98-107); Cholesterol 129 mg/dL (<200); Estimated GFR 43.15 (mL/min/1.73m2); Glucose 218 mg/dL (74-106); HDL Cholesterol 63 mg/dL (40-60); Potassium 4.3 mmol/L (3.5-5.1); Sodium 142 mmol/L (136-145); TSH (W/Ref FT4) 4.27 uIU/mL (0.36-3.74); Triglyceride 129 mg/dL (<150)
[2024-01-17 10:03] LABS: FREE T4 1.07 ng/dL (0.76-1.46)
== END 2024-01-17 09:54 | disposition home or self-care (01) ==
LOC: LBO 09:54
PROVIDERS: PCP Nurse Practitioner Family; Visit Provider Nurse Practitioner Family
DX: E78.5 Hyperlipidemia, unspecified (principal); E03.9 Hypothyroidism, unspecified
CPT/HCPCS: 36415; 80053; 80061; 84439; 84443

== ENCOUNTER → 2024-01-19 04:32 | Outpatient (CLI) | payer MEDICARE, SELFPAY ==
--- NOTE | 2024-01-19 07:30 | DI.DEXA_ITS ---
Exam(s) XR DEXA BONE DENSITY W/WO IVANA EXAM: XR DEXA BONE DENSITY W/WO IVANA CLINICAL HISTORY: screening for osteoporosis in postmenopausal woman,z78.0,hypothyroidism TECHNIQUE: COMPARISON: Comparison examination is 04/27/2004. FINDINGS: Lateral Spine Image: Unremarkable. No compression deformities identified. Left hip: Total T-Score: -1.2. This compares to 0.2 on the prior examination. Total Z-Score: 0.5 T- and Z-scores: Findings are consistent with osteopenia. No evidence of osteoporosis. Lumbar Spine: Total T-Score: -1.2. This compares to -0.2 on the prior examination. Total Z-Score: 1.2 T- and Z-scores: Findings are consistent with osteopenia. No evidence of osteoporosis. IMPRESSION: No evidence of osteoporosis.
--- NOTE | 2024-01-19 10:27 | DI.CT_ITS ---
Exam(s) CT CHEST WO EXAM: CT CHEST WO CLINICAL HISTORY: screening for lung cancer,former smoker, z87.891 TECHNIQUE: Imaging Protocol: Axial computed tomography images with coronal and sagittal reformatted images were created and reviewed. Low dose screening protocol. COMPARISON: CT RT.UPPER EXTREMITY WO CONTRAST from 03/01/[address] ABDOMEN PELVIS WO from 08/26/[address] RENAL COLIC WO from 09/18/2023 CR XR PORTABLE CHEST AP from 09/20/2023 FINDINGS: Tracheobronchial tree: No bronchiectasis or mucus plugging.. Mediastinum and Anahi: No dominant adenopathy or fluid collection. Pulmonary parenchyma: No consolidation or dominant measurable mass. Lingular scarring. Mild emphyse matous changes. Lung Nodules: 5 millimeter nodule lateral right lower lobe with adjacent micro nodules. Pleura: No effusion. No pneumothorax. Heart: The heart is not dilated. Mild coronary artery calcifications are seen. Aorta: Thoracic aorta non-dilated. Mild atherosclerotic changes. Bones: Unremarkable for age. Soft Tissues: Unremarkable. Upper abdomen: No acute findings. Status post cholecystectomy. IMPRESSION: No suspicious pulmonary nodules. Lung RADS Cat 2 - Benign Appearance / Behavior: Nodules with a very low likelihood of becoming a clin ically active cancer due to size or lack of growth Lung-RADS 1.0 CATEGORIES: Category 0 - Prior chest CT exam(s) being located for comparison. Category 1 - Annual screening in 12 months. No nodules or definitely benign nodules. Category 2 - Annual screening in 12 months. Benign appearance. Nodules with low likelihood of becomin g active cancer. Category 3 - 6-month follow-up. Probably benign. Short-term follow-up suggested. Nodules with low lik elihood of becoming active cancer. Category 4A - 3-month follow-up and CT/PET if >8 mm in size. Suspicious finding. Findings which requi re additional testing. Category 4B - Findings which require additional testing and tissue sampling. Category 4X - Category 3 or 4 nodules with additional features or imaging findings that increases the suspicion of malignancy. Modifier S- Potentially clinically significant findings (non lung cancer) RADIATION DOSE DELIVERED: Total DLP Total DLP DATA REPOSITORY: All CT scans at this facility are submitted to the National Radiology Data Registry (NRDR) Dose Index Registry (DIR) with the [employer] (ACR). RADIATION OPTIMIZATION: All CT scans at this facility use at least one of these dose optimization te chniques: automated exposure control; mA and/or kV adjustment per patient size (includes targeted exa ms where dose is matched to clinical indication); or iterative reconstruction.
--- NOTE | 2024-01-19 10:55 | DI.MAMMO_ITS ---
Exam(s) MAMMO SCREENING EXAM: MAMMO SCREENING CLINICAL HISTORY: screening,z12.39 TECHNIQUE: Mammograms were interpreted according to the usual protocol including computer analysis w [employer] CAD system, tomosynthesis and C-view imaging. COMPARISON: 2013 through 2019 FINDINGS: The breasts are composed of scattered fibroglandular densities, Breast Density category B. No suspicious masses or suspicious microcalcifications are seen. No skin thickening or abnormal axillary lymph nodes are seen. There has been no significant change from prior exams. IMPRESSION: BI-RADS Category 1, Negative mammogram Yearly screening mammography is recommended. Breast Density - Category B, scattered fibroglandular densities. A negative radiographic report should not delay biopsy if a dominant or clinically suspicious mass is present. Up to ten percent of cancers are not identified on mammography. A negative report may reinforce clinical impression. Adenosis and dense breasts may obscure an underlying neoplasm. False positive reports average 6 to 10%. Patient will receive a letter notifying them of these results.
== END ==
PROVIDERS: PCP Nurse Practitioner Family; Visit Provider Nurse Practitioner Family
DX: Z12.31 Encounter for screening mammogram for malignant neoplasm of breast (principal); Z78.0 Asymptomatic menopausal state; E03.9 Hypothyroidism, unspecified; Z87.891 Personal history of nicotine dependence
CPT/HCPCS: 71250; 77063; 77067; 77080

== ENCOUNTER → 2024-01-26 09:57 | Outpatient (BNVA) | payer MEDICARE, SELFPAY | PROVIDERS: PCP Nurse Practitioner Family; Referring Provider Nurse Practitioner Family; Visit Provider Nurse Practitioner Adult Health | DX: R41.89 Other symptoms and signs involving cognitive functions and awareness (principal) | CPT/HCPCS: 99215 ==

== ENCOUNTER → 2024-07-03 14:43 | Outpatient (BNVA) | payer MEDICARE, SELFPAY | PROVIDERS: PCP Nurse Practitioner Family; Referring Provider Nurse Practitioner Family; Visit Provider Physician Assistant Surgical | DX: J44.9 Chronic obstructive pulmonary disease, unspecified (principal); Z87.891 Personal history of nicotine dependence | CPT/HCPCS: 99214 ==

== ENCOUNTER 2024-07-05 09:48 | Outpatient (REF) | payer MEDICARE, SELFPAY ==
[2024-07-05 15:19] LABS: Bilirubin Negative (Negative); Blood Negative (Negative); Clarity Clear (Clear); Glucose Negative (Negative); Ketones Negative (Negative); Leukocyte Esterase Large (Negative); Nitrite Negative (Negative); Urobilinogen 0.2 mg/dL (Up to 0.2); pH 5.5 (5-8)
[2024-07-05 15:43] LABS: Bacteria Moderate HPF (Negative); Crystals Many Calcium Oxalate HPF (Negative); Epithelial Cells Rare HPF (Negative); Mucus Negative (Negative); RBC Negative HPF (0-2); WBC >50 HPF (0-5)
[2024-07-05 15:44] LABS: C & S Indicated? Yes; Casts 0-2 Hyaline LPF (Negative)
== END 2024-07-05 09:49 | disposition home or self-care (01) ==
LOC: LBN 09:48
PROVIDERS: PCP Nurse Practitioner Family; Visit Provider Nurse Practitioner Family
DX: N39.0 Urinary tract infection, site not specified (principal); N76.0 Acute vaginitis; R82.89 Other abnormal findings on cytological and histological examination of urine
CPT/HCPCS: 87077; 81003; 81015; 87086; 87186; 87480; 87510; 87660

== ENCOUNTER → 2024-07-26 13:27 | Outpatient (BNVA) | payer MEDICARE, SELFPAY | PROVIDERS: PCP Nurse Practitioner Family; Referring Provider Nurse Practitioner Family; Visit Provider Nurse Practitioner Adult Health | DX: G31.84 Mild cognitive impairment of uncertain or unknown etiology (principal) | CPT/HCPCS: 99214 ==

== ENCOUNTER 2024-07-26 21:31 | Outpatient (REF) | payer MEDICARE, SELFPAY ==
[2024-07-26 22:07] LABS: COMMENT (LAB VIEW ONLY) 190.53 mg/dL; Microalb ug/mg Crea 6.8 ug/mg Cr
== END 2024-07-26 21:32 | disposition home or self-care (01) ==
LOC: LBN 21:31
PROVIDERS: PCP Nurse Practitioner Family; Visit Provider Nurse Practitioner Family
DX: E11.8 Type 2 diabetes mellitus with unspecified complications (principal); E11.9 Type 2 diabetes mellitus without complications; Z23 Encounter for immunization; R29.6 Repeated falls
CPT/HCPCS: 82043; 82570

== ENCOUNTER 2024-07-27 14:36 | Outpatient (CLI) | payer MEDICARE, SELFPAY ==
[2024-07-27 15:56] LABS: Vitamin B12 636 pg/mL (193-986)
== END 2024-07-27 14:37 | disposition home or self-care (01) ==
LOC: LBO 14:41
PROVIDERS: PCP Nurse Practitioner Family; Visit Provider Nurse Practitioner Adult Health
DX: R41.89 Other symptoms and signs involving cognitive functions and awareness (principal); E11.9 Type 2 diabetes mellitus without complications; Z23 Encounter for immunization; R29.6 Repeated falls
CPT/HCPCS: 36415; 82607

== ENCOUNTER 2024-10-30 15:31 | Outpatient (REF) | payer MEDICARE, SELFPAY ==
[2024-10-30 20:58] LABS: HCT 39.8 % (36.0-46.0); HGB 12.8 g/dL (11.2-15.7); MCH 29.4 pg (27.0-33.0); MCHC 32.2 % (32.0-36.0); MCV 91 fL (80-95); MPV 10.1 fL (8.0-11.0); Platelet Count 312 10^3/uL (130-400); RBC 4.36 10^6/uL (3.93-5.22); RDW-SD 43.2 fL; WBC 8.17 10^3/uL (4.4-10.8)
[2024-10-30 21:31] LABS: Ferritin 70 ng/mL (8-252)
[2024-10-30 23:09] LABS: Iron 73 ug/dL (50-170)
== END 2024-10-30 15:32 | disposition home or self-care (01) ==
LOC: LBN 15:31
PROVIDERS: PCP Nurse Practitioner Family; Visit Provider Nurse Practitioner Family
DX: D64.9 Anemia, unspecified (principal); E11.8 Type 2 diabetes mellitus with unspecified complications
CPT/HCPCS: 85027; 82728; 83540

== ENCOUNTER 2024-11-02 01:34 | Outpatient (CLI) | payer MEDICARE, SELFPAY ==
[2024-11-02 12:14] LABS: HCT 41.8 % (36.0-46.0); HGB 13.1 g/dL (11.2-15.7); MCH 29.6 pg (27.0-33.0); MCHC 31.3 % (32.0-36.0); MCV 94 fL (80-95); Platelet Count 319 10^3/uL (130-400); RBC 4.43 10^6/uL (3.93-5.22); RDW 12.9 % (11.7-14.6); RDW-SD 44.2 fL; WBC 9.22 10^3/uL (4.4-10.8)
[2024-11-02 12:46] LABS: Iron 58 ug/dL (50-170)
[2024-11-02 12:55] LABS: Ferritin 32 ng/mL (8-252)
== END 2024-11-02 01:35 | disposition home or self-care (01) ==
LOC: LOS 01:35
PROVIDERS: PCP Nurse Practitioner Family; Visit Provider Nurse Practitioner Family
DX: G25.81 Restless legs syndrome (principal); E11.9 Type 2 diabetes mellitus without complications; D64.9 Anemia, unspecified; E11.8 Type 2 diabetes mellitus with unspecified complications
CPT/HCPCS: 36415; 85027; 82728; 83540

== ENCOUNTER → 2024-12-31 14:42 | Outpatient (BNVA) | payer MEDICARE, SELFPAY | PROVIDERS: PCP Nurse Practitioner Family; Referring Provider Nurse Practitioner Family; Visit Provider Physician Assistant Surgical | DX: J44.9 Chronic obstructive pulmonary disease, unspecified (principal); Z87.891 Personal history of nicotine dependence | CPT/HCPCS: 36415; 99214 ==

== ENCOUNTER 2024-12-31 15:56 | Outpatient (REF) | payer MEDICARE, SELFPAY ==
[2024-12-31 16:18] LABS: Abs Immature Grans 0.04 10^3/uL (0.0-0.06); Absolute Basophil Count 0.09 10^3/uL (0.0-0.2); Absolute Eosinophil Count 0.65 10^3/uL (0.0-0.7); Absolute Lymphocyte Count 1.91 10^3/uL (1.2-3.4); Absolute Neutrophil Count 4.55 10^3/uL (1.2-6.7); Basophils % 1.2 %; Eosinophils % 8.4 %; HCT 43.2 % (36.0-46.0); HGB 13.2 g/dL (11.2-15.7); Immature Grans % 0.5 %; Lymphocytes % 24.7 %; MCH 28.6 pg (27.0-33.0); MCHC 30.6 % (32.0-36.0); MCV 94 fL (80-95); MPV 9.4 fL (8.0-11.0); Monocytes % 6.5 %; Neutrophils % 58.7 %; Platelet Count 321 10^3/uL (130-400); RBC 4.62 10^6/uL (3.93-5.22); RDW 13.1 % (11.7-14.6); RDW-SD 44.3 fL; WBC 7.74 10^3/uL (4.4-10.8)
== END 2024-12-31 15:57 | disposition home or self-care (01) ==
LOC: NCHCN 15:56
PROVIDERS: PCP Nurse Practitioner Family; Visit Provider Physician Assistant Surgical
DX: J45.909 Unspecified asthma, uncomplicated (principal)
CPT/HCPCS: 85025

== ENCOUNTER → 2025-01-24 13:32 | Outpatient (BNVA) | payer MEDICARE, SELFPAY | PROVIDERS: PCP Nurse Practitioner Family; Referring Provider Nurse Practitioner Family; Visit Provider Nurse Practitioner Adult Health | DX: G31.84 Mild cognitive impairment of uncertain or unknown etiology (principal) | CPT/HCPCS: 99214 ==

== ENCOUNTER 2025-01-29 22:01 | Outpatient (REF) | payer MEDICARE, SELFPAY ==
[2025-01-29 22:53] LABS: Hemoglobin A1C 10.2 % (<5.7)
[2025-01-29 23:01] LABS: ALT 94 U/L (14-59); AST 80 U/L (15-37); Albumin 3.4 g/dL (3.4-5.0); Alkaline Phosphatase 128 U/L (46-116); Anion Gap 9.6 mmol/L (3-11); BUN 12 mg/dL (7-18); CO2 26.4 mmol/L (21.0-32.0); Calcium 9.7 mg/dL (8.5-10.1); Calculated LDL 78 mg/dL (<100); Chloride 106 mmol/L (98-107); Cholesterol 177 mg/dL (<200); Estimated GFR 58.75 (mL/min/1.73m2); Glucose 177 mg/dL (74-106); HDL Cholesterol 62 mg/dL (>or=50); Potassium 4.3 mmol/L (3.5-5.1); Sodium 142 mmol/L (136-145); TSH (W/Ref FT4) 4.28 uIU/mL (0.36-3.74); Total Protein 7.4 g/dL (6.4-8.2); Triglyceride 187 mg/dL (<150)
== END 2025-01-29 22:02 | disposition home or self-care (01) ==
LOC: LBN 22:01
PROVIDERS: PCP Nurse Practitioner Family; Visit Provider Nurse Practitioner Family
DX: E78.5 Hyperlipidemia, unspecified (principal); E11.8 Type 2 diabetes mellitus with unspecified complications; E03.9 Hypothyroidism, unspecified
CPT/HCPCS: 80053; 80061; 83036; 84439; 84443

== ENCOUNTER → 2025-04-09 07:42 | Outpatient (BNVA) | payer MEDICARE, SELFPAY | PROVIDERS: PCP Nurse Practitioner Family; Visit Provider Urology | DX: N39.41 Urge incontinence | CPT/HCPCS: 99213 ==